=== PATIENT | male | born 1950 | race Caucasian/White ===

== ENCOUNTER → 2016-06-23 | Outpatient (CLI) | payer OTHER ==
[~2016-06-23] MED LIST: ALBU18002 INH; ATV/1 PO; ATV1 PO; DXY100 PO; FLV1 PO; FOLI1TAB7 PO; FRS/40 PO; IMD/2 PO; IMD2X PO; LEVO1TAB35 PO; MULT-411 PO; MULT-890 PO; NADO20TA PO; OXGN; PANT40TA PO; RIFA550T2 PO; SPR/100 PO
[2016-06-23 12:17] LABS: BASO % 0.4 %; BASO ABS # 0.03 K/uL (0-0.2); COMPLETE YES; HEMATOCRIT 37.4 % (42-52); IG% 0.6 %; LYMPH % 23.9 %; LYMPH ABS # 1.73 K/uL (1.2-3.4); MEAN CELL VOLUME 98.2 fL (80-100); MEAN CORPUSCULAR HEMOGLOBIN 34.4 pg (25-34); MEAN PLATELET VOLUME 9.2 fL (7.4-10.4); MONO % 9.7 %; NEUT % 62.4 %; PLATELET COUNT 264 K/uL (130-400); RED BLOOD COUNT 3.81 M/uL (4.7-6.1); WHITE BLOOD COUNT 7.24 K/uL (4.8-10.8)
[2016-06-23 12:33] LABS: CALCIUM 9.2 mg/dl (8.5-10.1)
[2016-06-23 12:34] LABS: ALT/SGPT 16 U/L (12-78); BLOOD UREA NITROGEN 10 mg/dl (7-18); BUN/CREATININE RATIO 8.7 (10-20); CARBON DIOXIDE 29 mmol/L (21-32); CHLORIDE 91 mmol/L (98-107); CHOLESTEROL 198 mg/dl (0-200); GLUCOSE 89 mg/dl (70-99); SODIUM 129 mmol/L (136-145); TRIGLYCERIDES 82 mg/dl (0-150); VERY LOW DENSITY LIPOPROT CALC 16 mg/dl
[2016-06-23 12:37] LABS: ALB/GLOB RATIO 0.8 (0.9-2); ALKALINE PHOSPHATASE 91 U/L (45-117); AST/SGOT 20 U/L (15-37); CHOLESTEROL/HDL RATIO 1.9; HDL CHOLESTEROL 104 mg/dl; LDL CHOLESTEROL CALCULATED 78 mg/dl
== END | disposition home or self-care (01) ==
LOC: C.LABBFT 10:38
PROVIDERS: ATTEND Physician Assistant Medical
DX: Z11.59 Encounter for screening for other viral diseases (principal); K70.30 Alcoholic cirrhosis of liver without ascites; I10 Essential (primary) hypertension

== ENCOUNTER → 2016-07-21 | Outpatient (CLI) | payer OTHER ==
--- NOTE | 2016-07-21 09:59 | DIAGNOSTIC IMAGING REPORT ---
ULTRASOUND RIGHT UPPER QUADRANT ABDOMEN CLINICAL HISTORY: Cirrhosis. COMPARISON STUDY: Abdominal ultrasound dated 01/18/2016. Abdominal CT dated 08/09/2010. TECHNIQUE: Real-time, grayscale, and color flow sonography of the right upper quadrant of the abdomen was performed. Images are reviewed in the transverse and longitudinal planes. FINDINGS: Liver: The liver is cirrhotic in morphology and heterogeneous in echotexture. There is nodularity of the hepatic surface contour. The liver measures 14.2 cm in length. There is no sonographic evidence of hepatic mass lesion. There is no intrahepatic biliary ductal dilatation. The main portal vein is patent. Gallbladder: Shadowing calcified gallstones are identified. There is no gallbladder wall thickening or pericholecystic fluid. A sonographic Collazo's sign is reportedly absent. The common bile duct measures up to 0.4 cm in diameter. Pancreas: Not well visualized due to overlying bowel gas. Right kidney: Survey images of the right kidney demonstrate cortical atrophy. Parenchymal scarring is suggested in the interpolar region. There is no hydronephrosis. Ascites: None. IMPRESSION: 1. The liver is cirrhotic in morphology and heterogeneous in echotexture. 2. Cholelithiasis without sonographic evidence of acute cholecystitis. 3. The pancreas was not well-visualized due to overlying bowel gas. Electronically signed by: Satish Muñiz M.D. 07/21/2016 9:58 AM Dictated Date/Time: 07/21/2016 9:56 AM
== END | disposition home or self-care (01) ==
LOC: C.ULTR 09:18
PROVIDERS: ATTEND Registered Nurse
DX: K70.30 Alcoholic cirrhosis of liver without ascites (principal); K72.90 Hepatic failure, unspecified without coma; K80.20 Calculus of gallbladder without cholecystitis without obstruction

== ENCOUNTER → 2016-12-28 | Outpatient (CLI) | payer OTHER ==
[~2016-12-28] MED LIST changes: -ALBU18002 INH; -ATV/1 PO; -DXY100 PO; -FOLI1TAB7 PO; -IMD/2 PO; -LEVO1TAB35 PO; -MULT-411 PO
[2016-12-28 17:35] LABS: BASO ABS # 0.09 K/uL (0-0.2); COMPLETE YES; EOS % 3.6 %; HEMATOCRIT 35.5 % (42-52); IG% 0.1 %; LYMPH % 17.1 %; LYMPH ABS # 1.54 K/uL (1.2-3.4); MEAN CELL VOLUME 99.2 fL (80-100); MEAN CORPUSCULAR HEMOGLOBIN 34.4 pg (25-34); MEAN CORPUSCULAR HGB CONC 34.6 g/dl (32-36); MEAN PLATELET VOLUME 9.5 fL (7.4-10.4); MONO % 15.3 %; NEUT % 62.9 %; PLATELET COUNT 306 K/uL (130-400); RED BLOOD COUNT 3.58 M/uL (4.7-6.1); WHITE BLOOD COUNT 8.98 K/uL (4.8-10.8)
[2016-12-28 17:43] LABS: INR 1.1 (0.9-1.1); PROTHROMBIN TIME (PATIENT) 11.3 SECONDS (9.0-12.0)
[2016-12-28 17:47] LABS: ALT/SGPT 17 U/L (12-78); AST/SGOT 21 U/L (15-37); BLOOD UREA NITROGEN 40 mg/dl (7-18); BUN/CREATININE RATIO 16.9 (10-20); CALCIUM 9.7 mg/dl (8.5-10.1); CARBON DIOXIDE 30 mmol/L (21-32); CHLORIDE 100 mmol/L (98-107); CREATININE 2.36 mg/dl (0.60-1.40); GLUCOSE 112 mg/dl (70-99); POTASSIUM 3.5 mmol/L (3.5-5.1); SODIUM 138 mmol/L (136-145)
[2016-12-28 17:50] LABS: ALB/GLOB RATIO 0.7 (0.9-2); ALKALINE PHOSPHATASE 63 U/L (45-117); FERRITIN 629.9 ng/ml (8.0-388.0); TOTAL IRON BINDING CAPACITY 262 mcg/dl (250-450)
[2016-12-30 11:27] LABS: AFP TUMOR MARKER SERUM 5.2 NG/ML (<6.1)
== END | disposition home or self-care (01) ==
LOC: C.LABBFT 15:33
PROVIDERS: ATTEND Internal Medicine
DX: K72.90 Hepatic failure, unspecified without coma (principal); D64.9 Anemia, unspecified; N28.9 Disorder of kidney and ureter, unspecified

== ENCOUNTER 2017-01-01 21:46 | Observation (INO) | payer OTHER ==
[~2017-01-01] VITALS: Ht 162.6 cm; Wt 81.4 kg
[2017-01-01] MEDS ORDERED: NITROGLYCERIN OINT 2% 1GM PACKET EXT STA (21:58)
--- NOTE | 2017-01-01 22:05 | EMERGENCY ROOM VISIT NOTE ---
History Report prepared by Yani: Lonny Vasquez Under the Supervision of: Dr. Satish Patel M.D. First contact with patient: 21:52 Stated Complaint: SOB, COUGH History of Present Illness The patient is a 66 year old male who presents to the Emergency Room with complaints of constant shortness of breath beginning a week ago. The patient states that he had a panic attack this morning, worsening his symptoms and prompting his visit to the emergency room today. He notes that he has had a productive cough for the past week which looks like he is "coughing up white stuff that looks like foam." He denies any vomiting, fever, leg swelling, and diarrhea. He reports that his symptoms improved with a breathing treatment while being transported to the emergency department via EMS. He notes that he wears 2.5L of oxygen at home. En route the patient received a duo neb, an albuterol neb, and 2 SL nitros. The patient was discharged on December 15 for fluid overload and cirrhosis. Source of History: patient Onset: a week ago Position: chest Quality: other (shortness of breath) Timing: constant Modifying Factors (Relieving): other (breathing treatment) Associated Symptoms: + cough (productive), No fevers, No vomiting, No diarrhea Note: The patient complains of a panic attack. He denies any leg swelling. Review of Systems See HPI for pertinent positives & negatives. A total of 10 systems reviewed and were otherwise negative. Past Medical & Surgical Medical Problems: (1) Acid reflux (2) Ascites (3) CHF (congestive heart failure) (4) COPD (chronic obstructive pulmonary disease) (5) Hypertension (6) Kidney disease (7) Liver disease Family History Cancer Diabetes mellitus Heart disease Hypertension Kidney disease Kidney stones Lung disease Social History Smoking Status: Former Smoker Alcohol Use: heavy Marital Status: single Housing Status: lives alone Current/Historical Medications Scheduled Folic Acid (Folvite), 1 MG PO QAM Furosemide (Lasix), 40 MG PO DAILY Multiple Vitamin (Daily Allyssa), 1 TAB PO DAILY Nadolol (Corgard), 20 MG PO QAM Pantoprazole (Protonix), 40 MG PO QAM Rifaximin (Xifaxan), 550 MG PO BID Spironolactone (Aldactone), 100 MG PO QAM Scheduled PRN Home O2 Therapy (Oxygen), 2 LITERS NA PRN PRN for Shortness of Breath Loperamide Hcl (Imodium), 2 MG PO Q6H PRN for Diarrhea Lorazepam (Ativan), 1 MG PO Q12 PRN for TREMORS Allergies Coded Allergies: No Known Allergies (Unverified , 01/01/17) Physical Exam Vital Signs Date Time Temp Pulse Resp B/P (MAP) Pulse Ox O2 Delivery O2 Flow Rate FiO2 01/01/17 22:42 69 142/89 96 Nasal Cannula 2.0 01/01/17 22:28 75 01/01/17 22:04 93 Nasal Cannula 4.0 01/01/17 22:04 93 4.0 01/01/17 21:58 96 Nasal Cannula 4.0 01/01/17 21:58 36.7 71 129/77 94 Nasal Cannula 4.0 Physical Exam GENERAL: Patient is in no acute distress. HEENT: No acute trauma, normocephalic atraumatic, mucous membranes moist, no nasal congestion, no scleral icterus. NECK: No stridor, no adenopathy, no meningismus, trachea is midline. LUNGS: Crackles bilaterally, no wheezing, diminished breath sounds bilaterally, breath sounds equal, persistent dry cough noted. HEART: Without murmurs gallops or rubs, regular rate and rhythm. ABDOMEN: Soft, nontender, bowel sounds positive, no hernias, no peritonitis. EXTREMITIES: No cyanosis or edema, full range of motion of all the joints without pain or difficulty, no signs for acute trauma. NEUROLOGIC: Oriented x 3, no acute motor or sensory deficits, no focal weakness. SKIN: No rash, no jaundice, no diaphoresis. Medical Decision & Procedures ER Provider Diagnostic Interpretation: Radiology results as stated below per my review and radiologist interpretation: CHEST ONE VIEW PORTABLE FINDINGS: The heart is normal in size. No pleural effusions. No pneumothorax. No focal lung consolidations to suggest pneumonia. No evidence for pulmonary edema. Similar appearing and is within the lung bases is likely due to the overlapping ribs. IMPRESSION: No acute process. Electronically signed by: Alex King M.D. 01/01/2017 10:51 PM Laboratory Results 01/01/17 22:16 Red Blood Count 3.70, Mean Corpuscular Volume 98.4, Mean Corpuscular Hemoglobin 33.5, Mean Corpuscular Hemoglobin Concent 34.1, Mean Platelet Volume 9.3, Neutrophils (%) (Auto) 69.1, Lymphocytes (%) (Auto) 15.5, Monocytes (%) (Auto) 11.0, Eosinophils (%) (Auto) 3.4, Basophils (%) (Auto) 0.8, Neutrophils # (Auto ) 6.40, Lymphocytes # (Auto) 1.43, Monocytes # (Auto) 1.02, Eosinophils # (Auto ) 0.31, Basophils # (Auto) 0.07 01/01/17 22:16 Test 01/01/17 22:16 01/01/17 23:15 White Blood Count 9.25 K/uL (4.8-10.8) Red Blood Count 3.70 M/uL (4.7-6.1) Hemoglobin 12.4 g/dL (14.0-18.0) Hematocrit 36.4 % (42-52) Mean Corpuscular Volume 98.4 fL (80-100) Mean Corpuscular Hemoglobin 33.5 pg (25-34) Mean Corpuscular Hemoglobin Concent 34.1 g/dl (32-36) Platelet Count 302 K/uL (130-400) Mean Platelet Volume 9.3 fL (7.4-10.4) Neutrophils (%) (Auto) 69.1 % Lymphocytes (%) (Auto) 15.5 % Monocytes (%) (Auto) 11.0 % Eosinophils (%) (Auto) 3.4 % Basophils (%) (Auto) 0.8 % Neutrophils # (Auto) 6.40 K/uL (1.4-6.5) Lymphocytes # (Auto) 1.43 K/uL (1.2-3.4) Monocytes # (Auto) 1.02 K/uL (0.11-0.59) Eosinophils # (Auto) 0.31 K/uL (0-0.5) Basophils # (Auto) 0.07 K/uL (0-0.2) RDW Standard Deviation 47.5 fL (36.4-46.3) RDW Coefficient of Variation 13.2 % (11.5-14.5) Immature Granulocyte % (Auto) 0.2 % Immature Granulocyte # (Auto) 0.02 K/uL (0.00-0.02) Prothrombin Time 11.3 SECONDS (9.0-12.0) Prothromb Time International Ratio 1.1 (0.9-1.1) Activated Partial Thromboplast Time 25.5 SECONDS (21.0-31.0) Partial Thromboplastin Ratio 1.0 Anion Gap 9.0 mmol/L (3-11) Est Creatinine Clear Calc Drug Dose 32.4 ml/min Estimated GFR () 36.2 Estimated GFR (Non- 31.2 BUN/Creatinine Ratio 14.3 (10-20) Calcium Level 8.9 mg/dl (8.5-10.1) Magnesium Level 1.6 mg/dl (1.8-2.4) Total Bilirubin 0.8 mg/dl (0.2-1) Aspartate Amino Transf (AST/SGOT) 25 U/L (15-37) Alanine Aminotransferase (ALT/SGPT) 18 U/L (12-78) Alkaline Phosphatase 64 U/L (45-117) Ammonia 53.0 umol/L (11-32) Troponin I < 0.015 ng/ml (0-0.045) Pro-B-Type Natriuretic Peptide 1382 pg/ml (0-900) Total Protein 7.7 gm/dl (6.4-8.2) Albumin 3.2 gm/dl (3.4-5.0) Globulin 4.5 gm/dl (2.5-4.0) Albumin/Globulin Ratio 0.7 (0.9-2) Ethyl Alcohol mg/dL < 3.0 mg/dl (0-3) Laboratory results reviewed by me. Medications Administered Medications (Trade) Dose Ordered Sig/Ivette Route Start Time Stop Time Status Last Admin Dose Admin Nitroglycerin (Nitroglycerin 2% Oint) 1 inch NOW STAT EXT 01/01/17 21:58 01/01/17 22:01 DC 01/01/17 22:20 1 INCH Cefepime HCl 2000 mg/Syringe 20 ml @ 5 mls/min NOW STAT IV 01/01/17 22:52 01/01/17 22:55 DC 01/01/17 23:01 5 MLS/MIN Methylprednisolone Sodium Succinate (Solu-Medrol IV) 80 mg NOW STAT IV 01/01/17 22:52 01/01/17 22:53 DC 01/01/17 23:16 80 MG Magnesium Sulfate (Magnesium Sulfate) 2 gm NOW STAT IV 01/01/17 23:20 11/19/17 23:21 DC 01/01/17 23:26 2 GM Albuterol/ Ipratropium (Duoneb) 3 ml NOW STAT INH 01/01/17 23:21 01/01/17 23:22 DC 01/01/17 23:26 3 ML ECG Indication: SOB/dyspnea Rate (beats per minute): 68 Rhythm: normal sinus Findings: no acute ischemic change, no ectopy, other (Diffuse nonspecific ST change) ED Course 2151: The patient was evaluated in room B4. A complete history and physical exam was performed. 2157: Nitroglycerin 1inch EXT 225: Solu-Medrol IV 80mg IV, Cefepime HCl 2000 mg/Syringe 20ml@5mls/min Protocol IV 2319: Magnesium Sulfate 2gm IV 2320: Duoneb 3ml INH 2321: I reevaluated and updated the patient. 2327: Upon reexamination the patient is stable. I discussed results and treatment plan with the patient. He verbalizes agreement and understanding. The patient will be evaluated for further management. Medical Decision Differential diagnoses include: pneumonia, bronchitis, exacerbation of COPD, heart failure, LA, anemia, electrolyte imbalance, and influenza. There is no leukocytosis, a mild anemia was noted. Renal panel testing show some possible acute on chronic renal failure. Magnesium level was low. No hepatitis. Ammonia level was elevated consistent with his liver disease. BNP was elevated consistent with fluid overload. Chest x-ray did not show pneumonia , pneumothorax or CHF. EKG showed a normal sinus rhythm, no acute ischemia. Cardiac enzyme testing times one is not consistent with acute cardiac injury. Blood cultures are pending. Alcohol level is undetectable. There is no coagulopathy. The patient had been in respiratory distress. He was still dyspneic when I did my evaluation but by his own report, was feeling better after the 2 nebulizers and nitroglycerin tablets. The patient was given IV Solu-Medrol, nitro paste, IV magnesium, IV cefepime and a DuoNeb. The patient is definitely breathing better, he feels improved. I think his primary issue is acute bronchitis with a flareup of his COPD. There does not seem to be significant fluid overload by chest x-ray. The patient is in no condition to be discharged. A hospital stay is required. I did speak to the patient and case management. The on-call hospitalist was consulted. Medication Reconcilliation Current Medication List: was personally reviewed by me Blood Pressure Screening Patient's blood pressure: Elevated blood pressure Blood pressure disposition: Elevated BP felt to be situational Consults Time Called: 2324 Consulting Physician: Dr. Duarte - Hospitalist, 3rd Year Resident with Dr. Augustine [facility] Returned Call: [phone] Discussed the patient's case. The patient will be evaluated for further management. Impression Primary Impression: Respiratory distress Additional Impressions: COPD exacerbation Acute bronchitis Hypomagnesemia Scribe Attestation The scribe's documentation has been prepared under my direction and personally reviewed by me in its entirety. I confirm that the note above accurately reflects all work, treatment, procedures, and medical decision making performed by me. Departure Information Dispostion Being Evaluated By Hospitalist Referrals Devon Silver M.D. (PCP) Forms HOME CARE DOCUMENTATION FORM, IMPORTANT VISIT INFORMATION Patient Instructions My [facility] Problem Qualifiers
[2017-01-01] MEDS ORDERED: MULT-411 PO (22:22)
[2017-01-01] MEDS ORDERED: IMD/2 PO (22:22)
[2017-01-01] MEDS ORDERED: CEFEPIME IV 2,000 MG in DEXTROSE 5% 100ML 100 ML IV STA (22:22)
[2017-01-01] MEDS ORDERED: FRS/40 PO (22:22)
[2017-01-01] MEDS ORDERED: FOLI1TAB7 PO (22:22)
[2017-01-01] MEDS ORDERED: ATV/1 PO (22:22)
[2017-01-01] MEDS ORDERED: METHYLPREDNISOLONE 125 MG VIAL IV STA (22:52)
[2017-01-01] MEDS ORDERED: CEFEPIME IV 2,000 MG in SYRINGE 7.5 ML IV STA (22:52)
--- NOTE | 2017-01-01 22:52 | DIAGNOSTIC IMAGING REPORT ---
CHEST ONE VIEW PORTABLE HISTORY: EVALUATE RESPIRATORY DISTRESS.DYSPNEA COMPARISON: Chest 12/15/2016. FINDINGS: The heart is normal in size. No pleural effusions. No pneumothorax. No focal lung consolidations to suggest pneumonia. No evidence for pulmonary edema. Similar appearing and is within the lung bases is likely due to the overlapping ribs. IMPRESSION: No acute process. Electronically signed by: Alex King M.D. 01/01/2017 10:51 PM Dictated Date/Time: 01/01/2017 10:50 PM
[2017-01-01 23:02] LABS: BASO % 0.8 %; BASO ABS # 0.07 K/uL (0-0.2); COMPLETE YES; EOS % 3.4 %; HEMATOCRIT 36.4 % (42-52); IG% 0.2 %; LYMPH % 15.5 %; LYMPH ABS # 1.43 K/uL (1.2-3.4); MEAN CELL VOLUME 98.4 fL (80-100); MEAN CORPUSCULAR HEMOGLOBIN 33.5 pg (25-34); MEAN CORPUSCULAR HGB CONC 34.1 g/dl (32-36); MEAN PLATELET VOLUME 9.3 fL (7.4-10.4); NEUT % 69.1 %; PLATELET COUNT 302 K/uL (130-400); WHITE BLOOD COUNT 9.25 K/uL (4.8-10.8)
[2017-01-01 23:15] LABS: INR 1.1 (0.9-1.1); PROTHROMBIN TIME (PATIENT) 11.3 SECONDS (9.0-12.0)
[2017-01-01 23:19] LABS: ALT/SGPT 18 U/L (12-78); AST/SGOT 25 U/L (15-37); BLOOD UREA NITROGEN 30 mg/dl (7-18); BUN/CREATININE RATIO 14.3 (10-20); CALCIUM 8.9 mg/dl (8.5-10.1); CARBON DIOXIDE 28 mmol/L (21-32); CHLORIDE 101 mmol/L (98-107); CREATININE 2.11 mg/dl (0.60-1.40); GLUCOSE 112 mg/dl (70-99); MAGNESIUM 1.6 mg/dl (1.8-2.4); POTASSIUM 3.8 mmol/L (3.5-5.1); SODIUM 138 mmol/L (136-145)
[2017-01-01] MEDS ORDERED: MAGNESIUM SULFATE 1GM / D5W 1 GM BAG IV STA (23:20)
[2017-01-01] MEDS ORDERED: ALBUT/IPRATROP 3MG/0.5MG NEB 3 ML VIAL INH STA (23:21)
[2017-01-01 23:24] LABS: ALB/GLOB RATIO 0.7 (0.9-2); ALKALINE PHOSPHATASE 64 U/L (45-117)
[2017-01-01 23:31] LABS: URINE APPEARANCE CLOUDY (CLEAR); URINE BILIRUBIN NEG (NEG); URINE COLOR DK YELLOW; URINE NITRITE NEG (NEG); URINE SPECIFIC GRAVITY 1.019 (1.000-1.030); UROBILINOGEN NEG (NEG); ZZUR CULT IF INDIC CLEAN CATCH YES
[2017-01-01] MEDS ORDERED: NITROGLYCERIN 0.4 MG SL PER TAB CHARGE SL PRN (23:45)
[2017-01-01] MEDS ORDERED: LOPERAMIDE HCL 2 MG CAP PO PRN (23:45)
[2017-01-01] MEDS ORDERED: ONDANSETRON INJ 2 MG/ML 2 ML VIAL IV PRN (23:45)
[2017-01-01] MEDS ORDERED: LORAZEPAM 1 MG TAB PO PRN (23:45)
[2017-01-01] MEDS ORDERED: ALUMINUM/MAGNESIUM/SIMETH (MAALOX MAX) 30 ML UDC PO PRN (23:45)
[2017-01-01] MEDS ORDERED: POLYETHYLENE (MIRALAX) 17 GM PACK PO PRN (23:45)
[2017-01-01] MEDS ORDERED: ACETAMINOPHEN 325 MG TAB PO PRN (23:45)
[2017-01-01] MEDS ORDERED: MAGNESIUM HYDROXIDE SUSP 30 ML UDC PO PRN (23:45)
[2017-01-01 23:46] LABS: MANUAL MICROSCOPIC REQUIRED? NO; REVIEW REQ? YES
[2017-01-01] MEDS ORDERED: DOXYCYCLINE HYCLATE 100 MG CAP PO STA (23:52)
[2017-01-01] MEDS ORDERED: POTASSIUM CHLORIDE 10 MEQ TABCR PO STA (23:56)
[2017-01-02] MEDS ORDERED: MAGNESIUM OXIDE 400 MG TAB PO STA (00:01)
[2017-01-02] MEDS ORDERED: IV FLUIDS COMPLETED PRN (00:15)
[2017-01-02 00:30] VITALS: BP 136/83; PULSE 82; TEMP 36.3; O2SAT 92; Ht 162.6 cm; Wt 81.4 kg
[2017-01-02] MEDS ORDERED: MAGNESIUM HYDROXIDE SUSP 30 ML UDC PO PRN (00:30)
[2017-01-02] MEDS ORDERED: ONDANSETRON INJ 2 MG/ML 2 ML VIAL IV PRN (00:30)
[2017-01-02] MEDS ORDERED: NITROGLYCERIN 0.4 MG SL PER TAB CHARGE SL PRN (00:30)
[2017-01-02] MEDS ORDERED: ACETAMINOPHEN 325 MG TAB PO PRN (00:30)
[2017-01-02] MEDS ORDERED: LOPERAMIDE HCL 2 MG CAP PO PRN (00:30)
[2017-01-02] MEDS ORDERED: ALUMINUM/MAGNESIUM/SIMETH (MAALOX MAX) 30 ML UDC PO PRN (00:30)
[2017-01-02] MEDS ORDERED: LORAZEPAM 1 MG TAB PO PRN (00:30)
[2017-01-02] MEDS ORDERED: POLYETHYLENE (MIRALAX) 17 GM PACK PO PRN (00:30)
--- NOTE | 2017-01-02 01:28 | History and Physical ---
History & Physical Date & Time of Service: Jan 01, 2017 at 2350 Chief Complaint: Shortness Of Breath Primary Care Physician: Devon Silver M.D. History of Present Illness Source: patient, hospital records Mr Martin Mark is a 66 year old male with COPD, chronic respiratory failure on 2L O2, cirrhosis, alcoholism who presents with shortness of breath for a week. He reports he has been feeling increasingly short of breath with basic activities. He has noticed more sputum when coughing. He had an episode this morning, which he thinks may have been a panic attack, when he was unable to breathe so came to the ED. He had not increased his home oxygen requirement. In the ambulance, he had an episode of chest pain which improved after receiving nitro. He also had a duoneb which somewhat helped his breathing. He currently feels his breathing is about the same as it was before. On review of records, he was recently admitted on 12/13 for 2 days. He had lower leg swelling due to cirrhosis. He had an echo and had a normal EF at that time. Past Medical/Surgical History Medical Problems: (1) Acid reflux Status: Chronic (2) Ascites Status: Chronic (3) COPD (chronic obstructive pulmonary disease) Status: Chronic (4) Hypertension Status: Chronic (5) Kidney disease Status: Chronic (6) Liver disease Status: Chronic Family History Cancer Diabetes mellitus Heart disease Hypertension Kidney disease Kidney stones Lung disease Social History Smoking Status: Former Smoker Smokeless Tobacco Use: No Alcohol Use: heavy Drug Use: none Marital Status: single Housing status: lives alone Occupational Status: retired Immunizations History of Influenza Vaccine: No History of Tetanus Vaccine?: No Tetanus Immunization Date: July 06, 2000 History of Pneumococcal: No Pneumococcal Date: July 07, 2007 History of Hepatitis B Vaccine: No Multi-Drug Resistant Organisms History of MDRO: No Allergies Coded Allergies: No Known Allergies (Unverified , 01/01/17) Home Medications Scheduled Folic Acid (Folvite), 1 MG PO QAM Furosemide (Lasix), 40 MG PO DAILY Multiple Vitamin (Daily Allyssa), 1 TAB PO DAILY Nadolol (Corgard), 20 MG PO QAM Pantoprazole (Protonix), 40 MG PO QAM Rifaximin (Xifaxan), 550 MG PO BID Spironolactone (Aldactone), 100 MG PO QAM Scheduled PRN Home O2 Therapy (Oxygen), 2 LITERS NA PRN PRN for Shortness of Breath Loperamide Hcl (Imodium), 2 MG PO Q6H PRN for Diarrhea Lorazepam (Ativan), 1 MG PO Q12 PRN for TREMORS Review of Systems See HPI for pertinent positives & negatives. A total of 10 systems reviewed and were otherwise negative. Physical Exam Vital Signs Date Time Temp Pulse Resp B/P (MAP) Pulse Ox O2 Delivery O2 Flow Rate FiO2 01/02/17 00:01 116/56 01/01/17 23:55 67 14 100 Nasal Cannula 2.5 01/01/17 23:31 128/67 01/01/17 23:25 68 15 97 Nasal Cannula 2.5 01/01/17 23:20 134/90 01/01/17 23:02 100/49 01/01/17 22:48 139/65 01/01/17 22:45 65 18 96 Nasal Cannula 2.5 01/01/17 22:42 69 142/89 96 Nasal Cannula 2.0 01/01/17 22:28 75 01/01/17 22:04 93 Nasal Cannula 4.0 01/01/17 22:04 93 4.0 01/01/17 21:58 96 Nasal Cannula 4.0 01/01/17 21:58 36.7 71 129/77 94 Nasal Cannula 4.0 General Appearance: WD/WN, + mild distress Head: normocephalic, atraumatic Eyes: normal inspection ENT: hearing grossly normal Neck: supple, no JVD Respiratory/Chest: + wheezing (diffuse expiratory wheeze) Cardiovascular: regular rate, rhythm, no edema, no murmur, normal peripheral pulses Abdomen/GI: normal bowel sounds, non tender, soft Back: no CVA tenderness, no muscle spasm Extremities/Musculoskelatal: no calf tenderness, no pedal edema Neurologic/Psych: alert, normal mood/affect, normal reflexes, oriented x 3 Skin: no rash Diagnostics Laboratory Results Results Past 24 Hours Test 01/01/17 22:16 01/01/17 23:15 Range/Units White Blood Count 9.25 4.8-10.8 K/uL Red Blood Count 3.70 4.7-6.1 M/uL Hemoglobin 12.4 14.0-18.0 g/dL Hematocrit 36.4 42-52 % Mean Corpuscular Volume 98.4 80-100 fL Mean Corpuscular Hemoglobin 33.5 25-34 pg Mean Corpuscular Hemoglobin Concent 34.1 32-36 g/dl Platelet Count 302 130-400 K/uL Mean Platelet Volume 9.3 7.4-10.4 fL Neutrophils (%) (Auto) 69.1 % Lymphocytes (%) (Auto) 15.5 % Monocytes (%) (Auto) 11.0 % Eosinophils (%) (Auto) 3.4 % Basophils (%) (Auto) 0.8 % Neutrophils # (Auto) 6.40 1.4-6.5 K/uL Lymphocytes # (Auto) 1.43 1.2-3.4 K/uL Monocytes # (Auto) 1.02 0.11-0.59 K/uL Eosinophils # (Auto) 0.31 0-0.5 K/uL Basophils # (Auto) 0.07 0-0.2 K/uL RDW Standard Deviation 47.5 36.4-46.3 fL RDW Coefficient of Variation 13.2 11.5-14.5 % Immature Granulocyte % (Auto) 0.2 % Immature Granulocyte # (Auto) 0.02 0.00-0.02 K/uL Prothrombin Time 11.3 9.0-12.0 SECONDS Prothromb Time International Ratio 1.1 0.9-1.1 Activated Partial Thromboplast Time 25.5 21.0-31.0 SECONDS Partial Thromboplastin Ratio 1.0 Sodium Level 138 136-145 mmol/L Potassium Level 3.8 3.5-5.1 mmol/L Chloride Level 101 98-107 mmol/L Carbon Dioxide Level 28 21-32 mmol/L Anion Gap 9.0 3-11 mmol/L Blood Urea Nitrogen 30 7-18 mg/dl Creatinine 2.11 0.60-1.40 mg/dl Est Creatinine Clear Calc Drug Dose 32.4 ml/min Estimated GFR () 36.2 Estimated GFR (Non- 31.2 BUN/Creatinine Ratio 14.3 10-20 Random Glucose 112 70-99 mg/dl Calcium Level 8.9 8.5-10.1 mg/dl Magnesium Level 1.6 1.8-2.4 mg/dl Total Bilirubin 0.8 0.2-1 mg/dl Aspartate Amino Transf (AST/SGOT) 25 15-37 U/L Alanine Aminotransferase (ALT/SGPT) 18 12-78 U/L Alkaline Phosphatase 64 45-117 U/L Ammonia 53.0 11-32 umol/L Troponin I < 0.015 0-0.045 ng/ml Pro-B-Type Natriuretic Peptide 1382 0-900 pg/ml Total Protein 7.7 6.4-8.2 gm/dl Albumin 3.2 3.4-5.0 gm/dl Globulin 4.5 2.5-4.0 gm/dl Albumin/Globulin Ratio 0.7 0.9-2 Ethyl Alcohol mg/dL < 3.0 0-3 mg/dl Urine Color DK YELLOW Urine Appearance CLOUDY CLEAR Urine pH 5.0 4.5-7.5 Urine Specific [place] 1.019 1.000-1.030 Urine Protein NEG NEG Urine Glucose (UA) NEG NEG Urine Ketones NEG NEG Urine Occult Blood 2+ NEG Urine Nitrite NEG NEG Urine Bilirubin NEG NEG Urine Urobilinogen NEG NEG Urine Leukocyte Esterase MODERATE NEG Urine WBC (Auto) 10-30 0-5 /hpf Urine RBC (Auto) 5-10 0-4 /hpf Urine Hyaline Casts (Auto) 10-30 0-5 /lpf Urine Epithelial Cells (Auto) 10-20 0-5 /lpf Urine Bacteria (Auto) 1+ NEG Urine Crystals CALCIUM OXALATE NONE PRSENT Urine Pathogenic Casts 0 /lpf Urine Yeast (Auto) NONE PRSENT Microbiology Results 01/01/17 Blood Culture, Received Pending 01/01/17 Blood Culture, Received Pending 01/01/17 Urine Culture, Received Pending Diagnostic Radiology CHEST ONE VIEW PORTABLE HISTORY: EVALUATE RESPIRATORY DISTRESS.DYSPNEA COMPARISON: Chest 12/15/2016. FINDINGS: The heart is normal in size. No pleural effusions. No pneumothorax. No focal lung consolidations to suggest pneumonia. No evidence for pulmonary edema. Similar appearing and is within the lung bases is likely due to the overlapping ribs. IMPRESSION: No acute process. EKG Normal sinus rhythm Low voltage QRS Nonspecific ST and T wave abnormality Abnormal ECG When compared with ECG of 21-OCT-2010 17:33, Nonspecific T wave abnormality now evident in Anterior leads Impression Assessment and Plan 66 yo M with acute on chronic respiratory failure - ddx infectious vs edema vs reactive airway disease Shortness of breath - Continue duonebs and home inhalers - Received a dose of Cefepime in ED, will continue with PO Doxycycline - Was on 4L o2 upon arrival. Wean to 2L when able. - Continue Lasix 40mg PO Chest pain, x 1 episode in ambulance - Will repeat troponin in 6 hrs Hypomagnesemia - Repeat to 2.0 Cirrhosis - Continue Spironolactone - Continue Nadolol GERD - Continue PPI Diarrhea - Continue Immodium Dispo: Obs on Tele Code status: Full VTE: Heparin Attending addendum: I have physically seen this patient, have supervised the medical residents activities, and agree with the H&P unless as otherwise noted. Assessment and Plan: Precordial chest pain/nonspecific ST-T changes on EKG-- The patient will be admitted to telemetry for serial cardiac enzymes, cardiac rhythm monitoring and a 2-D echocardiogram with Dopplers. Bronchitis/shortness of breath-- Duonebs every 4 hours while awake every 2 hours when necessary. Received cefepime IV in the ED Place on doxycycline by mouth. Alcoholic cirrhosis--continue spironolactone and nadolol GERD-- Continue PPI. Level of Care Telemetry Advanced Directives Existing Advance Directive: No Existing Living Will: No Existing Power of Drive Away Driver: No Resuscitation Status FULL RESUSCITATION VTE Prophylaxis VTE Risk Assessment Done? Y/N: Yes Risk Level: Moderate Given or contraindicated: SCD's Resident Tracking Resident Involvement: Resident Care Provided Care Provided: Adult Hospital Medicine
[2017-01-02] MEDS ORDERED: PNEUMOCOCCAL ADMINISTRATION CHARGE ONE (01:45)
[2017-01-02] MEDS ORDERED: PNEUMOCOCCAL POLYSACCHARIDES 25 MCG/0.5 ML VIAL/SYR IM. ONE (01:45)
[2017-01-02 05:13] VITALS: BP 139/86; PULSE 82; TEMP 36.9; O2SAT 92
[2017-01-02 07:41] VITALS: BP 129/83; PULSE 65; TEMP 36.5; O2SAT 99
[2017-01-02] MEDS: DOXYCYCLINE HYCLATE 100 MG CAP PO SCH ×2 (08:16→18:26)
[2017-01-02] MEDS ORDERED: FUROSEMIDE 40 MG TAB PO SCH ×2 (09:00)
[2017-01-02] MEDS ORDERED: HEPARIN SOD 5000 UNIT/0.5 ML CARP SQ SCH ×2 (09:00)
[2017-01-02] MEDS ORDERED: RIFAXIMIN TAB 550 MG TAB PO SCH ×2 (09:00)
[2017-01-02] MEDS ORDERED: MULTIVITAMIN TAB PO SCH ×2 (09:00)
[2017-01-02] MEDS ORDERED: PANTOprazole SOD 40 MG TAB PO SCH ×2 (09:00)
[2017-01-02] MEDS ORDERED: SPIRONOLACTONE 100 MG TAB PO SCH ×2 (09:00)
[2017-01-02] MEDS ORDERED: NADOLOL 40 MG TAB PO SCH ×2 (09:00)
[2017-01-02] MEDS ORDERED: MAGNESIUM OXIDE 400 MG TAB PO SCH (09:00)
[2017-01-02 11:52] VITALS: BP 119/72; PULSE 73; TEMP 36.5; O2SAT 97
--- NOTE | 2017-01-02 12:12 | Hospitalist Progress Note ---
Hospitalist Progress Note Date of Service Jan 02, 2017. Subjective Pt evaluation today including: conversation w/ patient, physical exam, chart review, lab review, review of studies Pain: none PO Intake: Good Voiding: no voiding problems The patient was seen and examined this morning. Pt reports doing well today, he feels his breathing is significantly improved at this point. He is still wearing supplemental O2 and reports only using 2L with exertion at home. His feet and legs are still quite swollen. He denies chest pain, palpitations, flutter or dyspnea at rest. He has been ambulating to the bathroom without much difficulty. Pt denies fever, chills, sweats. He has a dry cough, nonproductive. ROS: 6 point ROS reviewed and negative other than above. Objective Vital Signs Date Time Temp Pulse Resp B/P (MAP) Pulse Ox O2 Delivery O2 Flow Rate FiO2 01/02/17 07:45 Nasal Cannula 2.5 01/02/17 07:41 36.5 65 18 129/83 (98) 99 2.0 01/02/17 05:13 36.9 82 20 139/86 (103) 92 Nasal Cannula 2.0 01/02/17 04:00 Nasal Cannula 2.5 01/02/17 00:30 36.3 82 22 136/83 92 Nasal Cannula 2.0 01/02/17 00:01 116/56 01/01/17 23:55 67 14 100 Nasal Cannula 2.5 01/01/17 23:31 128/67 01/01/17 23:25 68 15 97 Nasal Cannula 2.5 01/01/17 23:20 134/90 01/01/17 23:02 100/49 01/01/17 22:48 139/65 01/01/17 22:45 65 18 96 Nasal Cannula 2.5 01/01/17 22:42 69 142/89 96 Nasal Cannula 2.0 01/01/17 22:28 75 01/01/17 22:04 93 Nasal Cannula 4.0 01/01/17 22:04 93 4.0 01/01/17 21:58 96 Nasal Cannula 4.0 01/01/17 21:58 36.7 71 129/77 94 Nasal Cannula 4.0 Physical Exam General Appearance: WD/WN, no apparent distress, + obese Eyes: PERRL, EOMI ENT: hearing grossly normal, pharynx normal Neck: supple, no JVD Respiratory/Chest: chest non-tender, no respiratory distress, no accessory muscle use, + pertinent finding (on 2 L via NC, no wheezing or rhonchi, slightly diminished breath sounds at bases) Cardiovascular: regular rate, rhythm Abdomen: normal bowel sounds, non tender, soft Extremities: non-tender, + pedal edema (2+ minimal pitting edema in BLE ) Neurologic/Psychiatric: alert, normal mood/affect, oriented x 3 Skin: normal color, warm/dry Laboratory Results Last 24 Hours Test 01/01/17 22:16 01/01/17 23:15 01/02/17 05:56 White Blood Count 9.25 K/uL Red Blood Count 3.70 M/uL Hemoglobin 12.4 g/dL Hematocrit 36.4 % Mean Corpuscular Volume 98.4 fL Mean Corpuscular Hemoglobin 33.5 pg Mean Corpuscular Hemoglobin Concent 34.1 g/dl Platelet Count 302 K/uL Mean Platelet Volume 9.3 fL Neutrophils (%) (Auto) 69.1 % Lymphocytes (%) (Auto) 15.5 % Monocytes (%) (Auto) 11.0 % Eosinophils (%) (Auto) 3.4 % Basophils (%) (Auto) 0.8 % Neutrophils # (Auto) 6.40 K/uL Lymphocytes # (Auto) 1.43 K/uL Monocytes # (Auto) 1.02 K/uL Eosinophils # (Auto) 0.31 K/uL Basophils # (Auto) 0.07 K/uL RDW Standard Deviation 47.5 fL RDW Coefficient of Variation 13.2 % Immature Granulocyte % (Auto) 0.2 % Immature Granulocyte # (Auto) 0.02 K/uL Prothrombin Time 11.3 SECONDS Prothromb Time International Ratio 1.1 Activated Partial Thromboplast Time 25.5 SECONDS Partial Thromboplastin Ratio 1.0 Sodium Level 138 mmol/L Potassium Level 3.8 mmol/L Chloride Level 101 mmol/L Carbon Dioxide Level 28 mmol/L Anion Gap 9.0 mmol/L Blood Urea Nitrogen 30 mg/dl Creatinine 2.11 mg/dl Est Creatinine Clear Calc Drug Dose 32.4 ml/min Estimated GFR () 36.2 Estimated GFR (Non- 31.2 BUN/Creatinine Ratio 14.3 Random Glucose 112 mg/dl Calcium Level 8.9 mg/dl Magnesium Level 1.6 mg/dl Total Bilirubin 0.8 mg/dl Aspartate Amino Transf (AST/SGOT) 25 U/L Alanine Aminotransferase (ALT/SGPT) 18 U/L Alkaline Phosphatase 64 U/L Ammonia 53.0 umol/L Troponin I < 0.015 ng/ml < 0.015 ng/ml Pro-B-Type Natriuretic Peptide 1382 pg/ml Total Protein 7.7 gm/dl Albumin 3.2 gm/dl Globulin 4.5 gm/dl Albumin/Globulin Ratio 0.7 Ethyl Alcohol mg/dL < 3.0 mg/dl Urine Color DK YELLOW Urine Appearance CLOUDY Urine pH 5.0 Urine Specific Julian 1.019 Urine Protein NEG Urine Glucose (UA) NEG Urine Ketones NEG Urine Occult Blood 2+ Urine Nitrite NEG Urine Bilirubin NEG Urine Urobilinogen NEG Urine Leukocyte Esterase MODERATE Urine WBC (Auto) 10-30 /hpf Urine RBC (Auto) 5-10 /hpf Urine Hyaline Casts (Auto) 10-30 /lpf Urine Epithelial Cells (Auto) 10-20 /lpf Urine Bacteria (Auto) 1+ Urine Crystals CALCIUM OXALATE Urine Pathogenic Casts /lpf Urine Yeast (Auto) Assessment and Plan 66 yo M with acute on chronic respiratory failure - ddx infectious vs edema vs reactive airway disease Shortness of breath - Continue duonebs and home inhalers - Received a dose of Cefepime in ED, will continue with PO Doxycycline - Was on 4L o2 upon arrival - pt now on 2L - asked nursing to walk and check saturations. - Continue Lasix 40mg PO - pt still with slight pitting and 2+ edema in BLE Chest pain, x 1 episode in ambulance Precordial chest pain/nonspecific ST-T changes on EKG-- - Cardiac enzymes negative x 3 - Echo obtained - awaiting final result Hypomagnesemia - resolved - Repleated to 2.0 STEVE on CKD - Cr. is elevated to 2.36 as an outpatient few days ago, and baseline seemed to be much better even only a few months ago. - Dr. Silver (PCP) called and is requesting several studies to evaluate CKD as pt is very noncompliant and has not gone to get bloodwork or studies completed as an outpatient Serum and urine Protein electrophoresis Renal U/S Ferritin Nephrology consult - will hold off on this pending other study results. Alcoholic Cirrhosis - Continue Spironolactone - Continue Nadolol GERD - Continue PPI Diarrhea - Continue Immodium DVT ppx: heparin subq Code status: Full Dispo: Admitted under observation, discharge possible tomorrow pending renal studies and improvement in Cr.
--- NOTE | 2017-01-02 15:40 | DIAGNOSTIC IMAGING REPORT ---
EXAMINATION: RENAL ULTRASOUND CLINICAL HISTORY: Chronic kidney disease. COMPARISON STUDY: Biliary ultrasound dated 07/21/2016 FINDINGS: The right kidney measures 9.2 cm. The left kidney measures 10.3 cm. There is no evidence of hydronephrosis. There is a 3.7 cm lower pole left renal cyst. There is mild bladder wall thickening. Bilateral ureteral jets were visualized. IMPRESSION : 1. No evidence of hydronephrosis 2. 3.7 cm left renal cyst 3. Mild bladder wall thickening Electronically signed by: Chencho Rey M.D. 01/02/2017 3:39 PM Dictated Date/Time: 01/02/2017 3:38 PM
[2017-01-02] MEDS ORDERED: DXY100 PO (18:02)
--- NOTE | 2017-01-02 18:04 | Discharge Instructions ---
Discharge Instructions Date of Service Jan 02, 2017. Admission Reason for Admission: Shortness Of Breath Discharge Discharge Diagnosis / Problem: Shortness of breath: multifactorial cause, cirrhosis, bronchitis Discharge Goals Goal(s): Improve function, Increase independence Activity Recommendations Activity Limitations: resume your previous activity . Instructions / Follow-Up Instructions / Follow-Up F/U with Dr. Silver within 1 week Paient needs to repeat creatinine ad partial renal test at next visit with Dr. Silver Current Hospital Diet Patient's current hospital diet: AHA Diet (Heart Healthy) Discharge Diet Recommended Diet: AHA Diet (Heart Healthy) Fluid Restriction: 1800 ml (7 cups) Pending Studies Studies pending at discharge: no Medical Emergencies . Who to Call and When: Medical Emergencies: If at any time you feel your situation is an emergency, please call 911 immediately. . Non-Emergent Contact Non-Emergency issues call your: Primary Care Provider Call Non-Emergent contact if: you have any medication questions . . "Provider Documentation" section prepared by Medardo Bangura. . VTE Core Measure Inpt VTE Proph given/why not?: SCD's
--- NOTE | 2017-01-02 18:05 | Discharge Summary ---
Discharge Summary Date of Service Jan 02, 2017. Discharge Summary Admission Date: Jan 01, 2017 at 23:50 Immunizations: Have You Had Influenza Vaccine: No History of Tetanus Vaccine?: No Tetanus Immunization Date: July 06, 2000 History of Pneumococcal: No Pneumococcal Date: July 07, 2007 History of Hepatitis B Vaccine: No Hospital Course Patient did not want to stay another night. I recommended patien to stay the night but patient refused. will discharge patient after informing him that I recommended against this. Patient is aware This includes examination of the patient, discharge planning, medication reconciliation, and communication with other providers. Discharge Instructions Please refer to the electronic Patient Visit Report (Discharge Instructions) for additional information.
[2017-01-02 18:15] VITALS: BP 119/72; PULSE 73; TEMP 36.5; O2SAT 97
[2017-01-03 17:30] LABS: ALBUMIN 3.7 G/DL (3.8-4.8); GAMMA GLOBULIN 1.2 G/DL (0.8-1.7)
[2017-01-04 09:25] LABS: CREATININE UR 137 MG/DL (20-370)
== END 2017-01-02 18:37 | disposition home or self-care (01) ==
LOC: EDBD 21:46 → C.EDB 21:47 → C.MED 23:50 → ENRESERV 01-02
PROVIDERS: ADMIT Hospitalist; ATTEND Internal Medicine Sports Medicine
DX: J44.9 Chronic obstructive pulmonary disease, unspecified (principal); I10 Essential (primary) hypertension; Z87.891 Personal history of nicotine dependence; K74.60 Unspecified cirrhosis of liver; E83.42 Hypomagnesemia; R19.7 Diarrhea, unspecified; F10.20 Alcohol dependence, uncomplicated

== ENCOUNTER → 2017-01-10 | Outpatient (CLI) | payer OTHER ==
[~2017-01-10] MED LIST changes: +ATV/1 PO; -ATV1 PO; +DXY100 PO; -FLV1 PO; +FOLI1TAB7 PO; +IMD/2 PO; -IMD2X PO; +MULT-411 PO; -MULT-890 PO
[2017-01-10 17:53] LABS: URINE APPEARANCE CLEAR (CLEAR); URINE BILIRUBIN NEG (NEG); URINE COLOR YELLOW; URINE NITRITE NEG (NEG); URINE SPECIFIC GRAVITY 1.019 (1.000-1.030); UROBILINOGEN NEG (NEG)
[2017-01-10 17:56] LABS: MANUAL MICROSCOPIC REQUIRED? NO; REVIEW REQ? NO
[2017-01-10 17:58] LABS: BLOOD UREA NITROGEN 34 mg/dl (7-18); BUN/CREATININE RATIO 16.1 (10-20); CALCIUM 9.6 mg/dl (8.5-10.1); CARBON DIOXIDE 32 mmol/L (21-32); CHLORIDE 100 mmol/L (98-107); CREATININE 2.13 mg/dl (0.60-1.40); GLUCOSE 101 mg/dl (70-99); POTASSIUM 4.1 mmol/L (3.5-5.1); SODIUM 137 mmol/L (136-145)
[2017-01-10 18:04] LABS: FERRITIN 563.2 ng/ml (8.0-388.0)
[2017-01-10 18:28] LABS: URINE PROTIEN/CREAT RATIO 0.1 (0-0.2)
[2017-01-12 17:53] LABS: ALBUMIN 3.8 G/DL (3.8-4.8); GAMMA GLOBULIN 1.2 G/DL (0.8-1.7); TOTAL PROTEIN 7.2 G/DL (6.2-8.3)
[2017-01-13 10:21] LABS: CREATININE UR 182 MG/DL (20-370)
== END | disposition home or self-care (01) ==
LOC: C.LABBFT 14:01
PROVIDERS: ATTEND Physician Assistant Medical
DX: N28.9 Disorder of kidney and ureter, unspecified (principal); D64.9 Anemia, unspecified; R39.9 Unspecified symptoms and signs involving the genitourinary system

== ENCOUNTER → 2017-01-13 | Outpatient (CLI) | payer OTHER ==
--- NOTE | 2017-01-13 09:36 | DIAGNOSTIC IMAGING REPORT ---
(RENAL)RETROPERITON COMP CLINICAL HISTORY: 66 years-old Male presenting with RENAL INSUFFICIENCY. TECHNIQUE: Real-time grayscale and limited color Doppler ultrasound imaging of the kidneys and bladder was performed. COMPARISON: 01/02/2017. FINDINGS: Right kidney: Normal echogenicity. Right kidney measures 11.3 cm. No hydronephrosis. No convincing evidence of calculus or mass. Normal perfusion. Left kidney: Normal echogenicity. Left kidney measures 10.9 cm. No hydronephrosis. 4.1 x 4.0 x 3.2 cm lower pole simple cyst. Normal perfusion. Bladder: Interval increase in irregular circumferential bladder wall thickening measuring up to 6 mm. Bilateral ureteral jets present. Other: None. IMPRESSION: 1. No hydronephrosis. 2. Interval increase in bladder wall thickening. This could suggest chronic bladder outlet obstruction or cystitis. Correlate with urinalysis. Electronically signed by: Lopez Brower M.D. 01/13/2017 9:35 AM Dictated Date/Time: 01/13/2017 9:33 AM
== END | disposition home or self-care (01) ==
LOC: C.ULTR 08:43
PROVIDERS: ATTEND Internal Medicine
DX: N28.9 Disorder of kidney and ureter, unspecified (principal)

== ENCOUNTER → 2017-01-25 | Outpatient (CLI) | payer OTHER ==
[~2017-01-25] MED LIST changes: -FOLI1TAB7 PO; +FOLI1TAB8 PO
--- NOTE | 2017-01-25 09:19 | DIAGNOSTIC IMAGING REPORT ---
ABDOMINAL ULTRASOUND, RIGHT UPPER QUADRANT HISTORY: LAENNEC'S CIROSIS. COMPARISON: Abdominal ultrasound 07/21/2016. FINDINGS: Pancreas: Obscured by overlying bowel gas. Liver: 13 cm in length. Nodular contour consistent with cirrhosis. No hepatic masses identified. Gallbladder: Multiple small gallstones. No gallbladder wall thickening. CBD: 3 mm. Right kidney: No hydronephrosis. IMPRESSION: 1. No change from the prior study. 2. Cholelithiasis. 3. Cirrhotic and atrophic liver. Electronically signed by: Alex King M.D. 01/25/2017 9:17 AM Dictated Date/Time: 01/25/2017 9:16 AM
== END | disposition home or self-care (01) ==
LOC: C.ULTR 08:25
PROVIDERS: ATTEND Registered Nurse
DX: K70.30 Alcoholic cirrhosis of liver without ascites (principal); K72.90 Hepatic failure, unspecified without coma; K80.20 Calculus of gallbladder without cholecystitis without obstruction

== ENCOUNTER → 2017-03-03 | Outpatient (CLI) | payer OTHER ==
[2017-03-03 16:55] LABS: ALBUMIN 3.5 gm/dl (3.4-5.0); BLOOD UREA NITROGEN 29 mg/dl (7-18); CALCIUM 9.4 mg/dl (8.5-10.1); CARBON DIOXIDE 30 mmol/L (21-32); CREATININE 2.41 mg/dl (0.60-1.40); GLUCOSE 105 mg/dl (70-99); SODIUM 135 mmol/L (136-145)
[2017-03-03 16:56] LABS: PHOSPHORUS 2.8 mg/dl (2.5-4.9)
== END | disposition home or self-care (01) ==
LOC: C.LABBFT 11:54
PROVIDERS: ATTEND Internal Medicine Nephrology
DX: N28.9 Disorder of kidney and ureter, unspecified (principal); K70.30 Alcoholic cirrhosis of liver without ascites

== ENCOUNTER → 2017-05-03 | Outpatient (CLI) | payer OTHER ==
[2017-05-03 12:48] LABS: ALBUMIN 3.5 gm/dl (3.4-5.0); BLOOD UREA NITROGEN 18 mg/dl (7-18); CALCIUM 9.5 mg/dl (8.5-10.1); CARBON DIOXIDE 26 mmol/L (21-32); CREATININE 1.77 mg/dl (0.60-1.40); GLUCOSE 98 mg/dl (70-99); PHOSPHORUS 2.9 mg/dl (2.5-4.9); POTASSIUM 3.9 mmol/L (3.5-5.1); SODIUM 139 mmol/L (136-145)
== END | disposition home or self-care (01) ==
LOC: C.LABBFT 09:04
PROVIDERS: ATTEND Internal Medicine Nephrology
DX: N28.9 Disorder of kidney and ureter, unspecified (principal)

== ENCOUNTER → 2017-09-05 | Outpatient (CLI) | payer OTHER ==
[~2017-09-05] MED LIST changes: -ATV/1 PO; -DXY100 PO; -IMD/2 PO; +SPIR100T3 PO; -SPR/100 PO
[2017-09-05 10:40] LABS: ALBUMIN 3.9 gm/dl (3.4-5.0); BLOOD UREA NITROGEN 27 mg/dl (7-18); CALCIUM 9.5 mg/dl (8.5-10.1); CARBON DIOXIDE 26 mmol/L (21-32); CREATININE 1.78 mg/dl (0.60-1.40); GLUCOSE 94 mg/dl (70-99); PHOSPHORUS 3.8 mg/dl (2.5-4.9); POTASSIUM 4.7 mmol/L (3.5-5.1); SODIUM 139 mmol/L (136-145)
== END | disposition home or self-care (01) ==
LOC: C.LAB1850 09:21
PROVIDERS: ATTEND Internal Medicine Nephrology
DX: K70.30 Alcoholic cirrhosis of liver without ascites (principal); N28.9 Disorder of kidney and ureter, unspecified

== ENCOUNTER 2018-11-15 16:26 | Inpatient (IN) ==
[2018-11-15 17:08] LABS: Basophils # (auto) 0.03 K/uL (0-0.2); Basophils % (auto) 0.3 %; Hematocrit (blood only) 38.5 % (42-52); Hemoglobin 13.2 g/dL (14.0-18.0); Immature Granulocytes # (auto) 0.02 K/uL (0.00-0.02); Immature Granulocytes % (auto) 0.2 %; Lymphocytes # (auto) 0.85 K/uL (1.2-3.4); Lymphocytes % (auto) 8.6 %; Mean Corpuscular Hemoglobin 33.9 pg (25-34); Mean Corpuscular Hgb Conc 34.3 g/dL (32-36); Mean Platelet Volume 9.7 fL (7.4-10.4); Monocytes # (auto) 0.75 K/uL (0.11-0.59); Monocytes % (auto) 7.6 %; Neutrophils % (auto) 81.3 %; Platelet Count 197 K/uL (130-400); RDW Coefficient of Variation 13.4 % (11.5-14.5); RDW Standard Deviation 48.3 fL (36.4-46.3); Red Blood Count 3.89 M/uL (4.7-6.1); White Blood Count 9.85 K/uL (4.8-10.8)
[2018-11-15 17:16] LABS: Alanine Aminotransferase 19 U/L (12-78); Albumin Level 3.3 gm/dl (3.4-5.0); Aspartate Aminotransferase 19 U/L (15-37); BUN Creatinine Ratio 12.1 (10-20); Blood Urea Nitrogen 21 mg/dl (7-18); Calcium 8.9 mg/dl (8.5-10.1); Carbon Dioxide 29 mmol/L (21-32); Chloride 100 mmol/L (98-107); Est GFR (Non-African American) 39.7; Glucose 116 mg/dl (70-99); Potassium 4.4 mmol/L (3.5-5.1); Sodium 137 mmol/L (136-145)
[2018-11-15 17:19] LABS: Albumin Globulin Ratio 0.7 (0.9-2); Alkaline Phosphatase 89 U/L (45-117); Bilirubin,Total 0.5 mg/dl (0.2-1); Globulin 4.4 gm/dl (2.5-4.0); Total Protein 7.7 gm/dl (6.4-8.2)
--- NOTE | 2018-11-15 17:19 | XRay Report ---
SINGLE VIEW CHEST CLINICAL HISTORY: Dyspnea. FINDINGS: An AP, portable, upright chest radiograph is compared to study dated 10/26/2018 and correlat ed with chest CT dated 02/14/2013. The examination is degraded by portable technique and apical lordoti c positioning. The cardiomediastinal silhouette is unremarkable. Lingular density likely represents scar/atelectasis. The lungs and pleural spaces are otherwise clear. No pneumothorax is seen. The skel etal structures are osteopenic. The bony thorax is grossly intact. IMPRESSION: 1. No acute cardiopulmonary abnormality is identified. 2. Density in the lingula likely represent scarring/atelectasis. Clinical correlation will be require d. A precautionary follow-up PA and lateral examination is recommended in one month for reassessment. Electronically signed by: Satish Muñiz M.D. 11/15/2018 5:18 PM
[2018-11-15 17:30] LABS: NT Pro B Type Natriuretic Pept 433 pg/ml (0-900); Troponin I < 0.015 ng/ml (0-0.045)
[2018-11-15 17:38] LABS: Partial Thromboplastin Time 27.6 Seconds (21.0-31.0); Prothrombin Time 10.7 Seconds (9.0-12.0)
[2018-11-15] MEDS ORDERED: FUROSEMIDE 20 MG in SYRINGE 0 ML IV ONE (17:39)
[2018-11-15] MEDS ORDERED: FUROSEMIDE 40 MG/4 ML VIAL IV ONE (18:04)
--- NOTE | 2018-11-15 19:42 | History & Physical Report ---
Date of Service November 15, 2018 Assessment & Plan (1) CHF (congestive heart failure): Patient is in acute congestive heart failure with volume overload Admit to PCU on telemetry Vital signs every 4 hours Follow-up electrolytes closely and replenish as needed potassium to be above 4 and magnesium above 2 Started Lasix drip at 2 mg/h. Titrate based on the patient urinary output not to be more than 2 L/day Monitor strict in and out Daily weight Low-sodium diet with free water restriction of 12 mL/day Hold home dose of furosemide p.o. every morning since patient is on Lasix, continue propranolol 20 mg p.o. twice daily, continue Spironolactone 100 mg p.o. every morning DVT prophylaxis with heparin 5000 units every 12 hours Full code Present on Admission?: Yes (2) Shortness of breath: As above Present on Admission?: Yes (3) Bilateral lower extremity edema: Keep lower extremities elevated at least 2 to 3 hours/day Present on Admission?: Yes (4) Weight gain: Follow-up closely weight again since it is going connected to patient congestive heart failure Present on Admission?: Yes (5) COPD (chronic obstructive pulmonary disease): Continue home medicine Combivent Respimat 1 puff 4 times daily Present on Admission?: Yes (6) Kidney disease: Avoid nephrotoxic agents. Patient is at his baseline hold pantoprazole 40 mg p.o. daily since it can worsen renal failure started famotidine 20 mg IV daily. Present on Admission?: Yes History of Present Illness Chief Complaint: Shortness of breath and swelling of the lower extremities Primary Care Provider: Devon Silver MD Patient is a 68 years old male with past medical history ofCongestive heart failure, portal hypertension, COPD, hypertension, paroxysmal atrial fibrillation, benign prostatic hypertrophy, anemia, CKD stage III who presents to the emergency room shortness of breath and swelling of the lower extremities for couple of days. Patient reports that he gradually gain 20 pounds for several weeks. Patient denies fever chills chest pain abdominal pain frequency urgency hemoptysis melena melena hematuria or dysuria. Labs are reviewed which shows CBC of 9.85, hemoglobin 13.2, hematocrit 38.5, platelets 197, PT 10.7, INR 1, APTT 27.6 sodium 137, potassium 4.4, BUN 21, creatinine 1.71, GFR 39.7, troponin 0 0.015, BNP 433. Urine is all negative. Patient was made to admit patient to PCU on telemetry for CHF acute CHF exacerbation and diuresis. Allergies Allergy/AdvReac Type Severity Reaction Status Date / Time No Known Allergies Allergy Verified 11/15/18 16:57 Home Medications Home Medications Medication Instructions Recorded Confirmed Type Combivent Respimat 1 puff INHALATION QID PRN 07/25/18 11/15/18 History Xifaxan 550 mg PO BID 07/25/18 11/15/18 History cholecalciferol (vitamin D3) 1,000 unit PO QAM 07/25/18 11/15/18 History [Vitamin D3] furosemide 20 mg PO QAM 07/25/18 11/15/18 History spironolactone 100 mg PO QAM 07/25/18 11/15/18 History tamsulosin 0.4 mg PO QAM 07/25/18 11/15/18 History pantoprazole 40 mg tablet,delayed 40 mg PO .COMPLEX #30 tab 09/19/18 11/15/18 Rx release propranolol 20 mg tablet 20 mg PO BID #0 tab 09/28/18 11/15/18 Rx Past Med/Surg History Medical History Vitamin D deficiency (Acute) Seborrheic dermatitis (Acute) Portal hypertension (Acute) Microscopic hematuria (Acute) Laennec's cirrhosis (alcoholic) (Acute) Hepatic encephalopathy (Acute) Hearing loss (Acute) Gout, joint (Acute) Esophageal varices (Acute) Elevated AFP (Acute) Edema (Acute) Duodenal ulcer (Acute) Chronic kidney disease, stage 3 (Acute) BPH with obstruction/lower urinary tract symptoms (Acute) BMI 31.0-31.9,adult (Acute) Anemia (Acute) Irregular heart beat On home oxygen therapy 1L oxygen Short of breath on exertion Sleep apnea cpap with oxygen 1L Surgical History History of appendectomy History of esophagogastroduodenoscopy (EGD) History of tooth extraction Family History Father Myocardial infarction Unknown Diabetes Coronary heart disease Other No family history of adverse response to anesthesia Social History Preferred Language: Wallisian Communication Ability: Effective 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 Installer Required: No Beliefs That Will Affect Care: None Current Living Situation: Alone Feels Safe at Home: Yes Smoking Status: Former smoker Tobacco Type: smokeless tobacco ; Second Hand Exposure: Yes (bar environment) ; Hx Alcohol Use: Yes Alcohol type: beer Hx Substance Use: No Review of Systems Review of Systems: All systems reviewed & are unremarkable except as noted in HPI & below Physical Exam Constitutional: WD/WN, vitals as above well developed and + obese Eyes: PERRL, conjunctivae normal, anicteric sclerae ENMT: external ear and nose normal, oropharynx normal Neck: trachea midline, no thyromegaly Cardiovascular: RRR, no murmur, no edema Heart Sounds: normal S1 and normal S2 Palpation: + palpable S3 Vessels: + JVD and dorsalis pedis pulses present Extremities: + pedal edema (3+ pitting edema bilaterally) Gastrointestinal (Abdomen): normal bowel sounds, soft, nontender, no hepa tosplenomegaly Skin: Bilateral erythema over lower extremities around ankles due to chronic venostasis. Does not appears to be inflamed such as cellulitis. Neurologic: patellar DTR's 2+ bilat, sensation intact Psychiatric: A+Ox3, euthymic affect Lymphatic: no cervical or axillary lymphadenopathy Results & Data Vital Signs (Past 12 Hours) Vital Signs Temp Pulse Resp BP Pulse Ox 11/15/18 17:50 80 20 100 11/15/18 17:40 80 14 98 11/15/18 17:31 82 24 137/82 99 11/15/18 17:30 82 21 100 11/15/18 17:20 97 11/15/18 17:10 83 18 97 11/15/18 17:01 80 24 140/69 99 11/15/18 17:00 80 17 98 11/15/18 16:56 37 C 77 20 146/65 H 99 11/15/18 16:50 83 28 H 98 11/15/18 16:48 81 21 146/65 H 97 11/15/18 16:45 83 23 97 11/15/18 16:31 81 24 145/68 H 97 Code Status & VTE Plan Code Status Full code VTE Prophylaxis Plan VTE Prophylaxis will be ordered: Yes PG Care Time/CCT Total # of Minutes Spent Total Time Spent with Patient: Total time spent is greater than 50% in coordination of care (as documented) at patient's floor/unit and/or counseling patient: (1) COPD (chronic obstructive pulmonary disease) COPD type: COPD with acute exacerbation Qualified Code(s): J44.1 - Chronic obstructive pulmonary disease with (acute) exacerbation
[2018-11-15] MEDS ORDERED: OXYCODONE/ACETAMINOPHEN 5mg/325mg TAB PO PRN (19:51)
[2018-11-15] MEDS ORDERED: POLYETHYLENE (MIRALAX) 17 GM PACK PO PRN (19:53)
[2018-11-15] MEDS ORDERED: FUROSEMIDE 100 MG in DEXTROSE 5% 90 ML IV SCH (19:53)
[2018-11-15] MEDS ORDERED: MAGNESIUM HYDROXIDE SUSP 30 ML UDC PO PRN (19:53)
[2018-11-15] MEDS ORDERED: ALUMINUM/MAGNESIUM SUSP 30 ML UDC PO PRN (19:53)
[2018-11-15] MEDS ORDERED: ACETAMINOPHEN 325 MG TAB PO PRN (19:53)
[2018-11-15] MEDS ORDERED: IPRATROPIUM BROMIDE/ALBUTEROL respimat INH INH PRN (19:53)
[2018-11-15] MEDS ORDERED: ONDANSETRON INJ 2 MG/ML 2 ML VIAL IV PRN (19:53)
[2018-11-15] MEDS ORDERED: ZOLPIDEM TARTRATE 5 MG TAB PO PRN (19:53)
[2018-11-15 20:37] LABS: Basophils # (auto) 0.02 K/uL (0-0.2); Basophils % (auto) 0.2 %; Eosinophils # (auto) 0.23 K/uL (0-0.5); Hematocrit (blood only) 39.5 % (42-52); Hemoglobin 13.4 g/dL (14.0-18.0); Immature Granulocytes # (auto) 0.03 K/uL (0.00-0.02); Immature Granulocytes % (auto) 0.3 %; Lymphocytes # (auto) 0.97 K/uL (1.2-3.4); Lymphocytes % (auto) 8.6 %; Mean Corpuscular Hemoglobin 33.5 pg (25-34); Mean Corpuscular Hgb Conc 33.9 g/dL (32-36); Mean Corpuscular Volume 98.8 fL (80-100); Mean Platelet Volume 9.6 fL (7.4-10.4); Monocytes # (auto) 0.92 K/uL (0.11-0.59); Monocytes % (auto) 8.1 %; Neutrophils # (auto) 9.15 K/uL (1.4-6.5); Neutrophils % (auto) 80.8 %; Platelet Count 196 K/uL (130-400); RDW Coefficient of Variation 13.5 % (11.5-14.5); RDW Standard Deviation 48.4 fL (36.4-46.3); White Blood Count 11.32 K/uL (4.8-10.8)
[2018-11-15 20:55] LABS: Potassium 4.6 mmol/L (3.5-5.1)
[2018-11-15 21:10] LABS: Thyroid Stimulating Hormone 0.741 uIu/ml (0.300-4.500)
[2018-11-15] MEDS: FUROSEMIDE 20 MG in SYRINGE 0 ML IV SCH (21:14)
[2018-11-15] MEDS: FAMOTIDINE 20 MG in SYRINGE 3 ML IV SCH (21:14)
[2018-11-15] MEDS: RIFAXIMIN 550 MG TABLET PO SCH (21:14)
[2018-11-15] MEDS: PROPRANOLOL HCL 20 MG TAB PO SCH (21:14)
--- NOTE | 2018-11-15 22:12 | Emergency Department Note ---
Entered by Yvette Meyer acting as a scribe for Adrian Singh MD History of Present Illness General Chief complaint: Shortness of Breath/Dyspnea Time Seen by Provider: 11/15/18 17:06 Source: patient Mode of arrival: EMS Limitations: no limitations History of Present Illness Onset (ago): day(s) 3 Location: chest Radiation: non-radiation Pain Consistency: + constant Relieved By: + other (Oxygen) Exacerbated By: + movement (Exertion) Associated symptoms: + other (-diarrhea, -hematochezia); no chest pain and no nausea/vomiting Treatments prior to arrival: none The patient is a 68 year old male who presents to the ED with complaints of shortness of breath. He states he has a history of CHF and thinks he has gained 20 pounds in the past few weeks. He does wear O2 at home. Exertion worsens his breathing. He denies any recent fevers. He has been taking his medications as prescribed and thinks his hypertension medication may have been increased recently. He does 20 mg of Lasix daily. He denies any chest pain, nausea, vomiting, diarrhea or hematochezia. He does not take daily blood thinners. His last known well is 1130 this morning. Home Medications Home Medications Medication Instructions Recorded Confirmed Type Combivent Respimat 1 puff INHALATION QID PRN 07/25/18 11/15/18 History Xifaxan 550 mg PO BID 07/25/18 11/15/18 History cholecalciferol (vitamin D3) 1,000 unit PO QAM 07/25/18 11/15/18 History [Vitamin D3] furosemide 20 mg PO QAM 07/25/18 11/15/18 History spironolactone 100 mg PO QAM 07/25/18 11/15/18 History tamsulosin 0.4 mg PO QAM 07/25/18 11/15/18 History pantoprazole 40 mg tablet,delayed 40 mg PO .COMPLEX #30 tab 09/19/18 11/15/18 Rx release propranolol 20 mg tablet 20 mg PO BID #0 tab 09/28/18 11/15/18 Rx Allergies Allergy/AdvReac Type Severity Reaction Status Date / Time No Known Allergies Allergy Verified 11/15/18 16:57 Past Med/Surg History Medical History Vitamin D deficiency (Acute) Seborrheic dermatitis (Acute) Portal hypertension (Acute) Microscopic hematuria (Acute) Laennec's cirrhosis (alcoholic) (Acute) Hepatic encephalopathy (Acute) Hearing loss (Acute) Gout, joint (Acute) Esophageal varices (Acute) Elevated AFP (Acute) Edema (Acute) Duodenal ulcer (Acute) Chronic kidney disease, stage 3 (Acute) BPH with obstruction/lower urinary tract symptoms (Acute) BMI 31.0-31.9,adult (Acute) Anemia (Acute) Irregular heart beat On home oxygen therapy 1L oxygen Short of breath on exertion Sleep apnea cpap with oxygen 1L Surgical History History of appendectomy History of esophagogastroduodenoscopy (EGD) History of tooth extraction Family History Father Myocardial infarction Unknown Diabetes Coronary heart disease Other No family history of adverse response to anesthesia Social History Preferred Language: Kosovan Communication Ability: Effective Water [employer] Required: No Beliefs That Will Affect Care: None Current Living Situation: Alone Other Information That Helps Us Care for You: No Feels Safe at Home: Yes Safety Concerns: Feels Safe At This Time Smoking Status: Never smoker Tobacco Type: smokeless tobacco ; Second Hand Exposure: Yes (bar environment) ; Hx Alcohol Use: Yes Alcohol type: beer Hx Substance Use: No Review of Systems See HPI for pertinent positives & negatives. and A total of 10 systems reviewed and were otherwise negative Physical Exam Vital Signs Vital Signs - 24 hr 11/15/18 16:31 11/15/18 16:45 11/15/18 16:48 Temperature Temperature Source Sepsis Recent Fever Within 48 Hours Sepsis Action Taken by Nursing Pulse Rate 81 83 81 Pulse Rate from SpO2 Sensor 81 82 82 Pulse Rhythm Pulse Strength Respiratory Rate 24 23 21 Respiratory Effort / Characteristics Respiratory Depth Respiratory Pattern Blood Pressure 145/68 H 146/65 H Blood Pressure Mean 93 92 Blood Pressure Position Pulse Oximetry 97 97 97 Oxygen Delivery Method Oxygen Flow Rate 11/15/18 16:50 11/15/18 16:56 11/15/18 17:00 Temperature 37 C Temperature Source Oral Sepsis Recent Fever Within 48 Hours No Sepsis Action Taken by Nursing No Action Required Pulse Rate 83 77 80 Pulse Rate from SpO2 Sensor 84 79 Pulse Rhythm Regular Pulse Strength Normal Respiratory Rate 28 H 20 17 Respiratory Effort / Characteristics Non-Labored Spontaneous Respiratory Depth Normal Respiratory Pattern Regular Blood Pressure 146/65 H Blood Pressure Mean 92 Blood Pressure Position Lying Pulse Oximetry 98 99 98 Oxygen Delivery Method Nasal Cannula Oxygen Flow Rate 3 11/15/18 17:01 11/15/18 17:10 11/15/18 17:16 Temperature Temperature Source Sepsis Recent Fever Within 48 Hours Sepsis Action Taken by Nursing Pulse Rate 80 83 Pulse Rate from SpO2 Sensor 80 86 Pulse Rhythm Pulse Strength Respiratory Rate 24 18 Respiratory Effort / Characteristics Respiratory Depth Respiratory Pattern Blood Pressure 140/69 Blood Pressure Mean 92 Blood Pressure Position Pulse Oximetry 99 97 Oxygen Delivery Method Nasal Cannula Oxygen Flow Rate 11/15/18 17:20 11/15/18 17:30 11/15/18 17:31 Temperature Temperature Source Sepsis Recent Fever Within 48 Hours Sepsis Action Taken by Nursing Pulse Rate 82 82 Pulse Rate from SpO2 Sensor 84 82 83 Pulse Rhythm Pulse Strength Respiratory Rate 21 24 Respiratory Effort / Characteristics Respiratory Depth Respiratory Pattern Blood Pressure 137/82 Blood Pressure Mean 100 Blood Pressure Position Pulse Oximetry 97 100 99 Oxygen Delivery Method Oxygen Flow Rate 11/15/18 17:40 11/15/18 17:50 Temperature Temperature Source Sepsis Recent Fever Within 48 Hours Sepsis Action Taken by Nursing Pulse Rate 80 80 Pulse Rate from SpO2 Sensor 82 80 Pulse Rhythm Pulse Strength Respiratory Rate 14 20 Respiratory Effort / Characteristics Respiratory Depth Respiratory Pattern Blood Pressure Blood Pressure Mean Blood Pressure Position Pulse Oximetry 98 100 Oxygen Delivery Method Oxygen Flow Rate General: Chronically ill-appearing older male, wearing Oxygen, in no acute distress. HEENT: Normal cephalic atraumatic. Pupils are equal round and reactive to light. Extraocular movements are intact. Oropharynx is pink with moist mucous membrane s. No swelling of the mouth lips or tongue. Neck: Supple with a midline trachea. No meningeal signs or stiffness, no JVD or bruits. No Stridor. Chest: Clear to auscultation bilaterally. No wheezes or rhonchi. No increased work of breathing. Heart: regular rate and rhythm. Abdomen: Soft nontender, nondistended without rebound guarding or rigidity. Extremities: No cyanosis or clubbing. No calf tenderness or asymmetry. Bilateral pitting edema. Spine/Back. Non tender to palpation. No CVA tenderness Skin: Good turgor without rashes. Neurologic exam: Cranial nerves two through 12 are intact. Motor and sensation are intact and symmetrical throughout. Course 1713: The patient was evaluated in room A12A and a complete history and physical were performed. 1735: The patient saw his PCP today for acute CHF and increased shortness of breath. 1755: I discussed the patients case with Dr. Kaba, [facility]. The patient will be further evaluated. Consultations Consultation #1: I discussed the patients case with Dr. Kaba, [facility]. The patient will be further evaluated. Time: 17:55 Administered Medications Famotidine 20 mg/ Syringe 5 mls @ 2.5 mls/min IV Q24H CRISTAL Stop: 12/15/18 20:59 Last Admin: 11/15/18 21:14 Dose: 2.5 mls/min Documented by: [id number] Furosemide 20 mg/ Syringe 2 mls @ 4 mls/min IV [id number] CRISTAL Stop: 12/15/18 20:59 Last Admin: 11/15/18 21:14 Dose: 4 mls/min Documented by: [id number] Propranolol HCl (Inderal) 20 mg PO BID CRISTAL Stop: 12/15/18 20:59 Last Admin: 11/15/18 21:14 Dose: 20 mg Documented by: [id number] Rifaximin (Xifaxan) 550 mg PO BID CRISTAL Stop: 12/15/18 20:59 Last Admin: 11/15/18 21:14 Dose: 550 mg Documented by: [id number] Discontinued Medications Furosemide (Lasix) Confirm Administered Dose 40 mg IV .STK-MED ONE Stop: 11/15/18 18:05 Last Admin: 11/15/18 18:07 Dose: 20 mg Documented by: [id number] Furosemide 20 mg/ Syringe 2 mls @ 4 mls/min IV ONE ONE Stop: 11/15/18 17:40 Last Admin: 11/15/18 18:07 Dose: Not Given Documented by: [id number] Medical Decision Making Differential Diagnosis The differential diagnoses considered include CHF, lower extremity edema, cardiac disease, infection, electrolyte or metabolic abnormality. Medical Records Attestation: I reviewed the patient's medical records. Home Medications Current Medication List: was personally reviewed by pa Laboratory Data Attestation: I reviewed the patient's lab results. Result diagrams: 11/15/18 20:16 11/15/18 20:16 Lab Results 11/15/18 11/15/18 11/15/18 Range/Units 16:48 16:48 16:48 WBC 9.85 (4.8-10.8) K/uL RBC 3.89 L (4.7-6.1) M/uL Hgb 13.2 L (14.0-18.0) g/dL Hct 38.5 L (42-52) % MCV 99.0 (80-100) fL MCH 33.9 (25-34) pg MCHC 34.3 (32-36) g/dL RDW Std Deviation 48.3 H (36.4-46.3) fL RDW Coeff of Walter 13.4 (11.5-14.5) % Plt Count 197 (130-400) K/uL MPV 9.7 (7.4-10.4) fL Immature Gran % (Auto) 0.2 % Neut % (Auto) 81.3 % Lymph % (Auto) 8.6 % [place] % (Auto) 7.6 % Eos % (Auto) 2.0 % Baso % (Auto) 0.3 % Immature Gran # (Auto) 0.02 (0.00-0.02) K/uL Neut # (Auto) 8.00 H (1.4-6.5) K/uL Lymph # (Auto) 0.85 L (1.2-3.4) K/uL [place] # (Auto) 0.75 H (0.11-0.59) K/uL Eos # (Auto) 0.20 (0-0.5) K/uL Baso # (Auto) 0.03 (0-0.2) K/uL PT 10.7 (9.0-12.0) Seconds INR 1.0 (0.9-1.1) APTT 27.6 (21.0-31.0) Seconds PTT Ratio 1.0 Sodium 137 (136-145) mmol/L Potassium 4.4 (3.5-5.1) mmol/L Chloride 100 (98-107) mmol/L Carbon Dioxide 29 (21-32) mmol/L Anion Gap 8.0 (3-11) BUN 21 H (7-18) mg/dl Creatinine 1.71 H (0.6-1.4) mg/dl Est Cr Clr Drug Dosing Not Reportable Est GFR ( Amer) 46.0 Est GFR (Non-Af Amer) 39.7 BUN/Creatinine Ratio 12.1 (10-20) Glucose 116 H (70-99) mg/dl Calcium 8.9 (8.5-10.1) mg/dl Total Bilirubin 0.5 (0.2-1) mg/dl AST 19 (15-37) U/L ALT 19 (12-78) U/L Alkaline Phosphatase 89 (45-117) U/L Troponin I < 0.015 (0-0.045) ng/ml NT-Pro-B Natriuret Pep 433 (0-900) pg/ml Total Protein 7.7 (6.4-8.2) gm/dl Albumin 3.3 L (3.4-5.0) gm/dl Globulin 4.4 H (2.5-4.0) gm/dl Albumin/Globulin Ratio 0.7 L (0.9-2) Imaging Data Radiologist's Impression: Radiology results as stated below per my review and the radiologist's interpretation: SINGLE VIEW CHEST CLINICAL HISTORY: Dyspnea. FINDINGS: An AP, portable, upright chest radiograph is compared to study dated 10/26/2018 and correlated with chest CT dated 02/14/2013. The examination is degraded by portable technique and apical lordotic positioning. The cardiomediastinal silhouette is unremarkable. Lingular density likely represents scar/atelectasis. The lungs and pleural spaces are otherwise clear. No pneumothorax is seen. The skeletal structures are osteopenic. The bony thorax is grossly intact. IMPRESSION: 1. No acute cardiopulmonary abnormality is identified. 2. Density in the lingula likely represent scarring/atelectasis. Clinical correlation will be required. A precautionary follow-up PA and lateral examination is recommended in one month for reassessment. Electronically signed by: Satish Muñiz M.D. 11/15/2018 5:18 PM ECG Data Attestation: I personally reviewed and interpreted this ECG as follows: Indication: SOB/dyspnea Rate (beats per minute): 81 Rhythm: normal sinus Findings: no acute ischemic change Comparison ECG Date: from (10/26/2018) Change: no significant change Blood Pressure Blood Pressure Findings: Elevated blood pressure Blood Pressure Disposition: further management by hospitalist MDM Narrative This patient comes in as described above. He is having shortness of breath and lower extremity edema. He has gained around 20 pounds over the last month. He saw his primary care physician who sent him up here by ambulance today as they were concerned. He is on supplemental oxygen which she does not wear at all times but wears intermittently. His EKG does not suggest acute coronary syn drome or arrhythmia. His chest x-ray does not show any pulmonary edema. His legs have significant peripheral edema. He has no electrolyte or metabolic abnormality. He was given IV Lasix. I do think he needs to be admitted/observe for further diuresis and evaluation. He does have history of COPD is not wheezing at this point. I did consult the [facility] hospitalist to see in the ER for these measures. Impression & Plan CHF (congestive heart failure), Shortness of breath, Bilateral lower extremity edema, Weight gain Discharge Plan Visit Data *Final* Discharge Date/Time: 11/15/18 19:12 Chief Complaint: Shortness of Breath/Dyspnea ED Provider: Adrian Singh Discharge Problem: CHF (congestive heart failure), Shortness of breath, Bilateral lower extremity edema, Weight gain Patient Disposition: Admitted As Inpatient Discharge Instructions Interventions: ED Discharge Assessment Last Done: 11/15/18 19:12 The scribe's documentation has been prepared under my direction and personally reviewed by me in its entirety. I confirm that the note above accurately reflects all work, treatment, procedures, and medical decision making performed by me.
[2018-11-15] MEDS: HEPARIN SOD 5,000 UNIT/0.5 ML VIAL SQ SCH (22:32)
[2018-11-16] MEDS: HEPARIN SOD 5,000 UNIT/0.5 ML VIAL SQ SCH ×4 (06:00→21:36)
[2018-11-16 07:18] LABS: Basophils # (auto) 0.04 K/uL (0-0.2); Basophils % (auto) 0.4 %; Eosinophils # (auto) 0.21 K/uL (0-0.5); Eosinophils % (auto) 2.3 %; Hematocrit (blood only) 40.3 % (42-52); Hemoglobin 13.4 g/dL (14.0-18.0); Immature Granulocytes # (auto) 0.01 K/uL (0.00-0.02); Immature Granulocytes % (auto) 0.1 %; Lymphocytes # (auto) 0.94 K/uL (1.2-3.4); Lymphocytes % (auto) 10.3 %; Mean Corpuscular Hemoglobin 33.2 pg (25-34); Mean Corpuscular Hgb Conc 33.3 g/dL (32-36); Mean Corpuscular Volume 99.8 fL (80-100); Mean Platelet Volume 9.7 fL (7.4-10.4); Monocytes # (auto) 1.03 K/uL (0.11-0.59); Monocytes % (auto) 11.3 %; Neutrophils # (auto) 6.89 K/uL (1.4-6.5); Neutrophils % (auto) 75.6 %; Platelet Count 178 K/uL (130-400); RDW Coefficient of Variation 13.6 % (11.5-14.5); RDW Standard Deviation 49.7 fL (36.4-46.3); Red Blood Count 4.04 M/uL (4.7-6.1); White Blood Count 9.12 K/uL (4.8-10.8)
[2018-11-16 07:46] LABS: Alanine Aminotransferase 14 U/L (12-78); Albumin Level 3.4 gm/dl (3.4-5.0); Aspartate Aminotransferase 18 U/L (15-37); BUN Creatinine Ratio 12.5 (10-20); Blood Urea Nitrogen 24 mg/dl (7-18); Calcium 9.3 mg/dl (8.5-10.1); Carbon Dioxide 30 mmol/L (21-32); Chloride 101 mmol/L (98-107); Est GFR (African American) 39.5; Est GFR (Non-African American) 34.1; Glucose 98 mg/dl (70-99); Potassium 4.3 mmol/L (3.5-5.1); Sodium 137 mmol/L (136-145)
[2018-11-16] MEDS: CHOLECALCIFEROL 1,000 UNITS TAB PO SCH (07:46)
[2018-11-16] MEDS: RIFAXIMIN 550 MG TABLET PO SCH ×2 (07:47→20:15)
[2018-11-16] MEDS: TAMSULOSIN HCL 0.4 MG CAP PO SCH (07:47)
[2018-11-16] MEDS: POTASSIUM CHLORIDE 20 MEQ TABCR PO SCH (07:47)
[2018-11-16] MEDS: SPIRONOLACTONE 100 MG TAB PO SCH (07:47)
[2018-11-16] MEDS: FUROSEMIDE 20 MG in SYRINGE 0 ML IV SCH ×2 (07:48→17:06)
[2018-11-16 07:49] LABS: Albumin Globulin Ratio 0.8 (0.9-2); Alkaline Phosphatase 90 U/L (45-117); Bilirubin,Total 0.8 mg/dl (0.2-1); Globulin 4.1 gm/dl (2.5-4.0); Total Protein 7.5 gm/dl (6.4-8.2)
[2018-11-16] MEDS: PROPRANOLOL HCL 20 MG TAB PO SCH ×2 (07:49→20:14)
[2018-11-16] MEDS ORDERED: INFLUENZA ADMINISTRATION CHARGE ONE (09:00)
[2018-11-16] MEDS ORDERED: INFLUENZA VIRUS QUAD VACCINE 0.5 ML SYR IM ONE (09:00)
[2018-11-16] MEDS ORDERED: FUROSEMIDE 20 MG TAB PO SCH (09:00)
--- NOTE | 2018-11-16 14:04 | Ultrasound Report ---
US venous doppler LE LT CLINICAL HISTORY: 68 years-old Male presenting with edema. TECHNIQUE: Real-time grayscale and color and spectral Doppler ultrasound imaging of the veins of the left lower extremity was performed. Compression and augmentation were also utilized. COMPARISON: 12/12/2016. FINDINGS: LEFT: Common femoral vein: Patent. Greater saphenous vein (superficial): Patent. Deep femoral vein: Patent. Femoral vein: Patent. Popliteal vein: Patent. Calf veins: Patent. Other: Subcutaneous edema in the lower leg. IMPRESSION: 1. No evidence of deep venous thrombosis. 2. Subcutaneous edema in the lower leg. Electronically signed by: Lopez Brower M.D. 11/16/2018 2:03 PM
[2018-11-16] MEDS: cefTRIAXone SODIUM 2,000 MG in DEXTROSE 5% 50 ML IV SCH (14:07)
[2018-11-16] MEDS ORDERED: ALBUT/IPRATROP 3MG/0.5MG NEB 3 ML VIAL NEB PRN (15:16)
--- NOTE | 2018-11-16 15:39 | Hospitalist Progress Note ---
Date of Service November 16, 2018 Assessment & Plan (1) Acute on chronic systolic CHF (congestive heart failure): Continue Lasix drip at 2 mg/h. Titrate based on the patient urinary output not to be more than 2 L/day Monitor strict in and out Daily weight Low-sodium diet Hold home dose of furosemide p.o. every morning since patient is on Lasix, continue propranolol 20 mg p.o. twice daily, continue Spironolactone 100 mg p.o. every morning Patient refusing elevation of lower extremities to relieve edema (2) Cellulitis: Left lower leg cellulitis IV ceftriaxone BC pending Venous doppler without DVT, does show subcutaneous edema (3) COPD (chronic obstructive pulmonary disease): Continue home medicine Combivent Respimat 1 puff 4 times daily Duoneb prn (4) Chronic kidney disease, stage 3: Baseline creat 1.7-2 - at baseline Monitor kidney function Avoid nephrotoxins where possible (5) Cirrhosis: Continue rifaximin, propranolol Per outpatient notes, patient has recently been drinking again. Will need to monitor for detox. AWSS, prn ativan (6) DVT prophylaxis: SCDs, heparin subq Subjective Mr. Mark feels he is breathing better. His lower extremities are swollen bilaterally. No events on the monitor Review of Systems Review of Systems: All systems reviewed & are unremarkable except as noted in HPI & below Physical Exam Physical Exam: General: no distress Eyes: normal inspection, PERLL Respiratory: chest non tender, clear to auscultation, normal breath sounds, no respiratory distress, no accessory muscle use Cardiac: regular rate and rhythm, no rub or gallop, no murmur, bilateral lower extremity edema L >R GI/: active bowel sounds, no abd pain or tenderness, soft, non distended Extremities: normal range of motion, normal strength, non tender Neuro/Psych: alert and oriented x 3, normal mood and affect Skin: normal color, dry, left lower leg erythema without crepitus tender but not painful to palpation Results & Data Vital Signs (Past 12 Hours) Vital Signs Temp Pulse Pulse Resp BP Pulse Ox 11/16/18 11:28 36.5 C 76 18 135/77 96 11/16/18 09:11 72 11/16/18 07:18 36.5 C 71 18 136/72 98 11/16/18 04:21 36.6 C 78 19 145/71 H 95 PG Care Time/CCT Total # of Minutes Spent Total Time Spent with Patient: Total time spent is greater than 50% in coordination of care (as documented) at patient's floor/unit and/or counseling patient: (1) COPD (chronic obstructive pulmonary disease) COPD type: COPD with acute exacerbation Qualified Code(s): J44.1 - Chronic obstructive pulmonary disease with (acute) exacerbation
[2018-11-16] MEDS ORDERED: LORazepam 1 MG/2 ML VIAL IV PRN (15:59)
[2018-11-16] MEDS: FAMOTIDINE 20 MG in SYRINGE 3 ML IV SCH (20:14)
[2018-11-17 05:56] LABS: Basophils # (auto) 0.02 K/uL (0-0.2); Basophils % (auto) 0.3 %; Eosinophils % (auto) 2.9 %; Hematocrit (blood only) 39.1 % (42-52); Hemoglobin 12.7 g/dL (14.0-18.0); Immature Granulocytes # (auto) 0.02 K/uL (0.00-0.02); Immature Granulocytes % (auto) 0.3 %; Lymphocytes # (auto) 0.86 K/uL (1.2-3.4); Lymphocytes % (auto) 12.3 %; Mean Corpuscular Hemoglobin 32.6 pg (25-34); Mean Corpuscular Hgb Conc 32.5 g/dL (32-36); Mean Corpuscular Volume 100.3 fL (80-100); Mean Platelet Volume 9.7 fL (7.4-10.4); Monocytes # (auto) 0.85 K/uL (0.11-0.59); Monocytes % (auto) 12.2 %; Neutrophils # (auto) 5.04 K/uL (1.4-6.5); Platelet Count 151 K/uL (130-400); RDW Coefficient of Variation 13.7 % (11.5-14.5); RDW Standard Deviation 49.5 fL (36.4-46.3); White Blood Count 6.99 K/uL (4.8-10.8)
[2018-11-17] MEDS: HEPARIN SOD 5,000 UNIT/0.5 ML VIAL SQ SCH ×3 (06:07→20:45)
[2018-11-17 06:30] LABS: Alanine Aminotransferase 14 U/L (12-78); Aspartate Aminotransferase 17 U/L (15-37); BUN Creatinine Ratio 14.8 (10-20); Blood Urea Nitrogen 32 mg/dl (7-18); Calcium 9.1 mg/dl (8.5-10.1); Carbon Dioxide 30 mmol/L (21-32); Chloride 103 mmol/L (98-107); Est GFR (African American) 34.7; Est GFR (Non-African American) 29.9; Glucose 93 mg/dl (70-99); Potassium 4.1 mmol/L (3.5-5.1); Sodium 141 mmol/L (136-145)
[2018-11-17 06:33] LABS: Albumin Globulin Ratio 0.7 (0.9-2); Alkaline Phosphatase 78 U/L (45-117); Bilirubin,Total 0.6 mg/dl (0.2-1); Globulin 4.2 gm/dl (2.5-4.0); Total Protein 7.2 gm/dl (6.4-8.2)
[2018-11-17] MEDS: PROPRANOLOL HCL 20 MG TAB PO SCH ×2 (08:40→20:47)
[2018-11-17] MEDS: POTASSIUM CHLORIDE 20 MEQ TABCR PO SCH (08:40)
[2018-11-17] MEDS: RIFAXIMIN 550 MG TABLET PO SCH ×2 (08:40→20:47)
[2018-11-17] MEDS: TAMSULOSIN HCL 0.4 MG CAP PO SCH (08:40)
[2018-11-17] MEDS: CHOLECALCIFEROL 1,000 UNITS TAB PO SCH (08:40)
[2018-11-17] MEDS: SPIRONOLACTONE 100 MG TAB PO SCH (08:41)
[2018-11-17] MEDS: cefTRIAXone SODIUM 2,000 MG in DEXTROSE 5% 50 ML IV SCH (13:52)
--- NOTE | 2018-11-17 16:09 | Hospitalist Progress Note ---
Date of Service November 17, 2018 Assessment & Plan (1) Hypoxia: On admission, CXR with no acute cardiopulmonary abnormality. XR did show density in the lingula likely represent scarring/atelectasis. Recommend follow- up PA and lateral examination is recommended in one month for reassessment. BNP was 484 on admission. Patient was mildly hypoxic requiring 3L NC, sats were 89% on RA. He did report weight gain with lower extremity edema. Last echo was 2016 showing EF 70% and no WMA - Discontinue Lasix for increasing creatinine - Monitor strict in and out - Daily weight - Low-sodium diet - Continue propranolol 20 mg p.o. twice daily, hold Spironolactone 100 mg p.o. and furosemide for morning labs - Repeat echo - will assess for ascites as source of sob, weight gain, edema (2) Cellulitis: Improving Left lower leg cellulitis Continue IV ceftriaxone Venous doppler without DVT, does show subcutaneous edema in left leg (3) COPD (chronic obstructive pulmonary disease): Continue home medicine Combivent Respimat 1 puff 4 times daily Duoneb prn Does not appear to be in exacerbation (4) Chronic kidney disease, stage 3: Baseline creat 1.7-2 - creatinine 2.16 today Monitor kidney function Avoid nephrotoxins where possible Hold lasix for now, prp am (5) Cirrhosis: Continue rifaximin, propranolol Per outpatient notes, patient has recently been drinking again. Will need to monitor for detox. [facility] (6) DVT prophylaxis: SCDs, heparin subq Subjective Mr. Mark reports feeling better. He denies any chest pain. He is on room air, breathing has improved. He has no pain in his leg at site of cellulitis Review of Systems Review of Systems: All systems reviewed & are unremarkable except as noted in HPI & below Physical Exam Physical Exam: General: no distress Eyes: normal inspection, PERLL Respiratory: chest non tender, clear to auscultation, normal breath sounds, no respiratory distress, no accessory muscle use Cardiac: regular rate and rhythm, no rub or gallop, no murmur, +1 pitting edema lower extremities GI/: active bowel sounds, no abd pain or tenderness, soft, non distended Extremities: normal range of motion, normal strength, non tender Neuro/Psych: alert and oriented x 3, normal mood and affect Skin: normal color, dry, improving erythema left lower extremity Results & Data Vital Signs (Past 12 Hours) Vital Signs Temp Pulse Resp BP Pulse Ox 11/17/18 14:56 36.6 C 68 20 121/67 93 11/17/18 10:44 36.9 C 86 21 136/75 94 11/17/18 07:45 36.8 C 84 19 141/75 H 90 11/17/18 04:40 36.6 C 88 18 153/78 H 90 PG Care Time/CCT Total # of Minutes Spent Total Time Spent with Patient: Total time spent is greater than 50% in coordination of care (as documented) at patient's floor/unit and/or counseling patient: (1) COPD (chronic obstructive pulmonary disease) COPD type: COPD with acute exacerbation Qualified Code(s): J44.1 - Chronic obstructive pulmonary disease with (acute) exacerbation
--- NOTE | 2018-11-17 18:58 | Ultrasound Report ---
LIMITED ABDOMINAL ULTRASOUND FOR ASCITES EVALUATION CLINICAL HISTORY: Abdominal distention COMPARISON STUDY: 01/16/2018 FINDINGS: A four-quadrant survey was performed. No ascites is visualized. The liver has a cirrhotic a ppearance.. IMPRESSION: No ascites identified Electronically signed by: Chencho Rey M.D. 11/17/2018 6:57 PM
[2018-11-17] MEDS: FAMOTIDINE 20 MG in SYRINGE 3 ML IV SCH (20:49)
[2018-11-18 06:04] LABS: Basophils # (auto) 0.04 K/uL (0-0.2); Basophils % (auto) 0.5 %; Eosinophils # (auto) 0.25 K/uL (0-0.5); Hematocrit (blood only) 37.9 % (42-52); Hemoglobin 12.7 g/dL (14.0-18.0); Immature Granulocytes # (auto) 0.02 K/uL (0.00-0.02); Immature Granulocytes % (auto) 0.2 %; Lymphocytes % (auto) 12.1 %; Mean Corpuscular Hemoglobin 33.2 pg (25-34); Mean Corpuscular Hgb Conc 33.5 g/dL (32-36); Mean Corpuscular Volume 99.2 fL (80-100); Mean Platelet Volume 9.5 fL (7.4-10.4); Monocytes # (auto) 0.89 K/uL (0.11-0.59); Monocytes % (auto) 10.8 %; Neutrophils # (auto) 6.07 K/uL (1.4-6.5); Neutrophils % (auto) 73.4 %; Platelet Count 178 K/uL (130-400); RDW Coefficient of Variation 13.7 % (11.5-14.5); RDW Standard Deviation 49.1 fL (36.4-46.3); Red Blood Count 3.82 M/uL (4.7-6.1); White Blood Count 8.27 K/uL (4.8-10.8)
[2018-11-18] MEDS: HEPARIN SOD 5,000 UNIT/0.5 ML VIAL SQ SCH ×3 (06:13→19:57)
[2018-11-18 06:46] LABS: Alanine Aminotransferase 14 U/L (12-78); Albumin Globulin Ratio 0.8 (0.9-2); Albumin Level 3.1 gm/dl (3.4-5.0); Aspartate Aminotransferase 17 U/L (15-37); BUN Creatinine Ratio 16.6 (10-20); Bilirubin,Total 0.4 mg/dl (0.2-1); Blood Urea Nitrogen 34 mg/dl (7-18); Carbon Dioxide 29 mmol/L (21-32); Chloride 106 mmol/L (98-107); Est GFR (African American) 36.3; Est GFR (Non-African American) 31.3; Globulin 3.9 gm/dl (2.5-4.0); Glucose 101 mg/dl (70-99); Potassium 4.1 mmol/L (3.5-5.1); Sodium 142 mmol/L (136-145)
[2018-11-18 06:47] LABS: Alkaline Phosphatase 77 U/L (45-117)
[2018-11-18] MEDS: TAMSULOSIN HCL 0.4 MG CAP PO SCH (08:16)
[2018-11-18] MEDS: PROPRANOLOL HCL 20 MG TAB PO SCH ×2 (08:16→20:02)
[2018-11-18] MEDS: CHOLECALCIFEROL 1,000 UNITS TAB PO SCH (08:16)
[2018-11-18] MEDS: POTASSIUM CHLORIDE 20 MEQ TABCR PO SCH (08:16)
[2018-11-18] MEDS: RIFAXIMIN 550 MG TABLET PO SCH ×2 (08:16→20:02)
[2018-11-18] MEDS: cefTRIAXone SODIUM 2,000 MG in DEXTROSE 5% 50 ML IV SCH (13:18)
[2018-11-18] MEDS ORDERED: PERFLUTREN LIPID MICROSPHERE (DEFINITY) IV ONE (14:13)
[2018-11-18] MEDS ORDERED: FUROSEMIDE 20 MG TAB PO STA (15:22)
[2018-11-18] MEDS ORDERED: SPIRONOLACTONE 100 MG TAB PO STA (15:22)
--- NOTE | 2018-11-18 15:29 | Discharge Summary ---
Date of Service November 18, 2018 Admission HPI Per Admitting Provider Patient is a 68 years old male with past medical history ofCongestive heart failure, portal hypertension, COPD, hypertension, paroxysmal atrial fibrillation, benign prostatic hypertrophy, anemia, CKD stage III who presents to the emergency room shortness of breath and swelling of the lower extremities for couple of days. Patient reports that he gradually gain 20 pounds for several weeks. Patient denies fever chills chest pain abdominal pain frequency urgency hemoptysis melena melena hematuria or dysuria. Labs are reviewed which shows CBC of 9.85, hemoglobin 13.2, hematocrit 38.5, platelets 197, PT 10.7, INR 1, APTT 27.6 sodium 137, potassium 4.4, BUN 21, creatinine 1.71, GFR 39.7, troponin 0 0.015, BNP 433. Urine is all negative. Patient was made to admit patient to PCU on telemetry for CHF acute CHF exacerbation and diuresis. Discharge Data Allergies Allergy/AdvReac Type Severity Reaction Status Date / Time No Known Allergies Allergy Verified 11/15/18 16:57 Consultations 11/15/18 17:41 ED Decision to Admit Stat 11/18/18 15:24 Consult [facility] aging room hand Routine Ordered Studies 11/16/18 11:48 US venous doppler LE LT Routine 11/17/18 15:07 US abdomen limited Routine 11/18/18 12:40 US venous reflux LE BI Routine Hospital Course (1) Hypoxia: On admission, CXR with no acute cardiopulmonary abnormality. XR did show density in the lingula likely represent scarring/atelectasis. Recommend follow- up PA and lateral examination is recommended in one month for reassessment. BNP was 484 on admission. Patient was mildly hypoxic requiring 3L NC, sats were 89% on RA. He did report weight gain with lower extremity edema. Last echo was 2016 showing EF 70% and no WMA - Discontinue Lasix for increasing creatinine - Monitor strict in and out - Daily weight - Low-sodium diet - Continue propranolol 20 mg p.o. twice daily, resume Spironolactone 100 mg p.o. and furosemide - Repeat echo pending - patient initially refused echo this morning for dyspnea upon laying flat - No ascites on US - venous reflux study pending (2) Cellulitis: Improving Left lower leg cellulitis Provided IV ceftriaxone - will give 7 more days of cephalexin for a 10 day regimen Venous doppler without DVT, does show subcutaneous edema in left leg (3) COPD (chronic obstructive pulmonary disease): Continue home medicine Combivent Respimat 1 puff 4 times daily Duoneb prn Does not appear to be in exacerbation (4) Chronic kidney disease, stage 3: Baseline creat 1.7-2 - creatinine 2.16 today Monitor kidney function Avoid nephrotoxins where possible Hold lasix for now, prp am (5) Cirrhosis: Continue rifaximin, propranolol Per outpatient notes, patient has recently been drinking again. Will need to monitor for detox. AWSS, prn ativan [facility] to assess for ascites. (6) DVT prophylaxis: SCDs, heparin subq Discharge Plan Discharge Items Patient Disposition: Home - Self-Care Reason For Visit: ACUTE CHF EXACERBATION Discharge Diagnosis: Fluid overload, hypoxia Activity: Resume your previous activity Activity Comment: gradually as tolerated Non-emergency contact: Primary Care Provider Call non-emergency contact if: you have any medication questions Follow-up/Referrals: Juan Antonio Silver MD [Primary Care Provider] - Diet: Heart Healthy and Low Sodium (2gm) Addtl Attending Provider Instructions: Please see your primary care provider next week. You will need to follow up concerning your results of your echocardiogram and venous study. Call 911 and go to the Emergency Room if: * You have tightness or pain in your chest that does not go away with rest or Nitroglycerin * You are very short of breath even with rest Call your doctor if any of the following symptoms or problems start or get worse: * Shortness of breath or difficulty breathing * Wake up at night short of breath * Chest pain * Cough * Swelling of your hands, fee, or legs * More fatigued or tired with your normal activity * Palpitations - sudden fast heart beats WEIGHT * Weigh yourself every morning after using the bathroom. * Use the same scale. * Wear the same amount of clothing. * Write your weight down on your chart. * Call your doctor if you gain more than 2-3 pounds in 1-2 days. MEDICATIONS * Use this discharge instruction sheet for instructions. * Take your medications at the time your doctor ordered. * Do not skip a dose of your medicines. * If you miss a dose of medicine, take as soon as possible, but DO NOT DOUBLE A DOSE. * Read your medicine information when you get home. * Know all of the side effects of your medicine. * Call your doctor's office if you have any side effects. * Be sure all of your doctors know what medicine and herbs you take (including cold, flu, and herbal medicine). * Pain Medicine: If you do not get relief from your pain, please call your doctor for help. Take the following with you to your follow-up doctor appointments: * Weight Chart * Medication List * List of questions Do not drink excessive alcohol, beer or wine. Pending Studies at Discharge: No Stand-Alone Forms: My [facility] Medications and DC Order Prescriptions: New cephalexin 500 mg tablet 500 mg PO BID 7 Days Qty: 14 RF: 0 Continued pantoprazole 40 mg tablet,delayed release (DR/EC) 40 mg PO .COMPLEX Qty: 30 RF: 11 propranolol 20 mg tablet 20 mg PO BID Qty: 0 RF: 5 spironolactone 100 mg Tablet 100 mg PO QAM RF: 0 tamsulosin 0.4 mg Capsule 0.4 mg PO QAM RF: 0 furosemide 20 mg Tablet 20 mg PO QAM RF: 0 cholecalciferol (vitamin D3) [Vitamin D3] 1,000 unit Capsule 1,000 unit PO QAM RF: 0 Xifaxan 550 mg Tablet 550 mg PO BID RF: 0 Combivent Respimat 20-100 mcg/actuation Mist 1 puff INHALATION QID PRN (Reason: Shortness Of Breath) RF: 0 Admission Data Admit Date/Time: 11/15/18 18:42 Attending Provider: Refugio Malagon Admit Provider: Jonas Kaba Primary Care Provider: Juan Antonio Silver Other Providers: Refugio Malagon
--- NOTE | 2018-11-18 16:28 | Hospitalist Progress Note ---
Date of Service November 18, 2018 Assessment & Plan (1) Hypoxia: With lower extremity edema On admission, CXR with no acute cardiopulmonary abnormality. XR did show density in the lingula likely represent scarring/atelectasis. Recommend follow-up PA and lateral examination is recommended in one month for reassessment. BNP was 484 on admission, which appears to be baseline. Patient was mildly hypoxic requiring 3L NC, sats were 89% on RA. He did report weight gain with lower extremity edema. Last echo was 2016 showing EF 70% and no WMA - Discontinue Lasix for increasing creatinine - Monitor strict in and out - Daily weight - Low-sodium diet - Continue propranolol 20 mg p.o. twice daily, resume Spironolactone 100 mg p.o. and furosemide - Repeat echo pending with normal EF, WMA that do not appear markedly different from previous - No ascites on US - venous reflux study pending - 2 step am - wears 1L intermittently at home - may need to have oxygen for home increased - Will give another dose of IV lasix this evening to help with LE edema. Initially when he was admitted with concern was for CHF due to weight gain but given his BNP, echo, and clear cxr on admission, I do not think his edema/sob is cardiac. He may have some fluid retention due to other factors such as venous dysfunction vs lymphedema with worsening due to cellulitis. It does not appear that his liver function is playing a role ie with ascites. His sob may be a combination of obesity, deconditioning and COPD. - Will need pulmonology follow up (2) Edema: As above (3) Cellulitis: Improving Left lower leg cellulitis Continue IV ceftriaxone Venous doppler without DVT, does show subcutaneous edema in left leg (4) COPD (chronic obstructive pulmonary disease): Continue home medicine Combivent Respimat 1 puff 4 times daily Duoneb prn Recommend pulm follow up as above (5) Chronic kidney disease, stage 3: Baseline creat 1.7-2 - creatinine 2.08 today Monitor kidney function Avoid nephrotoxins where possible Resume furosemide, spironolactone held yesterday for kidney function (6) Cirrhosis: Continue rifaximin, propranolol Per outpatient notes, patient has recently been drinking again. Will need to monitor for detox. AWSS, prn ativan - no signs of detox US abd ltd did not find any ascites (7) DVT prophylaxis: SCDs, heparin subq Dispo: PT eval ok with discharge home. May want to discuss home health with CM tomorrow. Subjective Mr. Mark is somewhat unhappy about staying another day in the hospital. He did have some trouble with ambulating today, desaturating to 85% and having to stop for a time. His neighbor who is his frequent director of purchasing is very concerned about him coming home as he lives alone and relies on her for much of his care as far as leaving the house goes. He had difficulty getting through his echo as lying flat makes him short of breath because he says his belly pushes on his chest. He has not had any chest pain, no cough. No events on monitor Review of Systems Review of Systems: All systems reviewed & are unremarkable except as noted in HPI & below Physical Exam Physical Exam: General: no distress Eyes: normal inspection, PERLL Respiratory: chest non tender, clear to auscultation, normal breath sounds, no respiratory distress, no accessory muscle use Cardiac: regular rate and rhythm, no rub or gallop, no murmur, +2 pitting edema lower extremities GI/: active bowel sounds, no abd pain or tenderness, soft, non distended Extremities: normal range of motion, normal strength, non tender Neuro/Psych: alert and oriented x 3, normal mood and affect Skin: normal color, dry, small area of erythema right lower leg, larger area on left lower leg Results & Data Vital Signs (Past 12 Hours) Vital Signs Temp Pulse Resp BP Pulse Ox 11/18/18 15:28 36.6 C 91 H 19 148/81 H 90 11/18/18 11:40 36.5 C 78 16 150/75 H 90 11/18/18 08:14 36.7 C 82 18 130/67 94 PG Care Time/CCT Total # of Minutes Spent Total Time Spent with Patient: Total time spent is greater than 50% in coordinat ion of care (as documented) at patient's floor/unit and/or counseling patient: (1) COPD (chronic obstructive pulmonary disease) COPD type: COPD with acute exacerbation Qualified Code(s): J44.1 - Chronic obstructive pulmonary disease with (acute) exacerbation
[2018-11-18] MEDS: NICOTINE 21 MG/24 HR TDSY TD SCH (17:18)
[2018-11-18] MEDS: FAMOTIDINE 20 MG in SYRINGE 3 ML IV SCH ×2 (20:02→20:05)
[2018-11-18] MEDS ORDERED: FUROSEMIDE 20 MG in SYRINGE 0 ML IV ONE (21:00)
--- NOTE | 2018-11-18 21:54 | Ultrasound Report ---
BILATERAL LOWER EXTREMITY VENOUS DOPPLER HISTORY: Bilateral lower extremity edema COMPARISON STUDY: None. FINDINGS: There is normal compressibility, flow, and augmentation within the bilateral lower extremit y deep venous systems. No venous reflux/insufficiency identified. IMPRESSION: No DVT within the right or left lower extremity. No venous reflux/insufficiency identified. Electronically signed by: Alex King M.D. 11/18/2018 9:52 PM
[2018-11-19] MEDS: HEPARIN SOD 5,000 UNIT/0.5 ML VIAL SQ SCH ×2 (06:13→13:39)
[2018-11-19 06:30] LABS: BUN Creatinine Ratio 17.2 (10-20); Blood Urea Nitrogen 33 mg/dl (7-18); Calcium 9.3 mg/dl (8.5-10.1); Carbon Dioxide 28 mmol/L (21-32); Chloride 106 mmol/L (98-107); Est GFR (African American) 39.7; Est GFR (Non-African American) 34.3; Glucose 80 mg/dl (70-99); Potassium 4.6 mmol/L (3.5-5.1); Sodium 142 mmol/L (136-145)
[2018-11-19] MEDS: TAMSULOSIN HCL 0.4 MG CAP PO SCH (07:38)
[2018-11-19] MEDS: POTASSIUM CHLORIDE 20 MEQ TABCR PO SCH (07:38)
[2018-11-19] MEDS: NICOTINE 21 MG/24 HR TDSY TD SCH (07:38)
[2018-11-19] MEDS: PROPRANOLOL HCL 20 MG TAB PO SCH (07:38)
[2018-11-19] MEDS: CHOLECALCIFEROL 1,000 UNITS TAB PO SCH (07:38)
[2018-11-19] MEDS: SPIRONOLACTONE 100 MG TAB PO SCH (07:39)
[2018-11-19] MEDS: RIFAXIMIN 550 MG TABLET PO SCH (07:39)
--- NOTE | 2018-11-19 10:27 | Discharge Summary ---
Date of Service November 19, 2018 Admission HPI Per Admitting Provider History of Present Illness Chief Complaint: Shortness of breath and swelling of the lower extremities Primary Care Provider: Devon Silver MD Patient is a 68 years old male with past medical history ofCongestive heart failure, portal hypertension, COPD, hypertension, paroxysmal atrial fibrillation, benign prostatic hypertrophy, anemia, CKD stage III who presents to the emergency room shortness of breath and swelling of the lower extremities for couple of days. Patient reports that he gradually gain 20 pounds for several weeks. Patient denies fever chills chest pain abdominal pain frequency urgency hemoptysis melena melena hematuria or dysuria. Labs are reviewed which shows CBC of 9.85, hemoglobin 13.2, hematocrit 38.5, platelets 197, PT 10.7, INR 1, APTT 27.6 sodium 137, potassium 4.4, BUN 21, creatinine 1.71, GFR 39.7, troponin 0 0.015, BNP 433. Urine is all negative. Patient was made to admit patient to PCU on telemetry for CHF acute CHF exacerbation and diuresis Admission Exam Per Admitting Provider Constitutional: WD/WN, vitals as above well developed and + obese Eyes: PERRL, conjunctivae normal, anicteric sclerae ENMT: external ear and nose normal, oropharynx normal Neck: trachea midline, no thyromegaly Cardiovascular: RRR, no murmur, no edema Heart Sounds: normal S1 and normal S2 Palpation: + palpable S3 Vessels: + JVD and dorsalis pedis pulses present Extremities: + pedal edema (3+ pitting edema bilaterally) Gastrointestinal (Abdomen): normal bowel sounds, soft, nontender, no hepatosplenomegaly Skin: Bilateral erythema over lower extremities around ankles due to chronic venostasis. Does not appears to be inflamed such as cellulitis. Neurologic: patellar DTR's 2+ bilat, sensation intact Psychiatric: A+Ox3, euthymic affect Lymphatic: no cervical or axillary lymphadenopathy Principal Diagnosis Left leg cellulitis Discharge Exam General-alert and oriented x3, no fevers, no chills HEENT-head atraumatic and normocephalic, TMs intact bilaterally, pupils equal and reactive to light, extraocular muscles intact Neck-no lymphadenopathy or thyromegaly, trachea midline Chest-clear to auscultation percussion. No rales wheezing or rhonchi Cardiac-regular rate and rhythm, normal S1 and S2, no murmurs Abdomen-normal bowel sounds, nontender, no hepatosplenomegaly Extremities-no cyanosis, clubbing, or edema. Much improved left lower extremity erythema. Underlying chronic venous insufficiency and stasis dermatitis. 1+ pitting edema bilateral lower extremities below the knees which is chronic. Neuro-cranial nerves II through XII intact, motor and sensory function within normal limits, strength symmetrical 5/5, no focal deficits Psych-normal affect, normal mood Discharge Data Allergies Allergy/AdvReac Type Severity Reaction Status Date / Time No Known Allergies Allergy Verified 11/15/18 16:57 Consultations 11/15/18 17:41 ED Decision to Admit Stat 11/18/18 15:24 Consult [facility] coordinating producer Routine Procedures Performed IV infusion of antibiotics Ordered Studies 11/16/18 11:48 US venous doppler LE LT Routine 11/17/18 15:07 US abdomen limited Routine 11/18/18 12:40 US venous reflux LE BI Routine Hospital Course (1) Cellulitis: Treated with intravenous Rocephin. No pathogen isolated. Discharged on oral Keflex (2) COPD (chronic obstructive pulmonary disease): Stable while hospitalized. Treated with usual inhalers. (3) Hypoxia: Chronic hypoxic respiratory failure. He is hypoxic on room air and uses home oxygen. Back to baseline at discharge. (4) Edema: Chronic lower extremity edema due to chronic venous insufficiency. Stable Total Time Total Time Spent Total Time Spent (In Minutes): 35 minutes Total Time Includes: Examination of the Patient, Discharge Planning and Medication Reconciliation Discharge Plan Discharge Items Patient Disposition: Home - Self-Care Reason For Visit: ACUTE CHF EXACERBATION Discharge Diagnosis: Left leg cellulitis Activity: Resume your previous activity Activity Comment: gradually as tolerated Lifting: Gradually increase as tolerated Bathing: No limitations Weightbearing: Full weightbearing Non-emergency contact: Primary Care Provider Call non-emergency contact if: you have any medication questions Follow-up/Referrals: Juan Antonio Silver MD [Primary Care Provider] - Diet: Heart Healthy and Low Sodium (2gm) Addtl Attending Provider Instructions: Please see your primary care provider next week. You will need to follow up concerning your results of your echocardiogram and venous study. Please finish your entire antibiotic regimen. You should call your doctor if the redness in your legs is worsening or if you are running a fever. Call 911 and go to the Emergency Room if: * You have tightness or pain in your chest that does not go away with rest or Nitroglycerin * You are very short of breath even with rest Call your doctor if any of the following symptoms or problems start or get worse: * Shortness of breath or difficulty breathing * Wake up at night short of breath * Chest pain * Cough * Swelling of your hands, fee, or legs * More fatigued or tired with your normal activity * Palpitations - sudden fast heart beats WEIGHT * Weigh yourself every morning after using the bathroom. * Use the same scale. * Wear the same amount of clothing. * Write your weight down on your chart. * Call your doctor if you gain more than 2-3 pounds in 1-2 days. MEDICATIONS * Use this discharge instruction sheet for instructions. * Take your medications at the time your doctor ordered. * Do not skip a dose of your medicines. * If you miss a dose of medicine, take as soon as possible, but DO NOT DOUBLE A DOSE. * Read your medicine information when you get home. * Know all of the side effects of your medicine. * Call your doctor's office if you have any side effects. * Be sure all of your doctors know what medicine and herbs you take (including cold, flu, and herbal medicine). * Pain Medicine: If you do not get relief from your pain, please call your doctor for help. Take the following with you to your follow-up doctor appointments: * Weight Chart * Medication List * List of questions Do not drink excessive alcohol, beer or wine. Pending Studies at Discharge: No Stand-Alone Forms: My [facility] Medications and DC Order Prescriptions: New cephalexin 500 mg tablet 500 mg PO BID 7 Days Qty: 14 RF: 0 Continued pantoprazole 40 mg tablet,delayed release (DR/EC) 40 mg PO .COMPLEX Qty: 30 RF: 11 propranolol 20 mg tablet 20 mg PO BID Qty: 0 RF: 5 spironolactone 100 mg Tablet 100 mg PO QAM RF: 0 tamsulosin 0.4 mg Capsule 0.4 mg PO QAM RF: 0 furosemide 20 mg Tablet 20 mg PO QAM RF: 0 cholecalciferol (vitamin D3) [Vitamin D3] 1,000 unit Capsule 1,000 unit PO QAM RF: 0 Xifaxan 550 mg Tablet 550 mg PO BID RF: 0 Combivent Respimat 20-100 mcg/actuation Mist 1 puff INHALATION QID PRN (Reason: Shortness Of Breath) RF: 0 Discharge Orders: Discharge Order (Routine); Ordered 11/19/18 Ordered By: Ben Whyte Admission Data Admit Date/Time: 11/15/18 18:42 Attending Provider: Refugio Malagon Admit Provider: Jonas Kaba Primary Care Provider: Juan Antonio Silver Other Providers: Refugio Malagon
[2018-11-19] MEDS: cefTRIAXone SODIUM 2,000 MG in DEXTROSE 5% 50 ML IV SCH (13:39)
== END 2018-11-19 16:20 | disposition home or self-care (01) | DRG 291 ==
LOC: ED 16:26 → SUATTDRO 18:42 → 2S 18:42

== ENCOUNTER 2020-06-15 09:56 | Inpatient (IN) ==
[2020-06-15 11:20] LABS: Appearance Urine Clear (Clear); Bilirubin Urine Negative (Negative); Blood Urine Negative (Negative); Color Urine Yellow; Glucose Urine UA Negative (Negative); Ketones Urine Negative (Negative); Leukocyte Esterase Urine Negative (Negative); Nitrite Urine Negative (Negative); Protein Urine Negative (Negative); Specific Gravity Urine 1.007 (1.000-1.030); Urobilinogen Urine Negative (Negative); pH Urine 5.5 (4.5-7.5)
[2020-06-15 11:22] LABS: Prothrombin Time 10.5 Seconds (9.0-12.0)
[2020-06-15 11:31] LABS: Albumin Globulin Ratio 0.7 (0.9-2); Albumin Level 2.8 gm/dl (3.4-5.0); BUN Creatinine Ratio 8.7 (10-20); Bilirubin,Total 0.6 mg/dl (0.2-1); C Reactive Protein 1.63 mg/dl (0-0.29); Calcium 8.7 mg/dl (8.5-10.1); Creatinine Clr Calc Pharmacy 49.2 ml/min; Est GFR (Non-African American) 46.6; Globulin 3.9 gm/dl (2.5-4.0); Magnesium 1.6 mg/dl (1.8-2.4); Potassium 4.2 mmol/L (3.5-5.1); Total Protein 6.7 gm/dl (6.4-8.2); Troponin I 0.04 ng/ml (0-0.045)
[2020-06-15 11:53] LABS: Basophils # (auto) 0.02 K/uL (0-0.2); Basophils % (auto) 0.3 %; Eosinophils # (auto) 0.09 K/uL (0-0.5); Eosinophils % (auto) 1.2 %; Hematocrit (blood only) 32.5 % (42-52); Hemoglobin 11.6 g/dL (14.0-18.0); Immature Granulocytes # (auto) 0.04 K/uL (0.00-0.02); Immature Granulocytes % (auto) 0.5 %; Lymphocytes # (auto) 0.76 K/uL (1.2-3.4); Lymphocytes % (auto) 10.3 %; Mean Corpuscular Hemoglobin 33.3 pg (25-34); Mean Corpuscular Hgb Conc 35.7 g/dL (32-36); Mean Corpuscular Volume 93.4 fL (80-100); Monocytes # (auto) 0.82 K/uL (0.11-0.59); Monocytes % (auto) 11.1 %; Neutrophils # (auto) 5.66 K/uL (1.4-6.5); Neutrophils % (auto) 76.6 %; Platelet Count 173 K/uL (130-400); RDW Coefficient of Variation 13.3 % (11.5-14.5); RDW Standard Deviation 45.1 fL (36.4-46.3); Red Blood Count 3.48 M/uL (4.7-6.1); White Blood Count 7.39 K/uL (4.8-10.8)
[2020-06-15 11:56] LABS: Base Excess VBG -0.7 mEq/L; Oxygen Saturation VBG 68.1 %; pH VBG 7.3 (7.36-7.41)
--- NOTE | 2020-06-15 12:05 | XRay Report ---
XR chest 1V portable CLINICAL HISTORY: Dyspnea COMPARISON STUDY: 08/08/2019 FINDINGS: The cardiac and mediastinal contours are normal. There is no evidence of focal pulmonary co nsolidation. There is no evidence of failure. No pleural effusions are visualized.[There is minor lef t basilar atelectasis/scarring similar to the prior study. IMPRESSION: No active disease in the chest. ACT 112: Negative or not required by law. Electronically signed by: Chencho Rey M.D. 06/15/2020 12:03 PM
--- NOTE | 2020-06-15 12:06 | XRay Report ---
XR pelvis 1-2V routine HISTORY: 69 years-old Male fall acute chest trauma status post fall COMPARISON: Pelvis radiograph 08/08/2019 TECHNIQUE: AP view of the pelvis FINDINGS: Mild osteoarthritis of the hips. No acute fracture, dislocation or avascular necrosis. Unremarkable s oft tissues. IMPRESSION: No acute fracture. ACT 112: Negative or not required by law. The above report was generated using voice recognition software. It may contain grammatical, syntax o r spelling errors. Electronically signed by: Bj Saxena M.D. 06/15/2020 12:04 PM
[2020-06-15 12:14] LABS: Creatine Kinase MB 3.6 ng/ml (0.5-3.6)
--- NOTE | 2020-06-15 12:20 | Emergency Department Note ---
Impression & Plan Acute hyponatremia, Hypomagnesemia, Weakness, Bilateral edema of lower extremity, Acute respiratory acidosis ED Provider Note NAME: JOI CANO AGE: 69 SEX: M : 1950 ARRIVES VIA: Ambulance INFORMANT: Patient, EMS ED PROVIDER(S): Kiran Frank DO CHIEF COMPLAINT: Weakness HPI: The patient is a 69-year-old male who presented to the emergency department for generalized weakness. The patient had a fall at his home and called 911 because he was unable to stand. The patient has a history of lower extremity swelling which is chronic. The patient called 911 because he has very severe pain in both legs. He denies having any head injury. He denies having any nausea or vomiting. He does complain of significant shortness of breath but no chest pain. ROS: See above HPI for pertinent positives & negatives. A total of 10 systems reviewed and were otherwise negative. PAST MEDICAL HISTORY: See Below PAST SURGICAL HISTORY: See Below FAMILY HISTORY: See Below SOCIAL HISTORY: See Below HOME MEDICATIONS: See Below ALLERGIES: See Below VITALS: See Below PHYSICAL EXAMINATION: GENERAL: The patient is awake and alert. The patient is unkempt. EYES: The conjunctivae are clear. The pupils are round and reactive. EARS, NOSE, MOUTH AND THROAT: The nose is without any evidence of any deformity. NECK: The neck is nontender and supple. RESPIRATORY: Shallow respirations were noted. Rales were noted throughout. CARDIOVASCULAR: Regular rate and rhythm noted there no murmurs rubs or gallops normal S1 normal S2. GASTROINTESTINAL: The abdomen is soft. Abdomen is nontender. MUSCULOSKELETAL/EXTREMITIES: There is no evidence of gross deformity full range of motion is noted in the hips and shoulders. SKIN: Chronic venous stasis changes were noted in both lower extremities. Skin was warm. NEUROLOGIC: Patient is awake alert and oriented x3. MEDICAL DECISION MAKING: The patient is a 69-year-old male who presented to the emergency department for an evaluation. The patient fell and called 911. He had difficulty ambulating and getting back up. The patient was found to be listless and slow to respond to questioning but appeared appropriate. His work-up revealed hyponatremia hypomagnesemia and was suggestive of volume overload. The patient has very severe skin changes in his lower extremities. This is bilateral and most likely represents venous stasis changes or stasis dermatitis but he was placed on IV antibiotics in the emergency department. I discussed the patient's condition with the on-call [facility] hospitalist. They have agreed to evaluate the patient in the emergency department for further management and disposition. Triage Nursing notes reviewed. Prior medical records reviewed Vital Signs: reviewed and remarkable for elevated blood pressure. Differential diagnosis: Infection, dehydration, metabolic abnormality, hypo/hyperglycemia, electrolyte disturbance, anemia, hypoxia, cardiac sources, intracerebral event, toxicologic, neurologic, as well as other pathologies. ER treatment provided: See below Diagnostics interpreted by me: ECG: EKG was obtained in the emergency department. My interpretation is normal sinus rhythm at 68 bpm. There was no ectopy. There was no acute ST segment ab normalities noted. This was compared to a tracing from August 072019. No significant changes were noted. Cardiac Monitoring: An order was placed for continuous cardiac monitoring. The monitor shows a rate of 75 bpm with sinus rhythm. Laboratory studies: As stated above and show below. Imaging studies: See below Consultation(s): I discussed this case with Dr. Reese who is on-call for the [facility] hospitalist group. She will evaluate the patient in the emergency department. Past Med/Surg History Medical History (Updated 06/15/20 @ 15:12 by Kiran Frank DO) Anemia Ascites (10/23/10) Duodenal ulcer History of abdominal paracentesis History of recent hospitalization 11/2018 [facility] - FLUID OVERLOAD Irregular heart beat On home oxygen therapy 1L oxygen Poor historian Slipped cervical disc Surgical History History of appendectomy History of esophagogastroduodenoscopy (EGD) 08/06/18 [facility] History of tooth extraction Family History Father Myocardial infarction Unknown Diabetes Coronary heart disease Other No family history of adverse response to anesthesia Denies family history of Crohn's disease Colorectal cancer Ulcerative colitis Social History Smoking Status: Former smoker Second Hand Exposure: Yes (bar environment); Hx Alcohol Use: Yes Alcohol type: beer Hx Substance Use: No Preferred Language: Slovak Communication Ability: Effective Development Educator Required: No Beliefs That Will Affect Care: None Current Living Situation: Alone Feels Safe at Home: Yes Assistive Devices: Contacts Allergies Allergies Allergy/AdvReac Type Severity Reaction Status Date / Time No Known Allergies Allergy Verified 08/08/19 15:14 Home Meds Home Medications Medication Instructions Recorded Confirmed cholecalciferol (vitamin D3) 1,000 unit PO QAM 07/25/18 08/08/19 [Vitamin D3] tamsulosin 0.4 mg capsule 0.4 mg PO DAILY 07/30/19 08/08/19 Xifaxan 550 mg PO BID 08/08/19 08/08/19 Previous Rx's Medication Instructions Recorded ipratropium 20 mcg-albuterol 100 1 puff INHALATION .COMPLEX PRN #4 02/20/19 mcg/actuation mist for inhalation gm pantoprazole 40 mg tablet,delayed 40 mg PO QAM #90 tab 09/18/19 release propranolol 20 mg tablet 20 mg PO BID #180 tab 02/19/20 spironolactone 100 mg tablet See Rx Instructions .ROUTE 04/27/20 .COMPLEX #90 tab furosemide 20 mg tablet 20 mg PO QAM #90 tab 05/28/20 Results & Data (ED) Vital Signs Vital Signs - 24 hr 06/15/20 09:47 06/15/20 10:19 06/15/20 10:30 Temperature 36.6 C Temperature Source Oral Pulse Rate 54 L 68 65 Pulse Rate [Right Finger] Pulse Rhythm Regular Regular Pulse Rhythm [Right Finger] Pulse Strength Normal Pulse Strength [Right Finger] Respiratory Rate 20 24 22 Respiratory Effort / Characteristics Respiratory Depth Normal Respiratory Pattern Regular Blood Pressure 166/78 H 142/87 H Blood Pressure [Right Arm] Blood Pressure Mean 107 105 Blood Pressure Mean [Right Arm] Blood Pressure Position Sitting Blood Pressure Position [Right Arm] Pulse Oximetry 100 100 Oxygen Delivery Method Nasal Cannula Nasal Cannula Oxygen Flow Rate 2 2 Sepsis Recent Fever Within 48 Hours No Sepsis New/Unexplained Change in Mental Status N/A Sepsis Action Taken by Nursing No Action Required 06/15/20 10:33 06/15/20 10:34 Temperature Temperature Source Pulse Rate 64 Pulse Rate [Right Finger] 69 Pulse Rhythm Pulse Rhythm [Right Finger] Regular Pulse Strength Pulse Strength [Right Finger] Normal Respiratory Rate 21 22 Respiratory Effort / Characteristics Non-Labored Respiratory Depth Normal Respiratory Pattern Regular Blood Pressure Blood Pressure [Right Arm] 142/87 H Blood Pressure Mean Blood Pressure Mean [Right Arm] 105 Blood Pressure Position Blood Pressure Position [Right Arm] Sitting Pulse Oximetry 100 Oxygen Delivery Method Nasal Cannula Oxygen Flow Rate 2 Sepsis Recent Fever Within 48 Hours Sepsis New/Unexplained Change in Mental Status Sepsis Action Taken by Correction Medications Current Medication List: was personally reviewed by me Laboratory Data Attestation: I reviewed the patient's lab results. Result diagrams: 06/15/20 11:35 06/15/20 10:42 Lab Results 06/15/20 06/15/20 06/15/20 Range/Units 10:42 10:42 11:35 WBC 7.39 (4.8-10.8) K/uL RBC 3.48 L (4.7-6.1) M/uL Hgb 11.6 L (14.0-18.0) g/dL Hct 32.5 L (42-52) % MCV 93.4 (80-100) fL MCH 33.3 (25-34) pg MCHC 35.7 (32-36) g/dL RDW Std Deviation 45.1 (36.4-46.3) fL RDW Coeff of Walter 13.3 (11.5-14.5) % Plt Count 173 (130-400) K/uL MPV 9.0 (7.4-10.4) fL Immature Gran % (Auto) 0.5 % Neut % (Auto) 76.6 % Lymph % (Auto) 10.3 % Rabun % (Auto) 11.1 % Eos % (Auto) 1.2 % Baso % (Auto) 0.3 % Neut # (Auto) 5.66 (1.4-6.5) K/uL Lymph # (Auto) 0.76 L (1.2-3.4) K/uL Rabun # (Auto) 0.82 H (0.11-0.59) K/uL Eos # (Auto) 0.09 (0-0.5) K/uL Baso # (Auto) 0.02 (0-0.2) K/uL Immature Gran # (Auto) 0.04 H (0.00-0.02) K/uL ESR (0-20) mm/hr PT 10.5 (9.0-12.0) Seconds INR 1.0 (0.9-1.1) APTT 27.0 (21.0-31.0) Seconds PTT Ratio 1.0 VBG pH (7.36-7.41) VBG pCO2 (38-50) mmHg VBG pO2 mmHg VBG HCO3 mmol/L VBG O2 Saturation % VBG Base Excess mEq/L Barometric Pressure mm/Hg Sodium 120 L (136-145) mmol/L Potassium 4.2 (3.5-5.1) mmol/L Chloride 87 L (98-107) mmol/L Carbon Dioxide 25 (21-32) mmol/L Anion Gap 8.0 (3-11) BUN 13 (7-18) mg/dl Creatinine 1.49 H (0.6-1.4) mg/dl Est Cr Clr Drug Dosing 49.2 ml/min Est GFR ( Amer) 54.0 Est GFR (Non-Af Amer) 46.6 BUN/Creatinine Ratio 8.7 L (10-20) Glucose 88 (70-99) mg/dl Osmolality (280-300) mOsm/kg Calcium 8.7 (8.5-10.1) mg/dl Magnesium 1.6 L (1.8-2.4) mg/dl Total Bilirubin 0.6 (0.2-1) mg/dl AST 21 (15-37) U/L ALT 14 (12-78) U/L Alkaline Phosphatase 91 (45-117) U/L Total Creatine Kinase (39-308) U/L CK-MB (CK-2) (0.5-3.6) ng/ml CK/CKMB % Calc (0-3.0) Troponin I 0.040 (0-0.045) ng/ml C-Reactive Protein 1.63 H (0-0.29) mg/dl NT-Pro-B Natriuret Pep 1086 H (0-900) pg/ml Total Protein 6.7 (6.4-8.2) gm/dl Albumin 2.8 L (3.4-5.0) gm/dl Globulin 3.9 (2.5-4.0) gm/dl Albumin/Globulin Ratio 0.7 L (0.9-2) Urine Color Urine Appearance (Clear) Urine pH (4.5-7.5) Ur Specific [place] (1.000-1.030) Urine Protein (Negative) Urine Glucose (UA) (Negative) Urine Ketones (Negative) Urine Blood (Negative) Urine Nitrite (Negative) Urine Bilirubin (Negative) Urine Urobilinogen (Negative) Ur Leukocyte Esterase (Negative) Urine Osmolality (500-800) mOsm/kg Ur Random Sodium mmol/L COVID-19 Eval Order SARS-CoV-2 (PCR) (Negative) Influenza Type A (PCR) (Neg) Influenza Type B (PCR) (Neg) RSV (RT-PCR) (Neg) 06/15/20 06/15/20 06/15/20 Range/Units 11:35 11:43 11:44 WBC (4.8-10.8) K/uL RBC (4.7-6.1) M/uL Hgb (14.0-18.0) g/dL Hct (42-52) % MCV (80-100) fL MCH (25-34) pg MCHC (32-36) g/dL RDW Std Deviation (36.4-46.3) fL RDW Coeff of Walter (11.5-14.5) % Plt Count (130-400) K/uL MPV (7.4-10.4) fL Immature Gran % (Auto) % Neut % (Auto) % Lymph % (Auto) % Rabun % (Auto) % Eos % (Auto) % Baso % (Auto) % Neut # (Auto) (1.4-6.5) K/uL Lymph # (Auto) (1.2-3.4) K/uL Rabun # (Auto) (0.11-0.59) K/uL Eos # (Auto) (0-0.5) K/uL Baso # (Auto) (0-0.2) K/uL Immature Gran # (Auto) (0.00-0.02) K/uL ESR 69 H (0-20) mm/hr PT (9.0-12.0) Seconds INR (0.9-1.1) APTT (21.0-31.0) Seconds PTT Ratio VBG pH 7.30 L (7.36-7.41) VBG pCO2 55 H (38-50) mmHg VBG pO2 38 mmHg VBG HCO3 27 mmol/L VBG O2 Saturation 68.1 % VBG Base Excess -0.7 mEq/L Barometric Pressure 727.8 mm/Hg Sodium (136-145) mmol/L Potassium (3.5-5.1) mmol/L Chloride (98-107) mmol/L Carbon Dioxide (21-32) mmol/L Anion Gap (3-11) BUN (7-18) mg/dl Creatinine (0.6-1.4) mg/dl Est Cr Clr Drug Dosing ml/min Est GFR ( Amer) Est GFR (Non-Af Amer) BUN/Creatinine Ratio (10-20) Glucose (70-99) mg/dl Osmolality 266 L (280-300) mOsm/kg Calcium (8.5-10.1) mg/dl Magnesium (1.8-2.4) mg/dl Total Bilirubin (0.2-1) mg/dl AST (15-37) U/L ALT (12-78) U/L Alkaline Phosphatase (45-117) U/L Total Creatine Kinase (39-308) U/L CK-MB (CK-2) (0.5-3.6) ng/ml CK/CKMB % Calc (0-3.0) Troponin I (0-0.045) ng/ml C-Reactive Protein (0-0.29) mg/dl NT-Pro-B Natriuret Pep (0-900) pg/ml Total Protein (6.4-8.2) gm/dl Albumin (3.4-5.0) gm/dl Globulin (2.5-4.0) gm/dl Albumin/Globulin Ratio (0.9-2) Urine Color Urine Appearance (Clear) Urine pH (4.5-7.5) Ur Specific [place] (1.000-1.030) Urine Protein (Negative) Urine Glucose (UA) (Negative) Urine Ketones (Negative) Urine Blood (Negative) Urine Nitrite (Negative) Urine Bilirubin (Negative) Urine Urobilinogen (Negative) Ur Leukocyte Esterase (Negative) Urine Osmolality (500-800) mOsm/kg Ur Random Sodium mmol/L COVID-19 Eval Order SARS-CoV-2 (PCR) (Negative) Influenza Type A (PCR) (Neg) Influenza Type B (PCR) (Neg) RSV (RT-PCR) (Neg) 06/15/20 06/15/20 06/15/20 Range/Units 11:44 12:50 12:50 WBC (4.8-10.8) K/uL RBC (4.7-6.1) M/uL Hgb (14.0-18.0) g/dL Hct (42-52) % MCV (80-100) fL MCH (25-34) pg MCHC (32-36) g/dL RDW Std Deviation (36.4-46.3) fL RDW Coeff of Walter (11.5-14.5) % Plt Count (130-400) K/uL MPV (7.4-10.4) fL Immature Gran % (Auto) % Neut % (Auto) % Lymph % (Auto) % Rabun % (Auto) % Eos % (Auto) % Baso % (Auto) % Neut # (Auto) (1.4-6.5) K/uL Lymph # (Auto) (1.2-3.4) K/uL Rabun # (Auto) (0.11-0.59) K/uL Eos # (Auto) (0-0.5) K/uL Baso # (Auto) (0-0.2) K/uL Immature Gran # (Auto) (0.00-0.02) K/uL ESR (0-20) mm/hr PT (9.0-12.0) Seconds INR (0.9-1.1) APTT (21.0-31.0) Seconds PTT Ratio VBG pH (7.36-7.41) VBG pCO2 (38-50) mmHg VBG pO2 mmHg VBG HCO3 mmol/L VBG O2 Saturation % VBG Base Excess mEq/L Barometric Pressure mm/Hg Sodium (136-145) mmol/L Potassium (3.5-5.1) mmol/L Chloride (98-107) mmol/L Carbon Dioxide (21-32) mmol/L Anion Gap (3-11) BUN (7-18) mg/dl Creatinine (0.6-1.4) mg/dl Est Cr Clr Drug Dosing ml/min Est GFR ( Amer) Est GFR (Non-Af Amer) BUN/Creatinine Ratio (10-20) Glucose (70-99) mg/dl Osmolality (280-300) mOsm/kg Calcium (8.5-10.1) mg/dl Magnesium (1.8-2.4) mg/dl Total Bilirubin (0.2-1) mg/dl AST (15-37) U/L ALT (12-78) U/L Alkaline Phosphatase (45-117) U/L Total Creatine Kinase 86 (39-308) U/L CK-MB (CK-2) 3.6 (0.5-3.6) ng/ml CK/CKMB % Calc 4.2 H (0-3.0) Troponin I (0-0.045) ng/ml C-Reactive Protein (0-0.29) mg/dl NT-Pro-B Natriuret Pep (0-900) pg/ml Total Protein (6.4-8.2) gm/dl Albumin (3.4-5.0) gm/dl Globulin (2.5-4.0) gm/dl Albumin/Globulin Ratio (0.9-2) Urine Color Urine Appearance (Clear) Urine pH (4.5-7.5) Ur Specific [place] (1.000-1.030) Urine Protein (Negative) Urine Glucose (UA) (Negative) Urine Ketones (Negative) Urine Blood (Negative) Urine Nitrite (Negative) Urine Bilirubin (Negative) Urine Urobilinogen (Negative) Ur Leukocyte Esterase (Negative) Urine Osmolality (500-800) mOsm/kg Ur Random Sodium mmol/L COVID-19 Eval Order CovFluRsv at [facility] SARS-CoV-2 (PCR) NEGATIVE (Negative) Influenza Type A (PCR) Negative (Neg) Influenza Type B (PCR) Negative (Neg) RSV (RT-PCR) Negative (Neg) 06/15/20 06/15/20 06/15/20 Range/Units Unknown Unknown Unknown WBC (4.8-10.8) K/uL RBC (4.7-6.1) M/uL Hgb (14.0-18.0) g/dL Hct (42-52) % MCV (80-100) fL MCH (25-34) pg MCHC (32-36) g/dL RDW Std Deviation (36.4-46.3) fL RDW Coeff of Walter (11.5-14.5) % Plt Count (130-400) K/uL MPV (7.4-10.4) fL Immature Gran % (Auto) % Neut % (Auto) % Lymph % (Auto) % Rabun % (Auto) % Eos % (Auto) % Baso % (Auto) % Neut # (Auto) (1.4-6.5) K/uL Lymph # (Auto) (1.2-3.4) K/uL Rabun # (Auto) (0.11-0.59) K/uL Eos # (Auto) (0-0.5) K/uL Baso # (Auto) (0-0.2) K/uL Immature Gran # (Auto) (0.00-0.02) K/uL ESR (0-20) mm/hr PT (9.0-12.0) Seconds INR (0.9-1.1) APTT (21.0-31.0) Seconds PTT Ratio VBG pH (7.36-7.41) VBG pCO2 (38-50) mmHg VBG pO2 mmHg VBG HCO3 mmol/L VBG O2 Saturation % VBG Base Excess mEq/L Barometric Pressure mm/Hg Sodium (136-145) mmol/L Potassium (3.5-5.1) mmol/L Chloride (98-107) mmol/L Carbon Dioxide (21-32) mmol/L Anion Gap (3-11) BUN (7-18) mg/dl Creatinine (0.6-1.4) mg/dl Est Cr Clr Drug Dosing ml/min Est GFR ( Amer) Est GFR (Non-Af Amer) BUN/Creatinine Ratio (10-20) Glucose (70-99) mg/dl Osmolality (280-300) mOsm/kg Calcium (8.5-10.1) mg/dl Magnesium (1.8-2.4) mg/dl Total Bilirubin (0.2-1) mg/dl AST (15-37) U/L ALT (12-78) U/L Alkaline Phosphatase (45-117) U/L Total Creatine Kinase (39-308) U/L CK-MB (CK-2) (0.5-3.6) ng/ml CK/CKMB % Calc (0-3.0) Troponin I (0-0.045) ng/ml C-Reactive Protein (0-0.29) mg/dl NT-Pro-B Natriuret Pep (0-900) pg/ml Total Protein (6.4-8.2) gm/dl Albumin (3.4-5.0) gm/dl Globulin (2.5-4.0) gm/dl Albumin/Globulin Ratio (0.9-2) Urine Color Yellow Urine Appearance Clear (Clear) Urine pH 5.5 (4.5-7.5) Ur Specific [place] 1.007 (1.000-1.030) Urine Protein Negative (Negative) Urine Glucose (UA) Negative (Negative) Urine Ketones Negative (Negative) Urine Blood Negative (Negative) Urine Nitrite Negative (Negative) Urine Bilirubin Negative (Negative) Urine Urobilinogen Negative (Negative) Ur Leukocyte Esterase Negative (Negative) Urine Osmolality 135 L (500-800) mOsm/kg Ur Random Sodium 16 mmol/L COVID-19 Eval Order SARS-CoV-2 (PCR) (Negative) Influenza Type A (PCR) (Neg) Influenza Type B (PCR) (Neg) RSV (RT-PCR) (Neg) Administered Medications Discontinued Medications Magnesium Sulfate/Dextrose (Magnesium Sulfate / D5w) 1 gm in 100 mls @ 100 mls/hr IV Q1H CRISTAL Stop: 06/15/20 15:00 Last Admin: 06/15/20 14:09 Dose: 100 mls/hr Documented by: [id number] Infusion: 06/15/20 14:09 Dose: 100 mls/hr Documented by: [id number] Admin: 06/15/20 13:09 Dose: 100 mls/hr Documented by: [id number] Imaging Data Radiologist's Impression: Chest X-Ray 06/15/20 10:19 XR chest 1V portable CLINICAL HISTORY: Dyspnea COMPARISON STUDY: 08/08/2019 FINDINGS: The cardiac and mediastinal contours are normal. There is no evidence of focal pulmonary consolidation. There is no evidence of failure. No pleural effusions are visualized.[There is minor left basilar atelectasis/scarring similar to the prior study. IMPRESSION: No active disease in the chest. ACT 112: Negative or not required by law. Electronically signed by: Chencho Rey M.D. 06/15/2020 12:03 PM Pelvis X-Ray 06/15/20 10:19 XR pelvis 1-2V routine HISTORY: 69 years-old Male fall acute chest trauma status post fall COMPARISON: Pelvis radiograph 08/08/2019 TECHNIQUE: AP view of the pelvis FINDINGS: Mild osteoarthritis of the hips. No acute fracture, dislocation or avascular necrosis. Unremarkable soft tissues. IMPRESSION: No acute fracture. ACT 112: Negative or not required by law. The above report was generated using voice recognition software. It may contain grammatical, syntax or spelling errors. Electronically signed by: Bj Saxena M.D. 06/15/2020 12:04 PM Discharge Plan Visit Data Chief Complaint: Fall Stated Complaint: FALL/ON KNEES FOR LONG TIME ED Provider: Kiran Frank Discharge Problem: Acute hyponatremia, Hypomagnesemia, Weakness, Bilateral edema of lower extremity, Acute respiratory acidosis Patient Disposition: Being Evaluated by Hospitalist Condition: Good Forms Stand Alone Forms: Likeability Prescriptions Prescriptions: No Action Combivent Respimat 20-100 mcg/actuation mist 1 puff INHALATION .COMPLEX PRN (Reason: Shortness Of Breath) Qty: 4 RF: 5 pantoprazole 40 mg tablet,delayed release (DR/EC) 40 mg PO QAM Qty: 90 RF: 3 propranolol 20 mg tablet 20 mg PO BID Qty: 180 RF: 3 spironolactone 100 mg tablet See Rx Instructions .ROUTE .COMPLEX Qty: 90 RF: 1 furosemide 20 mg tablet 20 mg PO QAM Qty: 90 RF: 3 tamsulosin 0.4 mg capsule 0.4 mg PO DAILY RF: 0 cholecalciferol (vitamin D3) [Vitamin D3] 1,000 unit Capsule 1,000 unit PO QAM RF: 0 Xifaxan 550 mg tablet 550 mg PO BID RF: 0 Referrals Referrals: Juan Antonio Silver MD [Primary Care Provider] -
--- NOTE | 2020-06-15 12:36 | Electrocardiogram Report ---
Test Reason : Blood Pressure : / mmHG Vent. Rate : 068 BPM Atrial Rate : 068 BPM P-R Int : 218 ms QRS Dur : 082 ms QT Int : 388 ms P-R-T Axes : 090 061 061 degrees QTc Int : 412 ms Sinus rhythm with 1st degree A-V block Abnormal ECG When compared with ECG of 08-AUG-2019 17:44, [place] interval has increased Confirmed by Abhijit Peña ([id number]) on 06/15/2020 12:36:15 PM Referred By: REFERRED SELF Confirmed By:Abhijit Peña
[2020-06-15] MEDS: MAGNESIUM SULFATE / D5W 1 GM/100 ML BAG IV SCH ×2 (13:09→14:09)
[2020-06-15 14:16] LABS: Influenza A virus by PCR Negative (Neg); Influenza B virus by PCR Negative (Neg); RSV by PCR Negative (Neg); SARS CoV2 RNA(COVID-19) InHosp NEGATIVE (Negative)
[2020-06-15] MEDS ORDERED: FUROSEMIDE 40 MG/4 ML VIAL IV ONE (15:27)
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
[2020-06-15] MEDS ORDERED: POLYETHYLENE (MIRALAX) 17 GM PACK PO PRN (18:17)
[2020-06-15] MEDS ORDERED: ACETAMINOPHEN 325 MG TAB PO PRN (18:17)
[2020-06-15] MEDS ORDERED: IPRATROPIUM BROMIDE/ALBUTEROL respimat INH INH PRN ×2 (18:17→21:59)
[2020-06-15] MEDS ORDERED: LORazepam 1 MG TAB PO PRN (18:17)
[2020-06-15] MEDS: rifAXIMin 550 MG TABLET PO SCH (20:18)
[2020-06-15] MEDS: EUCERIN CR 120 GM JAR EXT SCH (20:18)
[2020-06-15] MEDS: FOLIC ACID 1 MG TAB PO SCH (20:18)
[2020-06-15] MEDS: PROPRANOLOL HCL 20 MG TAB PO SCH (20:18)
[2020-06-15] MEDS: SPIRONOLACTONE 100 MG TAB PO SCH (20:18)
[2020-06-15] MEDS: THIAMINE HCL 500 MG in SODIUM CHLORIDE 0.9% 50 ML IV SCH (20:18)
[2020-06-15] MEDS: HEPARIN SOD 5,000 UNIT/0.5 ML VIAL SQ SCH ×2 (20:18→20:28)
[2020-06-15 21:31] LABS: BUN Creatinine Ratio 8.8 (10-20); Calcium 9.6 mg/dl (8.5-10.1); Creatinine Clr Calc Pharmacy 49.6 ml/min; Est GFR (African American) 54.4; Est GFR (Non-African American) 46.9; Potassium 4.2 mmol/L (3.5-5.1)
[2020-06-15] MEDS ORDERED: FUROSEMIDE 20 MG in SYRINGE 0 ML IV ONE (22:00)
[2020-06-15] MEDS ORDERED: Albuterol HFA 8 GM Inhaler (Combivent Respimat P&T Subs) INH PRN (22:18)
[2020-06-15] MEDS ORDERED: Ipratropium HFA Inhaler (Combivent Respimat P&T Subs) INH PRN (22:19)
[2020-06-16] MEDS: HEPARIN SOD 5,000 UNIT/0.5 ML VIAL SQ SCH ×3 (05:49→20:57)
[2020-06-16 06:26] LABS: Basophils # (auto) 0.02 K/uL (0-0.2); Basophils % (auto) 0.2 %; Eosinophils # (auto) 0.08 K/uL (0-0.5); Eosinophils % (auto) 0.8 %; Hematocrit (blood only) 34.1 % (42-52); Hemoglobin 11.9 g/dL (14.0-18.0); Immature Granulocytes # (auto) 0.03 K/uL (0.00-0.02); Immature Granulocytes % (auto) 0.3 %; Lymphocytes # (auto) 0.87 K/uL (1.2-3.4); Lymphocytes % (auto) 8.7 %; Mean Corpuscular Hgb Conc 34.9 g/dL (32-36); Mean Corpuscular Volume 94.5 fL (80-100); Mean Platelet Volume 9.1 fL (7.4-10.4); Monocytes # (auto) 0.81 K/uL (0.11-0.59); Monocytes % (auto) 8.1 %; Neutrophils # (auto) 8.15 K/uL (1.4-6.5); Neutrophils % (auto) 81.9 %; Platelet Count 208 K/uL (130-400); RDW Coefficient of Variation 13.5 % (11.5-14.5); RDW Standard Deviation 46.7 fL (36.4-46.3); Red Blood Count 3.61 M/uL (4.7-6.1); White Blood Count 9.96 K/uL (4.8-10.8)
[2020-06-16 07:07] LABS: BUN Creatinine Ratio 10.1 (10-20); Bilirubin Direct 0.3 mg/dl (0-0.2); Creatinine Clr Calc Pharmacy 48.3 ml/min; Est GFR (African American) 56.7; Est GFR (Non-African American) 48.9; Potassium 4.1 mmol/L (3.5-5.1)
[2020-06-16 07:19] LABS: Thyroid Stimulating Hormone 1.48 uIu/ml (0.300-4.500); Total Protein 7.1 gm/dl (6.4-8.2)
[2020-06-16] MEDS: THIAMINE HCL 500 MG in SODIUM CHLORIDE 0.9% 50 ML IV SCH ×3 (08:37→21:19)
[2020-06-16] MEDS: SPIRONOLACTONE 100 MG TAB PO SCH (08:38)
[2020-06-16] MEDS: TAMSULOSIN HCL 0.4 MG CAP PO SCH (08:38)
[2020-06-16] MEDS: PANTOprazole 40 MG TAB PO SCH (08:38)
[2020-06-16] MEDS: CHOLECALCIFEROL 1,000 UNITS 25 MCG TAB PO SCH (08:38)
[2020-06-16] MEDS: PROPRANOLOL HCL 20 MG TAB PO SCH ×2 (08:38→21:27)
[2020-06-16] MEDS: rifAXIMin 550 MG TABLET PO SCH ×2 (08:38→21:30)
[2020-06-16] MEDS: EUCERIN CR 120 GM JAR EXT SCH ×2 (08:39→20:56)
[2020-06-16] MEDS: FOLIC ACID 1 MG TAB PO SCH (08:39)
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
[2020-06-17 07:17] LABS: Basophils # (auto) 0.03 K/uL (0-0.2); Basophils % (auto) 0.5 %; Eosinophils # (auto) 0.11 K/uL (0-0.5); Eosinophils % (auto) 1.9 %; Hematocrit (blood only) 31.1 % (42-52); Hemoglobin 10.8 g/dL (14.0-18.0); Immature Granulocytes # (auto) 0.01 K/uL (0.00-0.02); Immature Granulocytes % (auto) 0.2 %; Lymphocytes # (auto) 0.91 K/uL (1.2-3.4); Lymphocytes % (auto) 15.5 %; Mean Corpuscular Hgb Conc 34.7 g/dL (32-36); Mean Corpuscular Volume 95.1 fL (80-100); Mean Platelet Volume 9.1 fL (7.4-10.4); Monocytes # (auto) 0.56 K/uL (0.11-0.59); Monocytes % (auto) 9.5 %; Neutrophils # (auto) 4.25 K/uL (1.4-6.5); Neutrophils % (auto) 72.4 %; Platelet Count 191 K/uL (130-400); RDW Coefficient of Variation 13.7 % (11.5-14.5); RDW Standard Deviation 47.7 fL (36.4-46.3); Red Blood Count 3.27 M/uL (4.7-6.1); White Blood Count 5.87 K/uL (4.8-10.8)
[2020-06-17 07:56] LABS: BUN Creatinine Ratio 13.8 (10-20); Calcium 9.4 mg/dl (8.5-10.1); Creatinine Clr Calc Pharmacy 38.8 ml/min; Est GFR (African American) 43.5; Est GFR (Non-African American) 37.5; Potassium 4.1 mmol/L (3.5-5.1)
[2020-06-17] MEDS: rifAXIMin 550 MG TABLET PO SCH ×2 (08:34→20:14)
[2020-06-17] MEDS: PROPRANOLOL HCL 20 MG TAB PO SCH ×2 (08:34→20:12)
[2020-06-17] MEDS: FOLIC ACID 1 MG TAB PO SCH (08:34)
[2020-06-17] MEDS: CHOLECALCIFEROL 1,000 UNITS 25 MCG TAB PO SCH (08:34)
[2020-06-17] MEDS: PANTOprazole 40 MG TAB PO SCH (08:34)
[2020-06-17] MEDS: TAMSULOSIN HCL 0.4 MG CAP PO SCH (08:35)
[2020-06-17] MEDS: SPIRONOLACTONE 100 MG TAB PO SCH (08:35)
[2020-06-17] MEDS: EUCERIN CR 120 GM JAR EXT SCH ×2 (08:37→20:12)
[2020-06-17] MEDS: THIAMINE HCL 500 MG in SODIUM CHLORIDE 0.9% 50 ML IV SCH ×3 (08:37→20:16)
[2020-06-17] MEDS: HEPARIN SOD 5,000 UNIT/0.5 ML VIAL SQ SCH ×2 (08:37→20:13)
[2020-06-17] MEDS ORDERED: SODIUM CHLORIDE 0.9% 1000ML 500 ML IV ONE (12:11)
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
[2020-06-18 06:36] LABS: Basophils # (auto) 0.02 K/uL (0-0.2); Basophils % (auto) 0.3 %; Eosinophils # (auto) 0.14 K/uL (0-0.5); Eosinophils % (auto) 2.4 %; Hematocrit (blood only) 30.1 % (42-52); Hemoglobin 10.4 g/dL (14.0-18.0); Immature Granulocytes # (auto) 0.02 K/uL (0.00-0.02); Immature Granulocytes % (auto) 0.3 %; Lymphocytes # (auto) 0.87 K/uL (1.2-3.4); Mean Corpuscular Hemoglobin 33.2 pg (25-34); Mean Corpuscular Hgb Conc 34.6 g/dL (32-36); Mean Corpuscular Volume 96.2 fL (80-100); Mean Platelet Volume 8.7 fL (7.4-10.4); Monocytes # (auto) 0.57 K/uL (0.11-0.59); Monocytes % (auto) 9.8 %; Neutrophils # (auto) 4.17 K/uL (1.4-6.5); Neutrophils % (auto) 72.2 %; Platelet Count 190 K/uL (130-400); RDW Coefficient of Variation 13.8 % (11.5-14.5); RDW Standard Deviation 48.3 fL (36.4-46.3); Red Blood Count 3.13 M/uL (4.7-6.1); White Blood Count 5.79 K/uL (4.8-10.8)
[2020-06-18 07:19] LABS: BUN Creatinine Ratio 13.9 (10-20); Calcium 8.9 mg/dl (8.5-10.1); Creatinine Clr Calc Pharmacy 37.9 ml/min; Est GFR (African American) 42.4; Est GFR (Non-African American) 36.5; Magnesium 1.9 mg/dl (1.8-2.4); Potassium 4.5 mmol/L (3.5-5.1)
[2020-06-18] MEDS: THIAMINE HCL 500 MG in SODIUM CHLORIDE 0.9% 50 ML IV SCH (07:49)
[2020-06-18] MEDS: CHOLECALCIFEROL 1,000 UNITS 25 MCG TAB PO SCH (08:01)
[2020-06-18] MEDS: HEPARIN SOD 5,000 UNIT/0.5 ML VIAL SQ SCH (08:01)
[2020-06-18] MEDS: TAMSULOSIN HCL 0.4 MG CAP PO SCH (08:01)
[2020-06-18] MEDS: PROPRANOLOL HCL 20 MG TAB PO SCH (08:01)
[2020-06-18] MEDS: PANTOprazole 40 MG TAB PO SCH (08:01)
[2020-06-18] MEDS: rifAXIMin 550 MG TABLET PO SCH (08:01)
[2020-06-18] MEDS: EUCERIN CR 120 GM JAR EXT SCH (08:01)
[2020-06-18] MEDS: FOLIC ACID 1 MG TAB PO SCH (08:01)
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
[2020-06-19] MEDS ORDERED: THIAMINE HCL 100 MG TAB PO SCH (09:00)
== END 2020-06-18 17:37 | disposition home or self-care (01) | DRG 641 ==
LOC: ED 09:56 → 2W 16:14 → SUATTDRO 16:14 → 2W 17:53 → 2N 06-16 00:19
DX: K76.6 Portal hypertension; E87.2 Acidosis; I50.32 Chronic diastolic (congestive) heart failure; N18.30 Chronic kidney disease, stage 3 unspecified; E83.42 Hypomagnesemia; N17.9 Acute kidney failure, unspecified; I13.0 Hypertensive heart and chronic kidney disease with heart failure and stage 1 through stage 4 chronic kidney disease, or unspecified chronic kidney disease; K74.60 Unspecified cirrhosis of liver; J44.9 Chronic obstructive pulmonary disease, unspecified; Z99.81 Dependence on supplemental oxygen; D63.1 Anemia in chronic kidney disease; Z87.891 Personal history of nicotine dependence; E87.1 Hypo-osmolality and hyponatremia; F10.10 Alcohol abuse, uncomplicated

== ENCOUNTER 2020-07-21 13:01 | Inpatient (IN) ==
--- NOTE | 2020-07-21 13:50 | Emergency Department Note ---
History of Present Illness General Chief complaint: Shortness of Breath/Dyspnea Stated complaint: SOB, EDEMA, DIZZINESS Time Seen by Provider: 07/21/20 13:34 History of Present Illness This is a 69-year-old male who presents to the emergency department via ambulance with complaints of "shortness of breath". Patient notes that over the past several weeks he has been experiencing increasing dyspnea as well as lower extremity edema. He also notes that he has been experiencing lightheadedness. He feels as though he has to hold onto objects as he ambulates to keep his balance. He denies any trauma or injury. No fevers or chills. No chest pain. He notes that he attempted to secure a PCP follow-up today but was referred here to the emergency department for further evaluation and management. Patient no namita that he is vaccinated against Covid. He states that he had blood work performed just over 1 week ago and believes that his electrolytes were abnormal and he was dehydrated. He then proceeded to drink more water since that time to stay better hydrated. He denies any pain at this time. Home Medications Medication Instructions Recorded Confirmed Type cholecalciferol (vitamin D3) 1,000 unit PO QAM 07/25/18 07/21/20 History [Vitamin D3] tamsulosin 0.4 mg capsule 0.4 mg PO DAILY 07/30/19 07/21/20 History pantoprazole 40 mg tablet,delayed 40 mg PO QAM #90 tab 09/18/19 07/21/20 Rx release propranolol 20 mg tablet 20 mg PO BID #180 tab 02/19/20 07/21/20 Rx furosemide 20 mg tablet 20 mg PO QAM #90 tab 05/28/20 07/21/20 Rx Combivent Respimat 1 puff INHALATION QID PRN MDD 6 06/15/20 07/21/20 History PUFFS spironolactone 100 mg PO QAM 06/15/20 07/21/20 History Xifaxan 550 mg PO BID 07/21/20 07/21/20 History Allergies Allergy/AdvReac Type Severity Reaction Status Date / Time No Known Allergies Allergy Verified 07/21/20 16:01 Past Med/Surg History Medical History (Updated 07/22/20 @ 09:43 by Raphael Johnson M.D.) Anemia Ascites (10/23/10) Cirrhosis Duodenal ulcer History of abdominal paracentesis History of recent hospitalization 11/2018 [facility] - FLUID OVERLOAD Irregular heart beat On home oxygen therapy 1L oxygen Poor historian Slipped cervical disc Surgical History History of appendectomy History of esophagogastroduodenoscopy (EGD) 08/06/18 [facility] History of tooth extraction Family History (Updated 07/21/20 @ 17:48 by Sherman Peterson MD) Father Myocardial infarction Unknown Diabetes Coronary heart disease Mother Chronic kidney disease Other No family history of adverse response to anesthesia Denies family history of Crohn's disease Colorectal cancer Ulcerative colitis Social History Smoking Status: Former smoker Second Hand Exposure: No; Do You Dip or Chew Tobacco: Yes; Hx Alcohol Use: Yes Alcohol type: beer Hx Substance Use: No Preferred Language: Kosovan Communication Ability: Effective 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 Beliefs That Will Affect Care: None Current Living Situation: Alone Other Information That Helps Us Care for You: No Feels Safe at Home: Yes Safety Concerns: Feels Safe At This Time Assistive Devices: Oxygen - Continuous and Walker Review of Systems A total of 10 systems reviewed and were otherwise negative Physical Exam Vital Signs Vital Signs - 24 hr 07/21/20 13:07 07/21/20 13:08 07/21/20 13:34 Temperature 36.6 C Temperature Source Oral Pulse Rate 105 H 110 H 98 H Pulse Rate from SpO2 Sensor 81 Pulse Rhythm Irregular Pulse Strength Normal Respiratory Rate 22 28 H 26 H Respiratory Effort / Characteristics Spontaneous Accessory Muscle Use Labored Short of Breath SOB on Exertion Respiratory Depth Normal Respiratory Pattern Tachypnea Blood Pressure 143/66 H 143/66 H 114/70 Blood Pressure Mean 91 91 84 Blood Pressure Position Sitting Pulse Oximetry 95 100 100 Oxygen Delivery Method Nasal Cannula Nasal Cannula Oxygen Flow Rate 2 2 Sepsis Recent Fever Within 48 Hours No Sepsis New/Unexplained Change in Mental Status No Sepsis Action Taken by Nursing No Action Required 07/21/20 14:58 07/21/20 15:31 07/21/20 17:08 Temperature Temperature Source Pulse Rate 108 H 118 H Pulse Rate from SpO2 Sensor 101 H 87 Pulse Rhythm Pulse Strength Respiratory Rate 28 H 22 Respiratory Effort / Characteristics Respiratory Depth Respiratory Pattern Blood Pressure 147/98 H 148/79 H Blood Pressure Mean 114 102 Blood Pressure Position Pulse Oximetry 100 100 92 Oxygen Delivery Method Nasal Cannula Oxygen Flow Rate 2 Sepsis Recent Fever Within 48 Hours Sepsis New/Unexplained Change in Mental Status Sepsis Action Taken by Nursing 07/21/20 17:31 Temperature Temperature Source Pulse Rate 123 H Pulse Rate from SpO2 Sensor 89 Pulse Rhythm Pulse Strength Respiratory Rate 15 Respiratory Effort / Characteristics Respiratory Depth Respiratory Pattern Blood Pressure 120/84 Blood Pressure Mean 96 Blood Pressure Position Pulse Oximetry 98 Oxygen Delivery Method Oxygen Flow Rate Sepsis Recent Fever Within 48 Hours Sepsis New/Unexplained Change in Mental Status Sepsis Action Taken by Nursing VITAL SIGNS - Vital signs and nursing notes were reviewed. Stable and afebrile. GENERAL -69-year-old male appearing his stated age who is in no acute distress. Communicates well with provider and answers questions appropriately. SKIN -bilateral lower extremities, distal to the knees reveal circumferential edema with chronic skin change with orange peel appearance. Mild erythema noted bilaterally consistent with stasis dermatitis. HEAD - NC/AT. EYES - PERRL with EOMI bilaterally. Sclera anicteric. EARS - No deformities of external structures noted on gross examination bilaterally. NOSE - Midline and without cyanosis. No epistaxis or purulent drainage noted. MOUTH/OROPHARYNX - Without perioral cyanosis. NECK - Neck with FROM. No nuchal rigidity. LUNGS - Chest wall symmetric without accessory muscle use, intercostals retractions, or central cyanosis. Normal vesicular breath sounds CTA B/L. No wheezes, rales, or rhonchi appreciated. CARDIAC - RRR, No murmur, rubs, or gallops appreciated. ABDOMEN - Abdominal contour normal without pulsations or visible masses. No ttp. EXTREMITIES - No clubbing or peripheral cyanosis. +5/5 strength noted in UE/LE bilaterally. NEUROLOGIC - Cranial nerves II through XII grossly intact. PSYCH - A&Ox3 and cooperates fully with examiner. Pt is very pleasant and inter acts well with examiner. Course Administered Medications Folic Acid (Folic Acid 400 Mcg Tab) 400 mcg PO QPM [facility] Stop: 08/20/20 20:59 Last Admin: 07/21/20 21:35 Dose: 400 mcg Documented by: [id number] Heparin Sodium (Porcine) (Heparin Sod 5,000 Unit/0.5 Ml Vial) 5,000 units SQ Q12 [facility] Stop: 08/20/20 20:59 Last Admin: 07/22/20 08:07 Dose: Not Given Documented by: [id number] Admin: 07/21/20 21:37 Dose: Not Given Documented by: [id number] Pantoprazole Sodium (Pantoprazole 40 Mg Tab) 40 mg PO QAM [facility] Stop: 08/21/20 08:59 Last Admin: 07/22/20 08:07 Dose: 40 mg Documented by: [id number] Potassium Chloride (Potassium Chloride Crtab 20 Meq Tabcr) 20 meq PO TID [facility] Stop: 08/20/20 20:59 Last Admin: 07/22/20 08:06 Dose: 20 meq Documented by: [id number] Admin: 07/21/20 21:36 Dose: 20 meq Documented by: [id number] Propranolol HCl (Propranolol Hcl 20 Mg Tab) 20 mg PO BID [facility] Stop: 08/20/20 20:59 Last Admin: 07/22/20 08:06 Dose: 20 mg Documented by: [id number] Admin: 07/21/20 21:35 Dose: 20 mg Documented by: [id number] Rifaximin (Rifaximin 550 Mg Tablet) 550 mg PO BID [facility] Stop: 08/20/20 20:59 Last Admin: 07/22/20 08:06 Dose: 550 mg Documented by: [id number] Admin: 07/21/20 21:34 Dose: 550 mg Documented by: [id number] Tamsulosin HCl (Tamsulosin Hcl 0.4 Mg Cap) 0.4 mg PO DAILY [facility] Stop: 08/21/20 08:59 Last Admin: 07/22/20 08:07 Dose: 0.4 mg Documented by: [id number] Thiamine HCl (Thiamine Hcl 100 Mg Tab) 100 mg PO QPM [facility] Stop: 08/20/20 20:59 Last Admin: 07/21/20 21:34 Dose: 100 mg Documented by: [id number] Discontinued Medications Furosemide (Furosemide 40 Mg/4 Ml Vial) 40 mg IV NOW STA Stop: 07/21/20 20:33 Last Admin: 07/21/20 21:29 Dose: 40 mg Documented by: [id number] Metoprolol Tartrate (Metoprolol Tartrate 1 Mg/Ml Vial) 5 mg IV NOW STA Stop: 07/21/20 20:33 Last Admin: 07/21/20 21:25 Dose: 5 mg Documented by: [id number] Potassium Chloride (Potassium Chloride Crtab 20 Meq Tabcr) 20 meq PO NOW STA Stop: 07/21/20 20:58 Last Admin: 07/21/20 21:36 Dose: 20 meq Documented by: [id number] Medical Decision Making Laboratory Data Result diagrams: 07/22/20 06:07 07/22/20 06:07 Lab Results 07/21/20 07/21/20 07/21/20 Range/Units 13:53 13:53 13:53 WBC 7.45 (4.8-10.8) K/uL RBC 3.60 L (4.7-6.1) M/uL Hgb 12.2 L (14.0-18.0) g/dL Hct 35.1 L (42-52) % MCV 97.5 (80-100) fL MCH 33.9 (25-34) pg MCHC 34.8 (32-36) g/dL RDW Std Deviation 48.5 H (36.4-46.3) fL RDW Coeff of Walter 13.6 (11.5-14.5) % Plt Count 213 (130-400) K/uL MPV 9.4 (7.4-10.4) fL Immature Gran % (Auto) 0.1 % Neut % (Auto) 79.6 % Lymph % (Auto) 7.8 % [place] % (Auto) 10.3 % Eos % (Auto) 2.1 % Baso % (Auto) 0.1 % Neut # (Auto) 5.92 (1.4-6.5) K/uL Lymph # (Auto) 0.58 L (1.2-3.4) K/uL [place] # (Auto) 0.77 H (0.11-0.59) K/uL Eos # (Auto) 0.16 (0-0.5) K/uL Baso # (Auto) 0.01 (0-0.2) K/uL Immature Gran # (Auto) 0.01 (0.00-0.02) K/uL PT 10.8 (9.0-12.0) Seconds INR 1.1 (0.9-1.1) APTT 26.8 (21.0-31.0) Seconds PTT Ratio 1.0 Sodium 127 L (136-145) mmol/L Potassium 3.9 (3.5-5.1) mmol/L Chloride 93 L (98-107) mmol/L Carbon Dioxide 22 (21-32) mmol/L Anion Gap 12.0 H (3-11) BUN 21 H (7-18) mg/dl Creatinine 1.73 H (0.6-1.4) mg/dl Est Cr Clr Drug Dosing 38.5 ml/min Est GFR ( Amer) 45.0 ml/min Est GFR (Non-Af Amer) 38.9 ml/min BUN/Creatinine Ratio 12.1 (10-20) Glucose 100 H (70-99) mg/dl Calcium 9.7 (8.5-10.1) mg/dl Magnesium 1.8 (1.8-2.4) mg/dl Total Bilirubin 0.8 (0.2-1) mg/dl AST 19 (15-37) U/L ALT 15 (12-78) U/L Alkaline Phosphatase 83 (45-117) U/L Ammonia (11-32) umol/L Troponin I < 0.015 (0-0.045) ng/ml NT-Pro-B Natriuret Pep 4565 H (0-900) pg/ml Total Protein 8.3 H (6.4-8.2) gm/dl Albumin 3.5 (3.4-5.0) gm/dl Globulin 4.8 H (2.5-4.0) gm/dl Albumin/Globulin Ratio 0.7 L (0.9-2) Procalcitonin (0-0.5) ng/ml TSH 1.370 (0.300-4.500) uIu/ml Urine Color Urine Appearance (Clear) Urine pH (4.5-7.5) Ur Specific [place] (1.000-1.030) Urine Protein (Negative) Urine Glucose (UA) (Negative) Urine Ketones (Negative) Urine Blood (Negative) Urine Nitrite (Negative) Urine Bilirubin (Negative) Urine Urobilinogen (Negative) Ur Leukocyte Esterase (Negative) Urine Osmolality (500-800) mOsm/kg Ethyl Alcohol mg/dL (0-3) mg/dl COVID-19 Eval Order SARS-CoV-2 (PCR) (Negative) 07/21/20 07/21/20 07/21/20 Range/Units 13:53 13:53 13:53 WBC (4.8-10.8) K/uL RBC (4.7-6.1) M/uL Hgb (14.0-18.0) g/dL Hct (42-52) % MCV (80-100) fL MCH (25-34) pg MCHC (32-36) g/dL RDW Std Deviation (36.4-46.3) fL RDW Coeff of Walter (11.5-14.5) % Plt Count (130-400) K/uL MPV (7.4-10.4) fL Immature Gran % (Auto) % Neut % (Auto) % Lymph % (Auto) % [place] % (Auto) % Eos % (Auto) % Baso % (Auto) % Neut # (Auto) (1.4-6.5) K/uL Lymph # (Auto) (1.2-3.4) K/uL [place] # (Auto) (0.11-0.59) K/uL Eos # (Auto) (0-0.5) K/uL Baso # (Auto) (0-0.2) K/uL Immature Gran # (Auto) (0.00-0.02) K/uL PT (9.0-12.0) Seconds INR (0.9-1.1) APTT (21.0-31.0) Seconds PTT Ratio Sodium (136-145) mmol/L Potassium (3.5-5.1) mmol/L Chloride (98-107) mmol/L Carbon Dioxide (21-32) mmol/L Anion Gap (3-11) BUN (7-18) mg/dl Creatinine (0.6-1.4) mg/dl Est Cr Clr Drug Dosing ml/min Est GFR ( Amer) ml/min Est GFR (Non-Af Amer) ml/min BUN/Creatinine Ratio (10-20) Glucose (70-99) mg/dl Calcium (8.5-10.1) mg/dl Magnesium (1.8-2.4) mg/dl Total Bilirubin (0.2-1) mg/dl AST (15-37) U/L ALT (12-78) U/L Alkaline Phosphatase (45-117) U/L Ammonia (11-32) umol/L Troponin I (0-0.045) ng/ml NT-Pro-B Natriuret Pep (0-900) pg/ml Total Protein (6.4-8.2) gm/dl Albumin (3.4-5.0) gm/dl Globulin (2.5-4.0) gm/dl Albumin/Globulin Ratio (0.9-2) Procalcitonin < 0.05 (0-0.5) ng/ml TSH (0.300-4.500) uIu/ml Urine Color Yellow Urine Appearance Clear (Clear) Urine pH 5.5 (4.5-7.5) Ur Specific [place] 1.007 (1.000-1.030) Urine Protein Negative (Negative) Urine Glucose (UA) Negative (Negative) Urine Ketones Negative (Negative) Urine Blood Negative (Negative) Urine Nitrite Negative (Negative) Urine Bilirubin Negative (Negative) Urine Urobilinogen Negative (Negative) Ur Leukocyte Esterase Negative (Negative) Urine Osmolality 184 L (500-800) mOsm/kg Ethyl Alcohol mg/dL (0-3) mg/dl COVID-19 Eval Order SARS-CoV-2 (PCR) (Negative) 07/21/20 07/21/20 07/21/20 Range/Units 14:48 14:48 15:41 WBC (4.8-10.8) K/uL RBC (4.7-6.1) M/uL Hgb (14.0-18.0) g/dL Hct (42-52) % MCV (80-100) fL MCH (25-34) pg MCHC (32-36) g/dL RDW Std Deviation (36.4-46.3) fL RDW Coeff of Walter (11.5-14.5) % Plt Count (130-400) K/uL MPV (7.4-10.4) fL Immature Gran % (Auto) % Neut % (Auto) % Lymph % (Auto) % [place] % (Auto) % Eos % (Auto) % Baso % (Auto) % Neut # (Auto) (1.4-6.5) K/uL Lymph # (Auto) (1.2-3.4) K/uL [place] # (Auto) (0.11-0.59) K/uL Eos # (Auto) (0-0.5) K/uL Baso # (Auto) (0-0.2) K/uL Immature Gran # (Auto) (0.00-0.02) K/uL PT (9.0-12.0) Seconds INR (0.9-1.1) APTT (21.0-31.0) Seconds PTT Ratio Sodium (136-145) mmol/L Potassium (3.5-5.1) mmol/L Chloride (98-107) mmol/L Carbon Dioxide (21-32) mmol/L Anion Gap (3-11) BUN (7-18) mg/dl Creatinine (0.6-1.4) mg/dl Est Cr Clr Drug Dosing ml/min Est GFR ( Amer) ml/min Est GFR (Non-Af Amer) ml/min BUN/Creatinine Ratio (10-20) Glucose (70-99) mg/dl Calcium (8.5-10.1) mg/dl Magnesium (1.8-2.4) mg/dl Total Bilirubin (0.2-1) mg/dl AST (15-37) U/L ALT (12-78) U/L Alkaline Phosphatase (45-117) U/L Ammonia 16.0 (11-32) umol/L Troponin I (0-0.045) ng/ml NT-Pro-B Natriuret Pep (0-900) pg/ml Total Protein (6.4-8.2) gm/dl Albumin (3.4-5.0) gm/dl Globulin (2.5-4.0) gm/dl Albumin/Globulin Ratio (0.9-2) Procalcitonin (0-0.5) ng/ml TSH (0.300-4.500) uIu/ml Urine Color Urine Appearance (Clear) Urine pH (4.5-7.5) Ur Specific [place] (1.000-1.030) Urine Protein (Negative) Urine Glucose (UA) (Negative) Urine Ketones (Negative) Urine Blood (Negative) Urine Nitrite (Negative) Urine Bilirubin (Negative) Urine Urobilinogen (Negative) Ur Leukocyte Esterase (Negative) Urine Osmolality (500-800) mOsm/kg Ethyl Alcohol mg/dL < 3.0 (0-3) mg/dl COVID-19 Eval Order Covid19 at [facility] SARS-CoV-2 (PCR) (Negative) 07/21/20 Range/Units 15:41 WBC (4.8-10.8) K/uL RBC (4.7-6.1) M/uL Hgb (14.0-18.0) g/dL Hct (42-52) % MCV (80-100) fL MCH (25-34) pg MCHC (32-36) g/dL RDW Std Deviation (36.4-46.3) fL RDW Coeff of [place] (11.5-14.5) % Plt Count (130-400) K/uL MPV (7.4-10.4) fL Immature Gran % (Auto) % Neut % (Auto) % Lymph % (Auto) % [place] % (Auto) % Eos % (Auto) % Baso % (Auto) % Neut # (Auto) (1.4-6.5) K/uL Lymph # (Auto) (1.2-3.4) K/uL [place] # (Auto) (0.11-0.59) K/uL Eos # (Auto) (0-0.5) K/uL Baso # (Auto) (0-0.2) K/uL Immature Gran # (Auto) (0.00-0.02) K/uL PT (9.0-12.0) Seconds INR (0.9-1.1) APTT (21.0-31.0) Seconds PTT Ratio Sodium (136-145) mmol/L Potassium (3.5-5.1) mmol/L Chloride (98-107) mmol/L Carbon Dioxide (21-32) mmol/L Anion Gap (3-11) BUN (7-18) mg/dl Creatinine (0.6-1.4) mg/dl Est Cr Clr Drug Dosing ml/min Est GFR ( Amer) ml/min Est GFR (Non-Af Amer) ml/min BUN/Creatinine Ratio (10-20) Glucose (70-99) mg/dl Calcium (8.5-10.1) mg/dl Magnesium (1.8-2.4) mg/dl Total Bilirubin (0.2-1) mg/dl AST (15-37) U/L ALT (12-78) U/L Alkaline Phosphatase (45-117) U/L Ammonia (11-32) umol/L Troponin I (0-0.045) ng/ml NT-Pro-B Natriuret Pep (0-900) pg/ml Total Protein (6.4-8.2) gm/dl Albumin (3.4-5.0) gm/dl Globulin (2.5-4.0) gm/dl Albumin/Globulin Ratio (0.9-2) Procalcitonin (0-0.5) ng/ml TSH (0.300-4.500) uIu/ml Urine Color Urine Appearance (Clear) Urine pH (4.5-7.5) Ur Specific [place] (1.000-1.030) Urine Protein (Negative) Urine Glucose (UA) (Negative) Urine Ketones (Negative) Urine Blood (Negative) Urine Nitrite (Negative) Urine Bilirubin (Negative) Urine Urobilinogen (Negative) Ur Leukocyte Esterase (Negative) Urine Osmolality (500-800) mOsm/kg Ethyl Alcohol mg/dL (0-3) mg/dl COVID-19 Eval Order SARS-CoV-2 (PCR) NEGATIVE (Negative) Imaging Data Radiologist's Impression: Head CT 07/21/20 13:45 CT head/brain wo con CLINICAL HISTORY: 69 years-old Male with lightheaded. Acute dizziness with lightheadedness TECHNIQUE: Multiple axial CT images of the head were obtained without contrast. A dose lowering technique was utilized adhering to the principles of ALARA. CT DOSE: 614.27 mGy.cm COMPARISON: Head CT 08/08/2019 FINDINGS: Mildly motion degraded exam. No acute intracranial hemorrhage, midline shift, intracranial mass, hydrocephalus, territorial ischemia or abnormal extra-axial collection. The calvarium is intact. The paranasal sinuses, mastoid air cells, and middle ear cavities are clear. IMPRESSION: No acute intracranial abnormality. ACT 112: Negative or not required by law. The above report was generated using voice recognition software. It may contain grammatical, syntax or spelling errors. Electronically signed by: Glenn Saxena M.D. 07/21/2020 3:22 PM Chest X-Ray 07/21/20 13:46 XR chest 1V portable CLINICAL HISTORY: dyspnea COMPARISON STUDY: 06/15/2020 FINDINGS: The heart is borderline enlarged. There is no failure. There is no lobar consolidation. There are subtle bilateral opacities, likely related to costochondral junctions. If symptoms persist, a PA and lateral study could be obtained in follow-up. There are no significant pleural effusions.[There is minor left basilar atelectasis/scarring IMPRESSION: 1. Subtle bilateral opacities, statistically related to costochondral junctions. If symptoms persist, a PA and lateral study would be recommended in follow-up 2. No evidence of failure. No evidence of lobar consolidation ACT 112: Negative or not required by law. Electronically signed by: Chencho Rey M.D. 07/21/2020 2:33 PM MDM Narrative Patient was seen and evaluated as above in room C05. Review was performed of nursing notes and vital signs. I did review pertinent previous visits and patient history. After obtaining a thorough history and physical examination the above work up was performed. Patient presents to us today via ambulance for evaluation of dyspnea, lower extremity edema as well as lightheadedness. Examination reveals bilateral lower extremity edema with chronic skin change. EKG was performed on arrival and reveals A. fib versus a flutter at a rate of 95 bpm. Does not appear to be sinus rhythm. No ST elevation. QTc 444. QRS 80. Options of care were discussed with the patient. IV access established. Labs were drawn. Chest x-ray was obtained. This reveals subtle bilateral opacities statistically related to costochondral junctions. No evidence of failure. CT scan of the head does not reveal any emergent process. Laboratory studies ago no leukocytosis. There is anemia noted with hemoglobin of 12.2. Hyponatremia at 127. Creatinine 1.73 with a BUN of 21. BNP 4565. Troponin normal. Urinalysis does not suggest infection. Urine awesome 184. Alcohol level undetectable. Covid testing negative. Given the patient's worsening symptoms in the outpatient setting with associated hyponatremia as well as increasing dyspnea, increasing lower extremity edema, and in the setting of lightheadedness I do believe that further evaluation and management inpatient setting is warranted. Case discussed with the hospitalist as well as the attending physician. Please refer to further documentation regarding his stay. An order was placed for continuous cardiac monitoring. The monitor shows a rate of 105 with irregular rhythm. GCS: 15 In the evaluation and treatment of this patient the following differential diagnoses were entertained: TIA, CVA, intracranial hemorrhage, OK, PE, COVID-19, CHF, electrolyte disturbance, among others. Attending Attestation: I Raphael Johnson MD independently saw and evaluated this patient and agree with history and physical is otherwise documented by the physician printer's assistant. See their note for full details. Patient resting in bed without abdominal tenderness reporting 3 beers nightly to help with sleep. Reports some GOMEZ. Recent hospitalization last month here in hospital. Hyponatremia seems more chronic at this point but with his GOMEZ (fluid overload) and lightheadedness and comorbidities feel further care a hospital indicated. Impression & Plan Acute dyspnea, Bilateral edema of lower extremity, Lightheadedness, Chronic hyponatremia Discharge Plan Visit Data Chief Complaint: Shortness of Breath/Dyspnea Stated Complaint: SOB, EDEMA, DIZZINESS ED Provider: Raphael Johnson ED Midlevel Provider: Giovanni Vasquez Discharge Problem: Acute dyspnea, Bilateral edema of lower extremity, Lightheadedness, Chronic h yponatremia Patient Disposition: Admitted As Inpatient Condition: Good Discharge Instructions Interventions: ED Discharge Assessment Last Done: 07/21/20 19:43
[2020-07-21 14:17] LABS: Appearance Urine Clear (Clear); Bilirubin Urine Negative (Negative); Blood Urine Negative (Negative); Color Urine Yellow; Glucose Urine UA Negative (Negative); Ketones Urine Negative (Negative); Leukocyte Esterase Urine Negative (Negative); Nitrite Urine Negative (Negative); Protein Urine Negative (Negative); Specific Gravity Urine 1.007 (1.000-1.030); Urobilinogen Urine Negative (Negative); pH Urine 5.5 (4.5-7.5)
--- NOTE | 2020-07-21 14:34 | XRay Report ---
XR chest 1V portable CLINICAL HISTORY: dyspnea COMPARISON STUDY: 06/15/2020 FINDINGS: The heart is borderline enlarged. There is no failure. There is no lobar consolidation. The re are subtle bilateral opacities, likely related to costochondral junctions. If symptoms persist, a PA and lateral study could be obtained in follow-up. There are no significant pleural effusions.[Ther e is minor left basilar atelectasis/scarring IMPRESSION: 1. Subtle bilateral opacities, statistically related to costochondral junctions. If symptoms persist, a PA and lateral study would be recommended in follow-up 2. No evidence of failure. No evidence of lobar consolidation ACT 112: Negative or not required by law. Electronically signed by: Chencho Rey M.D. 07/21/2020 2:33 PM
[2020-07-21 15:09] LABS: Basophils # (auto) 0.01 K/uL (0-0.2); Basophils % (auto) 0.1 %; Eosinophils # (auto) 0.16 K/uL (0-0.5); Eosinophils % (auto) 2.1 %; Hematocrit (blood only) 35.1 % (42-52); Hemoglobin 12.2 g/dL (14.0-18.0); Immature Granulocytes # (auto) 0.01 K/uL (0.00-0.02); Immature Granulocytes % (auto) 0.1 %; Lymphocytes # (auto) 0.58 K/uL (1.2-3.4); Lymphocytes % (auto) 7.8 %; Mean Corpuscular Hemoglobin 33.9 pg (25-34); Mean Corpuscular Hgb Conc 34.8 g/dL (32-36); Mean Corpuscular Volume 97.5 fL (80-100); Mean Platelet Volume 9.4 fL (7.4-10.4); Monocytes # (auto) 0.77 K/uL (0.11-0.59); Monocytes % (auto) 10.3 %; Neutrophils # (auto) 5.92 K/uL (1.4-6.5); Neutrophils % (auto) 79.6 %; Platelet Count 213 K/uL (130-400); RDW Coefficient of Variation 13.6 % (11.5-14.5); RDW Standard Deviation 48.5 fL (36.4-46.3); White Blood Count 7.45 K/uL (4.8-10.8)
--- NOTE | 2020-07-21 15:24 | CT Scan Report ---
CT head/brain wo con CLINICAL HISTORY: 69 years-old Male with lightheaded. Acute dizziness with lightheadedness TECHNIQUE: Multiple axial CT images of the head were obtained without contrast. A dose lowering tech nique was utilized adhering to the principles of ALARA. CT DOSE: 614.27 mGy.cm COMPARISON: Head CT 08/08/2019 FINDINGS: Mildly motion degraded exam. No acute intracranial hemorrhage, midline shift, intracranial mass, hydr ocephalus, territorial ischemia or abnormal extra-axial collection. The calvarium is intact. The paranasal sinuses, mastoid air cells, and middle ear cavities are clear . IMPRESSION: No acute intracranial abnormality. ACT 112: Negative or not required by law. The above report was generated using voice recognition software. It may contain grammatical, syntax o r spelling errors. Electronically signed by: Glenn Saxena M.D. 07/21/2020 3:22 PM
[2020-07-21 15:31] LABS: Chloride 93 mmol/L (98-107); INR 1.1 (0.9-1.1); Partial Thromboplastin Time 26.8 Seconds (21.0-31.0); Potassium 3.9 mmol/L (3.5-5.1); Prothrombin Time 10.8 Seconds (9.0-12.0); Sodium 127 mmol/L (136-145)
[2020-07-21 16:21] LABS: Alanine Aminotransferase 15 U/L (12-78); Albumin Level 3.5 gm/dl (3.4-5.0); Aspartate Aminotransferase 19 U/L (15-37); BUN Creatinine Ratio 12.1 (10-20); Blood Urea Nitrogen 21 mg/dl (7-18); Calcium 9.7 mg/dl (8.5-10.1); Carbon Dioxide 22 mmol/L (21-32); Creatinine Clr Calc Pharmacy 38.5 ml/min; Est GFR (Non-African American) 38.9 ml/min; Glucose 100 mg/dl (70-99); Magnesium 1.8 mg/dl (1.8-2.4)
[2020-07-21 16:29] LABS: Albumin Globulin Ratio 0.7 (0.9-2); Alkaline Phosphatase 83 U/L (45-117); Bilirubin,Total 0.8 mg/dl (0.2-1); Globulin 4.8 gm/dl (2.5-4.0); NT Pro B Type Natriuretic Pept 4565 pg/ml (0-900); Total Protein 8.3 gm/dl (6.4-8.2); Troponin I < 0.015 ng/ml (0-0.045)
--- NOTE | 2020-07-21 17:23 | History & Physical Report ---
Date of Service July 21, 2020 Assessment & Plan (1) Dyspnea on exertion: 69 y/o M w/ hx of HTN, pAF, cirrhosis, COPD, diastolic CHF and hosp last month for beer potomania hyponatremia who presents w/ progressively worsening GOMEZ and hyponatremia. - considered CHF exacerbation, symptomatic hypoNa, symptomatic afib and COPD exacerbation - lower suspicion for infectious etiology at this time given lack of fever, leukocytosis, procalc elevation - patient tachypneic and tachycardic at admission, may be from fluid overload and/or afib - BUN/Cr ratio, does not suggest dehydration - check TTE - now dose IV metoprolol 5 for rate control - diuresing w/ IV lasix 40 now will continue w/ daily IV lasix 40. FEN/GI:regular diet. fluid restrict 1L/day. no IV fluids. ppx: prophylatic heparin SQ 5000u q12 code: DNI, but wants CPR. dispo: med/surg tele (2) Acute hyponatremia: - 127. level ~stable in past month. patient not having obvious symptoms - euvolemic vs hypervolemic hyponatremia. diet hx and prior admission hx suggets euvolemic, but clinically may be hypervolemic (worsened edema, cxr w/ slight opacities, BNP elevated to 4.5k) - fluid restrict 1L/day - avoid IV fluids - regular diet ordered - held home spironolactone (3) Paroxysmal atrial fibrillation: - ecg today showing afib. previous ecg in 06/2020 was normal sinus - per chart review, hasn't been tachycardic in previous visits. 110s-120s today. - continue home propranol 20 BID - ordered IV metoprolol 5 for rate control. additional doses as needed. goal rate <100 - consulted cardiology for new-onset afib. 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 CHADSvasc 3. continue discussion as outpatient (4) CHF (congestive heart failure): - last TTE in 2019 showing EF 60-65 w/ grade 1 diastolic dysfunction - BNP elevated at 4.5k - cxr slightly suggestive of fluid overload - TTE ordered (5) Alcohol abuse: - etoh <3 at admission - ordered AWSS - ordered repletion of thiamine and folate - no confusion, but will check ammonia because of hx of hepatic encephalopathy (6) Chronic kidney disease, stage 3: - current function ~baseline. Cr 1.73 - daily bmp (7) Cirrhosis: - continue home rifaximin (8) Sleep apnea: - supp O2 as needed - no cpap (9) COPD (chronic obstructive pulmonary disease): - continue home inhaler (10) Venous stasis: - chronic History of Present Illness Chief Complaint: dyspnea on exertion Primary Care Provider: Devon Silver MD Martin Mark is a 69 y/o M w/ hx of pAF, cirrhosis, COPD, CKD3, diastolic CHF grade 1, and hospitalization last month for beer potomania and etoh intoxication who presents w/ worsened GOMEZ and hyponatremia. He has had worsening GOMEZ and LE edema x several wks. Patient states that his breathing is ~baseline at rest. He felt like he was getting around ok, but his neighbor had noted that he appeared slightly unstable when walking. Patient has had occasional lightheaded dizziness, not room spinning. He sleeps in elevated recliner at night, ~45 degrees, no recent changes/worsening. Home O2 PRN, but unsure if 1 vs 2L. Dietary: States that he has not been eating much, only 1 meal of prepackaged food a day. Attributes to lack of appetite. Cut down from 6 to 3 cans of beer per night. Has been drinking more water. At least 4 of 16oz bottles. He denies missing any doses of his medication regimen. Quit smoking 20+ years ago, 25 pack year hx. No illicit substances. Notable ED workup: Na 127 today, similar to last admission. no leukocytosis. Procalc neg. etoh <3. covid neg. Head ct wnl. cxr subtle bilat opacities w/o evidence of failure or lobar consolidation. ecg shows afib. Allergies Allergy/AdvReac Type Severity Reaction Status Date / Time No Known Allergies Allergy Verified 07/21/20 16:01 Home Medications Medication Instructions Recorded Confirmed Type cholecalciferol (vitamin D3) 1,000 unit PO QAM 07/25/18 07/21/20 History [Vitamin D3] tamsulosin 0.4 mg capsule 0.4 mg PO DAILY 07/30/19 07/21/20 History pantoprazole 40 mg tablet,delayed 40 mg PO QAM #90 tab 09/18/19 07/21/20 Rx release propranolol 20 mg tablet 20 mg PO BID #180 tab 02/19/20 07/21/20 Rx furosemide 20 mg tablet 20 mg PO QAM #90 tab 05/28/20 07/21/20 Rx Combivent Respimat 1 puff INHALATION QID PRN MDD 6 06/15/20 07/21/20 History PUFFS spironolactone 100 mg PO QAM 06/15/20 07/21/20 History Xifaxan 550 mg PO BID 07/21/20 07/21/20 History Past Med/Surg History Medical History (Updated 07/21/20 @ 18:06 by Sherman Peterson MD) Anemia Ascites (10/23/10) Cirrhosis Duodenal ulcer History of abdominal paracentesis History of recent hospitalization 11/2018 [facility] - FLUID OVERLOAD Irregular heart beat On home oxygen therapy 1L oxygen Poor historian Slipped cervical disc Surgical History History of appendectomy History of esophagogastroduodenoscopy (EGD) 08/06/18 [facility] History of tooth extraction Family History (Updated 07/21/20 @ 17:48 by Sherman Peterson MD) Father Myocardial infarction Unknown Diabetes Coronary heart disease Mother Chronic kidney disease Other No family history of adverse response to anesthesia Denies family history of Crohn's disease Colorectal cancer Ulcerative colitis Social History Smoking Status: Former smoker Second Hand Exposure: No; Hx Alcohol Use: Yes Alcohol type: beer Hx Substance Use: No Preferred Language: Luxembourgish Communication Ability: Effective Manager Of Case Management Required: No Beliefs That Will Affect Care: None Current Living Situation: Alone Feels Safe at Home: Yes Assistive Devices: None Review of Systems Review of Systems: Constitutional: Denies fever, weight change. + mild chronic chills. Eyes: Denies blurry vision, vision changes ENT: Denies sore throat, sinus pain. Denies hemoptysis or epistaxis. Cardiovascular: Denies Chest pain, chest pressure. + rare palpitations (2x in past month, fast and hard, but not irregular) + leg swelling. Respiratory: Denies cough, sputum production. +SOB. Gastrointestinal: Denies abdominal pain, nausea, vomiting, constipation, diarrhea. Denies bloody stools or melena. Genitourinary: Denies urinary symptoms including dysuria. Denies hematuria. Musculoskeletal: Denies weakness, muscle aches/pain, joint aches/pain Neurological: Mild dizziness/unsteadiness, not room spinning. No headache. Integumentary: Denies rash or bruise. Physical Exam Physical Exam: General: A&Ox4. NAD. Cooperative. HEENT: Atraumatic, normocephalic. EOMI. No scleral icterus. ? JVD. Could not fully appreciate. Pulm: CTAB. -wheezes, -rales, -rhonchi. Symmetrical chest rise. No respiratory distress. Shallow breath sounds posteriorly. Cardiac: RRR, -mrg. Radial pulses intact and symmetrical. Bilat 3+ LE edema, weeping, w/ chronic venous stasis changes. Edema goes up to just above knee. Abdominal: Nontender, nondistended, soft. +BS. Integumentary: No rash. No jaundice. Neuro: No tremor/asterixis. Results & Data Results & Data ([facility]) Vital Signs (Past 12 Hours) Vital Signs Temp Pulse Resp BP Pulse Ox 07/21/20 15:31 108 H 28 H 147/98 H 100 07/21/20 14:58 100 07/21/20 13:34 98 H 26 H 114/70 100 07/21/20 13:08 36.6 C 110 H 28 H 143/66 H 100 07/21/20 13:07 105 H 22 143/66 H 95 Code Status & VTE Plan Code Status Conditional. Yes to chest compressions. Do not intubate. VTE Prophylaxis Plan VTE Prophylaxis will be ordered: Yes Supervising Physician Co-Signing Physician Notes d/w resident. seen and examined after his arrival to the floor. patient comfortable on O2. agree with hx and physical as noted above. patient with diminished BS and fine crackles at bases. 3+ edema, minimal erythema of LE plan to fluid restrict for hypervolemic hypoNa. monitor for etoh withdrawal. Af with RVR, unclear if this is new diagnosis. check echo. give single dose metoprolol 5mg IV. check echo, ask cards to eval. [id number] score at least 3, likely should be fully anticoagulated prior to discharge Resident Activity Tracking Resident Involvement: Resident Care Provided Care Provided: Adult Hospital Medicine (1) Chronic kidney disease, stage 3 Chronic kidney disease stage 3 subtype: stage 3b (GFR 30-44) Qualified Code(s): N18.32 - Chronic kidney disease, stage 3b (2) Cirrhosis Ascites presence: without ascites Hepatic cirrhosis type: alcoholic cirrhosis Qualified Code(s): K70.30 - Alcoholic cirrhosis of liver without ascites (3) COPD (chronic obstructive pulmonary disease) COPD type: unspecified COPD Qualified Code(s): J44.9 - Chronic obstructive pulmonary disease, unspecified
[2020-07-21] MEDS ORDERED: METOPROLOL TARTRATE 1 MG/ML VIAL IV STA (20:32)
[2020-07-21] MEDS ORDERED: IPRATROPIUM BROMIDE/ALBUTEROL respimat INH INH PRN (20:32)
[2020-07-21] MEDS ORDERED: FUROSEMIDE 40 MG/4 ML VIAL IV STA (20:32)
[2020-07-21] MEDS ORDERED: Albuterol HFA 8 GM Inhaler (Combivent Respimat P&T Subs) INH PRN (20:45)
[2020-07-21] MEDS ORDERED: Ipratropium HFA Inhaler (Combivent Respimat P&T Subs) INH PRN (20:45)
[2020-07-21] MEDS ORDERED: POTASSIUM CHLORIDE CRTAB 20 MEQ TABCR PO STA (20:57)
[2020-07-21] MEDS: THIAMINE HCL 100 MG TAB PO SCH (21:34)
[2020-07-21] MEDS: rifAXIMin 550 MG TABLET PO SCH (21:34)
[2020-07-21] MEDS: PROPRANOLOL HCL 20 MG TAB PO SCH (21:35)
[2020-07-21] MEDS: FOLIC ACID 400 MCG TAB PO SCH (21:35)
[2020-07-21] MEDS: POTASSIUM CHLORIDE CRTAB 20 MEQ TABCR PO SCH (21:36)
[2020-07-21] MEDS: HEPARIN SOD 5,000 UNIT/0.5 ML VIAL SQ SCH (21:37)
[2020-07-22 06:25] LABS: Basophils # (auto) 0.03 K/uL (0-0.2); Basophils % (auto) 0.3 %; Eosinophils # (auto) 0.17 K/uL (0-0.5); Eosinophils % (auto) 1.8 %; Hematocrit (blood only) 37.1 % (42-52); Hemoglobin 12.5 g/dL (14.0-18.0); Immature Granulocytes # (auto) 0.02 K/uL (0.00-0.02); Immature Granulocytes % (auto) 0.2 %; Lymphocytes # (auto) 0.77 K/uL (1.2-3.4); Lymphocytes % (auto) 8.3 %; Mean Corpuscular Hemoglobin 33.2 pg (25-34); Mean Corpuscular Hgb Conc 33.7 g/dL (32-36); Mean Corpuscular Volume 98.4 fL (80-100); Mean Platelet Volume 9.2 fL (7.4-10.4); Monocytes # (auto) 1.07 K/uL (0.11-0.59); Monocytes % (auto) 11.5 %; Neutrophils # (auto) 7.26 K/uL (1.4-6.5); Neutrophils % (auto) 77.9 %; Platelet Count 213 K/uL (130-400); RDW Coefficient of Variation 13.9 % (11.5-14.5); RDW Standard Deviation 49.6 fL (36.4-46.3); Red Blood Count 3.77 M/uL (4.7-6.1); White Blood Count 9.32 K/uL (4.8-10.8)
--- NOTE | 2020-07-22 06:27 | Electrocardiogram Report ---
Test Reason : Blood Pressure : / mmHG Vent. Rate : 095 BPM Atrial Rate : 359 BPM P-R Int : 000 ms QRS Dur : 080 ms QT Int : 354 ms P-R-T Axes : 000 068 087 degrees QTc Int : 444 ms Poor data quality, interpretation may be adversely affected Atrial fibrillation Low voltage QRS Septal infarct (cited on or before 21-JUL-2020) Abnormal ECG When compared with ECG of 15-JUN-2020 10:10, Atrial fibrillation has replaced Sinus rhythm Confirmed by Minh Padgett [id number]) on 07/22/2020 6:27:11 AM Referred By: REFERRED SELF Confirmed By:Minh Padgett
[2020-07-22 06:54] LABS: Albumin Level 3.4 gm/dl (3.4-5.0); BUN Creatinine Ratio 12.8 (10-20); Calcium 9.5 mg/dl (8.5-10.1); Creatinine Clr Calc Pharmacy 41.3 ml/min; Est GFR (African American) 50.3 ml/min; Est GFR (Non-African American) 43.4 ml/min; Potassium 4.3 mmol/L (3.5-5.1)
[2020-07-22 06:56] LABS: Albumin Globulin Ratio 0.8 (0.9-2); Bilirubin,Total 0.8 mg/dl (0.2-1); Globulin 4.3 gm/dl (2.5-4.0); Total Protein 7.7 gm/dl (6.4-8.2)
[2020-07-22] MEDS: rifAXIMin 550 MG TABLET PO SCH ×2 (08:06→21:58)
[2020-07-22] MEDS: PROPRANOLOL HCL 20 MG TAB PO SCH (08:06)
[2020-07-22] MEDS: POTASSIUM CHLORIDE CRTAB 20 MEQ TABCR PO SCH ×3 (08:06→21:58)
[2020-07-22] MEDS: TAMSULOSIN HCL 0.4 MG CAP PO SCH (08:07)
[2020-07-22] MEDS: PANTOprazole 40 MG TAB PO SCH (08:07)
[2020-07-22] MEDS: HEPARIN SOD 5,000 UNIT/0.5 ML VIAL SQ SCH ×3 (08:07→21:57)
[2020-07-22] MEDS ORDERED: FUROSEMIDE 40 MG in SYRINGE 0 ML IV SCH (09:00)
--- NOTE | 2020-07-22 13:35 | Hospitalist Progress Note ---
Date of Service July 22, 2020 Assessment & Plan (1) Cirrhosis: Patient has long standing history of cirrhosis. Patient does not do surveillance followup with Dr. Gilbert as he refuses repeat EGD to assess his esophageal varices. His MELD score on On admission: was: 23 points Estimated 3-Month Mortality: 19.6% This improved to 6% mortality today. Maddrey score is good: close to 6 points. - continue home rifaximin (2) Dyspnea on exertion: 69 y/o M w/ hx of HTN, pAF, cirrhosis, COPD, diastolic CHF and hosp last month for beer potomania hyponatremia who presents w/ progressively worsening GOMEZ and hyponatremia. -Appears likely secondary to uncrontrolled Atrial fibrillation -will increase beta saad. -will consult cardio for input on if patient can be on anticoagulation. - considered CHF exacerbation, symptomatic hypoNa, symptomatic afib and COPD exacerbation - lower suspicion for infectious etiology at this time given lack of fever, leukocytosis, procalc elevation - patient tachypneic and tachycardic at admission, may be from fluid overload and/or afib - BUN/Cr ratio, does not suggest dehydration -Awaiting TTE - diuresing w/ IV lasix 40 now will continue w/ daily IV lasix 40. FEN/GI:regular diet. fluid restrict 1L/day. no IV fluids. ppx: prophylatic heparin SQ 5000u q12 code: DNI, but wants CPR. dispo: med/surg tele (2) Acute hyponatremia: (3) Paroxysmal atrial fibrillation: (4) CHF (congestive heart failure): (5) Alcohol abuse: (6) Chronic kidney disease, stage 3: (7) Cirrhosis: (3) Acute hyponatremia: - 127. level ~stable in past month. patient not having obvious symptoms - euvolemic vs hypervolemic hyponatremia. diet hx and prior admission hx suggets euvolemic, but clinically may be hypervolemic (worsened edema, cxr w/ slight opacities, BNP elevated to 4.5k) - fluid restrict 1L/day - avoid IV fluids - regular diet ordered - held home spironolactone (4) Paroxysmal atrial fibrillation: - ecg today showing afib. previous ecg in 06/2020 was normal sinus - per chart review, hasn't been tachycardic in previous visits. 110s-120s today. - continue home propranol 20 BID - ordered IV metoprolol 5 for rate control. additional doses as needed. goal rate <100 - consulted cardiology for new-onset afib. 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 CHADSvasc 3. continue discussion as outpatient (5) CHF (congestive heart failure): - last TTE in 2018 showing EF 60-65 w/ grade 1 diastolic dysfunction - BNP elevated at 4.5k - cxr slightly suggestive of fluid overload - TTE ordered (6) Alcohol abuse: - etoh <3 at admission - ordered AWSS - ordered repletion of thiamine and folate - no confusion, but will check ammonia because of hx of hepatic encephalopathy (7) Chronic kidney disease, stage 3: - current function ~baseline. Cr 1.73 - daily bmp (8) Sleep apnea: - supp O2 as needed - no cpap (9) COPD (chronic obstructive pulmonary disease): - continue home inhaler (10) Venous stasis: chronic [employer] FRIEND Admission and Anticipated Discharge Date Admission Date: July 21, 2020 Subjective 70 YO male reports feeling better. He states he is less short of breath. He reports having more strength in his lower extremities. Review of Systems Review of Systems: All systems reviewed & are unremarkable except as noted in HPI & below Physical Exam Physical Exam: General: A&Ox4. NAD. Cooperative. HEENT: Atraumatic, normocephalic. EOMI. No scleral icterus. Pulm: CTAB. -wheezes, -rales, -rhonchi. Symmetrical chest rise. No respiratory distress. Shallow breath sounds posteriorly. Cardiac: RRR, -mrg. Radial pulses intact and symmetrical. Bilat 3+ LE edema, weeping, w/ chronic venous stasis changes. Edema goes up to just above knee. Abdominal: Nontender, nondistended, soft. +BS. Integumentary: No rash. No jaundice. Neuro: No tremor/asterixis. Results & Data Results & Data ([facility]) Vital Signs (Past 12 Hours) Vital Signs Temp Pulse Pulse Pulse Pulse Resp BP 07/22/20 10:06 116 H 24 07/22/20 08:00 80 20 110/64 07/22/20 07:39 88 07/22/20 04:00 36.7 C 98 H 18 121/77 Pulse Ox 07/22/20 10:06 07/22/20 08:00 100 07/22/20 07:39 07/22/20 04:00 96 PG Care Time/CCT Total # of Minutes Spent Total Time Spent with Patient: Total time spent is greater than 50% in disability coordinator rdination of care (as documented) at patient's floor/unit and/or counseling patient: Coding Level of Care Code 57340 Subseq Hosp Care Lvl 3 Diagnoses Cirrhosis K70.30 Ascites presence: without ascites Hepatic cirrhosis type: alcoholic cirrhosis Dyspnea on exertion R06.00 Acute hyponatremia E87.1 Paroxysmal atrial fibrillation I48.0 CHF (congestive heart failure) I50.9 Alcohol abuse F10.10 Chronic kidney disease, stage 3 N18.32 Chronic kidney disease stage 3 subtype: stage 3b (GFR 30-44) Sleep apnea G47.30 COPD (chronic obstructive pulmonary disease) J44.9 COPD type: unspecified COPD Venous stasis I87.8 Time Spent (min) 35 (1) Chronic kidney disease, stage 3 Chronic kidney disease stage 3 subtype: stage 3b (GFR 30-44) Qualified Code(s): N18.32 - Chronic kidney disease, stage 3b (2) Cirrhosis Ascites presence: without ascites Hepatic cirrhosis type: alcoholic cirrhosis Qualified Code(s): K70.30 - Alcoholic cirrhosis of liver without ascites (3) COPD (chronic obstructive pulmonary disease) COPD type: unspecified COPD Qualified Code(s): J44.9 - Chronic obstructive pulmonary disease, unspecified
[2020-07-22] MEDS: FUROSEMIDE 40 MG in SYRINGE 0 ML IV SCH (14:51)
--- NOTE | 2020-07-22 14:53 | XCELERA ---
[id number]
--- NOTE | 2020-07-22 17:37 | Cardiology Consultation ---
Date of Consultation July 22, 2020 Assessment & Plan (1) Atrial fibrillation with rapid ventricular response: (2) Acute diastolic CHF (congestive heart failure): (3) Cirrhosis: (4) Alcohol abuse: (5) Chronic hyponatremia: (6) Hypertension: ASSESSMENT/PLAN: 1. AFib with RVR: He does not recall having this diagnosis in the past, and therefore presumably a new diagnosis. We discussed the diagnosis. Recommend rate control strategy. Increased propanolol of 30 mg twice daily. We discussed anticoagulation for stroke risk reduction. As per communication with primary hospitalist service, Dr. Bangura, he would be increased risk for bleeding given his cirrhosis, a history of ulcer, esophageal varices. Dr. Bangura has communicated with GI in this regard. For this reason, anticoagulation therapy will not be initiated at this time. He apparently also has not followed up for repeat imaging in regards to his varices. 2. Acute diastolic CHF/hypervolemia: He appears hypervolemic. This could be related to his CKD, cirrhosis, and also heart failure given AFib with RVR. We discussed the importance of a low-sodium diet. Continue to diurese with a goal of 1-2 L negative daily. Resume spironolactone, which may also offer some benefit with his cirrhosis. Strict I&Os. Daily weights. Agree with fluid restriction given hyponatremia. Recommend evaluation by Heart failure program. 3. Alcohol abuse: Recommended that he stop consuming alcohol altogether. Alcohol could also be playing a role in his atrial fibrillation. 4. Dyspnea: Likely multifactorial with hypervolemia as above and also reportedly advanced COPD requiring supplemental oxygen at home. He feels improv ed since admission. 5. Hypertension: Blood pressure adequately controlled. Adjusting rate- controlling medications and diuretics as above. 6. Cirrhosis: As per primary hospitalist service and GI as an outpatient. 7. Disposition: Cardiology will continue to follow. Patient care has been communicated with primary hospitalist, Dr. Bangura. Thank you for allowing me to participate in the care of your patient. Please call for any other questions or concerns. Sincerely, Brian Padgett M.D. History of Present Illness Reason for Consultation: atrial fibrillation Requesting Physician: Dr. Peterson Attending Physician: Medardo Bangura History of Present Illness Mr. Mark is a 70-year-old gentleman with history significant for cirrhosis (alcoholic per patient), esophageal varices, hepatic encephalopathy, portal hypertension, CKD, and COPD. He was admitted on 07/21/2020 after presenting with shortness of breath/dyspnea, edema, and dizziness. He was found to be in atrial fibrillation with rapid ventricular response and was felt to be hypervolemic. He states that he has been having progressively worsening symptoms for the past few months. It got to the point where he could barely walk due to significant leg edema. Dyspnea with exertion has progressively been worsening as well. He has orthopnea and chronically sleeps in a chair. He denies chest pain, syncope, near-syncope, palpitations, melena, hematochezia, hematuria, hematemesis, or other bleeding. He does have occasional lightheadedness or dizziness and reports an episode where he was standing up from the commode but denies near- syncope or syncope. He has intermittent diarrhea, with most recent episode being earlier today. He continues to consume alcohol approximately 3 beers per day but had been consuming a 6 pack per day prior to that. He does not believe that he consumes significant amounts of sodium. He denies fevers or chills. He states that he is compliant with his medications and takes Lasix 20 mg daily at home in addition to spironolactone 100 mg daily. While here, he has received Lasix 40 mg IV in the emergency department and another dose this afternoon. Spironolactone has not been continued by primary hospitalist service. His renal functionual. He has not been collecting all of his urine but was reminded to do so during our visit. Review of systems: As above. Review of systems otherwise negative/unremarkable. Family history: Father with [place]. Social history: Quit smoking greater than 20 years ago. Has consumed significant amounts of alcohol chronically, currently 3 beers per day after recently cutting back from a 6 pack per day. No drugs. Lives alone. He has not been . No children. He has a brother who lives in [place] who helps him from a financial standpoint from time to time. He was unaccompanied in his hospital room. Allergies Allergy/AdvReac Type Severity Reaction Status Date / Time No Known Allergies Allergy Verified 07/21/20 16:01 Home Medications Medication Instructions Recorded Confirmed Type cholecalciferol (vitamin D3) 1,000 unit PO QAM 07/25/18 07/21/20 History [Vitamin D3] tamsulosin 0.4 mg capsule 0.4 mg PO DAILY 07/30/19 07/21/20 History pantoprazole 40 mg tablet,delayed 40 mg PO QAM #90 tab 09/18/19 07/21/20 Rx release propranolol 20 mg tablet 20 mg PO BID #180 tab 02/19/20 07/21/20 Rx furosemide 20 mg tablet 20 mg PO QAM #90 tab 05/28/20 07/21/20 Rx Combivent Respimat 1 puff INHALATION QID PRN MDD 6 06/15/20 07/21/20 History PUFFS spironolactone 100 mg PO QAM 06/15/20 07/21/20 History Xifaxan 550 mg PO BID 07/21/20 07/21/20 History Patient History Medical History (Updated 07/22/20 @ 17:34 by Minh Padgett MD) Alcohol abuse Anemia Ascites (10/23/10) Chronic hyponatremia Chronic kidney disease, stage 3 Cirrhosis COPD (chronic obstructive pulmonary disease) Duodenal ulcer Esophageal varices History of abdominal paracentesis Hypertension On home oxygen therapy 1L oxygen Poor historian Portal hypertension Sleep apnea cpap with oxygen 1L - noncompliant w/ cpap Slipped cervical disc Surgical History History of appendectomy History of esophagogastroduodenoscopy (EGD) 08/06/18 [facility] History of tooth extraction Family History (Updated 07/21/20 @ 17:48 by Sherman Peterson MD) Father Myocardial infarction Unknown Diabetes Coronary heart disease Mother Chronic kidney disease Other No family history of adverse response to anesthesia Denies family history of Crohn's disease Colorectal cancer Ulcerative colitis Social History Smoking Status: Former smoker Second Hand Exposure: No; Do You Dip or Chew Tobacco: Yes; Hx Alcohol Use: Yes Alcohol type: beer Hx Substance Use: No Preferred Language: Persian Communication Ability: Effective Pattern Scratcher Required: No Beliefs That Will Affect Care: None marital status: Single Current Living Situation: Alone Other Information That Helps Us Care for You: No Feels Safe at Home: Yes Safety Concerns: Feels Safe At This Time Assistive Devices: Glasses and Walker Physical Exam Physical Exam: Gen.: No acute distress. Alert. HEENT: Anicteric sclera. Neck: Thick neck but probable mild JVD. No bruits. Normal carotid upstrokes bilaterally. Cardiac: PMI was nonpalpable. No ventricular heave. Irregularly irregular and tachycardic. Normal S1-S2. No murmurs, rubs, or gallops. Pulmonary: Decreased breath sounds bilaterally, but otherwise clear to auscultation without wheezes, rales, or rhonchi. Abdomen: Soft, nontender, nondistended, with normoactive bowel sounds. No bruits noted. Extremities: 2+ radial pulses bilaterally. 2+ posterior tibialis pulses bilaterally. Two to 3+ bilateral lower extremity edema to the knees. No cyanosis. Psychiatric: Affect appears appropriate. Results & Data ([facility]) Vital Signs (Past 12 Hours) Vital Signs Temp Pulse Pulse Pulse Resp BP Pulse Ox 07/22/20 15:21 36.7 C 74 24 117/74 100 07/22/20 15:01 121 H 07/22/20 10:06 116 H 24 07/22/20 08:00 80 20 110/64 100 07/22/20 07:39 88 Intake & Output 07/20/20 07/21/20 07/22/20 07/23/20 06:59 06:59 06:59 06:59 Intake Total 450 / 450 515 / 515 Output Total 601 / 601 Balance -151 / -151 514 / 514 Weight 190 lb 7.67 oz Laboratory Results Laboratory Results - last 24 hr 07/22/20 07/22/20 07/22/20 06:07 06:07 06:17 WBC 9.32 RBC 3.77 L Hgb 12.5 L Hct 37.1 L MCV 98.4 MCH 33.2 MCHC 33.7 RDW Std Deviation 49.6 H RDW Coeff of Walter 13.9 Plt Count 213 MPV 9.2 Immature Gran % (Auto) 0.2 Neut % (Auto) 77.9 Lymph % (Auto) 8.3 [place] % (Auto) 11.5 Eos % (Auto) 1.8 Baso % (Auto) 0.3 Neut # (Auto) 7.26 H Lymph # (Auto) 0.77 L [place] # (Auto) 1.07 H Eos # (Auto) 0.17 Baso # (Auto) 0.03 Immature Gran # (Auto) 0.02 Sodium 133 L Potassium 4.3 Chloride 99 Carbon Dioxide 26 Anion Gap 8.0 BUN 20 H Creatinine 1.57 H Est Cr Clr Drug Dosing 41.3 Est GFR ( Amer) 50.3 Est GFR (Non-Af Amer) 43.4 BUN/Creatinine Ratio 12.8 Glucose 90 Calcium 9.5 Total Bilirubin 0.8 AST 16 ALT 13 Alkaline Phosphatase 78 Ammonia Cancelled Total Protein 7.7 Albumin 3.4 Globulin 4.3 H Albumin/Globulin Ratio 0.8 L 07/22/20 07:20 WBC RBC Hgb Hct MCV MCH MCHC RDW Std Deviation RDW Coeff of Walter Plt Count MPV Immature Gran % (Auto) Neut % (Auto) Lymph % (Auto) [place] % (Auto) Eos % (Auto) Baso % (Auto) Neut # (Auto) Lymph # (Auto) [place] # (Auto) Eos # (Auto) Baso # (Auto) Immature Gran # (Auto) Sodium Potassium Chloride Carbon Dioxide Anion Gap BUN Creatinine Est Cr Clr Drug Dosing Est GFR ( Amer) Est GFR (Non-Af Amer) BUN/Creatinine Ratio Glucose Calcium Total Bilirubin AST ALT Alkaline Phosphatase Ammonia 20.8 Total Protein Albumin Globulin Albumin/Globulin Ratio Diagnostic Findings Echo 07/22/2020: Normal LV size, wall motion, systolic function. EF 55-60%. Mild LVH. Moderate biatrial dilation. Mild to moderate MR. RVSP 37. AFib with RVR. Telemetry personally reviewed: Atrial fibrillation with rapid ventricular response. No significant pauses. ECG personally reviewed: ECG 07/21/2020: AFib 95 beats per minute. Possible septal infarct. Compared to ECG on 06/15/2020 at 10:10 a.m., AFib has replaced sinus rhythm. Chest x-ray 07/21/2020: Subtle bilateral opacities per Radiology. No evidence of heart failure per Radiology. No consolidation. Chest x-ray imaging personally reviewed. In no obvious effusion or infiltrate. Medications Administered Current Inpatient Medications Albuterol (Albuterol Hfa 8 Gm Inhaler (Combivent Respimat P&T Subs)) 1 puffs INH QID PRN PRN Reason: Shortness Of Breath Stop: 08/20/20 20:44 Folic Acid (Folic Acid 400 Mcg Tab) 400 mcg PO QPM [facility] Stop: 08/20/20 20:59 Last Admin: 07/21/20 21:35 Dose: 400 mcg Documented by: Heparin Sodium (Porcine) (Heparin Sod 5,000 Unit/0.5 Ml Vial) 5,000 units SQ Q12 [facility] Stop: 08/20/20 20:59 Last Admin: 07/22/20 08:07 Dose: Not Given Documented by: Furosemide 40 mg/ Syringe 4 mls @ 4 mls/min IV Q24H [facility] Stop: 08/21/20 13:59 Last Admin: 07/22/20 14:51 Dose: 4 mls/min Documented by: Ipratropium [place] (Ipratropium Hfa Inhaler (Combivent Respimat P&T Subs)) 1 puffs INH QID PRN PRN Reason: Shortness Of Breath Stop: 08/20/20 20:44 Pantoprazole Sodium (Pantoprazole 40 Mg Tab) 40 mg PO QAM [facility] Stop: 08/21/20 08:59 Last Admin: 07/22/20 08:07 Dose: 40 mg Documented by: Potassium Chloride (Potassium Chloride Crtab 20 Meq Tabcr) 20 meq PO TID [facility] Stop: 08/20/20 20:59 Last Admin: 07/22/20 14:51 Dose: 20 meq Documented by: Propranolol HCl (Propranolol Hcl 10 Mg Tab) 30 mg PO BID [facility] Stop: 08/21/20 20:59 Rifaximin (Rifaximin 550 Mg Tablet) 550 mg PO BID [facility] Stop: 08/20/20 20:59 Last Admin: 07/22/20 08:06 Dose: 550 mg Documented by: Spironolactone (Spironolactone 100 Mg Tab) 100 mg PO QAM [facility] Stop: 08/22/20 08:59 Tamsulosin HCl (Tamsulosin Hcl 0.4 Mg Cap) 0.4 mg PO DAILY [facility] Stop: 08/21/20 08:59 Last Admin: 07/22/20 08:07 Dose: 0.4 mg Documented by: Thiamine HCl (Thiamine Hcl 100 Mg Tab) 100 mg PO QPM [facility] Stop: 08/20/20 20:59 Last Admin: 07/21/20 21:34 Dose: 100 mg Documented by: PG Care Time/CCT Total # of Minutes Spent Total Time Spent with Patient: Total time spent is greater than 50% in coordination of care (as documented) at patient's floor/unit and/or counseling patient: Coding Level of Care Code 72580 Initial Inpt Care Lvl 3 Diagnoses Atrial fibrillation with rapid ventricular response I48.91 Acute diastolic CHF (congestive heart failure) I50.31 Cirrhosis K70.30 Hepatic cirrhosis type: alcoholic cirrhosis Ascites presence: without ascites Alcohol abuse F10.10 Chronic hyponatremia E87.1 Hypertension I10 (1) Cirrhosis Hepatic cirrhosis type: alcoholic cirrhosis Ascites presence: without ascites Qualified Code(s): K70.30 - Alcoholic cirrhosis of liver without ascites
[2020-07-22] MEDS ORDERED: PROPRANOLOL HCL 10 MG TAB PO SCH (21:00)
[2020-07-22] MEDS: FOLIC ACID 400 MCG TAB PO SCH (21:58)
[2020-07-22] MEDS: THIAMINE HCL 100 MG TAB PO SCH (21:58)
[2020-07-23] MEDS: POTASSIUM CHLORIDE CRTAB 20 MEQ TABCR PO SCH ×3 (08:06→20:09)
[2020-07-23] MEDS: rifAXIMin 550 MG TABLET PO SCH ×2 (08:08→20:08)
[2020-07-23] MEDS: PANTOprazole 40 MG TAB PO SCH (08:09)
[2020-07-23] MEDS: SPIRONOLACTONE 100 MG TAB PO SCH (08:09)
[2020-07-23] MEDS: TAMSULOSIN HCL 0.4 MG CAP PO SCH (08:09)
[2020-07-23] MEDS: HEPARIN SOD 5,000 UNIT/0.5 ML VIAL SQ SCH ×2 (08:10→20:08)
[2020-07-23] MEDS: PROPRANOLOL HCL 10 MG TAB PO SCH ×3 (09:22→20:08)
[2020-07-23 11:07] LABS: BUN Creatinine Ratio 13.7 (10-20); Calcium 9.2 mg/dl (8.5-10.1); Creatinine Clr Calc Pharmacy 33.3 ml/min; Est GFR (African American) 38.7 ml/min; Est GFR (Non-African American) 33.4 ml/min; Potassium 4.4 mmol/L (3.5-5.1)
[2020-07-23] MEDS: FUROSEMIDE 40 MG in SYRINGE 0 ML IV SCH ×2 (14:27→17:31)
[2020-07-23] MEDS: FOLIC ACID 400 MCG TAB PO SCH (20:08)
[2020-07-23] MEDS: THIAMINE HCL 100 MG TAB PO SCH (20:09)
--- NOTE | 2020-07-23 20:51 | Cardiology Progress Note ---
Date of Service July 23, 2020 Assessment & Plan (1) Atrial fibrillation with rapid ventricular response: (2) Acute diastolic CHF (congestive heart failure): (3) Cirrhosis: (4) Alcohol abuse: (5) Chronic hyponatremia: (6) Hypertension: ASSESSMENT/PLAN: 1. AFib with RVR: Presumably new diagnosis for him. Heart rate has improved with titration of propanolol yesterday. Per panel wall was then later titrated today by hospitalist, Dr. Bangura. Continue with rate control strategy. Stroke risk reduction with anticoagulation therapy has been discussed.. As per communication with primary hospitalist service, Dr. Bangura, he would be increased risk for bleeding given his cirrhosis, a history of ulcer, esophageal varices. Dr. Bangura has communicated with GI in this regard. For this reason, anticoagulation therapy will not be initiated at this time. He apparently also has not followed up for repeat imaging in regards to his varices. Could consider Watchman device as an outpatient with brief anticoagulation therapy. Watchman device can be placed at another facility if he is agreeable. 2. Acute diastolic CHF/hypervolemia: He appears hypervolemic. This could be related to his CKD, cirrhosis, and also heart failure given AFib with RVR. Low- sodium diet. Unfortunately, net fluid balance is not able to be calculated. He was reminded during this hospital stay to try to collect his urine output. Continue IV diuretic. Will increase Lasix to 40 mg twice daily, from once daily. Continue home dose of spironolactone, which may also offer some benefit with his cirrhosis. Agree with fluid restriction given hyponatremia. Recommend evaluation by Heart failure program. Will discontinue potassium supplementation given his CKD, normal potassium level, and resumption of spironolactone. 3. Alcohol abuse: Recommended that he stop consuming alcohol altogether. [place] hol could also be playing a role in his atrial fibrillation. 4. Dyspnea: Likely multifactorial with hypervolemia as above and also reportedly advanced COPD requiring supplemental oxygen at home. He feels improved since admission. 5. Hypertension: Blood pressure adequately controlled. Beta-saad and diuretic therapy has been adjusted for other purposes. 6. Cirrhosis: As per primary hospitalist service and GI as an outpatient. 7. Disposition: Cardiology will continue to follow. Admission and Anticipated Discharge Date Admission Date: July 21, 2020 Subjective Patient was seen earlier today. He uses 2 L of supplemental oxygen at home. Overall, shortness of breath remains stable. He has significant COPD at baseline. He is not certain if his edema has improved. He remains out of bed in a chair without much exertion. He denies chest pain, palpitations, syncope, near-syncope, or bleeding. Review of systems: As above. Physical Exam Physical Exam: Gen.: No acute distress. Alert. HEENT: Anicteric sclera. Neck: Thick neck. Cardiac: Irregularly irregular with heart rate 90s to 100s. Normal S1-S2. No murmurs, rubs, or gallops. Pulmonary: Decreased breath sounds bilaterally, but otherwise clear to auscultation without wheezes, rales, or rhonchi. Abdomen: Soft, nontender, nondistended, with normoactive bowel sounds. No bruits noted. Extremities: 2+ radial pulses bilaterally. 2+ bilateral lower extremity edema to the knees. No cyanosis. Psychiatric: Affect appears appropriate. Results & Data ([facility]) Vital Signs (Past 12 Hours) Vital Signs Temp Pulse Pulse Pulse Resp BP Pulse Ox 07/23/20 19:00 36.4 C L 94 H 20 101/57 L 100 07/23/20 15:56 36.5 C 96 H 18 114/75 98 07/23/20 14:46 80 108/68 07/23/20 14:30 107 H 07/23/20 11:35 36.4 C L 95 H 18 112/71 96 Intake & Output 07/21/20 07/22/20 07/23/20 07/24/20 06:59 06:59 06:59 06:59 Intake Total 450 / 450 915 / 915 440 / 440 Output Total 601 / 601 601 / 601 200 / 200 Balance -151 / -151 314 / 314 240 / 240 Weight 190 lb 7.67 oz Laboratory Results Laboratory Results - last 24 hr 07/23/20 10:02 Sodium 136 Potassium 4.4 Chloride 101 Carbon Dioxide 30 Anion Gap 5.0 BUN 27 H Creatinine 1.95 H D Est Cr Clr Drug Dosing 33.3 Est GFR ( Amer) 38.7 Est GFR (Non-Af Amer) 33.4 BUN/Creatinine Ratio 13.7 Glucose 127 H Calcium 9.2 Diagnostic Findings Telemetry personally reviewed: Atrial fibrillation with rapid ventricular respo nse noted in the morning in the past 24 hours however heart rate has improved with titration of propanolol yesterday. Medications Administered Current Inpatient Medications Albuterol (Albuterol Hfa 8 Gm Inhaler (Combivent Respimat P&T Subs)) 1 puffs INH QID PRN PRN Reason: Shortness Of Breath Stop: 08/20/20 20:44 Folic Acid (Folic Acid 400 Mcg Tab) 400 mcg PO QPM [facility] Stop: 08/20/20 20:59 Last Admin: 07/23/20 20:08 Dose: 400 mcg Documented by: Heparin Sodium (Porcine) (Heparin Sod 5,000 Unit/0.5 Ml Vial) 5,000 units SQ Q12 [facility] Stop: 08/20/20 20:59 Last Admin: 07/23/20 20:08 Dose: 5,000 units Documented by: Furosemide 40 mg/ Syringe 4 mls @ 4 mls/min IV [id number] [facility] Stop: 08/22/20 16:59 Last Admin: 07/23/20 17:31 Dose: 4 mls/min Documented by: Ipratropium [place] (Ipratropium Hfa Inhaler (Combivent Respimat P&T Subs)) 1 puffs INH QID PRN PRN Reason: Shortness Of Breath Stop: 08/20/20 20:44 Pantoprazole Sodium (Pantoprazole 40 Mg Tab) 40 mg PO QAM [facility] Stop: 08/21/20 08:59 Last Admin: 07/23/20 08:09 Dose: 40 mg Documented by: Potassium Chloride (Potassium Chloride Crtab 20 Meq Tabcr) 20 meq PO TID [facility] Stop: 08/20/20 20:59 Last Admin: 07/23/20 20:09 Dose: 20 meq Documented by: Propranolol HCl (Propranolol Hcl 10 Mg Tab) 30 mg PO TID [facility] Stop: 08/22/20 08:59 Last Admin: 07/23/20 20:08 Dose: 30 mg Documented by: Rifaximin (Rifaximin 550 Mg Tablet) 550 mg PO BID [facility] Stop: 08/20/20 20:59 Last Admin: 07/23/20 20:08 Dose: 550 mg Documented by: Spironolactone (Spironolactone 100 Mg Tab) 100 mg PO QAM [facility] Stop: 08/22/20 08:59 Last Admin: 07/23/20 08:09 Dose: 100 mg Documented by: Tamsulosin HCl (Tamsulosin Hcl 0.4 Mg Cap) 0.4 mg PO DAILY [facility] Stop: 08/21/20 08:59 Last Admin: 07/23/20 08:09 Dose: 0.4 mg Documented by: Thiamine HCl (Thiamine Hcl 100 Mg Tab) 100 mg PO QPM [facility] Stop: 08/20/20 20:59 Last Admin: 07/23/20 20:09 Dose: 100 mg Documented by: PG Care Time/CCT Total # of Minutes Spent Total Time Spent with Patient: Total time spent is greater than 50% in coordination of care (as documented) at patient's floor/unit and/or counseling patient: Coding Level of Care Code 77768 Subseq Hosp Care Lvl 3 Diagnoses Atrial fibrillation with rapid ventricular response I48.91 Acute diastolic CHF (congestive heart failure) I50.31 Cirrhosis K70.30 Hepatic cirrhosis type: alcoholic cirrhosis Ascites presence: without ascites Alcohol abuse F10.10 Chronic hyponatremia E87.1 Hypertension I10 (1) Cirrhosis Hepatic cirrhosis type: alcoholic cirrhosis Ascites presence: without ascites Qualified Code(s): K70.30 - Alcoholic cirrhosis of liver without ascites
--- NOTE | 2020-07-23 22:56 | Hospitalist Progress Note ---
Date of Service July 23, 2020 Assessment & Plan (1) Cirrhosis: Patient has long standing history of cirrhosis. Patient does not do surveillance followup with Dr. Gilbert as he refuses repeat EGD to assess his esophageal varices. His MELD score on On admission: was: 23 points Estimated 3-Month Mortality: 19.6% This improved to 6% mortality 3month mortality on 07/22 Maddrey score is good: close to 6 points. - continue home rifaximin -Patient will continueto carry a poor halfway prognosis, if he continues to drink. (2) Dyspnea on exertion: 69 y/o M w/ hx of HTN, pAF, cirrhosis, COPD, diastolic CHF and hosp last month for beer potomania hyponatremia who presents w/ progressively worsening GOMEZ and hyponatremia. -Appears likely secondary to uncrontrolled Atrial fibrillation -will increase beta saad: to propranolol 30mg PO TID and monitor. -holding anticoagulation given how patient does not do EGD surveillance for varicose viens. and continues to drink and fall. - considered CHF exacerbation, symptomatic hypoNa, symptomatic afib and COPD exacerbation - lower suspicion for infectious etiology at this time given lack of fever, leukocytosis, procalc elevation - patient tachypneic and tachycardic at admission, may be from fluid overload and/or afib - BUN/Cr ratio, does not suggest dehydration - diuresing w/ IV lasix 40 now will continue w/ daily IV lasix 40 and spironolactone FEN/GI:regular diet. fluid restrict 1L/day. no IV fluids. ppx: prophylatic heparin SQ 5000u q12 code: DNI, but wants CPR. dispo: med/surg tele (3) Acute hyponatremia: - 127. level ~stable in past month. patient not having obvious symptoms - euvolemic vs hypervolemic hyponatremia. diet hx and prior admission hx suggets euvolemic, but clinically may be hypervolemic (worsened edema, cxr w/ slight opacities, BNP elevated to 4.5k) - fluid restrict 1L/day - avoid IV fluids - regular diet ordered - resume spironolactone now that sodium has improved. (4) Paroxysmal atrial fibrillation: - ecg today showing afib. previous ecg in 06/2020 was normal sinus - per chart review, hasn't been tachycardic in previous visits. 110s-120s today. - continue home propranol 20 BID - ordered IV metoprolol 5 for rate control. additional doses as needed. goal rate <100 - consulted cardiology for new-onset afib. 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 CHADSvasc 3. continue discussion as outpatient (5) CHF (congestive heart failure): - last TTE in 2019 showing EF 60-65 w/ grade 1 diastolic dysfunction - BNP elevated at 4.5k - cxr slightly suggestive of fluid overload - TTE ordered (6) Alcohol abuse: - etoh <3 at admission - ordered AWSS - ordered repletion of thiamine and folate - no confusion, but will check ammonia because of hx of hepatic encephalopathy (7) Chronic kidney disease, stage 3: - current function ~baseline. 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 Especially given how he has refused recommend surveillance testing. will try to work wih patient to see if he is willing to quit alcohol. Perhaps helping with his insomnia, may help limit his alcohol intake. Admission and Anticipated Discharge Date Admission Date: July 21, 2020 Subjective Patient feels less weak in his lower extremities today, He rpeorts decreased swelling. He states that the main reason he drinks is because he requires hhelp with sleeping and that he mainly drinks in the evening. Review of Systems Review of Systems: All systems reviewed & are unremarkable except as noted in HPI & below Physical Exam Physical Exam: General: A&Ox4. NAD. Cooperative. HEENT: Atraumatic, normocephalic. EOMI. No scleral icterus. Pulm: CTAB. -wheezes, -rales, -rhonchi. Symmetrical chest rise. No respiratory distress. Shallow breath sounds posteriorly. Cardiac: RRR, -mrg. Radial pulses intact and symmetrical. Bilat 3+ LE edema, weeping, w/ chronic venous stasis changes. Edema goes up to just above knee. Abdominal: Nontender, nondistended, soft. +BS. Integumentary: No rash. No jaundice. Neuro: No tremor/asterixis. Musculo: Lower extremity pitting edema +2 with chronic venous changes Results & Data Results & Data ([facility]) Vital Signs (Past 12 Hours) Vital Signs Temp Pulse Pulse Pulse Resp BP Pulse Ox 07/23/20 19:00 36.4 C L 94 H 20 101/57 L 100 07/23/20 15:56 36.5 C 96 H 18 114/75 98 07/23/20 14:46 80 108/68 07/23/20 14:30 107 H 07/23/20 11:35 36.4 C L 95 H 18 112/71 96 PG Care Time/CCT Total # of Minutes Spent Total Time Spent with Patient: Total time spent is greater than 50% in coordination of care (as documented) at patient's floor/unit and/or counseling patient: Coding Level of Care Code 35873 Subseq Hosp Care Lvl 2 Diagnoses Cirrhosis K70.30 Ascites presence: without ascites Hepatic cirrhosis type: alcoholic cirrhosis Dyspnea on exertion R06.00 Acute hyponatremia E87.1 Paroxysmal atrial fibrillation I48.0 CHF (congestive heart failure) I50.9 Alcohol abuse F10.10 Chronic kidney disease, stage 3 N18.32 Chronic kidney disease stage 3 subtype: stage 3b (GFR 30-44) Sleep apnea G47.30 COPD (chronic obstructive pulmonary disease) J44.9 COPD type: unspecified COPD Venous stasis I87.8 (1) Chronic kidney disease, stage 3 Chronic kidney disease stage 3 subtype: stage 3b (GFR 30-44) Qualified Code(s): N18.32 - Chronic kidney disease, stage 3b (2) Cirrhosis Ascites presence: without ascites Hepatic cirrhosis type: alcoholic cirrhosis Qualified Code(s): K70.30 - Alcoholic cirrhosis of liver without ascites (3) COPD (chronic obstructive pulmonary disease) COPD type: unspecified COPD Qualified Code(s): J44.9 - Chronic obstructive pulmonary disease, unspecified
[2020-07-24 07:46] LABS: BUN Creatinine Ratio 14.5 (10-20); Calcium 9.1 mg/dl (8.5-10.1); Est GFR (African American) 34.2 ml/min; Est GFR (Non-African American) 29.5 ml/min; Potassium 4.8 mmol/L (3.5-5.1)
[2020-07-24] MEDS: HEPARIN SOD 5,000 UNIT/0.5 ML VIAL SQ SCH ×2 (09:20→20:39)
[2020-07-24] MEDS: FUROSEMIDE 40 MG in SYRINGE 0 ML IV SCH (09:20)
[2020-07-24] MEDS: PANTOprazole 40 MG TAB PO SCH (09:20)
[2020-07-24] MEDS: PROPRANOLOL HCL 10 MG TAB PO SCH ×3 (09:20→20:39)
[2020-07-24] MEDS: SPIRONOLACTONE 100 MG TAB PO SCH (09:21)
[2020-07-24] MEDS: rifAXIMin 550 MG TABLET PO SCH ×2 (09:21→20:38)
[2020-07-24] MEDS: TAMSULOSIN HCL 0.4 MG CAP PO SCH (09:21)
--- NOTE | 2020-07-24 12:44 | Cardiology Progress Note ---
Date of Service July 24, 2020 Assessment & Plan (1) Atrial fibrillation with rapid ventricular response: (2) Acute diastolic CHF (congestive heart failure): (3) Cirrhosis: (4) Alcohol abuse: (5) Chronic hyponatremia: (6) Hypertension: ASSESSMENT/PLAN: 1. AFib with RVR: Presumably new diagnosis for him during this hospital stay. Heart rate has improved with titration of propanolol. Considered further titrating propanolol today however heart rate this afternoon even a bit more i mproved. If heart rate becomes more tachycardic, would consider further titrating propanolol to 30 mg q.i.d.. On discharge however, recommend extended release propanolol equivalent to effective dose. Continue with rate control strategy. Stroke risk reduction with anticoagulation therapy has been discussed. GI has communicated with primary hospitalist service, Dr. Bangura, in regards to increased bleeding risk given his cirrhosis, a history of ulcer, esophageal varices. For this reason, anticoagulation therapy will not be initiated at this time. He apparently also has not followed up for repeat imaging in regards to his varices. Could consider Watchman device as an outpatient with brief anticoagulation therapy. Watchman device can be placed at another facility if he is agreeable. 2. Acute diastolic CHF/hypervolemia: He has chronic edema and continues to have significant lower extremity edema, however labs appear azotemic today. Overall, breathing has improved. He has not always collected his urine output to have reliable net fluid balance. Change Lasix to 40 mg p.o. once daily starting tomorrow. Low-sodium diet. Unfortunately, net fluid balance is not able to be calculated. He was reminded during this hospital stay to try to collect his urine output. Continue home dose of spironolactone, which may also offer some benefit with his cirrhosis. Agree with fluid restriction given hyponatremia. Heart failure program follow-up. 3. Alcohol abuse: Recommended that he stop consuming alcohol altogether. Alcohol could also be playing a role in his atrial fibrillation. 4. Dyspnea: Advanced COPD per records and uses supplemental oxygen at home. Shortness of breath is back to baseline. 5. Hypertension: Blood pressure adequately controlled. Continue current regimen with diuretic change as above. 6. Cirrhosis: As per primary hospitalist service and GI as an outpatient. 7. Disposition: I will be away from the hospital for the next several days. Please call the on-call aircraft rigging and controls mechanic for questions or concerns. Follow-up with Yamileth Ayers in the Heart failure program on discharge. Patient care discussed with Dr. Malagon of the primary hospitalist service. Admission and Anticipated Discharge Date Admission Date: July 21, 2020 Subjective Overall, he feels better. He believes that his breathing is back to baseline. He denies chest pain, palpitations, syncope, near-syncope or bleeding. Review of systems: As above. Physical Exam Physical Exam: Gen.: No acute distress. Alert. HEENT: Anicteric sclera. Neck: Thick neck. Cardiac: Irregularly irregular with heart rate 90s. Normal S1-S2. No murmurs, rubs, or gallops. Pulmonary: Decreased breath sounds bilaterally, but otherwise clear to auscultation without wheezes, rales, or rhonchi. Abdomen: Soft, nontender, nondistended, with normoactive bowel sounds. No bruits noted. Extremities: 2+ radial pulses bilaterally. 2+ bilateral lower extremity edema to the knees. No cyanosis. Psychiatric: Affect appears appropriate. Results & Data ([facility]) Vital Signs (Past 12 Hours) Vital Signs Temp Pulse Pulse Resp BP Pulse Ox 07/24/20 12:00 36.7 C 96 H 18 108/75 98 07/24/20 07:37 99 H 07/24/20 07:29 36.6 C 71 18 103/68 99 07/24/20 03:00 36.6 C 98 H 20 120/70 100 Intake & Output 07/22/20 07/23/20 07/24/20 07/25/20 06:59 06:59 06:59 06:59 Intake Total 450 / 450 915 / 915 690 / 690 480 / 480 Output Total 601 / 601 601 / 601 650 / 650 Balance -151 / -151 314 / 314 40 / 40 480 / 480 Weight 190 lb 7.67 oz 190 lb 0.615 oz Laboratory Results Laboratory Results - last 24 hr 07/24/20 07/24/20 06:44 06:44 Sodium 135 L Potassium 4.8 Chloride 102 Carbon Dioxide 28 Anion Gap 5.0 BUN 31 H Creatinine 2.16 H Est Cr Clr Drug Dosing 30.0 Est GFR ( Amer) 34.2 Est GFR (Non-Af Amer) 29.5 BUN/Creatinine Ratio 14.5 Glucose 87 Calcium 9.1 NT-Pro-B Natriuret Pep 6174 H Diagnostic Findings Telemetry personally reviewed: Heart rate mostly in the 90s to 100s when earlier evaluated. Conversed with telemetry and heart rate more recently has been 70s to 100s. No significant pause. Medications Administered Current Inpatient Medications Albuterol (Albuterol Hfa 8 Gm Inhaler (Combivent Respimat P&T Subs)) 1 puffs INH QID PRN PRN Reason: Shortness Of Breath Stop: 08/20/20 20:44 Folic Acid (Folic Acid 400 Mcg Tab) 400 mcg PO QPM CRISTAL Stop: 08/20/20 20:59 Last Admin: 07/23/20 20:08 Dose: 400 mcg Documented by: Heparin Sodium (Porcine) (Heparin Sod 5,000 Unit/0.5 Ml Vial) 5,000 units SQ Q12 CRISTAL Stop: 08/20/20 20:59 Last Admin: 07/24/20 09:20 Dose: 5,000 units Documented by: Furosemide 40 mg/ Syringe 4 mls @ 4 mls/min IV [id number] CRISTAL Stop: 08/22/20 16:59 Last Admin: 07/24/20 09:20 Dose: 4 mls/min Documented by: Ipratropium [place] (Ipratropium Hfa Inhaler (Combivent Respimat P&T Subs)) 1 puffs INH QID PRN PRN Reason: Shortness Of Breath Stop: 08/20/20 20:44 Pantoprazole Sodium (Pantoprazole 40 Mg Tab) 40 mg PO QAM [facility] Stop: 08/21/20 08:59 Last Admin: 07/24/20 09:20 Dose: 40 mg Documented by: Propranolol HCl (Propranolol Hcl 10 Mg Tab) 30 mg PO TID CRISTAL Stop: 08/22/20 08:59 Last Admin: 07/24/20 09:20 Dose: 30 mg Documented by: Rifaximin (Rifaximin 550 Mg Tablet) 550 mg PO BID CRISTAL Stop: 08/20/20 20:59 Last Admin: 07/24/20 09:21 Dose: 550 mg Documented by: Spironolactone (Spironolactone 100 Mg Tab) 100 mg PO QAM [facility] Stop: 08/22/20 08:59 Last Admin: 07/24/20 09:21 Dose: 100 mg Documented by: Tamsulosin HCl (Tamsulosin Hcl 0.4 Mg Cap) 0.4 mg PO DAILY CRISTAL Stop: 08/21/20 08:59 Last Admin: 07/24/20 09:21 Dose: 0.4 mg Documented by: Thiamine HCl (Thiamine Hcl 100 Mg Tab) 100 mg PO QPM CRISTAL Stop: 08/20/20 20:59 Last Admin: 07/23/20 20:09 Dose: 100 mg Documented by: PG Care Time/CCT Total # of Minutes Spent Total Time Spent with Patient: Total time spent is greater than 50% in coordination of care (as documented) at patient's floor/unit and/or counseling patient: Coding Level of Care Code 16762 Subseq Hosp Care Lvl 3 Diagnoses Atrial fibrillation with rapid ventricular response I48.91 Acute diastolic CHF (congestive heart failure) I50.31 Cirrhosis K70.30 Ascites presence: without ascites Hepatic cirrhosis type: alcoholic cirrhosis Alcohol abuse F10.10 Chronic hyponatremia E87.1 Hypertension I10 (1) Cirrhosis Ascites presence: without ascites Hepatic cirrhosis type: alcoholic cirrhosis Qualified Code(s): K70.30 - Alcoholic cirrhosis of liver without ascites
--- NOTE | 2020-07-24 17:35 | Hospitalist Progress Note ---
Date of Service July 24, 2020 Assessment & Plan (1) Acute diastolic CHF (congestive heart failure): EF was 55 - 60% with mild LVH. Possibly due to afib with RVR. - Weight down to 86.2 kg on 07/24. - Symptoms improving. Lasix switched to 40 mg PO daily for tomorrow (07/25). (2) Cirrhosis: Patient has long standing history of cirrhosis. Patient does not do surveillance follow-up with Dr. Gilbert as he refuses repeat EGD to assess his esophageal varices. - His MELD score on On admission: was: 23 points; estimated 3-Month Mortality: 19.6%. - Continue home rifaximin - Continue furosemide/spironolactone - Patient reports he would like to quit. Will offer resources. (3) Acute hyponatremia: - 127. level ~stable in past month. patient not having obvious symptoms - euvolemic vs hypervolemic hyponatremia. diet hx and prior admission hx suggets euvolemic, but clinically may be hypervolemic (worsened edema, cxr w/ slight opacities, BNP elevated to 4.5k) - fluid restrict 1L/day - avoid IV fluids - regular diet ordered - resume spironolactone now that sodium has improved. (4) Paroxysmal atrial fibrillation: EKG on admission showed new-onset afib. Patient does not think he has a history of afib. Presently deferring therapeutic anticoagulation due to bleeding risk. CHADS-VASC of 2 (age, CHF). - Increased home propanol to 30 mg TID. - Consulted cardiology for new-onset afib. (5) Alcohol abuse: EToH <3 at admission. Previously had been pre-contemplative. Now reports he will quit. - Continue folate/thiamine - Will offer resources if desired. (6) Chronic kidney disease, stage 3: Baseline Cr is ~ 1.6 - 2.0. - Current Cr is now 2.15 after diuresis. - Continue to monitor as we reduce diuresis (7) Sleep apnea: Limited home use. Not on CPAP at home. - Continue supplemental O2 as needed (8) COPD (chronic obstructive pulmonary disease): No indication of exacerbation at this time. - Continue home inhaler PRN (9) Venous stasis: Chronic. - No needs (10) DVT prophylaxis: Heparin 5,000 units SQ Q12h Admission and Anticipated Discharge Date Admission Date: July 21, 2020 Subjective Doing well today. Feels his breathing is better. Reports no fevers/chills, chest pain, shortness of breath, abdominal pain, nausea, or vomiting. Physical Exam Constitutional: WD/WN, vitals as above Eyes: EOM intact bilaterally; no conjunctival abnormality ENMT: external ear and nose normal, oropharynx normal Neck: trachea midline, no thyromegaly normal visual inspection Respiratory: normal respiratory effort, lungs clear to auscultation no respiratory distress Cardiovascular: Rate/Rhythm: + tachycardic and + irregularly irregular Heart Sounds: normal S1 and normal S2 Extremities: + edema Gastrointestinal (Abdomen): Inspection/Auscultation: abdomen normal to inspection; abdomen not distended Musculoskeletal: no cyanosis or clubbing, extremities motor strength 5/5 Skin: no rashes, warm and dry Neurologic: moves all extremities and awake Psychiatric: Orientation: alert, oriented to person and cooperative Results & Data Results & Data ([facility]) Vital Signs (Past 12 Hours) Vital Signs Temp Pulse Pulse Resp BP Pulse Ox 07/24/20 15:46 36.6 C 69 16 105/72 91 07/24/20 15:15 110 H 07/24/20 12:00 36.7 C 96 H 18 108/75 98 07/24/20 07:37 99 H 07/24/20 07:29 36.6 C 71 18 103/68 99 PG Care Time/CCT Total # of Minutes Spent Total Time Spent with Patient: Total time spent is greater than 50% in coordination of care (as documented) at patient's floor/unit and/or counseling patient: Coding Level of Care Code 30614 Subseq Hosp Care Lvl 3 Diagnoses Acute diastolic CHF (congestive heart failure) I50.31 Cirrhosis K70.30 Hepatic cirrhosis type: alcoholic cirrhosis Ascites presence: without ascites Acute hyponatremia E87.1 Paroxysmal atrial fibrillation I48.0 Alcohol abuse F10.10 Chronic kidney disease, stage 3 N18.32 Chronic kidney disease stage 3 subtype: stage 3b (GFR 30-44) Sleep apnea G47.30 COPD (chronic obstructive pulmonary disease) J44.9 COPD type: unspecified COPD Venous stasis I87.8 DVT prophylaxis Z29.9 (1) Cirrhosis Hepatic cirrhosis type: alcoholic cirrhosis Ascites presence: without ascites Qualified Code(s): K70.30 - Alcoholic cirrhosis of liver without ascites (2) Chronic kidney disease, stage 3 Chronic kidney disease stage 3 subtype: stage 3b (GFR 30-44) Qualified Code(s): N18.32 - Chronic kidney disease, stage 3b (3) COPD (chronic obstructive pulmonary disease) COPD type: unspecified COPD Qualified Code(s): J44.9 - Chronic obstructive pulmonary disease, unspecified
[2020-07-24] MEDS: FOLIC ACID 400 MCG TAB PO SCH (20:39)
[2020-07-24] MEDS: THIAMINE HCL 100 MG TAB PO SCH (20:40)
[2020-07-25 07:19] LABS: Hematocrit (blood only) 32.4 % (42-52); Hemoglobin 10.9 g/dL (14.0-18.0); Mean Corpuscular Hgb Conc 33.6 g/dL (32-36); Mean Corpuscular Volume 98.2 fL (80-100); Mean Platelet Volume 9.2 fL (7.4-10.4); Platelet Count 195 K/uL (130-400); RDW Standard Deviation 49.9 fL (36.4-46.3); White Blood Count 4.97 K/uL (4.8-10.8)
[2020-07-25 07:37] LABS: BUN Creatinine Ratio 17.5 (10-20); Calcium 9.6 mg/dl (8.5-10.1); Est GFR (African American) 32.9 ml/min; Est GFR (Non-African American) 28.4 ml/min; Magnesium 1.8 mg/dl (1.8-2.4); Potassium 4.2 mmol/L (3.5-5.1)
[2020-07-25] MEDS: PROPRANOLOL HCL 10 MG TAB PO SCH ×4 (08:04→20:32)
[2020-07-25] MEDS: TAMSULOSIN HCL 0.4 MG CAP PO SCH (08:04)
[2020-07-25] MEDS: FUROSEMIDE 40 MG TAB PO SCH (08:05)
[2020-07-25] MEDS: rifAXIMin 550 MG TABLET PO SCH ×2 (08:05→20:32)
[2020-07-25] MEDS: PANTOprazole 40 MG TAB PO SCH (08:05)
[2020-07-25] MEDS: SPIRONOLACTONE 100 MG TAB PO SCH (08:05)
[2020-07-25] MEDS: HEPARIN SOD 5,000 UNIT/0.5 ML VIAL SQ SCH ×3 (08:06→20:35)
[2020-07-25] MEDS ORDERED: FUROSEMIDE 40 MG in SYRINGE 0 ML IV SCH (09:00)
--- NOTE | 2020-07-25 16:11 | Hospitalist Progress Note ---
Date of Service July 25, 2020 Assessment & Plan (1) Paroxysmal atrial fibrillation: EKG on admission showed new-onset afib. Patient does not think he has a history of afib. Presently deferring therapeutic anticoagulation due to bleeding risk. CHADS-VASC of 2 (age, CHF). - Increased home propanol to 30 mg QID. - Plan to switch to long-acting on discharge. - Consulted cardiology for new-onset afib. (2) Acute diastolic CHF (congestive heart failure): EF was 55 - 60% with mild LVH. Possibly due to afib with RVR. - Weight down to 86.2 kg on 07/24. - Symptoms improving. Lasix switched to 40 mg PO daily for today (07/25). Overall, appears euvolemic. (3) Chronic kidney disease, stage 3: Baseline Cr is ~ 1.6 - 2.0. - Current Cr is now 2.25 after diuresis. - Continue to monitor as we reduce diuresis. (4) Cirrhosis: Patient has long standing history of cirrhosis. Patient does not do surveillance follow-up with Dr. Gilbert as he refuses repeat EGD to assess his esophageal varices. - His MELD score on On admission: was: 23 points; estimated 3-Month Mortality: 19.6%. - Continue home rifaximin - Continue furosemide/spironolactone - Patient reports he would like to quit. Will offer resources. (5) Acute hyponatremia: Na was 127 on admission. Level ~stable in past month. Patient not having obvious symptoms. - Likely low solute or beer potomania. - He returns to normal during admission when he has better PO intake. (6) Alcohol abuse: EToH <3 at admission. Previously had been pre-contemplative. Now reports he will quit. - Continue folate/thiamine - Will offer resources if desired. (7) Sleep apnea: Limited home use. Not on CPAP at home. - Continue supplemental O2 as needed (8) COPD (chronic obstructive pulmonary disease): No indication of exacerbation at this time. - Continue home inhaler PRN (9) Venous stasis: Chronic. - No needs (10) DVT prophylaxis: Heparin 5,000 units SQ Q12h Admission and Anticipated Discharge Date Admission Date: July 21, 2020 Subjective Doing well today. Reports feeling "bored." Reports no fevers/chills, chest pain, shortness of breath, abdominal pain, nausea, or vomiting. Physical Exam Constitutional: WD/WN, vitals as above Eyes: EOM intact bilaterally; no conjunctival abnormality ENMT: external ear and nose normal, oropharynx normal Neck: trachea midline, no thyromegaly normal visual inspection Respiratory: normal respiratory effort, lungs clear to auscultation no respiratory distress Cardiovascular: Rate/Rhythm: + tachycardic and + irregularly irregular Heart Sounds: normal S1 and normal S2 Extremities: + edema Gastrointestinal (Abdomen): Inspection/Auscultation: abdomen normal to inspection; abdomen not distended Musculoskeletal: no cyanosis or clubbing, extremities motor strength 5/5 Skin: no rashes, warm and dry Neurologic: moves all extremities and awake Psychiatric: Orientation: alert, oriented to person and cooperative Results & Data Results & Data ([facility]) Vital Signs (Past 12 Hours) Vital Signs Temp Pulse Pulse Resp BP Pulse Ox 07/25/20 15:30 36.5 C 93 H 18 134/84 100 07/25/20 15:00 90 07/25/20 13:56 115 H 122/83 07/25/20 11:49 36.5 C 88 18 112/58 L 99 07/25/20 09:00 115 H 07/25/20 07:30 36.5 C 96 H 18 110/67 92 PG Care Time/CCT Total # of Minutes Spent Total Time Spent with Patient: Total time spent is greater than 50% in coordination of care (as documented) at patient's floor/unit and/or counseling patient: Coding Level of Care Code 73635 Subseq Hosp Care Lvl 2 Diagnoses Paroxysmal atrial fibrillation I48.0 Acute diastolic CHF (congestive heart failure) I50.31 Chronic kidney disease, stage 3 N18.32 Chronic kidney disease stage 3 subtype: stage 3b (GFR 30-44) Cirrhosis K70.30 Ascites presence: without ascites Hepatic cirrhosis type: alcoholic cirrhosis Acute hyponatremia E87.1 Alcohol abuse F10.10 Sleep apnea G47.30 COPD (chronic obstructive pulmonary disease) J44.9 COPD type: unspecified COPD Venous stasis I87.8 DVT prophylaxis Z29.9 (1) Chronic kidney disease, stage 3 Chronic kidney disease stage 3 subtype: stage 3b (GFR 30-44) Qualified Code(s): N18.32 - Chronic kidney disease, stage 3b (2) Cirrhosis Ascites presence: without ascites Hepatic cirrhosis type: alcoholic cirrhosis Qualified Code(s): K70.30 - Alcoholic cirrhosis of liver without ascites (3) COPD (chronic obstructive pulmonary disease) COPD type: unspecified COPD Qualified Code(s): J44.9 - Chronic obstructive pulmonary disease, unspecified
[2020-07-25] MEDS: FOLIC ACID 400 MCG TAB PO SCH (20:31)
[2020-07-25] MEDS: THIAMINE HCL 100 MG TAB PO SCH (20:33)
[2020-07-26 06:31] LABS: Hematocrit (blood only) 32.2 % (42-52); Hemoglobin 10.6 g/dL (14.0-18.0); Mean Corpuscular Hemoglobin 32.9 pg (25-34); Mean Corpuscular Hgb Conc 32.9 g/dL (32-36); Mean Platelet Volume 9.7 fL (7.4-10.4); Platelet Count 212 K/uL (130-400); RDW Standard Deviation 51.2 fL (36.4-46.3); Red Blood Count 3.22 M/uL (4.7-6.1); White Blood Count 5.14 K/uL (4.8-10.8)
[2020-07-26 06:45] LABS: INR 1.1 (0.9-1.1); Prothrombin Time 10.9 Seconds (9.0-12.0)
[2020-07-26 06:50] LABS: Albumin Level 3.2 gm/dl (3.4-5.0); BUN Creatinine Ratio 18.4 (10-20); Calcium 9.6 mg/dl (8.5-10.1); Creatinine Clr Calc Pharmacy 28.1 ml/min; Est GFR (African American) 31.9 ml/min; Est GFR (Non-African American) 27.5 ml/min; Magnesium 1.8 mg/dl (1.8-2.4); Potassium 3.9 mmol/L (3.5-5.1)
[2020-07-26 06:53] LABS: Albumin Globulin Ratio 0.8 (0.9-2); Bilirubin,Total 0.5 mg/dl (0.2-1); Phosphorus 3.4 mg/dl (2.5-4.9); Total Protein 7.2 gm/dl (6.4-8.2)
[2020-07-26] MEDS: FUROSEMIDE 40 MG TAB PO SCH (07:50)
[2020-07-26] MEDS: PROPRANOLOL HCL 10 MG TAB PO SCH ×4 (07:52→20:36)
[2020-07-26] MEDS: SPIRONOLACTONE 100 MG TAB PO SCH (07:53)
[2020-07-26] MEDS: rifAXIMin 550 MG TABLET PO SCH ×2 (07:54→20:35)
[2020-07-26] MEDS: TAMSULOSIN HCL 0.4 MG CAP PO SCH (07:54)
[2020-07-26] MEDS: PANTOprazole 40 MG TAB PO SCH (07:54)
[2020-07-26] MEDS: HEPARIN SOD 5,000 UNIT/0.5 ML VIAL SQ SCH ×2 (08:01→20:34)
--- NOTE | 2020-07-26 20:32 | Hospitalist Progress Note ---
Date of Service July 26, 2020 Assessment & Plan (1) Paroxysmal atrial fibrillation: EKG on admission showed new-onset afib. Patient does not think he has a history of afib. Presently deferring therapeutic anticoagulation due to bleeding risk. CHADS-VASC of 2 (age, CHF). - Increased home propanol to 30 mg QID. - Plan to switch to long-acting on discharge. - Consulted cardiology for new-onset afib. Appreciate recs. Still with some faster rates. Will consider adding calcium channel saad if needed. (2) Acute diastolic CHF (congestive heart failure): EF was 55 - 60% with mild LVH. Possibly due to afib with RVR. - Weight down to 86.2 kg on 07/24. - Symptoms improving. Lasix switched to 40 mg PO daily for 07/25. Overall, appears euvolemic. (3) Chronic kidney disease, stage 3: Baseline Cr is ~ 1.6 - 2.0. - Current Cr is now 2.3 after diuresis. - Continue to monitor as we reduce diuresis. (4) Cirrhosis: Patient has long standing history of cirrhosis. Patient does not do surveillance follow-up with Dr. Gilbert as he refuses repeat EGD to assess his esophageal varices. - His MELD score on On admission: was: 23 points; estimated 3-Month Mortality: 19.6%. - Continue home rifaximin - Continue furosemide/spironolactone - Patient reports he would like to quit. Will offer resources. (5) Acute hyponatremia: Na was 127 on admission. Level ~stable in past month. Patient not having obvious symptoms. - Likely low solute or beer potomania. - He returns to normal during admission when he has better PO intake. (6) Alcohol abuse: EToH <3 at admission. Previously had been pre-contemplative. Now reports he will quit. - Continue folate/thiamine - Will offer resources if desired. (7) Sleep apnea: Limited home use. Not on CPAP at home. - Continue supplemental O2 as needed (8) COPD (chronic obstructive pulmonary disease): No indication of exacerbation at this time. - Continue home inhaler PRN (9) Venous stasis: Chronic. - No needs (10) DVT prophylaxis: Heparin 5,000 units SQ Q12h Admission and Anticipated Discharge Date Admission Date: July 21, 2020 Subjective Doing well today. Reports feeling "bored." Reports no fevers/chills, chest pain, shortness of breath, abdominal pain, nausea, or vomiting. Physical Exam Constitutional: WD/WN, vitals as above Eyes: EOM intact bilaterally; no conjunctival abnormality ENMT: external ear and nose normal, oropharynx normal Neck: trachea midline, no thyromegaly normal visual inspection Respiratory: normal respiratory effort, lungs clear to auscultation no respiratory distress Cardiovascular: Rate/Rhythm: + tachycardic and + irregularly irregular Heart Sounds: normal S1 and normal S2 Extremities: + edema Gastrointestinal (Abdomen): Inspection/Auscultation: abdomen normal to inspection; abdomen not distended Musculoskeletal: no cyanosis or clubbing, extremities motor strength 5/5 Skin: no rashes, warm and dry Neurologic: moves all extremities and awake Psychiatric: Orientation: alert, oriented to person and cooperative Results & Data Results & Data ([facility]) Vital Signs (Past 12 Hours) Vital Signs Temp Pulse Pulse Resp BP Pulse Ox 07/26/20 19:04 36.4 C L 75 18 110/69 99 07/26/20 14:43 36.6 C 98 H 16 115/67 100 07/26/20 12:18 36.3 C L 90 18 115/64 98 PG Care Time/CCT Total # of Minutes Spent Total Time Spent with Patient: Total time spent is greater than 50% in coordination of care (as documented) at patient's floor/unit and/or counseling patient: Coding Level of Care Code 13296 Subseq Hosp Care Lvl 2 Diagnoses Paroxysmal atrial fibrillation I48.0 Acute diastolic CHF (congestive heart failure) I50.31 Chronic kidney disease, stage 3 N18.32 Chronic kidney disease stage 3 subtype: stage 3b (GFR 30-44) Cirrhosis K70.30 Hepatic cirrhosis type: alcoholic cirrhosis Ascites presence: without ascites Acute hyponatremia E87.1 Alcohol abuse F10.10 Sleep apnea G47.30 COPD (chronic obstructive pulmonary disease) J44.9 COPD type: unspecified COPD Venous stasis I87.8 DVT prophylaxis Z29.9 (1) Chronic kidney disease, stage 3 Chronic kidney disease stage 3 subtype: stage 3b (GFR 30-44) Qualified Code(s): N18.32 - Chronic kidney disease, stage 3b (2) Cirrhosis Hepatic cirrhosis type: alcoholic cirrhosis Ascites presence: without ascites Qualified Code(s): K70.30 - Alcoholic cirrhosis of liver without ascites (3) COPD (chronic obstructive pulmonary disease) COPD type: unspecified COPD Qualified Code(s): J44.9 - Chronic obstructive pulmonary disease, unspecified
[2020-07-26] MEDS: THIAMINE HCL 100 MG TAB PO SCH (20:35)
[2020-07-26] MEDS: FOLIC ACID 400 MCG TAB PO SCH (20:35)
[2020-07-26] MEDS: dilTIAZem HCL 30 MG TAB PO SCH (21:05)
[2020-07-27] MEDS: HEPARIN SOD 5,000 UNIT/0.5 ML VIAL SQ SCH (08:28)
[2020-07-27] MEDS: TAMSULOSIN HCL 0.4 MG CAP PO SCH (08:28)
[2020-07-27] MEDS: PROPRANOLOL HCL 10 MG TAB PO SCH ×2 (08:28→12:42)
[2020-07-27] MEDS: rifAXIMin 550 MG TABLET PO SCH (08:28)
[2020-07-27] MEDS: SPIRONOLACTONE 100 MG TAB PO SCH (08:29)
[2020-07-27] MEDS: PANTOprazole 40 MG TAB PO SCH (08:29)
[2020-07-27] MEDS: FUROSEMIDE 40 MG TAB PO SCH (08:29)
[2020-07-27] MEDS: dilTIAZem HCL 30 MG TAB PO SCH ×2 (08:30→12:43)
[2020-07-27 08:35] LABS: Hematocrit (blood only) 33.6 % (42-52); Hemoglobin 11.2 g/dL (14.0-18.0); Mean Corpuscular Hemoglobin 33.2 pg (25-34); Mean Corpuscular Hgb Conc 33.3 g/dL (32-36); Mean Corpuscular Volume 99.7 fL (80-100); Platelet Count 205 K/uL (130-400); RDW Coefficient of Variation 14.3 % (11.5-14.5); RDW Standard Deviation 51.2 fL (36.4-46.3); Red Blood Count 3.37 M/uL (4.7-6.1)
[2020-07-27 09:11] LABS: BUN Creatinine Ratio 21.8 (10-20); Calcium 9.7 mg/dl (8.5-10.1); Creatinine Clr Calc Pharmacy 28.4 ml/min; Est GFR (African American) 32.4 ml/min; Est GFR (Non-African American) 27.9 ml/min; Magnesium 1.9 mg/dl (1.8-2.4); Potassium 3.8 mmol/L (3.5-5.1)
--- NOTE | 2020-07-27 10:46 | Cardiology Progress Note ---
Date of Service July 27, 2020 Assessment & Plan (1) Atrial fibrillation with rapid ventricular response: (2) Acute diastolic CHF (congestive heart failure): (3) Cirrhosis: (4) Alcohol abuse: (5) Chronic hyponatremia: (6) Hypertension: ASSESSMENT/PLAN: 1. AFib with RVR: Presumably new diagnosis for him during this hospital stay. Heart rate has improved with titration of propanolol and addition of Diltiazem. On discharge however, recommend extended release propanolol equivalent to effective dose. Continue with rate control strategy. Stroke risk reduction with anticoagulation therapy has been discussed. GI has communicated with primary hospitalist service, Dr. Bangura, in regards to increased bleeding risk given his cirrhosis, a history of ulcer, esophageal varices. For this reason, anticoagulation therapy will not be initiated at this time. He apparently also has not followed up for repeat imaging in regards to his varices. Could consider Watchman device as an outpatient with brief anticoagulation therapy. Watchman device can be placed at another facility if he is agreeable. 2. Acute diastolic CHF/hypervolemia: He has chronic edema and continues to have significant lower extremity edema, however labs appear azotemic today. Overall, breathing has improved. He has not always collected his urine output to have reliable net fluid balance. Continue Lasix to 40 mg p.o. once daily with Spironolactone 100 mg daily. Low-sodium diet. He was reminded during this hospital stay to try to collect his urine output. Continue home dose of spironolactone, which may also offer some benefit with his cirrhosis. Agree with fluid restriction given hyponatremia. Heart failure program follow-up. Suspect once he resumes his normal lifestyle at home may need to escalate diuretics. Patient agreeable to documenting daily standing weights at home once discharged. He should notify the HF program of 2+ lb weight gain overnight of 5+ lb weight gain in 1 week. Contact info provided. 3. Alcohol abuse: Recommended that he stop consuming alcohol altogether. Alcohol could also be playing a role in his atrial fibrillation. 4. Dyspnea: Advanced COPD per records and uses supplemental oxygen at home. Shortness of breath is back to baseline. 5. Hypertension: Blood pressure adequately controlled. Continue current regimen with diuretic change as above. 6. Cirrhosis: As per primary hospitalist service and GI as an outpatient. 7. Disposition: Anticipate discharge to home later today. Follow up with the heart failure program as scheduled 07/31 at 11:00am. Patient care discussed with Dr. Malagon of the primary hospitalist service. Admission and Anticipated Discharge Date Admission Date: July 21, 2020 Subjective Patient is feeling well today without complaints. He is sitting at the bedside. He feels his breathing has improved. He remains on supplemental O2. He continues to have lower extremity edema. He's + 2L for the admission. Weight is 186 lb. Telemetry reviewed- rate in the 70s-90s this am. He denies chest pain, palpitations, lightheadedness. Physical Exam Physical Exam: Gen.: No acute distress. Alert. HEENT: Anicteric sclera. Neck: Thick neck. Cardiac: Irregularly irregular, slightly tachycardic. Normal S1-S2. No murmurs, rubs, or gallops. Pulmonary: Decreased breath sounds bilaterally, but otherwise clear to auscultation without wheezes, rales, or rhonchi. Abdomen: Soft, nontender, nondistended, with normoactive bowel sounds. No bruits noted. Extremities: 2+ radial pulses bilaterally. 2+ bilateral lower extremity edema to the knees. Venous stasis changes. No cyanosis. Psychiatric: Affect appears appropriate. Results & Data ([facility]) Vital Signs (Past 12 Hours) Vital Signs Temp Pulse Resp BP Pulse Ox 07/27/20 07:44 98.1 F 95 H 18 101/58 L 98 07/27/20 03:39 97.3 F L 108 H 18 121/87 99 PG Care Time/CCT Total # of Minutes Spent Total Time Spent with Patient: Total time spent is greater than 50% in coordination of care (as documented) at patient's floor/unit and/or counseling patient: Coding Level of Care Code 64214 Subseq Hosp Care Lvl 3 Diagnoses Atrial fibrillation with rapid ventricular response I48.91 Acute diastolic CHF (congestive heart failure) I50.31 Cirrhosis K70.30 Hepatic cirrhosis type: alcoholic cirrhosis Ascites presence: without ascites Alcohol abuse F10.10 Chronic hyponatremia E87.1 Hypertension I10 (1) Cirrhosis Hepatic cirrhosis type: alcoholic cirrhosis Ascites presence: without ascites Qualified Code(s): K70.30 - Alcoholic cirrhosis of liver without ascites
[2020-07-27 11:57] VITALS: BP 116/65; PULSE 100; TEMP 98.6; O2SAT 94
[2020-07-27] MEDS ORDERED: dilTIAZem HCL 120 MG CAPCR PO SCH (12:45)
--- NOTE | 2020-07-27 18:28 | Discharge Summary ---
Date of Service July 27, 2020 Admission HPI Per Admitting Provider Martin Mark is a 69 y/o M w/ hx of pAF, cirrhosis, COPD, CKD3, diastolic CHF grade 1, and hospitalization last month for beer potomania and etoh intoxication who presents w/ worsened GOMEZ and hyponatremia. He has had worsening GOMEZ and LE edema x several wks. Patient states that his breathing is ~baseline at rest. He felt like he was getting around ok, but his neighbor had noted that he appeared slightly unstable when walking. Patient has had occasional lightheaded dizziness, not room spinning. He sleeps in elevated recliner at night, ~45 degrees, no recent changes/worsening. Home O2 PRN, but unsure if 1 vs 2L. Dietary: States that he has not been eating much, only 1 meal of prepackaged food a day. Attributes to lack of appetite. Cut down from 6 to 3 cans of beer per night. Has been drinking more water. At least 4 of 16oz bottles. He denies missing any doses of his medication regimen. Quit smoking 20+ years ago, 25 pack year hx. No illicit substances. Notable ED workup: Na 127 today, similar to last admission. no leukocytosis. Procalc neg. etoh <3. covid neg. Head ct wnl. cxr subtle bilat opacities w/o evidence of failure or lobar consolidation. ecg shows afib. Principal Diagnosis Diastolic heart failure exacerbation Discharge Exam Constitutional WD/WN, vitals as above Eyes EOM intact bilaterally; no conjunctival abnormality ENMT external ear and nose normal, oropharynx normal Neck trachea midline, no thyromegaly normal visual inspection Respiratory normal respiratory effort, lungs clear to auscultation no respiratory distress Cardiovascular Rate/Rhythm: + tachycardic and + irregularly irregular Heart Sounds: normal S1 and normal S2 Extremities: + edema Gastrointestinal (Abdomen) Inspection/Auscultation: abdomen normal to inspection; abdomen not distended Musculoskeletal no cyanosis or clubbing, extremities motor strength 5/5 Skin no rashes, warm and dry Neurologic moves all extremities and awake Psychiatric Orientation: alert, oriented to person and cooperative Discharge Data Allergies Allergy/AdvReac Type Severity Reaction Status Date / Time No Known Allergies Allergy Verified 07/21/20 16:01 Consultations 07/21/20 15:57 ED Decision to Admit Stat 07/21/20 20:32 Consult Cardiology Routine Ordered Studies 07/21/20 13:45 CT head/brain wo con Stat Hospital Course (1) Paroxysmal atrial fibrillation: EKG on admission showed new-onset afib. Patient does not think he has a history of afib. Presently deferring therapeutic anticoagulation due to bleeding risk. CHADS-VASC of 2 (age, CHF). - Increased home propanol to 30 mg QID. - Plan to switch to long-acting on discharge. - Consulted cardiology for new-onset afib. Appreciate recs. Still with some faster rates. - Rate improved significantly with addition of diltiazem. Discharged on propranolol 40 mg PO BID and diltiazem CD 120 mg PO daily. Deferring anticoagulation at this time. - Weight on discharge was 84.4 kg, but likely has some gentle fluid left to give as he still had leg swelling. However, Cr was slightly higher, so do not want to be aggressive. (2) Acute diastolic CHF (congestive heart failure): EF was 55 - 60% with mild LVH. Possibly due to afib with RVR. - Weight down to 84.4 kg on 07/27. - Symptoms improving. Lasix switched to 40 mg PO daily for 07/25. Overall, appears euvolemic to mildly hypervolemic. (3) Chronic kidney disease, stage 3: Baseline Cr is ~ 1.6 - 2.0. - Current Cr is now 2.25 after diuresis. - Continue to monitor as outpatient. (4) Cirrhosis: Patient has long standing history of cirrhosis. Patient does not do surveillance follow-up with Dr. Gilbert as he refuses repeat EGD to assess his esophageal varices. - His MELD score on On admission: was: 23 points; estimated 3-Month Mortality: 19.6%. - Continue home rifaximin - Continue furosemide/spironolactone - Patient reports he would like to quit. Will offer resources. (5) Acute hyponatremia: Na was 127 on admission. Level ~stable in past month. Patient not having obvious symptoms. - Likely low solute or beer potomania. - He returns to normal during admission when he has better PO intake. (6) Alcohol abuse: EToH <3 at admission. Previously had been pre-contemplative. Now reports he will quit. - Continue folate/thiamine - Will offer resources if desired. (7) Sleep apnea: Limited home use. Not on CPAP at home. - Continue supplemental O2 as needed (8) COPD (chronic obstructive pulmonary disease): No indication of exacerbation at this time. - Continue home inhaler PRN (9) Venous stasis: Chronic. - No needs (10) DVT prophylaxis: Heparin 5,000 units SQ Q12h Total Time Total Time Spent Total Time Spent (In Minutes): 35 Discharge Plan Discharge Items Patient Disposition: Home - Self-Care Reason For Visit: DYSPNEA ON EXERTION, HYPONATREMIA Discharge Diagnosis: CHF exacerbation (fluid on the legs and lungs) Condition on Discharge: Good Activity: Resume your previous activity Non-emergency contact: Primary Care Provider and Hvac Design Mechanical Engineer Call non-emergency contact if: your symptoms worsen Follow-up/Referrals: Juan Antonio Silver MD [Primary Care Provider] - 08/05/20 3:00 pm Yamileth Ayers PA-C [Physician Master Barber] - 07/31/20 11:00 am (Congestive Heart Failure Program Appointment Information Early follow up is essential to managing your heart failure. An appointment has been scheduled for you with the [facility] Heart Failure Program within 7 days of discharge. Anticipate this visit to be 30-60 minutes long. Please expect a outsole compressor phone call from one of our nurses approximately 48 hours from discharge. They will also be placing an order for lab work to be completed 1-2 days prior to your heart failure follow up appointment. Please be sure to have this done so we can go over the results when you come in. Office Location The cardiology office building is located in front of the hospital at [address] Bring the following with you to your follow-up doctor appointments: Please bring your daily weight log any discharge paperwork all of your medication bottles with you to this visit. ) Diet: Heart Healthy and Low Sodium (2gm) Addtl Attending Provider Instructions: You were admitted to the hospital with shortness of breath that was from fluid build-up. This was probably caused by a fast heart rate called atrial fibrillation. We got the fluid off with medication, and we are sending you out on something called Furosemide to help keep the fluid off. For your fast heart rate, we are sending you an extra pill to help slow your heart rate slowly. Please weigh yourself every day. Notify the Yamileth Ayers at the Heart Failure program of 2+ lb weight gain overnight of 5+ lb weight gain in 1 week. Contact info provided above. Addtl Enamel Dipper Provider Instructions: Call your Primary Care doctor if any of the following symptoms or problems start or get worse: * Shortness of breath or difficulty breathing * Wake up at night short of breath * Chest pain * Cough * Swelling of your hands, feet, or legs * More fatigued or tired with your normal activity * Palpitations - sudden fast heart beats WEIGHT * Weigh yourself every morning after using the bathroom. * Use the same scale. * Wear the same amount of clothing. * Write your weight down on a chart. * Call your Primary Care doctor if you gain more than 2-3 pounds in 1-2 days. MEDICATIONS * Use this discharge instruction sheet for medication instructions. * Take your medications at the time your doctor ordered. * Do not skip a dose of your medicines. * If you miss a dose of medicine, take it as soon as possible, but DO NOT DOUBLE A DOSE. * Read your medicine information when you get home. * Know all of the side effects of your medicine. If in doubt, ask your pharmacist * Call your Primary Care doctor's office if you have any side effects. * Be sure all of your doctors know what medicine and herbs you take (including cold, flu, and herbal medicine). Take the following with you to your follow-up doctor appointments: * Weight Chart * Medication List * List of questions Do not drink excessive alcohol, beer or wine. Pending Studies at Discharge: No Stand-Alone Forms: My [facility] [employer], Smoking Cessation Medications and DC Order Prescriptions: New diltiazem HCl 120 mg capsule,extended release 24hr 120 mg PO DAILY Qty: 30 RF: 0 furosemide 40 mg tablet 40 mg PO DAILY Qty: 30 RF: 0 propranolol 40 mg tablet 40 mg PO BID Qty: 60 RF: 0 Continued pantoprazole 40 mg tablet,delayed release (DR/EC) 40 mg PO QAM Qty: 90 RF: 3 tamsulosin 0.4 mg capsule 0.4 mg PO DAILY RF: 0 cholecalciferol (vitamin D3) [Vitamin D3] 1,000 unit Capsule 1,000 unit PO QAM RF: 0 Combivent Respimat 20-100 mcg/actuation mist 1 puff inhalation QID MDD 6 PUFFS PRN (Reason: Shortness Of Breath) RF: 0 spironolactone 100 mg tablet 100 mg PO QAM RF: 0 Xifaxan 550 mg tablet 550 mg PO BID RF: 0 Discontinued propranolol 20 mg tablet 20 mg PO BID Qty: 180 RF: 3 Discharge Orders: Discharge Order (Routine); Ordered 07/27/20 Ordered By: Refugio Malagon Admission Data Admit Date/Time: 07/21/20 19:02 Attending Provider: Refugio Malagon Admit Provider: Sherman Peterson Primary Care Provider: Juan Antonio Silver Other Providers: Minh Padgett ; Refugio Malagon Other Interventions: Discharge Summary Assessment (RN) Last Done: 07/27/20 13:54 Coding Level of Care Code D/C Day Management >30 mins Diagnoses Paroxysmal atrial fibrillation I48.0 Acute diastolic CHF (congestive heart failure) I50.31 Chronic kidney disease, stage 3 N18.32 Chronic kidney disease stage 3 subtype: stage 3b (GFR 30-44) Cirrhosis K70.30 Hepatic cirrhosis type: alcoholic cirrhosis Ascites presence: without ascites Acute hyponatremia E87.1 Alcohol abuse F10.10 Sleep apnea G47.30 COPD (chronic obstructive pulmonary disease) J44.9 COPD type: unspecified COPD Venous stasis I87.8 DVT prophylaxis Z29.9
== END 2020-07-27 14:15 | disposition home or self-care (01) | DRG 291 ==
LOC: ED 13:01 → 2W 19:02 → SUATTDRO 19:02 → 2W 19:43

== ENCOUNTER 2022-02-23 11:13 | Inpatient (IN) ==
--- NOTE | 2022-02-23 11:23 | Emergency Department Note ---
Impression & Plan Chest pain, Hypomagnesemia, Acute hyponatremia, STEVE (acute kidney injury), Elevated troponin I level, COVID-19 ED Provider Note NAME: JOI CANO AGE: 71 SEX: M : 1950 ARRIVES VIA: Ambulance INFORMANT: Patient, EMS ED PROVIDER(S): Kiran Frank DO CHIEF COMPLAINT: Chest pain HPI: The patient is a 71-year-old male who presented to the emergency department for an evaluation of chest pain. I did receive a prehospital notification about the patient. The patient states that he fell out of bed overnight. He states he more slid out of bed he does not relate any trauma. He denies having any head injury or headache. He denies having any neck pain. He thinks when he tried to get up he pulled a muscle in the left side of his chest because now he is having left-sided chest pain. The patient states he does have some difficult y breathing. Over the course the last 4 to 5 days he has been noticing upper respiratory symptoms which include cough. He has had a brown sputum that he has been coughing up. Denies having any hemoptysis. He denies having any black or bloody bowels. The patient states that he has been compliant with his outpatient medications. ROS: See above HPI for pertinent positives & negatives. A total of 10 systems reviewed and were otherwise negative. PAST MEDICAL HISTORY: See Below PAST SURGICAL HISTORY: See Below FAMILY HISTORY: See Below SOCIAL HISTORY: See Below HOME MEDICATIONS: See Below ALLERGIES: See Below VITALS: See Below PHYSICAL EXAMINATION: GENERAL: Patient is awake alert in no acute distress patient is resting comfortably and showing no signs of anxiety EYES: The conjunctivae are clear. The pupils are round and reactive. EARS, NOSE, MOUTH AND THROAT: The nose is without any evidence of any deformity. NECK: The neck is nontender and supple. RESPIRATORY: Diminished breath sounds were noted. There was splinting on the left side of the chest. There was mild tachypnea and conversational dyspnea. CARDIOVASCULAR: Tachycardic and irregular heart sounds were noted auscultation. There is no definite murmur. GASTROINTESTINAL: The abdomen is soft. Abdomen is nontender. MUSCULOSKELETAL/EXTREMITIES: There is no evidence of gross deformity full range of motion is noted in the hips and shoulders. SKIN: Pedal edema was noted bilaterally. Skin was warm and dry. NEUROLOGIC: Patient is awake alert and oriented x3 MEDICAL DECISION MAKING: The patient is a 71-year-old male who presented to the emergency department for an evaluation of difficulty breathing. Patient had a fall last evening. It was more of a sliding out of bed and he does not remember injuring his chest but he did have some reproducible left-sided chest pain. Abdominal exam was not consistent with a surgical abdomen. I discussed the patient's laboratory and radiographic studies with him. He was found to have multiple abnormalities including hyponatremia as well as hypomagnesemia. He was treated with empiric antibiotics and IV fluids. He was reevaluated multiple times. Given his findings I did discuss his case with the on-call [facility] hospitalist. They have agreed to evaluate the patient in the emergency department for further management and disposition. Triage Nursing notes reviewed. Prior medical records reviewed Vital Signs: reviewed and remarkable for tachycardia. Differential diagnosis: Cardiac ischemia, aortic dissection, pulmonary embolism, pneumothorax, pneumonia, pericarditis, myocarditis, esophageal rupture, GERD, cholecystitis, pancreatitis, musculoskeletal, as well as other pathologies. ER treatment provided: See below Diagnostics interpreted by me: ECG: EKG was obtained in the emergency department. My interpretation is atrial fibrillation at 118 bpm. PVCs were noted. Nonspecific ST segment abnormalities were also appreciated. This was carried to a tracing from July 21, 2020. No changes were noted. Cardiac Monitoring: An order was placed for continuous cardiac monitoring. The monitor shows a rate of 115 bpm with atrial fibrillation. Laboratory studies: As stated above and show below. Imaging studies: See below. Radiographic imaging was reviewed by myself Consultation(s): I discussed this case with Dr. Lam who is on-call for the [facility] group. Past Med/Surg History Medical History Alcohol abuse Anemia Ascites (10/23/10) Chronic hyponatremia Chronic kidney disease, stage 3 Cirrhosis Duodenal ulcer Esophageal varices History of abdominal paracentesis Hypertension On home oxygen therapy 1L oxygen Pelvic fracture Poor historian Portal hypertension Sleep apnea cpap with oxygen 1L - noncompliant w/ cpap Slipped cervical disc Surgical History History of appendectomy History of esophagogastroduodenoscopy (EGD) 08/06/18 [facility] History of tooth extraction Family History Father Myocardial infarction Unknown Diabetes Coronary heart disease Mother Chronic kidney disease Other No family history of adverse response to anesthesia Denies family history of Ovarian cancer Prostate cancer Crohn's disease Breast cancer Colorectal cancer Ulcerative colitis Social History Smoking Status: Unknown if ever smoked Tobacco Type: Smokeless Tobacco (Dip or Chew) Second Hand Exposure: No; Hx Alcohol Use: Yes Alcohol type: beer Alcohol Intake Frequency Comment: 3 beers per night. In past heavy use. Hx Substance Use: No Preferred Language: [place]ian Communication Ability: Effective Hearing Ability: Hard of Hearing [place] Measurer Required: No Beliefs That Will Affect Care: None marital status: Single Current Living Situation: Alone current occupational status: retired and disabled Feels Safe at Home: Yes Childhood Exposure to Second-Hand Smoke: Yes Diet Comment: low calorie 2,000 per day Dental Care, Regularly: No Physical Activity Frequency: Does not Exercise Seatbelt Use: always Sunscreen Use: No Assistive Devices: Glasses and Oxygen - Continuous Allergies Allergies Allergy/AdvReac Type Severity Reaction Status Date / Time No Known Allergies Allergy Verified 01/20/22 09:40 Home Meds Previous Rx's Medication Instructions Recorded rifaximin 550 mg tablet (Xifaxan) See Rx Instructions .Route 08/09/21 .COMPLEX #60 tabs diltiazem HCl 120 mg 120 mg PO DAILY #90 caps 08/19/21 capsule,extended release 24 hr pantoprazole 40 mg tablet,delayed 40 mg PO QAM #90 tabs 08/19/21 release spironolactone 100 mg tablet 100 mg PO QAM #90 tabs 10/08/21 fluticasone fur. 100 mcg-umeclid 1 inh inhalation DAILY #60 ea 11/08/21 62.5 mcg-vilant 25 mcg inhalat.powder (Trelegy Ellipta) empagliflozin 10 mg tablet 10 mg PO DAILY #30 tabs 12/20/21 (Jardiance) furosemide 20 mg tablet (Lasix) 40 mg PO DAILY #180 tabs 12/21/21 Results & Data (ED) Vital Signs Vital Signs - 24 hr 02/23/22 11:09 02/23/22 11:19 02/23/22 14:37 Temperature 36.8 C Temperature Source Oral Pulse Rate 113 H 125 H Pulse Rate [Apical] 115 H Pulse Rhythm Irregular Irregular Pulse Strength Normal Respiratory Rate 19 22 Respiratory Effort / Characteristics Non-Labored Respiratory Depth Normal Respiratory Pattern Regular Blood Pressure 116/72 Blood Pressure [Right Arm] 147/61 H Blood Pressure Mean 86 Blood Pressure Mean [Right Arm] 89 Blood Pressure Position Sitting Pulse Oximetry 95 94 97 Oxygen Delivery Method Room Air Room Air Room Air Sepsis Recent Fever Within 48 Hours No Sepsis New/Unexplained Change in Mental Status No Sepsis Action Taken by Nursing No Action Required Home Medications Current Medication List: was personally reviewed by me Laboratory Data Attestation: I reviewed the patient's lab results. 02/23/22 11:30 02/23/22 11:30 Lab Results 02/23/22 02/23/22 02/23/22 Range/Units 11:30 11:30 11:30 WBC 17.20 H (4.8-10.8) K/ul RBC 4.07 L (4.63-6.08) M/uL Hgb 14.0 (14.0-18.0) g/dl Hct 38.9 L (40.1-51.0) % MCV 95.6 (80.0-100.0) fL MCH 34.4 H (25.0-34.0) pg MCHC 36.0 (32.0-36.0) g/dL RDW Std Deviation 45.7 (36.4-46.3) fL RDW Coeff of Walter 13.0 (11.5-14.5) % Plt Count 194 (130-400) K/uL MPV 8.8 L (9.4-12.4) fL Immature Gran % (Auto) 0.7 % Neut % (Auto) 88.5 % Lymph % (Auto) 1.0 % [place] % (Auto) 9.5 % Eos % (Auto) 0.1 % Baso % (Auto) 0.2 % Neut # (Auto) 15.21 H (1.4-6.5) K/uL Lymph # (Auto) 0.18 L (1.2-3.4) K/uL [place] # (Auto) 1.63 H (0.24-0.82) K/uL Eos # (Auto) 0.02 (0-0.50) K/uL Baso # (Auto) 0.04 (0-0.2) K/uL Immature Gran # (Auto) 0.12 H (0.00-0.02) K/uL PT 11.4 (9.0-12.0) Seconds INR 1.1 (0.9-1.1) APTT 30.6 (21.0-31.0) Seconds PTT Ratio 1.1 VBG pH (7.36-7.41) VBG pCO2 (38-50) mmHg VBG pO2 mmHg VBG HCO3 mmol/L VBG O2 Saturation % VBG Base Excess mEq/L Sodium 118 L* (136-145) mmol/L Potassium 4.4 (3.5-5.1) mmol/L Chloride 86 L (98-107) mmol/L Carbon Dioxide 19 L (21-32) mmol/L Anion Gap 13 H (3-11) BUN 26 H (6-23) mg/dl Creatinine 2.50 H (0.6-1.4) mg/dl Est Cr Clr Drug Dosing 25.4 ml/min Est GFR ( Amer) 28.5 ml/min Est GFR (Non-Af Amer) 24.6 ml/min BUN/Creatinine Ratio 10.4 (10-20) Glucose 107 H (70-99(Fasting)) mg/dl Osmolality (280-300) mOsm/kg Lactate (0.4-2.0) mmol/L Calcium 9.5 (8.5-10.1) mg/dl Magnesium 1.5 L (1.7-2.4) mg/dl Total Bilirubin 0.7 (0.2-1.0) mg/dl Direct Bilirubin 0.2 (0-0.2) mg/dl AST 65 H (13-39) U/L ALT 27 (7-52) U/L Alkaline Phosphatase 74 (34-104) U/L Total Creatine Kinase 532 H (30-223) U/L Troponin I High Sens 308.2 H* (0-20) pg/ml Total Protein 7.8 (6.0-8.3) gm/dl Albumin 4.0 (3.4-5.0) gm/dl Procalcitonin (0-0.5) ng/ml Urine Color Urine Appearance (Clear) Urine pH (4.5-7.5) Ur Specific [place] (1.000-1.030) Urine Protein (Negative) Urine Glucose (UA) (Negative) Urine Ketones (Negative) Urine Blood (Negative) Urine Nitrite (Negative) Urine Bilirubin (Negative) Urine Urobilinogen (Negative) Ur Leukocyte Esterase (Negative) Urine WBC (Auto) (0-5) /hpf Urine RBC (Auto) (0-4) /hpf U Hyaline Cast (Auto) (0-5) /lpf U Epithel Cells (Auto) (0-5) /lpf Urine Bacteria (Auto) (Negative) Urine Osmolality (500-800) mOsm/kg Ur Random Sodium mmol/L SARS-CoV-2 (PCR) (Negative) Influenza Type A (PCR) (Neg) Influenza Type B (PCR) (Neg) RSV (RT-PCR) (Neg) 02/23/22 02/23/22 02/23/22 Range/Units 11:30 11:30 11:30 WBC (4.8-10.8) K/ul RBC (4.63-6.08) M/uL Hgb (14.0-18.0) g/dl Hct (40.1-51.0) % MCV (80.0-100.0) fL MCH (25.0-34.0) pg MCHC (32.0-36.0) g/dL RDW Std Deviation (36.4-46.3) fL RDW Coeff of Walter (11.5-14.5) % Plt Count (130-400) K/uL MPV (9.4-12.4) fL Immature Gran % (Auto) % Neut % (Auto) % Lymph % (Auto) % [place] % (Auto) % Eos % (Auto) % Baso % (Auto) % Neut # (Auto) (1.4-6.5) K/uL Lymph # (Auto) (1.2-3.4) K/uL [place] # (Auto) (0.24-0.82) K/uL Eos # (Auto) (0-0.50) K/uL Baso # (Auto) (0-0.2) K/uL Immature Gran # (Auto) (0.00-0.02) K/uL PT (9.0-12.0) Seconds INR (0.9-1.1) APTT (21.0-31.0) Seconds PTT Ratio VBG pH (7.36-7.41) VBG pCO2 (38-50) mmHg VBG pO2 mmHg VBG HCO3 mmol/L VBG O2 Saturation % VBG Base Excess mEq/L Sodium (136-145) mmol/L Potassium (3.5-5.1) mmol/L Chloride (98-107) mmol/L Carbon Dioxide (21-32) mmol/L Anion Gap (3-11) BUN (6-23) mg/dl Creatinine (0.6-1.4) mg/dl Est Cr Clr Drug Dosing ml/min Est GFR ( Amer) ml/min Est GFR (Non-Af Amer) ml/min BUN/Creatinine Ratio (10-20) Glucose (70-99(Fasting)) mg/dl Osmolality 254 L (280-300) mOsm/kg Lactate 2.3 H* (0.4-2.0) mmol/L Calcium (8.5-10.1) mg/dl Magnesium (1.7-2.4) mg/dl Total Bilirubin (0.2-1.0) mg/dl Direct Bilirubin (0-0.2) mg/dl AST (13-39) U/L ALT (7-52) U/L Alkaline Phosphatase (34-104) U/L Total Creatine Kinase (30-223) U/L Troponin I High Sens (0-20) pg/ml Total Protein (6.0-8.3) gm/dl Albumin (3.4-5.0) gm/dl Procalcitonin 4.02 H (0-0.5) ng/ml Urine Color Urine Appearance (Clear) Urine pH (4.5-7.5) Ur Specific [place] (1.000-1.030) Urine Protein (Negative) Urine Glucose (UA) (Negative) Urine Ketones (Negative) Urine Blood (Negative) Urine Nitrite (Negative) Urine Bilirubin (Negative) Urine Urobilinogen (Negative) Ur Leukocyte Esterase (Negative) Urine WBC (Auto) (0-5) /hpf Urine RBC (Auto) (0-4) /hpf U Hyaline Cast (Auto) (0-5) /lpf U Epithel Cells (Auto) (0-5) /lpf Urine Bacteria (Auto) (Negative) Urine Osmolality (500-800) mOsm/kg Ur Random Sodium mmol/L SARS-CoV-2 (PCR) (Negative) Influenza Type A (PCR) (Neg) Influenza Type B (PCR) (Neg) RSV (RT-PCR) (Neg) 02/23/22 02/23/22 02/23/22 Range/Units 11:35 12:10 13:22 WBC (4.8-10.8) K/ul RBC (4.63-6.08) M/uL Hgb (14.0-18.0) g/dl Hct (40.1-51.0) % MCV (80.0-100.0) fL MCH (25.0-34.0) pg MCHC (32.0-36.0) g/dL RDW Std Deviation (36.4-46.3) fL RDW Coeff of Walter (11.5-14.5) % Plt Count (130-400) K/uL MPV (9.4-12.4) fL Immature Gran % (Auto) % Neut % (Auto) % Lymph % (Auto) % [place] % (Auto) % Eos % (Auto) % Baso % (Auto) % Neut # (Auto) (1.4-6.5) K/uL Lymph # (Auto) (1.2-3.4) K/uL [place] # (Auto) (0.24-0.82) K/uL Eos # (Auto) (0-0.50) K/uL Baso # (Auto) (0-0.2) K/uL Immature Gran # (Auto) (0.00-0.02) K/uL PT (9.0-12.0) Seconds INR (0.9-1.1) APTT (21.0-31.0) Seconds PTT Ratio VBG pH 7.38 (7.36-7.41) VBG pCO2 29 L (38-50) mmHg VBG pO2 74 mmHg VBG HCO3 17 mmol/L VBG O2 Saturation 96.9 % VBG Base Excess -6.6 mEq/L Sodium (136-145) mmol/L Potassium (3.5-5.1) mmol/L Chloride (98-107) mmol/L Carbon Dioxide (21-32) mmol/L Anion Gap (3-11) BUN (6-23) mg/dl Creatinine (0.6-1.4) mg/dl Est Cr Clr Drug Dosing ml/min Est GFR ( Amer) ml/min Est GFR (Non-Af Amer) ml/min BUN/Creatinine Ratio (10-20) Glucose (70-99(Fasting)) mg/dl Osmolality (280-300) mOsm/kg Lactate 1.8 (0.4-2.0) mmol/L Calcium (8.5-10.1) mg/dl Magnesium (1.7-2.4) mg/dl Total Bilirubin (0.2-1.0) mg/dl Direct Bilirubin (0-0.2) mg/dl AST (13-39) U/L ALT (7-52) U/L Alkaline Phosphatase (34-104) U/L Total Creatine Kinase (30-223) U/L Troponin I High Sens (0-20) pg/ml Total Protein (6.0-8.3) gm/dl Albumin (3.4-5.0) gm/dl Procalcitonin (0-0.5) ng/ml Urine Color Urine Appearance (Clear) Urine pH (4.5-7.5) Ur Specific [place] (1.000-1.030) Urine Protein (Negative) Urine Glucose (UA) (Negative) Urine Ketones (Negative) Urine Blood (Negative) Urine Nitrite (Negative) Urine Bilirubin (Negative) Urine Urobilinogen (Negative) Ur Leukocyte Esterase (Negative) Urine WBC (Auto) (0-5) /hpf Urine RBC (Auto) (0-4) /hpf U Hyaline Cast (Auto) (0-5) /lpf U Epithel Cells (Auto) (0-5) /lpf Urine Bacteria (Auto) (Negative) Urine Osmolality (500-800) mOsm/kg Ur Random Sodium mmol/L SARS-CoV-2 (PCR) POSITIVE A* (Negative) Influenza Type A (PCR) Negative (Neg) Influenza Type B (PCR) Negative (Neg) RSV (RT-PCR) Negative (Neg) 02/23/22 02/23/22 02/23/22 Range/Units 14:33 14:33 14:33 WBC (4.8-10.8) K/ul RBC (4.63-6.08) M/uL Hgb (14.0-18.0) g/dl Hct (40.1-51.0) % MCV (80.0-100.0) fL MCH (25.0-34.0) pg MCHC (32.0-36.0) g/dL RDW Std Deviation (36.4-46.3) fL RDW Coeff of Walter (11.5-14.5) % Plt Count (130-400) K/uL MPV (9.4-12.4) fL Immature Gran % (Auto) % Neut % (Auto) % Lymph % (Auto) % [place] % (Auto) % Eos % (Auto) % Baso % (Auto) % Neut # (Auto) (1.4-6.5) K/uL Lymph # (Auto) (1.2-3.4) K/uL [place] # (Auto) (0.24-0.82) K/uL Eos # (Auto) (0-0.50) K/uL Baso # (Auto) (0-0.2) K/uL Immature Gran # (Auto) (0.00-0.02) K/uL PT (9.0-12.0) Seconds INR (0.9-1.1) APTT (21.0-31.0) Seconds PTT Ratio VBG pH (7.36-7.41) VBG pCO2 (38-50) mmHg VBG pO2 mmHg VBG HCO3 mmol/L VBG O2 Saturation % VBG Base Excess mEq/L Sodium (136-145) mmol/L Potassium (3.5-5.1) mmol/L Chloride (98-107) mmol/L Carbon Dioxide (21-32) mmol/L Anion Gap (3-11) BUN (6-23) mg/dl Creatinine (0.6-1.4) mg/dl Est Cr Clr Drug Dosing ml/min Est GFR ( Amer) ml/min Est GFR (Non-Af Amer) ml/min BUN/Creatinine Ratio (10-20) Glucose (70-99(Fasting)) mg/dl Osmolality (280-300) mOsm/kg Lactate (0.4-2.0) mmol/L Calcium (8.5-10.1) mg/dl Magnesium (1.7-2.4) mg/dl Total Bilirubin (0.2-1.0) mg/dl Direct Bilirubin (0-0.2) mg/dl AST (13-39) U/L ALT (7-52) U/L Alkaline Phosphatase (34-104) U/L Total Creatine Kinase (30-223) U/L Troponin I High Sens (0-20) pg/ml Total Protein (6.0-8.3) gm/dl Albumin (3.4-5.0) gm/dl Procalcitonin (0-0.5) ng/ml Urine Color Yellow Urine Appearance Clear (Clear) Urine pH 5.0 (4.5-7.5) Ur Specific [place] 1.007 (1.000-1.030) Urine Protein 1+ H (Negative) Urine Glucose (UA) Trace H (Negative) Urine Ketones Negative (Negative) Urine Blood Trace H (Negative) Urine Nitrite Negative (Negative) Urine Bilirubin Negative (Negative) Urine Urobilinogen Negative (Negative) Ur Leukocyte Esterase Negative (Negative) Urine WBC (Auto) 0 (0-5) /hpf Urine RBC (Auto) 0-4 (0-4) /hpf U Hyaline Cast (Auto) 1-5 (0-5) /lpf U Epithel Cells (Auto) 0-5 (0-5) /lpf Urine Bacteria (Auto) Negative (Negative) Urine Osmolality 246 L (500-800) mOsm/kg Ur Random Sodium 66 mmol/L SARS-CoV-2 (PCR) (Negative) Influenza Type A (PCR) (Neg) Influenza Type B (PCR) (Neg) RSV (RT-PCR) (Neg) Administered Medications Discontinued Medications Guaifenesin (Guaifenesin Sugar Free 200 Mg/10 Ml Udc) 200 mg PO ONCE ONE Stop: 02/23/22 14:05 Last Admin: 02/23/22 14:33 Dose: 200 mg Documented By: KIT Sodium Chloride (Nss 1000ml) 1,000 mls @ 999 mls/hr IV .Q1H1M ONE Stop: 02/23/22 13:16 Last Admin: 02/23/22 14:57 Dose: Not Given Documented By: KIT Magnesium Sulfate/Dextrose (Magnesium Sulfate / D5w) 1 gm in 100 mls @ 100 mls/hr IV NOW STA Stop: 02/23/22 13:16 Last Infusion: 02/23/22 14:02 Dose: 0 mls/hr Documented By: Admin: 02/23/22 13:02 Dose: 100 mls/hr Documented By: KIT Ceftriaxone Sodium (Rocephin) 2,000 mg in 70 mls @ 140 mls/hr IV NOW STA Stop: 02/23/22 12:47 Last Infusion: 02/23/22 13:32 Dose: 0 mls/hr Documented By: Admin: 02/23/22 13:02 Dose: 140 mls/hr Documented By: KIT Lidocaine HCl (Lidocaine 2% Jelly 5 Ml Tube) Confirm Administered Dose 5 ml EXT .STK-MED ONE Stop: 02/23/22 14:12 Last Admin: 02/23/22 14:34 Dose: Not Given Documented By: KIT Lidocaine HCl (Lidocaine 2% Jelly 5 Ml Tube) 5 ml EXT NOW ONE Stop: 02/23/22 14:16 Last Admin: 02/23/22 14:34 Dose: 5 ml Documented By: KIT Imaging Data Radiologist's Impression: Chest X-Ray 02/23/22 11:19 XR chest 1V portable CLINICAL HISTORY: Sepsis TECHNIQUE: Single frontal radiograph of the chest was obtained. Comparison: Comparison is made to chest radiograph 07/21/2020 FINDINGS: No lines and tubes are seen. The cardiomediastinal silhouette is normal. The lungs are clear. No evidence of pleural effusion or pneumothorax. IMPRESSION: No acute abnormalities and in particular no evidence of pneumonia. ACT 112: Negative or not required by law. Electronically signed by: De Alvarez M.D. 02/23/2022 12:01 PM Discharge Plan Visit Data Chief Complaint: Fall Stated Complaint: FALL, RIB PAIN ED Provider: Kiran Frank Discharge Problem: Chest pain, Hypomagnesemia, Acute hyponatremia, STEVE (acute kidney injury), Elevated troponin I level, COVID-19 Patient Disposition: Admitted As Inpatient Discharge Instructions Interventions: ED Discharge Assessment Last Done: 02/23/22 15:08 Forms Stand Alone Forms: My [facility] [employer] Prescriptions Prescriptions: No Action Xifaxan 550 mg tablet See Rx Instructions .ROUTE .COMPLEX Qty: 60 11RF Dose Instruction: TAKE 1 TABLET BY MOUTH TWICE A DAY Rx Instructions: TAKE 1 TABLET BY MOUTH TWICE A DAY diltiazem HCl 120 mg capsule,extended release 24hr 120 mg PO DAILY Qty: 90 3RF pantoprazole 40 mg tablet,delayed release (DR/EC) 40 mg PO QAM Qty: 90 3RF spironolactone 100 mg tablet 100 mg PO QAM Qty: 90 3RF Trelegy Ellipta 100-62.5-25 mcg blister with device 1 inh inhalation DAILY Qty: 60 5RF Jardiance 10 mg tablet 10 mg PO DAILY Qty: 30 11RF furosemide [Lasix] 20 mg tablet 40 mg PO DAILY Qty: 180 3RF Referrals Referrals: Devon Silver MD [Primary Care Provider] - : Chest pain Qualifiers: Chest pain type: unspecified Qualified Code(s): R07.9 - Chest pain, unspecified
[2022-02-23 11:48] LABS: Basophils # (auto) 0.04 K/uL (0-0.2); Basophils % (auto) 0.2 %; Eosinophils # (auto) 0.02 K/uL (0-0.50); Eosinophils % (auto) 0.1 %; Hematocrit (blood only) 38.9 % (40.1-51.0); Immature Granulocytes # (auto) 0.12 K/uL (0.00-0.02); Immature Granulocytes % (auto) 0.7 %; Lymphocytes # (auto) 0.18 K/uL (1.2-3.4); Mean Corpuscular Hemoglobin 34.4 pg (25.0-34.0); Mean Corpuscular Volume 95.6 fL (80.0-100.0); Mean Platelet Volume 8.8 fL (9.4-12.4); Monocytes # (auto) 1.63 K/uL (0.24-0.82); Monocytes % (auto) 9.5 %; Neutrophils # (auto) 15.21 K/uL (1.4-6.5); Neutrophils % (auto) 88.5 %; Platelet Count 194 K/uL (130-400); RDW Standard Deviation 45.7 fL (36.4-46.3); Red Blood Count 4.07 M/uL (4.63-6.08)
[2022-02-23 12:01] LABS: INR 1.1 (0.9-1.1); Partial Thromboplastin Ratio 1.1; Partial Thromboplastin Time 30.6 Seconds (21.0-31.0); Prothrombin Time 11.4 Seconds (9.0-12.0)
--- NOTE | 2022-02-23 12:02 | XRay Report ---
XR chest 1V portable CLINICAL HISTORY: Sepsis TECHNIQUE: Single frontal radiograph of the chest was obtained. Comparison: Comparison is made to chest radiograph 07/21/2020 FINDINGS: No lines and tubes are seen. The cardiomediastinal silhouette is normal. The lungs are clear. No evid ence of pleural effusion or pneumothorax. IMPRESSION: No acute abnormalities and in particular no evidence of pneumonia. ACT 112: Negative or not required by law. Electronically signed by: De Alvarez M.D. 02/23/2022 12:01 PM
[2022-02-23 12:13] LABS: BUN Creatinine Ratio 10.4 (10-20); Bilirubin Direct 0.2 mg/dl (0-0.2); Bilirubin,Total 0.7 mg/dl (0.2-1.0); Calcium 9.5 mg/dl (8.5-10.1); Creatinine Clr Calc Pharmacy 25.4 ml/min; Est GFR (African American) 28.5 ml/min; Est GFR (Non-African American) 24.6 ml/min; Magnesium 1.5 mg/dl (1.7-2.4); Potassium 4.4 mmol/L (3.5-5.1); Total Protein 7.8 gm/dl (6.0-8.3); Troponin I High Sensitivity 308.2 pg/ml (0-20)
[2022-02-23] MEDS ORDERED: SODIUM CHLORIDE 0.9% 1000ML 1,000 ML IV ONE (12:16)
[2022-02-23] MEDS ORDERED: MAGNESIUM SULFATE / D5W 1 GM/100 ML BAG IV STA (12:17)
[2022-02-23] MEDS ORDERED: cefTRIAXone SODIUM 2,000 MG/70 ML BAG IV STA (12:18)
[2022-02-23 12:36] LABS: Base Excess VBG -6.6 mEq/L; HCO3 VBG 17 mmol/L; Oxygen Saturation VBG 96.9 %; PCO2 VBG 29 mmHg (38-50); PO2 VBG 74 mmHg; pH VBG 7.38 (7.36-7.41)
[2022-02-23 12:37] LABS: Influenza A virus by PCR Negative (Neg); Influenza B virus by PCR Negative (Neg); RSV by PCR Negative (Neg)
[2022-02-23 12:47] LABS: SARS CoV2 RNA(COVID-19) Ceph POSITIVE (Negative)
--- NOTE | 2022-02-23 13:07 | History & Physical Report ---
Date of Service February 23, 2022 Assessment & Plan (1) Hyponatremia: Plan: -Admit to the PCU -Patient is currently afebrile, hemodynamically stable, and stable on RA -Patient noted to have a sodium of 118 on arrival to the ED -Has a history of beer potomania with chronic hyponatremia but this is lower than his baseline -Serum osmolality is low, waiting on urine studies -Will give a 500 mL NSS bolus now and then monitor repeat BMP at 4 pm -Will follow up with urine studies, hold diuretics for now -Monitor on tele and pulse oximetry -Will start him on a heart healthy diet with 2L fluid restriction and free water restriction for now -If he is not correcting at a safe rate will speak with nephrology (2) Rhabdomyolysis: Plan: -Initial CK level at 532, patient noted to be in acute renal failure with a Cr of 2.5 (baseline appears to be around 2.0) -Will give him the 500 mL NSS bolus now and see how he responds with his sodium level -Will monitor renal function and electrolytes on repeat BMP/Mag at 4pm -Will continue to trend CK q6h until it reaches a peak (3) Elevated troponin: Plan: -Initial trop noted to be 308, patient is currently asymptomatic and without acute ST segment or T-wave changes -Likely due to demand from dehydration, being on the ground overnight, and recent episode of afib RVR -Two hour repeat trop ordered on admission, will follow up and then trend trop q6h until peak -Continue to monitor on tele and pulse oximetry (4) Leukocytosis: Plan: -WBC elevated at 17 with left shift of 15 -Procal elevated at 4 -At this time he has no obvious source of infection, chest xray was clear, has a small sacral ulcer but does not appear acutely infected, no other ulcers seen on exam -Spoke with nursing staff who was able to obtain a urine sample, will monitor for resulted UA -Was given 1 dose of ceftriaxone in the ED, blood cultures obtained and urine culture will be obtained if needed -Patient is not septic, and stable -Will continue to monitor for signs of infection, for now will hold additional abx -Will obtain am procal tomorrow for reassessment -Continue to monitor on tele and pulse oximetry (5) COVID-19: Plan: -Found to be positive in the ED -Currently stable on RA -Will start supportive measures including scheduled pulm hygiene, scheduled DuoNebs, prn robitussin -Chest xray was clear but patient does have a productive cough, procal is positive at 4 -Will order sputum culture and gram stain -Will order repeat procal in the AM -Continue to monitor on tele and pulse oximetry -PRN O2 ordered as he is on nightly O2 (6) Fall: Plan: -Patient slid off his recliner yesterday evening while trying to stand -Denies hitting head or losing consciousness, no acute trauma besides the sacral ulcer -Fall precautions ordered, PT/OT consults ordered (7) Hypomagnesemia: Plan: -Noted to be 1.5 today -Is a chronic issue -Given 1g IV mag in the ED -Will order 3 additional bags of mag sulfate to continue repletion (8) Hypertension: Plan: -Hemodynamically stable -Continue diltiazem (9) COPD (chronic obstructive pulmonary disease): Plan: -Continue pulm hygiene as described in Covid section -Continue home breathing treatments -Monitor on pulse oximetry (10) Tobacco abuse: Plan: -Uses smokeless tobacco -Will order nictoine patches (11) Sacral ulcer: Plan: -Noted on exam today -Does not appear as though it is driving his elevated white count and procal -Wound nurse consulted -Dixie to monitor (12) Cirrhosis: Plan: -ASt elevated at 65 today but LFT's are otherwise WNL, no signs of hepatic encephalopathy -Continue rifaximin -Continue to monitor LFTs Plan The patient was discussed with Dr. Lam at the time of the admission History of Present Illness Chief Complaint: Chest pain Primary Care Provider: Devon Silver MD Martin Mark is a 69 y/o M w/ hx of pAF not on anticoagulation, cirrhosis, COPD, CKD3, diastolic CHF grade 1, and previous hospitalizations for beer potomania who presented to the [facility] ED on 02/23/22 with a chief complaint of chest pain and falling out of bed. In the ED the patient was found to be afebrile, hemodynamically stable, stable on RA, but tachycardic in the 110's-120's. Labs were remarkable for a leukocytosis of 17 with left shift of 15, stable hgb and platelets, INR of 1.1, VBG showing a pH of 7.38, pCO2 of 29, pO2 of 74, cr of 2.50 (baseline appears to be around 2.0), sodium of 118 with glucose of 107, potassium of 4.4, chloride of 86, AG of 13 with bicarb of 19, lactate of 2.3, mag of 1.5, AST of 65 otherwise stable liver function, total CK of 532, initial high sensitivity trop of 308, procal of 4.0, and covid positive but influenza and rsv negative. Chest xray was read as "No acute abnormalities and in particular no evidence of pneumonia.". Prior to admission the patient was given one dose of ceftriaxone, 1gm IV magnesium, and was ordered 1L NSS. At the time of the exam the patient was resting comfortably in bed in no acute distress. He states that he slipped off of his recliner yesterday around 6:30 PM due to generalized BL lower extremity weakness while attempting to stand from his recliner. He slowly slid and landed on his buttocks, he denies hitting his head or losing consciousness. He states that he started to developed a productive cough approximately 4 days ago, when asked, he states that he does not have a productive cough a baseline. When asked about his drinking he states that he drank 4 beers last night prior to sliding off his recliner. He states that he attempted to get up off the ground multiple times but was unable to due to his generalized weakness. He states that he initially developed so low, left- sided chest/rib pain while trying to lift himself off the ground, he is without chest pain at the time of my exam. He denies recent fevers, chills, changes in vision, hearing, taste, and smell, chest pain, SOB, abdominal pain, nausea, vomiting, diarrhea, dysuria, hematuria, melena, and bloody bowel movements. When asked, he states that his lower extremity swelling seems to be at it's baseline but he is experiencing BL lower extremity pain at this time. When asked about other pain he states that his butt has been sore since he was sitting so long on the ground. I spoke to him regarding code status, he wishes to be a full code. I f he could not make decisions for himself he would want his friend/neighbor, Kitty ([phone]), to make decisions for him. Please refer to Dr. Lam's attestation for any changes to the treatment plan Allergies Allergy/AdvReac Type Severity Reaction Status Date / Time No Known Allergies Allergy Verified 02/23/22 16:03 Home Medications Medication Instructions Recorded Confirmed Type diltiazem HCl 120 mg 120 mg PO DAILY #90 caps 08/19/21 02/23/22 Rx capsule,extended release 24 hr pantoprazole 40 mg tablet,delayed 40 mg PO QAM #90 tabs 08/19/21 02/23/22 Rx release spironolactone 100 mg tablet 100 mg PO QAM #90 tabs 10/08/21 02/23/22 Rx fluticasone fur. 100 mcg-umeclid 1 inh inhalation DAILY #60 ea 11/08/21 02/23/22 Rx 62.5 mcg-vilant 25 mcg inhalat.powder (Trelegy Ellipta) empagliflozin 10 mg tablet 10 mg PO DAILY #30 tabs 12/20/21 02/23/22 Rx (Jardiance) furosemide 20 mg tablet (Lasix) 40 mg PO QAM 02/23/22 02/23/22 History rifaximin 550 mg tablet (Xifaxan) 550 mg PO BID 02/23/22 02/23/22 History Past Med/Surg History Medical History Alcohol abuse Anemia Ascites (10/23/10) Chronic hyponatremia Chronic kidney disease, stage 3 Cirrhosis Duodenal ulcer Esophageal varices History of abdominal paracentesis Hypertension On home oxygen therapy 1L oxygen Pelvic fracture Poor historian Portal hypertension Sleep apnea cpap with oxygen 1L - noncompliant w/ cpap Slipped cervical disc Surgical History History of appendectomy History of esophagogastroduodenoscopy (EGD) 08/06/18 [facility] History of tooth extraction Family History Father Myocardial infarction Unknown Diabetes Coronary heart disease Mother Chronic kidney disease Other No family history of adverse response to anesthesia Denies family history of Ovarian cancer Prostate cancer Crohn's disease Breast cancer Colorectal cancer Ulcerative colitis Social History Smoking Status: Unknown if ever smoked Tobacco Type: Smokeless Tobacco (Dip or Chew) Second Hand Exposure: No; Do You Dip or Chew Tobacco: Yes; Tobacco Cessation Education Requested by Patient: No Hx Alcohol Use: Yes Alcohol type: beer Alcohol Intake Frequency Comment: 3 beers per night. In past heavy use. Hx Substance Use: No Preferred Language: Thai Communication Ability: Effective Hearing Ability: Hard of Hearing [place] Required: No Beliefs That Will Affect Care: None marital status: Single Current Living Situation: Alone current occupational status: retired and disabled Other Information That Helps Us Care for You: No Feels Safe at Home: Yes Safety Concerns: Feels Safe At This Time Childhood Exposure to Second-Hand Smoke: Yes Diet Comment: low calorie 2,000 per day Dental Care, Regularly: No Physical Activity Frequency: Does not Exercise Seatbelt Use: always Sunscreen Use: No Assistive Devices: Contacts and Glasses Review of Systems Review of Systems: Denies current fever, chills, headache, changes in vision, hearing, taste, and smell, chest pain, SOB, abdominal pain, nausea, vomiting, diarrhea, hematemesis, melena, dysuria, hematuria All systems have been reviewed and are otherwise negative. Physical Exam Physical Exam: Physical Exam: General: In no acute distress, older than stated age, chronically ill- appearing, very poor hygiene HEENT: Normocephalic, atraumatic, no scleral icterus, pupils around round, symmetrical, and reactive to light, poor oral hygiene with dry mucus membranes, trachea midline, no thyromegaly Chest/Pulm: No respiratory distress, symmetrical chest expansion, patient with productive cough and yellow/brown sputum, scatter rhonchi and expiatory wheezing noted throughout Cardiac: Irregular rate and rhythm, no murmurs noted Abdomen: Negative for ascites and bruising, normoactive bowel sounds, soft, non-tender to palpation throughout Musculoskeletal: Symmetrical and without signs of acute trauma, upper and lower extremities with full ROM, no atrophy, spasticity, or flaccidity Extremities: Radial, dorsalis pedis, and posterior tibial pulses are intact and symmetrical, patient with signs of BL chronic venous insufficiency with swelling and erythema around the proximal ankles Skin: patient without skin tears or wounds on the BL lower extremities, examination of his buttocks reveals the start of a sacral pressure ulcer without active draining or bleeding Neuro: Alert and oriented to person, place, month, year, and president, no focal defects, CN II-XII tested and intact, finger to nose test negative, no tremors noted Psych: No acute distress, calm and cooperative during the exam Results & Data Results & Data ([facility]) Vital Signs (Past 12 Hours) Vital Signs Temp Pulse Resp BP Pulse Ox O2 Del Method 02/23/22 11:19 125 H 94 Room Air 02/23/22 11:09 36.8 C 113 H 19 116/72 95 Room Air Laboratory Results Abnormal lab results 02/23/22 02/23/22 02/23/22 Range/Units 11:30 11:30 11:30 WBC 17.20 H (4.8-10.8) K/ul RBC 4.07 L (4.63-6.08) M/uL Hct 38.9 L (40.1-51.0) % MCH 34.4 H (25.0-34.0) pg MPV 8.8 L (9.4-12.4) fL Neut # (Auto) 15.21 H (1.4-6.5) K/uL Lymph # (Auto) 0.18 L (1.2-3.4) K/uL Brewster # (Auto) 1.63 H (0.24-0.82) K/uL Immature Gran # (Auto) 0.12 H (0.00-0.02) K/uL VBG pCO2 (38-50) mmHg Sodium 118 L* (136-145) mmol/L Chloride 86 L (98-107) mmol/L Carbon Dioxide 19 L (21-32) mmol/L Anion Gap 13 H (3-11) BUN 26 H (6-23) mg/dl Creatinine 2.50 H (0.6-1.4) mg/dl Glucose 107 H (70-99(Fasting)) mg/dl Osmolality (280-300) mOsm/kg Lactate 2.3 H* (0.4-2.0) mmol/L Magnesium 1.5 L (1.7-2.4) mg/dl AST 65 H (13-39) U/L Total Creatine Kinase 532 H (30-223) U/L Troponin I High Sens 308.2 H* (0-20) pg/ml Procalcitonin (0-0.5) ng/ml SARS-CoV-2 (PCR) (Negative) 02/23/22 02/23/22 02/23/22 Range/Units 11:30 11:30 11:35 WBC (4.8-10.8) K/ul RBC (4.63-6.08) M/uL Hct (40.1-51.0) % MCH (25.0-34.0) pg MPV (9.4-12.4) fL Neut # (Auto) (1.4-6.5) K/uL Lymph # (Auto) (1.2-3.4) K/uL Brewster # (Auto) (0.24-0.82) K/uL Immature Gran # (Auto) (0.00-0.02) K/uL VBG pCO2 (38-50) mmHg Sodium (136-145) mmol/L Chloride (98-107) mmol/L Carbon Dioxide (21-32) mmol/L Anion Gap (3-11) BUN (6-23) mg/dl Creatinine (0.6-1.4) mg/dl Glucose (70-99(Fasting)) mg/dl Osmolality 254 L (280-300) mOsm/kg Lactate (0.4-2.0) mmol/L Magnesium (1.7-2.4) mg/dl AST (13-39) U/L Total Creatine Kinase (30-223) U/L Troponin I High Sens (0-20) pg/ml Procalcitonin 4.02 H (0-0.5) ng/ml SARS-CoV-2 (PCR) POSITIVE A* (Negative) 02/23/22 Range/Units 12:10 WBC (4.8-10.8) K/ul RBC (4.63-6.08) M/uL Hct (40.1-51.0) % MCH (25.0-34.0) pg MPV (9.4-12.4) fL Neut # (Auto) (1.4-6.5) K/uL Lymph # (Auto) (1.2-3.4) K/uL Brewster # (Auto) (0.24-0.82) K/uL Immature Gran # (Auto) (0.00-0.02) K/uL VBG pCO2 29 L (38-50) mmHg Sodium (136-145) mmol/L Chloride (98-107) mmol/L Carbon Dioxide (21-32) mmol/L Anion Gap (3-11) BUN (6-23) mg/dl Creatinine (0.6-1.4) mg/dl Glucose (70-99(Fasting)) mg/dl Osmolality (280-300) mOsm/kg Lactate (0.4-2.0) mmol/L Magnesium (1.7-2.4) mg/dl AST (13-39) U/L Total Creatine Kinase (30-223) U/L Troponin I High Sens (0-20) pg/ml Procalcitonin (0-0.5) ng/ml SARS-CoV-2 (PCR) (Negative) Diagnostic Findings Chest X-Ray 02/23/22 11:19 XR chest 1V portable CLINICAL HISTORY: Sepsis TECHNIQUE: Single frontal radiograph of the chest was obtained. Comparison: Comparison is made to chest radiograph 07/21/2020 FINDINGS: No lines and tubes are seen. The cardiomediastinal silhouette is normal. The lungs are clear. No evidence of pleural effusion or pneumothorax. IMPRESSION: No acute abnormalities and in particular no evidence of pneumonia. ACT 112: Negative or not required by law. Electronically signed by: De Alvarez M.D. 02/23/2022 12:01 PM ECG Additional Comments: Atrial fibrillation with rapid ventricular response with premature ventricular or aberrantly conducted complexes Low voltage QRS Septal infarct (cited on or before 21-JUL-2020) Abnormal ECG When compared with ECG of 21-JUL-2020 13:08, Nonspecific T wave abnormality no longer evident in Inferior leads Code Status & VTE Plan Code Status Full code VTE Prophylaxis Plan VTE Prophylaxis will be ordered: Yes Supervising Physician Co-Signing Physician Notes I personally saw and examined the patient. I verified all coker points and agree with Jr Garcia PA-C with the following exceptions and/or additions: 71 year old male admission after being brought in by ambulance as he fell out of bed yesterday. In the ER, main abnormal lab is his hyponatremia with sodium 118 although he chronically appears to be in mid 120s. Patient feels at his baseline. O/E A&Ox3, HS, tachycardic, irregularly irregular, Chest CTAB, Abdo distended, no pain, rebound tenderness or guarding. No cellulitis noted, flaking of skin on lower extremities with venous stasis changes only A/P Acute on chronic hyponatremia - appears to be dry on exam. Suspect diagnosis is mild dehydration from diuretic use (causing his high urine Na) with beer potomania / "tea and toast diet". Mild improvement after NSS 500ml bolus. Will give additional NSS @ 80ml/hr overnight. SIADH not suspected given low urine osm. SARS-COV-2 positive - suspect cause of his worsening cough. Currently on room air. No paxlovid due to STEVE - Cr increase from 1.6 to 2.5. Appears dry on exam as above - Continue to monitor with slow IV fluids Elevated procalcitonin and leucocytosis - unclear source of infection at this time. No definitive cellulitis although his skin breakdown certainly makes him high risk. Coughing up green sputum and will take culture but no definitive consolidation on CXR. Blood cultures taken. UA non-infective Rhabdomyolysis - suspect from fall, continue slow IV fluids as above pAF - diltiazem for rate control, anticogulation previously not recommended due to increased bleeding risk Elevated troponin - no chest pain or shortness of breath to suggest ACS, suspected demand ischemic Alcohol abuse disorder - monitor for withdrawal, no symptoms signs currently PG Care Time/CCT Total # of Minutes Spent Total Time Spent with Patient: Total time spent is greater than 50% in coordination of care (as documented) at patient's floor/unit and/or counseling patient: C[place] [address] INT INP/OBS CARE 3/75MIN Patient Type Established Medical Decision Making High Complexity Diagnoses Hyponatremia E87.1 Rhabdomyolysis M62.82 Elevated troponin R77.8 Leukocytosis D72.829 COVID-19 U07.1 Fall W19.XXXA Hypomagnesemia E83.42 Hypertension I10 COPD (chronic obstructive pulmonary disease) J44.1 COPD type: COPD with acute exacerbation Tobacco abuse Z72.0 Sacral ulcer L98.429 Cirrhosis K70.30 Ascites presence: without ascites Hepatic cirrhosis type: alcoholic cirrhosis (1) Cirrhosis Ascites presence: without ascites Hepatic cirrhosis type: alcoholic cirrhosis Qualified Code(s): K70.30 - Alcoholic cirrhosis of liver without ascites (2) COPD (chronic obstructive pulmonary disease) COPD type: COPD with acute exacerbation Qualified Code(s): J44.1 - Chronic obstructive pulmonary disease with (acute) exacerbation
[2022-02-23] MEDS ORDERED: guaiFENesin SUGAR FREE 200 MG/10 ML UDC PO ONE (14:04)
[2022-02-23] MEDS ORDERED: LIDOCAINE 4% TOP 50 ML VIAL EXT ONE (14:07)
[2022-02-23] MEDS ORDERED: LIDOCAINE 2% JELLY 5 ML TUBE EXT ONE ×2 (14:11→14:15)
[2022-02-23] MEDS ORDERED: SODIUM CHLORIDE 0.9% 500 ML IV SCH (14:15)
[2022-02-23] MEDS ORDERED: dilTIAZem HCL 120 MG CAPCR PO STA (14:24)
[2022-02-23 14:51] LABS: Appearance Urine Clear (Clear); Bacteria Urine Automated Negative (Negative); Bilirubin Urine Negative (Negative); Blood Urine Trace (Negative); Color Urine Yellow; Epithelial Cell Urine Auto 0-5 /lpf (0-5); Glucose Urine UA Trace (Negative); Ketones Urine Negative (Negative); Leukocyte Esterase Urine Negative (Negative); Nitrite Urine Negative (Negative); Protein Urine 1+ (Negative); RBC Urine Automated 0-4 /hpf (0-4); Specific Gravity Urine 1.007 (1.000-1.030); Urobilinogen Urine Negative (Negative); WBC Urine Automated 0 /hpf (0-5)
--- NOTE | 2022-02-23 15:45 | Electrocardiogram Report ---
Test Reason : Blood Pressure : / mmHG Vent. Rate : 118 BPM Atrial Rate : 125 BPM P-R Int : 000 ms QRS Dur : 078 ms QT Int : 270 ms P-R-T Axes : 000 063 082 degrees QTc Int : 378 ms Atrial fibrillation with rapid ventricular response with PVCs Low voltage QRS Septal infarct (cited on or before 21-JUL-2020) Abnormal ECG When compared with ECG of 21-JUL-2020 13:08, Premature ventricular complexes are now Present Confirmed by Johnny Alston ([id number]) on 02/23/2022 3:45:30 PM Referred By: Confirmed By:Johnny Alston
[2022-02-23] MEDS: MAGNESIUM SULFATE / D5W 1 GM/100 ML BAG IV SCH ×3 (16:33→21:39)
[2022-02-23] MEDS: ALBUT/IPRATROP 3MG/0.5MG NEB 3 ML VIAL NEB SCH ×2 (17:21→19:26)
[2022-02-23] MEDS: PANTOprazole 40 MG TAB PO SCH (17:59)
[2022-02-23] MEDS: NICOTINE 21 MG/24 HR TDSY TD SCH (17:59)
[2022-02-23 19:38] LABS: Albumin Level 3.5 gm/dl (3.4-5.0); BUN Creatinine Ratio 11.7 (10-20); Bilirubin,Total 0.4 mg/dl (0.2-1.0); Calcium 8.9 mg/dl (8.5-10.1); Creatinine Clr Calc Pharmacy 27.7 ml/min; Est GFR (African American) 31.5 ml/min; Est GFR (Non-African American) 27.2 ml/min; Globulin 3.4 gm/dl (2.5-4.0); Magnesium 2.3 mg/dl (1.7-2.4); Potassium 4.3 mmol/L (3.5-5.1); Total Protein 6.9 gm/dl (6.0-8.3)
[2022-02-23] MEDS ORDERED: SODIUM CHLORIDE 0.9% 1000ML 1,000 ML IV SCH (20:00)
[2022-02-23 20:14] LABS: Troponin I High Sensitivity 736.1 pg/ml (0-20)
[2022-02-23] MEDS: rifAXIMin 550 MG TABLET PO SCH (21:41)
[2022-02-23] MEDS: TAMSULOSIN HCL 0.4 MG CAP PO SCH (21:41)
--- NOTE | 2022-02-23 23:03 | Ultrasound Report ---
BILATERAL LOWER EXTREMITY VENOUS DOPPLER CLINICAL HISTORY: BL LE swelling, pain, redness COMPARISON STUDY: Bilateral lower extremity venous Doppler ultrasound November 18, 2018. TECHNIQUE: Sonography of the deep venous system of the bilateral lower extremities was performed. Co mpression and augmentation were evaluated. FINDINGS: The bilateral common femoral, superficial femoral and popliteal veins were compressible. A ugmentation was normal. Flow was shown within the deep calf vessels. IMPRESSION: No evidence of deep venous thrombus within the bilateral lower extremities. ACT 112: Negative or not required by law. Electronically signed by: Delvin Wilkinson M.D. 02/23/2022 11:01 PM
[2022-02-23 23:30] LABS: Albumin Level 3.6 gm/dl (3.4-5.0); BUN Creatinine Ratio 11.7 (10-20); Bilirubin,Total 0.4 mg/dl (0.2-1.0); Creatinine Clr Calc Pharmacy 27.7 ml/min; Est GFR (African American) 31.5 ml/min; Est GFR (Non-African American) 27.2 ml/min; Globulin 3.5 gm/dl (2.5-4.0); Potassium 4.3 mmol/L (3.5-5.1); Total Protein 7.1 gm/dl (6.0-8.3)
[2022-02-24 07:00] LABS: Hematocrit (blood only) 32.3 % (40.1-51.0); Hemoglobin 11.9 g/dl (14.0-18.0); Mean Corpuscular Hemoglobin 34.3 pg (25.0-34.0); Mean Corpuscular Hgb Conc 36.8 g/dL (32.0-36.0); Mean Corpuscular Volume 93.1 fL (80.0-100.0); Mean Platelet Volume 9.2 fL (9.4-12.4); Platelet Count 144 K/uL (130-400); RDW Coefficient of Variation 12.9 % (11.5-14.5); Red Blood Count 3.47 M/uL (4.63-6.08); White Blood Count 7.83 K/ul (4.8-10.8)
--- NOTE | 2022-02-24 07:13 | Hospitalist Progress Note ---
Date of Service February 24, 2022 Assessment & Plan (1) Rhabdomyolysis: Plan: 71yo Male PMH paroxysmal Afib not on anticoagulation, cirrhosis with esophageal varicies, COPD, CKD3, diastolic CHF, hx. beer potomania, hx. hyponatremia, HTN, tobacco abuse here for fall, admitted for hyponatremia Acute severe COVID-19: Sepsis -Found to be positive in the ED. cough 3-4 days -New daytime oxygen requirement 3L (usually has O2 at night) -CT chest: Cardiomegaly and emphysema. There are groundglass nodular opacities in the right lower lobe as above, likely representing a mild infectious/inflammatory pneumonitis. Clinical correlation will be required. An additional nodule is suggested in the left lower lobe. A follow-up chest CT in 3-4 months time is recommended to document complete resolution and exclude underlying pulmonary lesion.Trace right pleural effusion. - procal 4--> 21 -WBC elevated at 17 --> recheck 7 -Lactate 2.3 --> 1.8 -Will order sputum culture and gram stain -Was given 1 dose of ceftriaxone in the ED, blood cultures sputum cultures obtained -ordered dexamethasone 6mg daily -Will start supportive measures including scheduled pulm hygiene, scheduled DuoNebs, prn robitussin -Continue to monitor on tele and pulse oximetry -PRN O2 ordered as he is on nightly O2 -ordered am CRP COPD (chronic obstructive pulmonary disease): -Continue pulm hygiene as described in Covid section -Continue home breathing treatments -Monitor on pulse oximetry Acute hypoxic resp failure: -continue oxygen support Hyponatremia: -sodium of 118 on arrival to the ED, may be from combination of cirrhosis, dehydration, poor diet, alcoholism, COVID -chronic hyponatremia normally around 125 -Serum osmolality 254, urine osmo 246, urine Na 66 = hypoosmolar hyponatremia -hold lasix spironolactone -received 2L NSS -2L fluid restriction and free water restriction -consulted nephrology * Will provide 1 L sterile water w/ 150 mEq NaHCO3 for hydration and to correct metabolic acidosis Rhabdomyolysis: -Max CK 1800 downtrending - STEVE on CKD Cr of 2.5 (baseline 1.7) -receiving IVF Afib: -Noted to be in RVR on arrival to the ED -continue diltiazem Elevated troponin: -max 865 downtrending -EKG without acute ST segment or T-wave changes -Likely due to demand from dehydration, being on the ground overnight, and recent episode of afib RVR -Continue to monitor on tele and pulse oximetry Fall: -Patient slid off his recliner yesterday evening while trying to stand -Denies hitting head or losing consciousness, no acute trauma besides the sacral ulcer -Fall precautions ordered, PT/OT consults ordered STEVE on CKD -Creat 2.5 on admit (normal 1.7) -will use caution with IVF -stop spironolactone, lasix Alcohol use disorder -monitor for withdrawal Hypomagnesemia: Plan: -Noted to be 1.5 today -Is a chronic issue -repleted, recheck in am Hypertension: -Hemodynamically stable -hold lasix, spironolactone -Continue diltiazem Tobacco abuse: -Uses smokeless tobacco -ordered nicotine patches Sacral ulcer: -Wound nurse consulted -Continue to monitor Cirrhosis: -AST elevated at 65 today but LFT's are otherwise WNL, no signs of hepatic encephalopathy -Continue rifaximin -Continue to monitor LFTs (2) Metabolic acidosis: (3) Leukocytosis: (4) Fall: (5) Hyponatremia: (6) Hypomagnesemia: (7) Sacral ulcer: (8) Elevated troponin: (9) Tobacco abuse: (10) Acute renal failure: (11) Rhabdomyolysis: (12) COVID-19: (13) Acid reflux: Admission and Anticipated Discharge Date Admission Date: February 23, 2022 Supervising Physician Co-Signing Physician Notes Resident Physician Supervision Note: I independently interviewed and examined the patient and verified the coker history and physical, reviewed labs and image studies and agree with resident findings and care plan. Subjective Patient seen at bedside eating breakfast. He denies any SOB. Patient states he fell, slide off a chair and couldn't get up, didn't hit his head. States he was not the one to call EMS, states he lives alone and doesn't know how they got there. Patient denies acute complaints at this time. Review of Systems Review of Systems: All systems reviewed & are unremarkable except as noted in HPI & below Physical Exam Constitutional: + obese, + disheveled, cooperative and comfortable Respiratory: normal respiratory effort Auscultation: lungs clear to auscultation bilaterally Cardiovascular: Rate/Rhythm: + irregularly irregular Extremities: + calf tenderness and + edema (erythematous) Chest (Breasts): Additional Comments: pain on palpation of right ribs anterior Gastrointestinal (Abdomen): Inspection/Auscultation: abdomen normal to inspection; abdomen not distended Percussion/Palpation: abdomen soft; abdomen nontender Skin: erythematous sacral ulcer Results & Data Results & Data ([facility]) Vital Signs (Past 12 Hours) Vital Signs Temp Pulse Pulse Resp BP Pulse Ox O2 Del Method 02/24/22 03:11 36.9 C 76 18 114/71 94 Nasal Cannula 02/23/22 22:00 67 02/23/22 22:52 36.8 C 71 24 114/62 96 Nasal Cannula 02/23/22 20:00 Room Air 02/23/22 20:00 37.1 C 73 18 118/84 90 Room Air O2 Flow Rate 02/24/22 03:11 2 02/23/22 22:00 02/23/22 22:52 2.0 02/23/22 20:00 02/23/22 20:00 Resident Activity Tracking Resident Involvement: Resident Care Provided Care Provided: Adult Hospital Medicine
[2022-02-24] MEDS: ALBUT/IPRATROP 3MG/0.5MG NEB 3 ML VIAL NEB SCH ×4 (07:16→19:15)
[2022-02-24 07:34] LABS: INR 1.1 (0.9-1.1); Prothrombin Time 11.4 Seconds (9.0-12.0)
[2022-02-24] MEDS: FLUTICASONE FUROATE 100MCG 14 PUFFS/INHALER INH SCH (08:43)
[2022-02-24] MEDS: PANTOprazole 40 MG TAB PO SCH (08:46)
[2022-02-24] MEDS: dilTIAZem HCL 120 MG CAPCR PO SCH (08:46)
[2022-02-24] MEDS: rifAXIMin 550 MG TABLET PO SCH ×2 (08:46→20:01)
[2022-02-24] MEDS: NICOTINE 21 MG/24 HR TDSY TD SCH (08:47)
[2022-02-24] MEDS ORDERED: NON-FORMULARY MEDICATION (Fluticasone-Umeclidin-Vilanter [Trelegy Ellipta] 100-62.5-25 mcg INH SCH (09:00)
[2022-02-24] MEDS: UMECLIDINIUM/VILANTEROL 62.5/25MCG 7 PUFFS/INHALER INH SCH (09:01)
[2022-02-24 09:34] LABS: Albumin Globulin Ratio 1.1 (0.9-2); Albumin Level 3.1 gm/dl (3.4-5.0); BUN Creatinine Ratio 12.6 (10-20); Bilirubin,Total 0.4 mg/dl (0.2-1.0); Calcium 8.4 mg/dl (8.5-10.1); Creatinine Clr Calc Pharmacy 26.7 ml/min; Est GFR (African American) 30.2 ml/min; Est GFR (Non-African American) 26.1 ml/min; Globulin 2.9 gm/dl (2.5-4.0); Potassium 4.2 mmol/L (3.5-5.1)
[2022-02-24] MEDS ORDERED: LORazepam 2 MG/1 ML VIAL IV PRN (09:53)
[2022-02-24 10:52] LABS: Albumin Level 3.1 gm/dl (3.4-5.0); BUN Creatinine Ratio 12.3 (10-20); Bilirubin,Total 0.4 mg/dl (0.2-1.0); Calcium 8.4 mg/dl (8.5-10.1); Creatinine Clr Calc Pharmacy 25.1 ml/min; Est GFR (Non-African American) 24.2 ml/min; Potassium 3.9 mmol/L (3.5-5.1); Total Protein 6.1 gm/dl (6.0-8.3)
[2022-02-24 11:01] LABS: Troponin I High Sensitivity 502.8 pg/ml (0-20)
[2022-02-24] MEDS: FOLIC ACID 1 MG TAB PO SCH (11:05)
[2022-02-24] MEDS: THIAMINE HCL 100 MG TAB PO SCH (11:06)
[2022-02-24] MEDS: cefTRIAXone SODIUM 2,000 MG in DEXTROSE 5% 50 ML IV SCH (11:06)
[2022-02-24] MEDS ORDERED: SODIUM BICARBONATE 8.4% 150 MEQ in WATER, STERILE 1,000 ML IV SCH (11:45)
--- NOTE | 2022-02-24 12:02 | Nephrology Consultation ---
Date of Consultation February 24, 2022 Assessment & Plan (1) Acute renal failure: * STEVE/CKD due to dehydration in the setting of COVID infection. Patient denies the use of NSAIDS or exposure to known nephrotoxic medications. He denies difficulty voiding. On exam he appears clinically volume contracted w/ dry mucous membranes, minimal ascites and no peripheral edema. * Hold Furosemide and Spironolactone * Will provide 1 L sterile water w/ 150 mEq NaHCO3 for hydration and to correct metabolic acidosis * Monitor UO, PRP, Uosm * Renal US only if kidney function fails to improve w/ IV hydration (2) Chronic kidney disease, stage 3: * CKD stage G3b/A3 (moderate impairment). Baseline Cr 1.7 - 2.0 w/ EGFR 37 cc/min (3) Hyponatremia: * Hypoosmolar hyponatremia. Clinically dehydrated at the time of presentation. Serum sodium improved from 118 to 121 mmol/L following 2 L 0.9 NS. Patient remains clinically volume contracted. No lines and tubes are seen. The cardiomediastinal silhouette is normal. The lungs are clear. No evidence of pleural effusion or pneumothorax. (4) Metabolic acidosis: * NaHCO3 gtt ordered - see above (5) Rhabdomyolysis: * CPK 1800 on admission. Will provide NaHCO3 gtt. Monitor CPK (6) COVID-19: * COVID + 02/23/22 * CXR negative for infiltrate 02/23/22 * Currently breathing comfortably on O2 at 3 L/min NC History of Present Illness Reason for Consultation: STEVE/CKD, hyponatremia Attending Physician: Ayesha Lares MD History of Present Illness Mr. Mark is a 71 year old white male who is seen at the request of the hospitalist service for evaluation of STEVE/CKD, hyponatremia. Medical records in the EMR were reviewed this morning and are summarized as follows: Mr. Mark has alcoholic cirrhosis and CKD w/ baseline Cr 1.7 - 2.0. His primary Nephrolog ist is Dr. Bradford. Mr. Mark has been managed w/ Furosemide and Spironolactone therapy. He has chronic hyponatremia w/ serum Na 127 - 130 mmol/L. His medical history is also significant for esophageal varices, ascites, chronic LE edema, COPD, atrial fibrillation and HFpEF. Mr. Mark presented to the EMD 02/23/22 for evaluation of dyspnea and chest discomfort following a mechanical fall from bed. In the EMD he tested + for COVID and was found to have Na 118, Cr 2.5. He has been hydrated w/ 2L 0.9 NS. Na has improved to 120, Cr is unchanged at 2.5. CXR 02/23/22 was negative for infiltrate or CHF. CPK was elevated at 1866. Allergies Allergy/AdvReac Type Severity Reaction Status Date / Time No Known Allergies Allergy Verified 02/23/22 16:03 Home Medications Medication Instructions Recorded Confirmed Type diltiazem HCl 120 mg 120 mg PO DAILY #90 caps 08/19/21 02/23/22 Rx capsule,extended release 24 hr pantoprazole 40 mg tablet,delayed 40 mg PO QAM #90 tabs 08/19/21 02/23/22 Rx release spironolactone 100 mg tablet 100 mg PO QAM #90 tabs 10/08/21 02/23/22 Rx fluticasone fur. 100 mcg-umeclid 1 inh inhalation DAILY #60 ea 11/08/21 02/23/22 Rx 62.5 mcg-vilant 25 mcg inhalat.powder (Trelegy Ellipta) empagliflozin 10 mg tablet 10 mg PO DAILY #30 tabs 12/20/21 02/23/22 Rx (Jardiance) furosemide 20 mg tablet (Lasix) 40 mg PO QAM 02/23/22 02/23/22 History rifaximin 550 mg tablet (Xifaxan) 550 mg PO BID 02/23/22 02/23/22 History Patient History Medical History Alcohol abuse Anemia Ascites (10/23/10) Chronic hyponatremia Chronic kidney disease, stage 3 Cirrhosis Duodenal ulcer Esophageal varices History of abdominal paracentesis Hypertension On home oxygen therapy 1L oxygen Pelvic fracture Poor historian Portal hypertension Sleep apnea cpap with oxygen 1L - noncompliant w/ cpap Slipped cervical disc Surgical History History of appendectomy History of esophagogastroduodenoscopy (EGD) 08/06/18 [facility] History of tooth extraction Family History Father Myocardial infarction Unknown Diabetes Coronary heart disease Mother Chronic kidney disease Other No family history of adverse response to anesthesia Denies family history of Ovarian cancer Prostate cancer Crohn's disease Breast cancer Colorectal cancer Ulcerative colitis Social History Smoking Status: Unknown if ever smoked Tobacco Type: Smokeless Tobacco (Dip or Chew) Second Hand Exposure: No; Do You Dip or Chew Tobacco: Yes; Tobacco Cessation Education Requested by Patient: No Hx Alcohol Use: Yes Alcohol type: beer Alcohol Intake Frequency Comment: 3 beers per night. In past heavy use. Hx Substance Use: No Preferred Language: Dominican Communication Ability: Effective Hearing Ability: Hard of Hearing Community Outreach Advocate Required: No Beliefs That Will Affect Care: None marital status: Single Current Living Situation: Alone current occupational status: retired and disabled Other Information That Helps Us Care for You: No Feels Safe at Home: Yes Safety Concerns: Feels Safe At This Time Childhood Exposure to Second-Hand Smoke: Yes Diet Comment: low calorie 2,000 per day Dental Care, Regularly: No Physical Activity Frequency: Does not Exercise Seatbelt Use: always Sunscreen Use: No Assistive Devices: Cane, Walker and Other Review of Systems Constitutional: no fever Eyes: no problem reported Ear, Nose, Mouth, Throat: no problem reported Respiratory: no dyspnea Cardiovascular: + chest pain with activity Gastrointestinal: no abdominal pain, no vomiting and no diarrhea/loose stools Physical Exam Constitutional: + ill appearing; not in distress Eyes: PERRL, conjunctivae normal, anicteric sclerae ENMT: Mouth: + dry oral mucous membranes Neck: trachea midline, no thyromegaly Respiratory: normal respiratory effort, lungs clear to auscultation Cardiovascular: RRR, no murmur, no edema (pretibial hemosiderin staining c/w prior lymphedema) Gastrointestinal (Abdomen): normal bowel sounds, soft, nontender, no hepatosplenomegaly Neurologic: awake Speech / Cognition: normal speech and normal cognition Results & Data ([facility]) Vital Signs (Past 12 Hours) Vital Signs Temp Pulse Pulse Resp BP Pulse Ox O2 Del Method 02/24/22 11:04 36.8 C 97 H 24 128/60 92 Nasal Cannula 02/24/22 10:51 87 20 97 Nasal Cannula 02/24/22 07:51 81 02/24/22 07:38 36.9 C 97 H 20 103/45 L 93 Nasal Cannula 02/24/22 07:15 76 20 95 Nasal Cannula 02/24/22 03:11 36.9 C 76 18 114/71 94 Nasal Cannula O2 Flow Rate 02/24/22 11:04 3 02/24/22 10:51 4 02/24/22 07:51 02/24/22 07:38 4 02/24/22 07:15 4 02/24/22 03:11 2 Laboratory Results Laboratory Tests 02/23/22 02/24/22 11:35 06:22 WBC 7.83 Hgb 11.9 L Hct 32.3 L Plt Count 144 SARS-CoV-2 (PCR) POSITIVE A* Influenza Type A (PCR) Negative Influenza Type B (PCR) Negative RSV (RT-PCR) Negative Laboratory Tests 05/31/21 02/23/22 02/23/22 15:47 14:33 14:33 Sodium Potassium Chloride Carbon Dioxide BUN Creatinine Glucose Calcium Total Creatine Kinase Troponin I High Sens Albumin Urine Color Yellow Urine Appearance Clear Ur Specific Eugene 1.007 Urine Protein 1+ H Urine Glucose (UA) Trace H Urine Nitrite Negative Ur Leukocyte Esterase Negative Urine RBC (Auto) 0-4 Urine Osmolality 246 L Protein/Creatinin Ratio 0.3 H 02/24/22 02/24/22 06:22 10:09 Sodium 121 L Potassium 3.9 Chloride 92 L Carbon Dioxide 18 L BUN 31 H Creatinine 2.53 H Glucose 115 H Calcium 8.4 L Total Creatine Kinase 1302 H Troponin I High Sens 502.8 H* D Albumin 3.1 L Urine Color Urine Appearance Ur Specific Eugene Urine Protein Urine Glucose (UA) Urine Nitrite Ur Leukocyte Esterase Urine RBC (Auto) Urine Osmolality Protein/Creatinin Ratio Diagnostic Findings CXR 02/23/22: No lines and tubes are seen. The cardiomediastinal silhouette is normal. The lungs are clear. No evidence of pleural effusion or pneumothorax. PG Care Time/CCT Total # of Minutes Spent Total Time Spent with Patient: Total time spent is greater than 50% in coordination of care (as documented) at patient's floor/unit and/or counseling patient: Coding Level of Care Code INP/OBS CONSULT LVL 5, 80 MIN Diagnoses Acute renal failure N17.9 Chronic kidney disease, stage 3 N18.32 Chronic kidney disease stage 3 subtype: stage 3b (GFR 30-44) Hyponatremia E87.1 Metabolic acidosis E87.20 Rhabdomyolysis M62.82 COVID-19 U07.1 (1) Chronic kidney disease, stage 3 Chronic kidney disease stage 3 subtype: stage 3b (GFR 30-44) Qualified Code(s): N18.32 - Chronic kidney disease, stage 3b
[2022-02-24 13:46] LABS: BUN Creatinine Ratio 12.1 (10-20); Calcium 8.5 mg/dl (8.5-10.1); Creatinine Clr Calc Pharmacy 24.8 ml/min; Est GFR (African American) 27.5 ml/min; Est GFR (Non-African American) 23.7 ml/min; Potassium 3.9 mmol/L (3.5-5.1)
--- NOTE | 2022-02-24 15:25 | CT Scan Report ---
CT SCAN OF THE CHEST WITHOUT IV CONTRAST CLINICAL HISTORY: Dyspnea. Covid. COMPARISON STUDY: Chest x-ray dated 02/23/2022. Chest CT dated 02/14/2013. TECHNIQUE: CT scan of the thorax was performed from the thoracic inlet to the upper abdomen. Images are reviewed in the axial, sagittal, and coronal planes. IV contrast was not administered for this ex amination as per the referring clinician. A dose lowering technique was utilized adhering to the stephanie Montero. The examination is degraded by motion artifact, as well as by streak artifact from the arms which could not be elevated above the chest. CT DOSE: 916.75 mGy.cm FINDINGS: Thyroid: Imaged portions of the thyroid gland are normal in size and attenuation. Thoracic aorta: The thoracic aorta is normal in caliber and demonstrates bovine variant arch anatomy. Heart: The heart is mildly enlarged and without pericardial effusion. The coronary arteries are dense ly calcified. Lungs and pleural spaces: Evaluation of the lung parenchyma is significantly compromised by motion ar tifact. Mild emphysematous change is observed. The trachea and central airways appear clear. There is trace right pleural effusion. Minimal patchy airspace opacities are seen at the right lung base on i mage #236. Additional mild groundglass opacities are seen in the superior right lower lobe on images #162 and #182. An additional 7 mm nodule versus calcification in the left lower lobe as seen on image #203. Linear scarring/atelectasis is noted in the right middle lobe and lingula. Mediastinum: There is no mediastinal lymphadenopathy. Shari: Not well assessed without IV contrast. Axillae: There is no axillary lymphadenopathy. Upper abdomen: There are calcified gallstones. The liver is cirrhotic in morphology and heterogeneous attenuation noted in hypertrophy of the left lobe and nodularity of the surface contour. The visuali zed kidneys demonstrate cortical atrophy. There is a small hiatal hernia. Esophageal varices are susp ected. Large collateral vessels are seen adjacent to the stomach. Skeletal structures: The skeletal structures are osteopenic. Degenerative change and mild hyperkyphos is is noted in the thoracic spine. No lytic or blastic bony lesions are seen. There is partial fusion of the left first and second ribs. IMPRESSION: 1. Significantly streak and motion compromised examination. 2. Cardiomegaly and emphysema. 3. There are groundglass nodular opacities in the right lower lobe as above, likely representing a mi ld infectious/inflammatory pneumonitis. Clinical correlation will be required. An additional nodule i s suggested in the left lower lobe. A follow-up chest CT in 3-4 months time is recommended to documen t complete resolution and exclude underlying pulmonary lesion. 4. Trace right pleural effusion. 5. Cirrhotic an heterogeneous liver. Upper abdominal collaterals and esophageal varices indicate port al hypertension. 6. Cholelithiasis. 7. Additional findings as above. ACT 112: Negative or not required by law. Electronically signed by: Satish Muñiz M.D. 02/24/2022 3:24 PM
[2022-02-24 17:27] LABS: Albumin Level 3.5 gm/dl (3.4-5.0); BUN Creatinine Ratio 12.4 (10-20); Bilirubin,Total 0.3 mg/dl (0.2-1.0); Calcium 8.7 mg/dl (8.5-10.1); Creatinine Clr Calc Pharmacy 24.7 ml/min; Est GFR (African American) 27.4 ml/min; Est GFR (Non-African American) 23.6 ml/min; Globulin 3.4 gm/dl (2.5-4.0); Potassium 4.1 mmol/L (3.5-5.1); Total Protein 6.9 gm/dl (6.0-8.3)
[2022-02-24] MEDS: dexAMETHasone 6 MG in SYRINGE 0 ML IV SCH (18:35)
[2022-02-24] MEDS: TAMSULOSIN HCL 0.4 MG CAP PO SCH (20:01)
[2022-02-24] MEDS ORDERED: SODIUM CHLORIDE 1 GM TABLET PO ONE (20:30)
[2022-02-24 23:21] LABS: Albumin Globulin Ratio 1.1 (0.9-2); Albumin Level 3.3 gm/dl (3.4-5.0); BUN Creatinine Ratio 14.8 (10-20); Bilirubin,Total 0.3 mg/dl (0.2-1.0); Calcium 8.1 mg/dl (8.5-10.1); Creatinine Clr Calc Pharmacy 23.5 ml/min; Est GFR (African American) 25.8 ml/min; Est GFR (Non-African American) 22.3 ml/min; Potassium 4.2 mmol/L (3.5-5.1); Total Protein 6.3 gm/dl (6.0-8.3)
--- NOTE | 2022-02-25 06:53 | Hospitalist Progress Note ---
Date of Service February 25, 2022 Assessment & Plan (1) Rhabdomyolysis: Plan: 71yo Male PMH paroxysmal Afib not on anticoagulation, cirrhosis with esophageal varicies, COPD, CKD3, diastolic CHF, hx. beer potomania, hx. hyponatremia, HTN, tobacco abuse here for fall, admitted for hyponatremia Acute severe COVID-19: Sepsis sec to covid -Found to be positive in the ED. cough 3-4 days -New daytime oxygen requirement 3L (usually has O2 at night), wean as tolerated -CT chest: Cardiomegaly and emphysema. There are groundglass nodular opacities in the right lower lobe as above, likely representing a mild infectious/inflammatory pneumonitis. Clinical correlation will be required. An additional nodule is suggested in the left lower lobe. A follow-up chest CT in 3-4 months time is recommended to document complete resolution and exclude underlying pulmonary lesion.Trace right pleural effusion. - procal 4--> 21 -WBC elevated at 17 --> recheck 7 -Lactate 2.3 --> 1.8 -CRP 16.36 -Sputum cx Bcx negative -Was given 1 dose of ceftriaxone in the ED, empiric rocephin stopped less concerned for bacterial superinfection -dexamethasone 6mg daily - 10 days or until discharged if discharged before 10 days -Ordered supportive measures including scheduled pulm hygiene, scheduled DuoNebs, prn robitussin Severe COPD (chronic obstructive pulmonary disease) with exacerbation: -continue steroids as above -Continue pulm hygiene as above -Continue home breathing treatments -Monitor on pulse oximetry Acute hypoxic resp failure: -continue oxygen support, wean as tolerated Hyponatremia: -sodium of 118 on arrival to the ED, may be from combination of cirrhosis, dehydration, poor diet, alcoholism, COVID -chronic hyponatremia normally around 125 -Serum osmolality 254, urine osmo 246, urine Na 66 = hypoosmolar hyponatremia -hold lasix spironolactone -received 2L NSS -2L fluid restriction and free water restriction -consulted nephrology * repleted with NaHCO3 yesterday, 2g NaCl, started hypertonic saline today * recheck Na 121, continue to monitor, ordered lasix 20mg IV STEVE on CKD -Creat 2.5 on admit (normal 1.7) -will use caution with IVF -stop spironolactone, lasix Alcohol use disorder -monitor for withdrawal -PRN ativan for withdrawal symptoms -last AWSS score 1 Rhabdomyolysis: -Max CK 1800 downtrending - STEVE on CKD Cr of 2.5 (baseline 1.7) -receiving IVF Afib: -Noted to be in RVR on arrival to the ED -continue diltiazem Elevated troponin: -max 865 downtrending -EKG without acute ST segment or T-wave changes -Likely due to demand from dehydration, being on the ground overnight, and recent episode of afib RVR -Continue to monitor on tele and pulse oximetry Hyperglycemia -likely from steroids -SSI -Basal lantus 13U BID -glycemic consult -A1c pending Fall: -Patient slid off his recliner yesterday evening while trying to stand -Denies hitting head or losing consciousness, no acute trauma besides the sacral ulcer -Fall precautions ordered -PT/OT recommends inpatient rehab Hypomagnesemia: -1.5 on admit, recheck 1.9 -Is a chronic issue -repleted Hypertension: -Hemodynamically stable -hold spironolactone, lasix -Continue diltiazem Tobacco abuse: -Uses smokeless tobacco -ordered nicotine patches Sacral ulcer: -Wound nurse consulted -Continue to monitor Cirrhosis: -AST elevated at 65 today but LFT's are otherwise WNL, no signs of hepatic encephalopathy -Continue rifaximin -Continue to monitor LFTs DVT PPX: Heparin PT/OT: inpatient rehab Case Management: pending Dispo: PCU/tele Pat Guajardo D.O. PGY 2, FCM (2) Metabolic acidosis: (3) Leukocytosis: (4) Fall: (5) Hyponatremia: (6) Hypomagnesemia: (7) Sacral ulcer: (8) Elevated troponin: (9) Tobacco abuse: (10) Acute renal failure: (11) COVID-19: (12) Acid reflux: Admission and Anticipated Discharge Date Admission Date: February 23, 2022 Supervising Physician Co-Signing Physician Notes Resident Physician Supervision Note: I independently interviewed and examined the patient and verified the coker history and physical, reviewed labs and image studies and agree with resident findings and care plan. Subjective Patient seen at bedside, calm comfortable cooperative. Currently requesting additional nicotine patch. States he is not using incentive spirometry or flutter valve to increase his breathing. Denies SOB at this time. No acute concerns. Per nursing, concern he may be going into alcohol withdrawal, given increased agitation from yesterday. Review of Systems Review of Systems: All systems reviewed & are unremarkable except as noted in HPI & below Physical Exam Constitutional: + obese, + disheveled, cooperative and comfortable Respiratory: normal respiratory effort Auscultation: lungs clear to auscultation bilaterally Cardiovascular: Rate/Rhythm: + irregularly irregular Extremities: + calf tenderness and + edema (erythematous) Gastrointestinal (Abdomen): Inspection/Auscultation: abdomen normal to inspection; abdomen not distended Percussion/Palpation: abdomen soft; abdomen nontender Results & Data Results & Data ([facility]) Vital Signs (Past 12 Hours) Vital Signs Temp Pulse Pulse Resp BP Pulse Ox O2 Del Method 02/25/22 04:09 36.6 C 85 20 121/65 98 Nasal Cannula 02/24/22 20:00 Nasal Cannula 02/25/22 00:07 97 H 02/24/22 23:21 36.7 C 101 H 18 120/59 L 97 Nasal Cannula 02/24/22 19:58 36.8 C 108 H 18 123/52 L 96 Nasal Cannula 02/24/22 19:15 97 H 24 94 Nasal Cannula O2 Flow Rate 02/25/22 04:09 3.0 02/24/22 20:00 3 02/25/22 00:07 02/24/22 23:21 3 02/24/22 19:58 3 02/24/22 19:15 3 Resident Activity Tracking Resident Involvement: Resident Care Provided Care Provided: Adult Hospital Medicine
[2022-02-25] MEDS: ALBUT/IPRATROP 3MG/0.5MG NEB 3 ML VIAL NEB SCH ×4 (07:22→18:55)
[2022-02-25] MEDS ORDERED: STAT IV STA ×2 (08:53→13:37)
--- NOTE | 2022-02-25 08:56 | Nephrology Progress Note ---
Date of Service February 25, 2022 Assessment & Plan (1) Acute renal failure: Plan: * STEVE/CKD due to dehydration in the setting of COVID infection. Patient denies the use of NSAIDS or exposure to known nephrotoxic medications. He denies difficulty voiding. On exam he remains clinically volume contracted w/ dry mucous membranes, minimal ascites and no peripheral edema. * Continue to hold Furosemide and Spironolactone * Renal US only if kidney function worsens * Monitor UO, PRP, Uosm (2) Chronic kidney disease, stage 3: Plan: * CKD stage G3b/A3 (moderate impairment). Baseline Cr 1.7 - 2.0 w/ EGFR 37 cc/min (3) Hyponatremia: Plan: * Remains hyponatremic despite 3 L isotonic fluid administration * Uosm 353 this am * Will provide 100 cc 3% NaCl and 40 mg IV Furosemide this am * Repeat PRP this afternoon and in am (4) Metabolic acidosis: Plan: * Improved following bicarbonate administration (5) Rhabdomyolysis: Plan: * CPK 1800 --> 1200 following IV hydration (6) COVID-19: Plan: * COVID + 02/23/22 * CXR negative for infiltrate 02/23/22 * Currently breathing comfortably on RA Admission and Anticipated Discharge Date Admission Date: February 23, 2022 Subjective Tolerated bicarbonate infusion without worsening dyspnea. RA SaO2 97% this am Review of Systems Constitutional: no fever Eyes: no problem reported Ear, Nose, Mouth, Throat: no problem reported Respiratory: no dyspnea Cardiovascular: + chest pain with activity Gastrointestinal: no abdominal pain, no vomiting and no diarrhea/loose stools Physical Exam Constitutional: + ill appearing; not in distress Eyes: PERRL, conjunctivae normal, anicteric sclerae ENMT: Mouth: + dry oral mucous membranes Neck: trachea midline, no thyromegaly Respiratory: normal respiratory effort, lungs clear to auscultation Cardiovascular: RRR, no murmur, no edema (pretibial hemosiderin staining c/w prior lymphedema) Gastrointestinal (Abdomen): normal bowel sounds, soft, nontender, no hepatosplenomegaly Neurologic: awake Speech / Cognition: normal speech and normal cognition Results & Data ([facility]) Vital Signs (Past 12 Hours) Vital Signs Temp Pulse Pulse Resp BP Pulse Ox O2 Del Method 02/25/22 07:38 36.8 C 82 19 122/69 97 Room Air 02/25/22 07:23 79 20 99 Nasal Cannula 02/25/22 04:09 36.6 C 85 20 121/65 98 Nasal Cannula 02/25/22 00:07 97 H 02/24/22 23:21 36.7 C 101 H 18 120/59 L 97 Nasal Cannula O2 Flow Rate 02/25/22 07:38 02/25/22 07:23 3 02/25/22 04:09 3.0 02/25/22 00:07 02/24/22 23:21 3 Laboratory Results Laboratory Tests 02/24/22 02/24/22 02/24/22 06:22 13:14 22:38 WBC 7.83 Hgb 11.9 L Hct 32.3 L Plt Count 144 Sodium 119 L* Potassium 4.2 Chloride 86 L Carbon Dioxide 21 BUN 40 H Creatinine 2.71 H Glucose 177 H Urine Osmolality 353 L PG Care Time/CCT Total # of Minutes Spent Total Time Spent with Patient: Total time spent is greater than 50% in coordination of care (as documented) at patient's floor/unit and/or counseling patient: Coding Level of Care Code 84663 SUB INP/OBS CARE 3/50MIN Diagnoses Acute renal failure N17.9 Chronic kidney disease, stage 3 N18.32 Chronic kidney disease stage 3 subtype: stage 3b (GFR 30-44) Hyponatremia E87.1 Metabolic acidosis E87.20 Rhabdomyolysis M62.82 COVID-19 U07.1 (1) Chronic kidney disease, stage 3 Chronic kidney disease stage 3 subtype: stage 3b (GFR 30-44) Qualified Code(s): N18.32 - Chronic kidney disease, stage 3b
[2022-02-25] MEDS ORDERED: FUROSEMIDE INJ 20 MG/2 ML VIAL IV ONE ×2 (09:00→14:00)
[2022-02-25] MEDS ORDERED: SODIUM CHLORIDE 3 % 100 ML IV ONE ×2 (09:00→14:00)
[2022-02-25] MEDS: NICOTINE 21 MG/24 HR TDSY TD SCH (09:08)
[2022-02-25] MEDS: UMECLIDINIUM/VILANTEROL 62.5/25MCG 7 PUFFS/INHALER INH SCH (09:09)
[2022-02-25] MEDS: dexAMETHasone 6 MG in SYRINGE 0 ML IV SCH (09:10)
[2022-02-25] MEDS: PANTOprazole 40 MG TAB PO SCH (09:13)
[2022-02-25] MEDS: dilTIAZem HCL 120 MG CAPCR PO SCH (09:13)
[2022-02-25] MEDS: FOLIC ACID 1 MG TAB PO SCH (09:13)
[2022-02-25] MEDS: rifAXIMin 550 MG TABLET PO SCH ×2 (09:14→20:36)
[2022-02-25] MEDS: THIAMINE HCL 100 MG TAB PO SCH (09:15)
[2022-02-25] MEDS: FLUTICASONE FUROATE 100MCG 14 PUFFS/INHALER INH SCH (09:15)
[2022-02-25] MEDS: cefTRIAXone SODIUM 2,000 MG in DEXTROSE 5% 50 ML IV SCH (11:41)
[2022-02-25 12:59] LABS: Hematocrit (blood only) 30.3 % (40.1-51.0); Hemoglobin 11.2 g/dl (14.0-18.0); Mean Corpuscular Hemoglobin 34.5 pg (25.0-34.0); Mean Corpuscular Volume 93.2 fL (80.0-100.0); Mean Platelet Volume 9.7 fL (9.4-12.4); Platelet Count 127 K/uL (130-400); RDW Coefficient of Variation 12.4 % (11.5-14.5); RDW Standard Deviation 42.7 fL (36.4-46.3); Red Blood Count 3.25 M/uL (4.63-6.08)
[2022-02-25 13:17] LABS: Albumin Level 3.2 gm/dl (3.4-5.0); BUN Creatinine Ratio 16.9 (10-20); Bilirubin,Total 0.3 mg/dl (0.2-1.0); C Reactive Protein 16.36 mg/dl (0-0.5); Calcium 8.4 mg/dl (8.5-10.1); Creatinine Clr Calc Pharmacy 23.3 ml/min; Est GFR (African American) 26.4 ml/min; Est GFR (Non-African American) 22.8 ml/min; Globulin 3.1 gm/dl (2.5-4.0); Total Protein 6.3 gm/dl (6.0-8.3)
[2022-02-25] MEDS ORDERED: GLUCAGON FOR INJ 1 MG VIAL SQ PRN (15:02)
[2022-02-25] MEDS ORDERED: DEXTROSE 50% 50 ML SYRINGE IV PRN (15:02)
[2022-02-25] MEDS ORDERED: PHARMACY GLYCEMIC MGMT CONSULT PRN (15:02)
[2022-02-25] MEDS ORDERED: CARBOHYDRATES FOR HYPOGLYCEMIA PO PRN (15:02)
[2022-02-25] MEDS ORDERED: GLUCOSE 10 TAB/TUBE PO PRN (15:02)
[2022-02-25] MEDS ORDERED: GLUCOSE 40% GEL 15 GM TUBE PO PRN (15:02)
[2022-02-25] MEDS ORDERED: INSULIN ASPART PER UNIT SC SCH (16:30)
[2022-02-25] MEDS ORDERED: Ativan PO Alcohol Withdrawal--Active Protocol PO PRN (17:26)
[2022-02-25] MEDS ORDERED: LORazepam 1 MG TAB PO PRN (17:26)
[2022-02-25] MEDS: HEPARIN SOD 5,000 UNIT/0.5 ML VIAL SQ SCH (20:30)
[2022-02-25] MEDS: LORazepam 1 MG TAB PO PRN (20:35)
[2022-02-25] MEDS: TAMSULOSIN HCL 0.4 MG CAP PO SCH (20:36)
[2022-02-25] MEDS: BENZONATATE 100 MG CAPSULE PO PRN (20:41)
[2022-02-25] MEDS ORDERED: LANTUS PER UNIT CHARGE SQ SCH (21:00)
[2022-02-26] MEDS: LORazepam 1 MG TAB PO PRN ×6 (01:19→23:12)
[2022-02-26] MEDS: ALBUT/IPRATROP 3MG/0.5MG NEB 3 ML VIAL NEB SCH ×4 (07:34→19:49)
--- NOTE | 2022-02-26 07:44 | Hospitalist Progress Note ---
Date of Service February 26, 2022 Assessment & Plan (1) Rhabdomyolysis: Plan: 71yo Male PMH paroxysmal Afib not on anticoagulation, cirrhosis with esophageal varicies, COPD, CKD3, diastolic CHF, hx. beer potomania, hx. hyponatremia, HTN, tobacco abuse here for fall, admitted for hyponatremia Acute severe COVID-19: Sepsis -Found to be positive in the ED. cough 3-4 days -New daytime oxygen requirement 3L (usually has O2 at night), wean as tolerated -CT chest: Cardiomegaly and emphysema. There are groundglass nodular opacities in the right lower lobe as above, likely representing a mild infectious/inflammatory pneumonitis. Clinical correlation will be required. An additional nodule is suggested in the left lower lobe. A follow-up chest CT in 3-4 months time is recommended to document complete resolution and exclude underlying pulmonary lesion.Trace right pleural effusion. - procal 4--> 21 -WBC elevated at 17 --> recheck 7 -Lactate 2.3 --> 1.8 -CRP 16.36 -Sputum cx & Bcx negative -Was given 1 dose of ceftriaxone in the ED, empiric rocephin stopped less concerned for bacterial superinfection -Continue dexamethasone 6mg daily -Continue supportive measures including scheduled pulm hygiene, scheduled DuoNebs, prn robitussin -- add guaifenesin 600mg q12h Severe COPD (chronic obstructive pulmonary disease): -already on dexamethasone -Continue pulm hygiene as above -Continue home breathing treatments -Monitor on pulse oximetry Acute hypoxic resp failure: -continue oxygen support, wean as tolerated Hyponatremia: -sodium of 118 on arrival to the ED, may be from combination of cirrhosis, dehydration, poor diet, alcoholism, COVID -chronic hyponatremia normally around 125 -Serum osmolality 254, urine osmo 246, urine Na 66 = hypoosmolar hyponatremia -hold lasix spironolactone -received 2L NSS -2L fluid restriction and free water restriction -consulted nephrology * repleted with NaHCO3 yesterday, 2g NaCl, started hypertonic saline today * recheck Na 121, continue to monitor, ordered lasix 20mg IV STEVE on CKD -Creat 2.5 on admit (normal 1.7) -will use caution with IVF -stop spironolactone, lasix Alcohol use disorder -monitor for withdrawal -PRN ativan for withdrawal symptoms -last AWSS score 1 Rhabdomyolysis: -Max CK 1800 downtrending - STEVE on CKD Cr of 2.5 (baseline 1.7) -receiving IVF Afib: -Noted to be in RVR on arrival to the ED -continue diltiazem Elevated troponin: -max 865 downtrending -EKG without acute ST segment or T-wave changes -Likely due to demand from dehydration, being on the ground overnight, and recent episode of afib RVR -Continue to monitor on tele and pulse oximetry Fall: -Patient slid off his recliner yesterday evening while trying to stand -Denies hitting head or losing consciousness, no acute trauma besides the sacral ulcer -Fall precautions ordered -PT/OT recommends inpatient rehab Hypomagnesemia: -1.5 on admit, recheck 1.9 -Is a chronic issue -repleted Hypertension: -Hemodynamically stable -hold spironolactone, lasix -Continue diltiazem Tobacco abuse: -Uses smokeless tobacco -ordered nicotine patches Sacral ulcer: -Wound nurse consulted -Continue to monitor Cirrhosis: -AST elevated at 65 today but LFT's are otherwise WNL, no signs of hepatic encephalopathy -Continue rifaximin -Continue to monitor LFTs DVT PPX: Heparin PT/OT: inpatient rehab Case Management: pending Dispo: PCU/tele Pat Guajardo D.O. PGY 2, FCM (2) Metabolic acidosis: (3) Leukocytosis: (4) Fall: (5) Hyponatremia: (6) Hypomagnesemia: (7) Sacral ulcer: (8) Elevated troponin: (9) Tobacco abuse: (10) Acute renal failure: (11) COVID-19: (12) Acid reflux: Admission and Anticipated Discharge Date Admission Date: February 23, 2022 Supervising Physician Co-Signing Physician Notes Resident Physician Supervision Note: I independently interviewed and examined the patient and verified the coker history and physical, reviewed labs and image studies and agree with resident findings and care plan. Subjective Overnight patient started on Tessalon Perles TID PRN. Doing well this AM overall -- O2 sat appropriate on 2LNC. Feels like his biggest issue is ongoing cough and he feels like he has phlegm that he can't bring up when coughing. Denies CP, palp, n/v, abd pain, LLANOS, dizziness. Review of Systems Review of Systems: per HPI Physical Exam Physical Exam: GENERAL: A&Ox3. NAD. CHEST/LUNGS: CTAB A/P. No crackles, wheezes, rales, rhonchi. HEART: Irregularly irregular. No m/g/r. EXTREMITIES: No cyanosis, no clubbing, no edema SKIN: Warm and dry. No rashes or lesions. Results & Data Results & Data ([facility]) Vital Signs (Past 12 Hours) Vital Signs Temp Pulse Pulse Resp BP Pulse Ox O2 Del Method 02/26/22 03:32 36.6 C 80 20 129/85 97 Nasal Cannula 02/25/22 20:00 Nasal Cannula 02/26/22 00:26 91 H 02/25/22 23:42 37.2 C 110 H 22 138/61 93 Nasal Cannula 02/25/22 20:26 37.1 C 105 H 22 139/81 98 Nasal Cannula O2 Flow Rate 02/26/22 03:32 2.0 02/25/22 20:00 2 02/26/22 00:26 02/25/22 23:42 2 02/25/22 20:26 2 Resident Activity Tracking Resident Involvement: Resident Care Provided Care Provided: Adult Hospital Medicine
[2022-02-26 08:10] LABS: Hematocrit (blood only) 31.4 % (40.1-51.0); Hemoglobin 11.3 g/dl (14.0-18.0); Mean Corpuscular Hemoglobin 34.5 pg (25.0-34.0); Mean Corpuscular Volume 95.7 fL (80.0-100.0); Mean Platelet Volume 9.8 fL (9.4-12.4); Platelet Count 137 K/uL (130-400); RDW Coefficient of Variation 12.9 % (11.5-14.5); RDW Standard Deviation 45.6 fL (36.4-46.3); Red Blood Count 3.28 M/uL (4.63-6.08); White Blood Count 8.55 K/ul (4.8-10.8)
[2022-02-26] MEDS: NICOTINE 21 MG/24 HR TDSY TD SCH (08:29)
[2022-02-26] MEDS: dilTIAZem HCL 120 MG CAPCR PO SCH (08:31)
[2022-02-26] MEDS: dexAMETHasone 6 MG in SYRINGE 0 ML IV SCH (08:31)
[2022-02-26] MEDS: FOLIC ACID 1 MG TAB PO SCH (08:32)
[2022-02-26] MEDS: HEPARIN SOD 5,000 UNIT/0.5 ML VIAL SQ SCH ×2 (08:32→20:20)
[2022-02-26] MEDS: FLUTICASONE FUROATE 100MCG 14 PUFFS/INHALER INH SCH (08:32)
[2022-02-26] MEDS: PANTOprazole 40 MG TAB PO SCH (08:34)
[2022-02-26] MEDS: rifAXIMin 550 MG TABLET PO SCH ×2 (08:34→20:20)
[2022-02-26] MEDS: UMECLIDINIUM/VILANTEROL 62.5/25MCG 7 PUFFS/INHALER INH SCH (08:35)
[2022-02-26] MEDS: THIAMINE HCL 100 MG TAB PO SCH (08:35)
[2022-02-26 08:45] LABS: BUN Creatinine Ratio 21.1 (10-20); Calcium 8.5 mg/dl (8.5-10.1); Creatinine Clr Calc Pharmacy 23.1 ml/min; Est GFR (African American) 25.9 ml/min; Est GFR (Non-African American) 22.4 ml/min; Potassium 4.2 mmol/L (3.5-5.1)
[2022-02-26 09:57] LABS: Estimated Average Glucose 123 mg/dl; Hemoglobin A1C 5.9 % (4.5-5.6)
[2022-02-26] MEDS ORDERED: SODIUM CHLORIDE 3 % 150 ML IV ONE (10:01)
[2022-02-26] MEDS ORDERED: STAT IV STA ×3 (10:01→22:43)
--- NOTE | 2022-02-26 13:21 | Nephrology Progress Note ---
Date of Service February 26, 2022 Assessment & Plan (1) Acute renal failure: Plan: * STEVE/CKD due to dehydration in the setting of COVID infection. Patient denies the use of NSAIDS or exposure to known nephrotoxic medications. He denies difficulty voiding. On exam he remains clinically volume contracted w/ dry mucous membranes, minimal ascites and no peripheral edema. * Continue to hold Furosemide and Spironolactone * Renal US only if kidney function worsens * Monitor UO, PRP, Uosm (2) Chronic kidney disease, stage 3: Plan: * CKD stage G3b/A3 (moderate impairment). Baseline Cr 1.7 - 2.0 w/ EGFR 37 cc/min (3) Hyponatremia: Plan: * Remains hyponatremic * Uosm * Will provide 150 cc 3% NaCl * 1500 ml daily fluid restriction * Repeat PRP this afternoon and tomorrow AM (4) Rhabdomyolysis: Plan: * CPK improving with IV hydration (5) COVID-19: Plan: * COVID + 02/23/22 * CXR negative for infiltrate 02/23/22 * Currently breathing comfortably on 2 L VT Admission and Anticipated Discharge Date Admission Date: February 23, 2022 Subjective No acute events overnight. Martin was resting comfortably in a bedside chair this AM. He reports improving dyspnea. He continues to struggle with chest congestion and cough. No fevers or chills. Appetite is poor. Denies nausea, v omiting, or diarrhea. Denies any symptoms of withdraw or DTs and denies any history of such. Review of Systems Review of Systems: All systems reviewed & are unremarkable except as noted in HPI & below Physical Exam Constitutional: + ill appearing; not in distress Eyes: PERRL, conjunctivae normal, anicteric sclerae ENMT: Mouth: + dry oral mucous membranes Neck: trachea midline, no thyromegaly Respiratory: normal respiratory effort, lungs clear to auscultation Cardiovascular: RRR, no murmur, no edema (pretibial hemosiderin staining c/w prior lymphedema) Gastrointestinal (Abdomen): normal bowel sounds, soft, nontender, no hepatosplenomegaly Neurologic: awake Speech / Cognition: normal speech and normal cognition Results & Data ([facility]) Vital Signs (Past 12 Hours) Vital Signs Temp Pulse Resp BP Pulse Ox O2 Del Method O2 Flow Rate 02/26/22 11:13 90 20 96 Nasal Cannula 2 02/26/22 11:02 36.6 C 102 H 24 131/92 97 Nasal Cannula 3 02/26/22 08:00 Nasal Cannula 2 02/26/22 08:01 36.4 C L 101 H 22 126/84 92 Nasal Cannula 2 02/26/22 07:34 78 18 95 Nasal Cannula 2 02/26/22 03:32 36.6 C 80 20 129/85 97 Nasal Cannula 2.0 Laboratory Results Laboratory Results - last 24 hr 02/25/22 02/26/22 02/26/22 16:18 07:14 07:14 WBC RBC Hgb Hct MCV MCH MCHC RDW Std Deviation RDW Coeff of Walter Plt Count MPV Sodium 120 L Potassium 4.2 Chloride 87 L Carbon Dioxide 23 Anion Gap 10 BUN 57 H Creatinine 2.70 H Est Cr Clr Drug Dosing 23.1 Est GFR ( Amer) 25.9 Est GFR (Non-Af Amer) 22.4 BUN/Creatinine Ratio 21.1 H Glucose 162 H POC Glucose 228 H Estimat Average Glucose 123 Hemoglobin A1c 5.9 H Calcium 8.5 Urine Osmolality 02/26/22 02/26/22 07:14 Unknown WBC 8.55 RBC 3.28 L Hgb 11.3 L Hct 31.4 L MCV 95.7 MCH 34.5 H MCHC 36.0 RDW Std Deviation 45.6 RDW Coeff of Walter 12.9 Plt Count 137 MPV 9.8 Sodium Potassium Chloride Carbon Dioxide Anion Gap BUN Creatinine Est Cr Clr Drug Dosing Est GFR ( Amer) Est GFR (Non-Af Amer) BUN/Creatinine Ratio Glucose POC Glucose Estimat Average Glucose Hemoglobin A1c Calcium Urine Osmolality 202 L PG Care Time/CCT Total # of Minutes Spent Total Time Spent with Patient: Total time spent is greater than 50% in coordination of care (as documented) at patient's floor/unit and/or counseling patient: Coding Level of Care Code 90642 SUB INP/OBS CARE 3/50MIN Diagnoses Acute renal failure N17.9 Chronic kidney disease, stage 3 N18.32 Chronic kidney disease stage 3 subtype: stage 3b (GFR 30-44) Hyponatremia E87.1 Rhabdomyolysis M62.82 COVID-19 U07.1 (1) Chronic kidney disease, stage 3 Chronic kidney disease stage 3 subtype: stage 3b (GFR 30-44) Qualified Code( s): N18.32 - Chronic kidney disease, stage 3b
[2022-02-26 15:17] LABS: Anion Gap 11 (3-11); BUN Creatinine Ratio 22.4 (10-20); Blood Urea Nitrogen 60 mg/dl (6-23); Calcium 8.8 mg/dl (8.5-10.1); Carbon Dioxide 23 mmol/L (21-32); Chloride 89 mmol/L (98-107); Creatinine Clr Calc Pharmacy 23.3 ml/min; Est GFR (African American) 26.2 ml/min; Est GFR (Non-African American) 22.6 ml/min; Glucose 203 mg/dl (70-99(Fasting)); Sodium 123 mmol/L (136-145)
[2022-02-26] MEDS ORDERED: SODIUM CHLORIDE 3 % 100 ML IV ONE ×2 (16:18→22:43)
[2022-02-26] MEDS: BENZONATATE 100 MG CAPSULE PO PRN (20:19)
[2022-02-26] MEDS: guaiFENesin 600 MG TABCR PO SCH (20:20)
[2022-02-26] MEDS: TAMSULOSIN HCL 0.4 MG CAP PO SCH (20:22)
[2022-02-27] MEDS: LORazepam 1 MG TAB PO PRN (01:57)
[2022-02-27] MEDS: ALBUT/IPRATROP 3MG/0.5MG NEB 3 ML VIAL NEB SCH ×4 (07:02→19:15)
--- NOTE | 2022-02-27 07:03 | Hospitalist Progress Note ---
Date of Service February 27, 2022 Assessment & Plan (1) Rhabdomyolysis: Plan: 71yo Male PMH paroxysmal Afib not on anticoagulation, cirrhosis with esophageal varicies, COPD, CKD3, diastolic CHF, hx. beer potomania, hx. hyponatremia, HTN, tobacco abuse here for fall, admitted for hyponatremia Acute severe COVID-19: Sepsis -Found to be positive in the ED. cough 3-4 days -Needing 3L (usually has O2 at night), -CT chest: Cardiomegaly and emphysema. There are groundglass nodular opacities in the right lower lobe as above, likely representing a mild infectious/inflammatory pneumonitis. Clinical correlation will be required. An additional nodule is suggested in the left lower lobe. A follow-up chest CT in 3-4 months time is recommended to document complete resolution and exclude underlying pulmonary lesion.Trace right pleural effusion. -Sputum cx & Bcx negative after 48h -Was given 1 dose of ceftriaxone in the ED, empiric rocephin stopped less concerned for bacterial superinfection -With repeat fever overnight on 02/26, will redraw BCx and start empiric antibiotics with cefepime due to some clinical deterioration -MRSA nares ordered -- if positive will add vancomycin as well -Continue dexamethasone 6mg daily -remedesivir not considered due to compromised renal function -consider pul consult if no improvement -Continue supportive measures including scheduled pulm hygiene, scheduled DuoNebs, prn robitussin, guaifenesin 600mg q12h -Tessalon on hold due to mental status changes -recheck labs in am Severe COPD (chronic obstructive pulmonary disease): -already on dexamethasone -Continue pulm hygiene as above -Continue home breathing treatments -Monitor on pulse oximetry Acute confusion/somnolence -Suspect may be at least partially contributed to by several Ativan doses per AWSS protocol -At this time the symptoms that are triggering AWSS may be more related to his COVID infection (fever, tachycardia, mild tremor) -He has been disoriented overnight but that may be related to the medication in and of itself -As such, will hold AWSS protocol and continue to monitor Acute hypoxic resp failure: -continue oxygen support, wean as tolerated Hyponatremia: -sodium of 118 on arrival to the ED, may be from combination of cirrhosis, dehydration, poor diet, alcoholism, COVID -chronic hyponatremia normally around 125 -Serum osmolality 254, urine osmo 246, urine Na 66 = hypoosmolar hyponatremia -hold lasix spironolactone -received 2L NSS -2L fluid restriction and free water restriction -consulted nephrology * Given 150cc hypertonic saline 02/26, continue fluid restrict 1500 mL STEVE on CKD -Creat 2.5 on admit (baseline 1.7) -will use caution with IVF -holding spironolactone, lasix -Creatinine improving -Continue monitoring creatinine Alcohol use disorder -monitor for withdrawal -Receiving several doses of Ativan due to AWSS protocol, which may be leading to somnolence/confusion -As above, hold AWSS Afib: -Noted to be in RVR on arrival to the ED -continue diltiazem Elevated troponin: -max 865 downtrending -EKG without acute ST segment or T-wave changes -Likely due to demand from dehydration, being on the ground overnight, and recent episode of afib RVR -Continue to monitor on tele and pulse oximetry Fall with elevated cpk: -Patient slid off his recliner yesterday evening while trying to stand -Denies hitting head or losing consciousness, no acute trauma besides the sacral ulcer -Fall precautions ordered -PT/OT recommends inpatient rehab Hypomagnesemia: -1.5 on admit, recheck 1.9 -Is a chronic issue -repleted Hypertension: -Hemodynamically stable -hold spironolactone, lasix -Continue diltiazem Tobacco abuse: -Uses smokeless tobacco -ordered nicotine patches Sacral ulcer: -Wound nurse consulted -Continue to monitor Cirrhosis: -AST elevated at 65 today but LFT's are otherwise WNL, no signs of hepatic encephalopathy -Continue rifaximin -Continue to monitor LFTs DVT PPX: Heparin PT/OT: inpatient rehab Case Management: pending Dispo: PCU/tele Highly complex with poor prognosis (2) Metabolic acidosis: (3) Leukocytosis: (4) Fall: (5) Hyponatremia: (6) Hypomagnesemia: (7) Sacral ulcer: (8) Elevated troponin: (9) Tobacco abuse: (10) Acute renal failure: (11) COVID-19: (12) Acid reflux: Admission and Anticipated Discharge Date Admission Date: February 23, 2022 Supervising Physician Co-Signing Physician Notes Resident Physician Supervision Note: I independently interviewed and examined the patient and verified the coker history and physical, reviewed labs and image studies and agree with resident findings and care plan. Subjective Seen at bedside. Nasal cannula had fallen off when I came in room -- readjusted for him and saturation appropriate at 94% upon replacement. He seems very somnolent and, while he responds to name, he is only able to mumble/cannot converse. Opens eyes when asked specifically to do so and follows some simple commands but no significant alertness. Review of Systems Review of Systems: All systems reviewed & are unremarkable except as noted in Subjective Physical Exam Physical Exam: GENERAL: Tired. NAD. CHEST/LUNGS: CTAB A/P. No crackles, wheezes, rales, rhonchi. HEART: Irregularly irregular. No m/g/r. EXTREMITIES: No cyanosis, no clubbing, no edema SKIN: Warm and dry. No rashes or lesions. Results & Data Results & Data ([facility]) Vital Signs (Past 12 Hours) Vital Signs Temp Pulse Pulse Resp BP Pulse Ox O2 Del Method 02/26/22 20:00 Nasal Cannula 02/27/22 01:39 93 H 02/27/22 01:54 37.9 C H 20 120/75 97 Nasal Cannula 02/27/22 00:57 37.7 C H 108 H 20 150/79 H 98 Nasal Cannula 02/26/22 23:06 38.4 C H 105 H 20 150/79 H 96 Nasal Cannula 02/26/22 21:19 36.8 C 113 H 20 163/75 H 98 Nasal Cannula 02/26/22 19:51 97 H 20 95 Nasal Cannula O2 Flow Rate 02/26/22 20:00 2 02/27/22 01:39 02/27/22 01:54 2 02/27/22 00:57 2 02/26/22 23:06 2 02/26/22 21:19 2 02/26/22 19:51 2 Resident Activity Tracking Resident Involvement: Resident Care Provided Care Provided: Adult Hospital Medicine
[2022-02-27 07:31] LABS: Albumin Level 3.3 gm/dl (3.4-5.0); BUN Creatinine Ratio 27.8 (10-20); Calcium 8.6 mg/dl (8.5-10.1); Creatinine Clr Calc Pharmacy 26.6 ml/min; Est GFR (African American) 30.8 ml/min; Est GFR (Non-African American) 26.6 ml/min; Phosphorus 3.3 mg/dl (2.5-4.9); Potassium 4.9 mmol/L (3.5-5.1)
[2022-02-27] MEDS: dexAMETHasone 6 MG in SYRINGE 0 ML IV SCH (08:17)
[2022-02-27] MEDS: UMECLIDINIUM/VILANTEROL 62.5/25MCG 7 PUFFS/INHALER INH SCH (08:18)
[2022-02-27] MEDS: dilTIAZem HCL 120 MG CAPCR PO SCH (08:18)
[2022-02-27] MEDS: FLUTICASONE FUROATE 100MCG 14 PUFFS/INHALER INH SCH (08:18)
[2022-02-27] MEDS: NICOTINE 21 MG/24 HR TDSY TD SCH (08:19)
[2022-02-27] MEDS: FOLIC ACID 1 MG TAB PO SCH (08:19)
[2022-02-27] MEDS: rifAXIMin 550 MG TABLET PO SCH ×2 (08:19→20:30)
[2022-02-27] MEDS: PANTOprazole 40 MG TAB PO SCH (08:19)
[2022-02-27] MEDS: guaiFENesin 600 MG TABCR PO SCH ×2 (08:19→20:29)
[2022-02-27] MEDS: THIAMINE HCL 100 MG TAB PO SCH (08:19)
[2022-02-27] MEDS: HEPARIN SOD 5,000 UNIT/0.5 ML VIAL SQ SCH ×2 (08:19→20:31)
[2022-02-27] MEDS ORDERED: STAT IV STA (08:45)
[2022-02-27] MEDS ORDERED: SODIUM CHLORIDE 3 % 150 ML IV ONE (08:45)
--- NOTE | 2022-02-27 12:03 | Nephrology Progress Note ---
Date of Service February 27, 2022 Assessment & Plan (1) Acute renal failure: Plan: Non-oliguric. Creatinine stable. Electrolytes acceptable. Hyponatremia improving. No indication for [employer]. STEVE/CKD due to dehydration in the setting of COVID infection. On exam he remains clinically volume contracted w/ dry mucous membranes, minimal ascites and no peripheral edema. Continue to hold Furosemide and Spironolactone Monitor UO, PRP, Uosm (2) Chronic kidney disease, stage 3: Plan: CKD stage G3b/A3. Baseline Cr 1.7 - 2.0 w/ EGFR 37 cc/min. (3) Hyponatremia: Plan: Improving with hypertonic fluids. Additional 100 ml 3% saline provided this AM. Avoid aggressive correction.. Chronic hyponatremia complicated by potomania and intravascular volume depletion. 1500 ml daily free water fluid restriction,. Repeat PRP ordered for this afternoon. Unless sodium drops, no additional correction will be required today. (4) Rhabdomyolysis: Plan: CPK improving with treatment. (5) COVID-19: Plan: COVID + 02/23/22. CXR negative for infiltrate 02/23/22. Currently breathing comfortably on 2 L NC. Tessalon discontinued due to mental status changes. (6) Cirrhosis: Plan: Remains on Rifampin. Monitor CMP and consider checking NH3 and providing additional therapy for HE, if encephalopathy persists. (7) Alcohol withdrawal: Plan: Concerning features of delirium/agitation noted. Somnolent post benzodiazepines. Remains on AWSS. Management per primary team. Sodium is improving and significant fluid restriction has not been required, may give thiamine, folate, and MVI IV if unable to tolerate PO. Check PO4 and magnesium with next labs. (8) Anemia: Plan: Stable, chronic. This does not require any additional therapy. Admission and Anticipated Discharge Date Admission Date: February 23, 2022 Subjective Mr. Mark is very somnolent and confused this AM. Ativan provided overnight per AWSS protocol. Per the bedside RN, Martin was increasingly confused, agitated and hallucinating. He remains tachycardic and hypotensive. He did open his eyes for me this morning and attempted to answer questions but was lethargic and weak. PO intake has been poor. No fevers or chills. No focal neurologic features noted. Review of Systems Review of Systems: Unobtainable due to reduced consciousness Physical Exam Constitutional: + ill appearing and + altered mental status; not in distress Eyes: + anicteric sclerae, reactive pupils and + dilated pupils ENMT: Mouth: + dry oral mucous membranes Neck: trachea midline, no thyromegaly Respiratory: + tachypneic and + grunting; no labored breathing Auscultation: + rales Cardiovascular: Rate/Rhythm: + tachycardic Heart Sounds: normal S1 and normal S2 Extremities: + pedal edema Skin: + turgor decreased; no jaundice Neurologic: moves all extremities and + confused Motor/Sensory: no asterixis Psychiatric: Orientation: oriented to person (opens eyes and responds to name) Results & Data ([facility]) Vital Signs (Past 12 Hours) Vital Signs Temp Pulse Pulse Resp BP Pulse Ox O2 Del Method 02/27/22 11:34 103 H 22 95 Nasal Cannula 02/27/22 11:09 36.8 C 90 20 150/83 H 96 Nasal Cannula 02/27/22 09:15 Nasal Cannula 02/27/22 08:57 106 H 02/27/22 08:00 37.6 C H 90 20 110/74 96 Nasal Cannula 02/27/22 07:03 103 H 20 95 Nasal Cannula 02/27/22 01:39 93 H 02/27/22 01:54 37.9 C H 20 120/75 97 Nasal Cannula 02/27/22 00:57 37.7 C H 108 H 20 150/79 H 98 Nasal Cannula O2 Flow Rate 02/27/22 11:34 2 02/27/22 11:09 2 02/27/22 09:15 2 02/27/22 08:57 02/27/22 08:00 2 02/27/22 07:03 2 02/27/22 01:39 02/27/22 01:54 2 02/27/22 00:57 2 Laboratory Results Laboratory Results - last 24 hr 02/26/22 02/26/22 02/26/22 14:02 15:36 18:55 Sodium 123 L 125 L Potassium TNP TNP Chloride 89 L Carbon Dioxide 23 Anion Gap 11 BUN 60 H Creatinine 2.68 H Est Cr Clr Drug Dosing 23.3 Est GFR ( Amer) 26.2 Est GFR (Non-Af Amer) 22.6 BUN/Creatinine Ratio 22.4 H Glucose 203 H Calcium 8.8 Phosphorus Albumin 02/26/22 02/27/22 19:21 06:40 Sodium 126 L Potassium 4.7 4.9 Chloride 94 L Carbon Dioxide 24 Anion Gap 8 BUN 65 H Creatinine 2.34 H D Est Cr Clr Drug Dosing 26.6 Est GFR ( Amer) 30.8 Est GFR (Non-Af Amer) 26.6 BUN/Creatinine Ratio 27.8 H Glucose 141 H Calcium 8.6 Phosphorus 3.3 Albumin 3.3 L PG Care Time/CCT Total # of Minutes Spent Total Time Spent with Patient: Total time spent is greater than 50% in coordination of care (as documented) at patient's floor/unit and/or counseling patient: Coding Level of Care Code 74478 SUB INP/OBS CARE 3/50MIN Diagnoses Acute renal failure N17.9 Chronic kidney disease, stage 3 N18.32 Chronic kidney disease stage 3 subtype: stage 3b (GFR 30-44) Hyponatremia E87.1 Rhabdomyolysis M62.82 COVID-19 U07.1 Cirrhosis K70.30 Hepatic cirrhosis type: alcoholic cirrhosis Ascites presence: without ascites Alcohol withdrawal F10.939 Anemia D64.89 Anemia type: other cause Other causes of anemia: other cause, not classified (1) Chronic kidney disease, stage 3 Chronic kidney disease stage 3 subtype: stage 3b (GFR 30-44) Qualified Code(s): N18.32 - Chronic kidney disease, stage 3b (2) Anemia Anemia type: other cause Other causes of anemia: other cause, not classified Qualified Code(s): D64.89 - Other specified anemias (3) Cirrhosis Hepatic cirrhosis type: alcoholic cirrhosis Ascites presence: without ascites Qualified Code(s): K70.30 - Alcoholic cirrhosis of liver without ascites
[2022-02-27] MEDS ORDERED: CEFEPIME 1,000 MG in SYRINGE 0 ML IV SCH (13:30)
[2022-02-27] MEDS: TAMSULOSIN HCL 0.4 MG CAP PO SCH (20:30)
[2022-02-28] MEDS: ALBUT/IPRATROP 3MG/0.5MG NEB 3 ML VIAL NEB SCH ×4 (07:01→19:17)
[2022-02-28 08:18] LABS: Basophils # (auto) 0.01 K/uL (0-0.2); Basophils % (auto) 0.1 %; Hematocrit (blood only) 37.6 % (40.1-51.0); Immature Granulocytes # (auto) 0.08 K/uL (0.00-0.02); Immature Granulocytes % (auto) 1.2 %; Lymphocytes # (auto) 0.11 K/uL (1.2-3.4); Lymphocytes % (auto) 1.6 %; Mean Corpuscular Hgb Conc 34.6 g/dL (32.0-36.0); Mean Corpuscular Volume 98.4 fL (80.0-100.0); Mean Platelet Volume 9.9 fL (9.4-12.4); Monocytes # (auto) 0.67 K/uL (0.24-0.82); Monocytes % (auto) 9.8 %; Neutrophils # (auto) 5.98 K/uL (1.4-6.5); Neutrophils % (auto) 87.3 %; Platelet Count 145 K/uL (130-400); RDW Coefficient of Variation 13.6 % (11.5-14.5); RDW Standard Deviation 49.1 fL (36.4-46.3); Red Blood Count 3.82 M/uL (4.63-6.08); White Blood Count 6.85 K/ul (4.8-10.8)
[2022-02-28 08:39] LABS: Albumin Globulin Ratio 1.1 (0.9-2); Albumin Level 3.4 gm/dl (3.4-5.0); BUN Creatinine Ratio 31.9 (10-20); Bilirubin,Total 0.4 mg/dl (0.2-1.0); C Reactive Protein 12.66 mg/dl (0-0.5); Creatinine Clr Calc Pharmacy 33.4 ml/min; Est GFR (Non-African American) 35.3 ml/min; Globulin 3.2 gm/dl (2.5-4.0); Phosphorus 3.6 mg/dl (2.5-4.9); Potassium 5.1 mmol/L (3.5-5.1); Total Protein 6.6 gm/dl (6.0-8.3)
[2022-02-28] MEDS: dexAMETHasone 6 MG in SYRINGE 0 ML IV SCH (08:48)
[2022-02-28] MEDS: THIAMINE HCL 100 MG TAB PO SCH (08:49)
[2022-02-28] MEDS: dilTIAZem HCL 120 MG CAPCR PO SCH (08:49)
[2022-02-28] MEDS: NICOTINE 21 MG/24 HR TDSY TD SCH (08:52)
[2022-02-28] MEDS: rifAXIMin 550 MG TABLET PO SCH ×2 (08:53→21:24)
[2022-02-28] MEDS: PANTOprazole 40 MG TAB PO SCH (08:53)
[2022-02-28] MEDS: guaiFENesin 600 MG TABCR PO SCH ×2 (08:53→21:24)
[2022-02-28] MEDS: FOLIC ACID 1 MG TAB PO SCH (08:54)
[2022-02-28] MEDS: FLUTICASONE FUROATE 100MCG 14 PUFFS/INHALER INH SCH (08:55)
[2022-02-28] MEDS: HEPARIN SOD 5,000 UNIT/0.5 ML VIAL SQ SCH ×2 (08:56→21:24)
[2022-02-28] MEDS: UMECLIDINIUM/VILANTEROL 62.5/25MCG 7 PUFFS/INHALER INH SCH (08:57)
--- NOTE | 2022-02-28 09:15 | Hospitalist Progress Note ---
Date of Service February 28, 2022 Assessment & Plan (1) Rhabdomyolysis: Plan: 71yo Male PMH paroxysmal AF not on anticoagulation, cirrhosis with esophageal varicies, COPD, CKD3, diastolic CHF, hx. beer potomania, hx. hyponatremia, HTN, tobacco abuse here for fall, admitted for hyponatremia. Acute COVID-19 infection with potential superimposed bacterial pneumonia -Found to be COVID positive in the ED with elevated procalcitonin 4 -> 21, CRP, lactate -Did receive 1 dose ceftriaxone -New daytime oxygen requirement 3L (usually has O2 at night), wean as tolerated -CT chest: Cardiomegaly and emphysema. There are ground glass nodular opacities in the right lower lobe as above, likely representing a mild infectious/inflammatory pneumonitis. Clinical correlation will be required. An additional nodule is suggested in the left lower lobe. A follow-up chest CT in 3-4 months time is recommended to document complete resolution and exclude underlying pulmonary lesion.Trace right pleural effusion. -WBC, lactate trending down -Initial sputum Cx negative, BCx negative after 48h, MRSA nares negative -Currently on cefepime due to fever on 02/26 with clinical deterioration -Repeat BCx pending -Cefepime switched to ceftriaxone today -Repeat procalcitonin in AM -Continue dexamethasone IV -Continue pulmonary toilet and supportive care- scheduled duonebs, guaifenesin BID, incentive spirometry Severe COPD (chronic obstructive pulmonary disease): -Currently on dexamethasone -Continue pulmonary hygiene as above -Continue home breathing treatments- Anoro, duoneb Acute confusion/somnolence -Suspect may be at least partially contributed to by several Ativan doses per AWSS protocol -At this time the symptoms that are triggering AWSS may be more related to his COVID infection (fever, tachycardia, mild tremor) -As such, will hold AWSS protocol and continue to monitor Acute hypoxic respiratory failure: -continue oxygen support, wean as tolerated -Currently at 2L NC -Anticipate he will need home oxygen during daytime on discharge STEVE on CKD3 -Creatinine 2.5 on admission (normal 1.7) -Continue to hold spironolactone, Lasix -Creatinine improving to 1.85 today -Trend BMP Hyponatremia: -sodium of 118 on arrival to the ED, may be from combination of cirrhosis, dehydration, poor diet, alcoholism, COVID -chronic hyponatremia normally around 125 -Serum osmolality 254, urine osmo 246, urine Na 66 = hypoosmolar hyponatremia -Improving with fluid restriction to 130 today Alcohol use disorder -monitor for withdrawal -PRN Ativan for withdrawal symptoms -Receiving several doses of Ativan due to AWSS protocol, which may be leading to somnolence/confusion -As above, hold AWSS Rhabdomyolysis: -Max CK 1800 downtrending - STEVE on CKD3, Cr of 2.5 (baseline 1.7) -receiving IVF Atrial fibrillation -Noted to be in RVR on arrival to the ED -Still in atrial fibrillation, rate-controlled -Continue diltiazem -Not on any anticoagulation due to history of cirrhosis, GI ulcer and esophageal varices Elevated troponin: -max 865 downtrending -EKG without acute ST segment or T-wave changes -Likely due to demand from dehydration, being on the ground overnight, and recent episode of AF w/ RVR Fall: -Patient slid off his recliner prior to admission while trying to stand -Denied hitting head or losing consciousness, no acute trauma besides the sacral ulcer -Fall precautions ordered -PT/OT recommends inpatient rehab Hypomagnesemia: -1.5 on admission, recheck 1.9 -Chronic deficiency per chart review -Repleted, 2.0 today Hypertension: -Hemodynamically stable -hold spironolactone, Lasix -Continue diltiazem Tobacco abuse: -Uses smokeless tobacco -ordered nicotine patches Sacral ulcer: -Wound nurse consulted -Continue to monitor Cirrhosis: -Liver enzymes wnl, no signs of hepatic encephalopathy -Continue rifaximin DVT PPX: Heparin 5000u BID PT/OT: inpatient rehab Case Management: pending Dispo: PCU/telemetry (2) Metabolic acidosis: (3) Leukocytosis: (4) Fall: (5) Hyponatremia: (6) Hypomagnesemia: (7) Sacral ulcer: (8) Elevated troponin: (9) Tobacco abuse: (10) Acute renal failure: (11) COVID-19: (12) Acid reflux: Admission and Anticipated Discharge Date Admission Date: February 23, 2022 Supervising Physician Co-Signing Physician Notes I personally examined the patient and verified all coker points of history and exam, discussed case, and agree with decision making with Dr Robertson. No complaints. "I feel like I am ready to go to that rehab place" Vitals noted, in general he is awake and alert pleasant no distress. HEENT normocephalic atraumatic mucous membranes moist. Breathing unlabored no accessory muscle use good effort. No rales rhonchi or wheezes. Slightly diminished air entry. Skin shows no rashes no pallor or icterus. Neuro without focal deficits. Weakness, hyponatremia, acute renal failure, mild rhabdomyolysisThal in the setting of recent COVID-19 infectionstable/improvingcontinue current care. Rehab once bed available. Subjective Overnight, pt was apparently briefly obtunded per nursing report but upon on evaluation by overnight hospitalist, he was responsive and AOx3. This morning, pt does not endorse any new complaints. No dyspnea but still coughing and reporting leg swelling, fatigue. He does feel he's slightly improving. Review of Systems Review of Systems: Per subjective Physical Exam Physical Exam: GENERAL: Tired. NAD. CHEST/LUNGS: Coarse breath sounds, rales at bases. No increased work of breathing. HEART: Irregularly irregular. No m/g/r. EXTREMITIES: No cyanosis, no clubbing, trace peripheral edema of b/l LE SKIN: Warm and dry. No rashes or lesions. Results & Data Results & Data ([facility]) Vital Signs (Past 12 Hours) Vital Signs Temp Pulse Pulse Resp BP Pulse Ox O2 Del Method 02/28/22 07:59 37.1 C 103 H 20 146/83 H 98 Nasal Cannula 02/28/22 07:05 98 H 22 95 Nasal Cannula 02/28/22 05:10 36.8 C 97 H 20 138/86 97 Nasal Cannula 02/27/22 22:53 36.9 C 87 20 129/86 98 Nasal Cannula 02/27/22 23:12 78 O2 Flow Rate 02/28/22 07:59 2 02/28/22 07:05 2 02/28/22 05:10 2 02/27/22 22:53 2 02/27/22 23:12 Resident Activity Tracking Resident Involvement: Resident Care Provided Care Provided: Adult Hospital Medicine
[2022-02-28] MEDS ORDERED: CEFEPIME 1,000 MG in SYRINGE 0 ML IV SCH (11:00)
--- NOTE | 2022-02-28 13:27 | Nephrology Progress Note ---
Date of Service February 28, 2022 Assessment & Plan (1) Acute renal failure: (2) Hyponatremia: (3) Hypomagnesemia: Plan 71yo M with PMH of paroxysmal Afib, cirrhosis with esophageal varices, COPD, stage 3 CKD, diastolic CHF, hx. beer potomania, hx. hyponatremia, HTN, tobacco abuse admitted after fall at home , found to have STEVE, hyponatremia. In ED found to be COVID positive. Has stage III B CKD baseline creatinine variable from 1.8-2.0. Creatinine peaked to 2.7 now started to improve and down to 1.8 this morning. Has chronic hyponatremia with history of heavy alcohol use, sodium improved to 130. AMS related to repeated Ativan does, seems to have improved. -- continue to monitor renal function and electrolyte. --hold Lasix and spironolactone, free water restriction to less than 1500 mL per day Will follow. Admission and Anticipated Discharge Date Admission Date: February 23, 2022 Srikanth Salazar was seen and evaluated this morning. He denied significant shortness of breath, chest pain. Appetite has been decent. Blood pressure acceptable. Review of Systems Review of Systems: detailed review of system was otherwise unremarkable. Physical Exam Constitutional: WD/WN, vitals as above no acute distress Eyes: + anicteric sclerae Neck: normal visual inspection Respiratory: normal respiratory effort; no respiratory distress Auscultation: + diminished lung sounds; no wheezes Cardiovascular: Rate/Rhythm: regular rate and regular rhythm Heart Sounds: normal S1 and normal S2 Extremities: no edema Skin: no rashes Neurologic: no focal motor deficits and not confused Psychiatric: Orientation: alert and oriented x 3 Results & Data ([facility]) Vital Signs (Past 12 Hours) Vital Signs Temp Pulse Resp BP Pulse Ox O2 Del Method O2 Del Method 02/28/22 08:20 Nasal Cannula 02/28/22 11:00 Nasal Cannula 02/28/22 11:50 37.1 C 105 H 18 138/72 97 Nasal Cannula 02/28/22 11:26 115 H 28 H 91 Nasal Cannula 02/28/22 07:59 37.1 C 103 H 20 146/83 H 98 Nasal Cannula 02/28/22 07:05 98 H 22 95 Nasal Cannula 02/28/22 05:10 36.8 C 97 H 20 138/86 97 Nasal Cannula O2 Flow Rate O2 Flow Rate 02/28/22 08:20 1 02/28/22 11:00 3 02/28/22 11:50 2 02/28/22 11:26 2 02/28/22 07:59 2 02/28/22 07:05 2 02/28/22 05:10 2 PG Care Time/CCT Total # of Minutes Spent Total Time Spent with Patient: Total time spent is greater than 50% in coordination of care (as documented) at patient's floor/unit and/or counseling patient: Coding Level of Care Code 88711 SUB INP/OBS CARE 3/50MIN Diagnoses Acute renal failure N17.9 Hyponatremia E87.1 Hypomagnesemia E83.42
--- NOTE | 2022-02-28 18:47 | Billing Data ---
Date of Service February 28, 2022 Coding Level of Care Code 95800 SUB INP/OBS CARE MIN
[2022-02-28] MEDS: TAMSULOSIN HCL 0.4 MG CAP PO SCH (21:24)
[2022-03-01 06:39] LABS: Hematocrit (blood only) 32.7 % (40.1-51.0); Hemoglobin 11.5 g/dl (14.0-18.0); Mean Corpuscular Hemoglobin 34.2 pg (25.0-34.0); Mean Corpuscular Hgb Conc 35.2 g/dL (32.0-36.0); Mean Corpuscular Volume 97.3 fL (80.0-100.0); Mean Platelet Volume 9.9 fL (9.4-12.4); Platelet Count 164 K/uL (130-400); RDW Coefficient of Variation 13.3 % (11.5-14.5); RDW Standard Deviation 47.5 fL (36.4-46.3); Red Blood Count 3.36 M/uL (4.63-6.08); White Blood Count 6.02 K/ul (4.8-10.8)
[2022-03-01] MEDS: ALBUT/IPRATROP 3MG/0.5MG NEB 3 ML VIAL NEB SCH ×3 (06:53→14:53)
[2022-03-01 07:21] LABS: BUN Creatinine Ratio 32.1 (10-20); Bilirubin,Total 0.4 mg/dl (0.2-1.0); Calcium 8.9 mg/dl (8.5-10.1); Creatinine Clr Calc Pharmacy 29.5 ml/min; Est GFR (African American) 34.7 ml/min; Phosphorus 2.7 mg/dl (2.5-4.9); Potassium 5.4 mmol/L (3.5-5.1)
--- NOTE | 2022-03-01 10:02 | Discharge Summary ---
Date of Service March 01, 2022 Admission HPI Per Admitting Provider Martin Mark is a 69 y/o M w/ hx of pAF not on anticoagulation, cirrhosis, COPD, CKD3, diastolic CHF grade 1, and previous hospitalizations for beer potomania who presented to the [facility] ED on 02/23/22 with a chief complaint of chest pain and falling out of bed. In the ED the patient was found to be afebrile, hemodynamically stable, stable on RA, but tachycardic in the 110's-120's. Labs were remarkable for a leukocytosis of 17 with left shift of 15, stable hgb and platelets, INR of 1.1, VBG showing a pH of 7.38, pCO2 of 29, pO2 of 74, cr of 2.50 (baseline appears to be around 2.0), sodium of 118 with glucose of 107, potassium of 4.4, chloride of 86, AG of 13 with bicarb of 19, lactate of 2.3, mag of 1.5, AST of 65 otherwise stable liver function, total CK of 532, initial high sensitivity trop of 308, procal of 4.0, and covid positive but influenza and rsv negative. Chest xray was read as "No acute abnormalities and in particular no evidence of pneumonia.". Prior to admission the patient was given one dose of ceftriaxone, 1gm IV magnesium, and was ordered 1L NSS. At the time of the exam the patient was resting comfortably in bed in no acute distress. He states that he slipped off of his recliner yesterday around 6:30 PM due to generalized BL lower extremity weakness while attempting to stand from his recliner. He slowly slid and landed on his buttocks, he denies hitting his head or losing consciousness. He states that he started to developed a productive cough approximately 4 days ago, when asked, he states that he does not have a productive cough a baseline. When asked about his drinking he states that he drank 4 beers last night prior to sliding off his recliner. He states that he attempted to get up off the ground multiple times but was unable to due to his generalized weakness. He states that he initially developed so low, left- sided chest/rib pain while trying to lift himself off the ground, he is without chest pain at the time of my exam. He denies recent fevers, chills, changes in vision, hearing, taste, and smell, chest pain, SOB, abdominal pain, nausea, vomiting, diarrhea, dysuria, hematuria, melena, and bloody bowel movements. When asked, he states that his lower extremity swelling seems to be at it's baseline but he is experiencing BL lower extremity pain at this time. When asked about other pain he states that his butt has been sore since he was sitting so long on the ground. I spoke to him regarding code status, he wishes to be a full code. If he could not make decisions for himself he would want his friend/neighbor, Kitty ([phone]), to make decisions for him. Please refer to Dr. Lam's attestation for any changes to the treatment plan Admission Exam Per Admitting Provider Physical Exam: General:In no acute distress, older than stated age, chronically ill- appearing, very poor hygiene HEENT:Normocephalic, atraumatic, no scleral icterus, pupils around round, symmetrical, and reactive to light,poor oral hygiene with dry mucus membranes, trachea midline, no thyromegaly Chest/Pulm:No respiratory distress, symmetrical chest expansion, patient with productive cough and yellow/brown sputum, scatter rhonchi and expiatory wheezing noted throughout Cardiac: Irregular rate and rhythm, no murmurs noted Abdomen:Negative for ascites and bruising, normoactive bowel sounds, soft, non-tender to palpation throughout Musculoskeletal:Symmetrical and without signs of acute trauma, upper and lower extremities with full ROM, no atrophy, spasticity, or flaccidity Extremities:Radial, dorsalis pedis, and posterior tibial pulses are intact and symmetrical, patient with signs of chronic venous insufficiency with swelling and erythema around the proximal ankles Skin:patient without skin tears or wounds on the lower extremities, examination of his buttocks reveals the start of a sacral pressure ulcer without active draining or bleeding Neuro:Alert and oriented to person, place, month, year, and president, no focal defects, CN II-XII tested and intact, finger to nose test negative, no tremors noted Psych:No acute distress, calm and cooperative during the exam Principal Diagnosis COVID-19 infection Discharge Exam GENERAL: Tired. NAD. CHEST/LUNGS: Largely clear breath sounds, improved from day prior but slightly diminshed. No increased work of breathing. HEART: Irregularly irregular. No m/g/r. EXTREMITIES: No cyanosis, no clubbing, trace peripheral edema of b/l LE SKIN: Warm and dry. No rashes or lesions. Discharge Data Allergies Allergy/AdvReac Type Severity Reaction Status Date / Time No Known Allergies Allergy Verified 02/23/22 16:03 Consultations 02/23/22 12:42 ED Decision to Admit Stat 02/24/22 09:58 Consult Nephrology Routine Ordered Studies 02/23/22 14:18 US venous doppler LE BI Urgent 02/24/22 14:04 CT chest diagnostic wo con Routine Hospital Course (1) Rhabdomyolysis: 71yo Male PMH paroxysmal AF not on anticoagulation, cirrhosis with esophageal varicies, COPD, CKD3, diastolic CHF, hx. beer potomania, hx. hyponatremia, HTN, tobacco abuse here for fall, admitted for hyponatremia. Acute COVID-19 infection with potential superimposed bacterial pneumonia -Found to be COVID positive in the ED with elevated procalcitonin 4 -> 21, CRP, lactate -Did receive 1 dose ceftriaxone -New daytime oxygen requirement 3L (usually has O2 at night), wean as tolerated -CT chest:Cardiomegaly and emphysema. There are ground glass nodular opacities in the right lower lobe as above, likely representing a mild infectious/inflammatory pneumonitis. Clinical correlation will be required. An additional nodule is suggested in the left lower lobe. A follow-up chest CT in 3-4 months time is recommended to document complete resolution and exclude underlying pulmonary lesion.Trace right pleural effusion. -WBC, lactate trending down -Initial sputum Cx negative, BCx negative after 48h, MRSA nares negative -Currently on cefepime due to fever on 02/26 with clinical deterioration -Repeat BCx preliminary negative -Cefepime switched to ceftriaxone on 02/28, repeat procalcitonin 1.45 on 03/01 -Can likely discontinue ceftriaxone on discharge -Continue dexamethasone IV -Continue pulmonary toilet and supportive care- scheduled duonebs, guaifenesin BID, incentive spirometry Severe COPD (chronic obstructive pulmonary disease): -Currently on dexamethasone -Continue pulmonary hygiene as above -Continue home breathing treatments- Anoro, duoneb Acute confusion/somnolence -Suspect may be at least partially contributed to by several Ativan doses per AWSS protocol -At this time the symptoms that are triggering AWSS may be more related to his COVID infection (fever, tachycardia, mild tremor) -As such, will hold AWSS protocol and continue to monitor Acute hypoxic respiratory failure: -continue oxygen support, wean as tolerated -Currently at 2L NC -Anticipate he will need home oxygen during daytime on eventual discharge home STEVE with CKD3 -Creatinine 2.5 on admission (normal 1.7) -Continue to hold spironolactone, Lasix -Creatinine increase from 1.85 to 2.12 today- 500mL NSS given -Trend BMP Hyponatremia: -sodium of 118 on arrival to the ED, may be from combination of cirrhosis, dehydration, poor diet, alcoholism, COVID -chronic hyponatremia normally around 125 -Serum osmolality 254, urine osmo 246, urine Na 66 = hypoosmolar hyponatremia -Improving with fluid restriction to 130 but decrease to 127 today- suspect from poor solute intake -Please repeat BMP in AM Hyperkalemia -K 5.1 to 5.4 today -May indicate hemolysis vs mild elevation concurrent with STEVE -500mL NSS as above -Please repeat BMP in AM Alcohol use disorder -monitor for withdrawal -PRN Ativan for withdrawal symptoms -Receiving several doses of Ativan due to AWSS protocol, which may be leading to somnolence/confusion -As above, hold AWSS Rhabdomyolysis: -Max CK 1800 downtrending -receiving IVF Atrial fibrillation -Noted to be in RVR on arrival to the ED -Still in atrial fibrillation, rate-controlled -Continue diltiazem -Not on any anticoagulation due to history of cirrhosis, GI ulcer and esophageal varices Elevated troponin: -max 865 downtrending -EKG without acute ST segment or T-wave changes -Likely due to demand from dehydration, being on the ground overnight, and recent episode of AF w/ RVR Fall: -Patient slid off his recliner prior to admission while trying to stand -Denied hitting head or losing consciousness, no acute trauma besides the sacral ulcer -Fall precautions ordered -PT/OT recommends inpatient rehab Hypomagnesemia: -1.5 on admission, recheck 1.9 -Chronic deficiency per chart review -Repleted, 2.0 on 02/28 Hypertension: -Hemodynamically stable -hold spironolactone, Lasix -Continue diltiazem Tobacco abuse: -Uses smokeless tobacco -ordered nicotine patches Sacral ulcer: -Wound nurse consulted -Continue to monitor Cirrhosis: -Liver enzymes wnl, no signs of hepatic encephalopathy -Continue rifaximin DVT PPX: Heparin 5000u BID Dispo: PCU/telemetr (2) Metabolic acidosis: (3) Leukocytosis: (4) Fall: (5) Hyponatremia: (6) Hypomagnesemia: (7) Sacral ulcer: (8) Elevated troponin: (9) Tobacco abuse: (10) Acute renal failure: (11) COVID-19: (12) Acid reflux: Total Time Total Time Spent Total Time Spent (In Minutes): 30 Discharge Plan Discharge Items Patient Disposition: Transfer Inpatient Rehab Fac Reason For Visit: FALL OUT OF BED, CHEST PAIN Discharge Diagnosis: COVID infection Activity: Per Instructions section Non-emergency contact: Primary Care Provider Call non-emergency contact if: your symptoms worsen and you have a fever Follow-up/Referrals: Devon Silver MD [Primary Care Provider] - 03/08/22 2:00 pm (Will see NATURAL RESOURCE TECHNICIANJENNIFER Torres) Diet: Low Fat and Low Sodium (2gm) Addtl Attending Provider Instructions: 71yo Male PMH paroxysmal AF not on anticoagulation, cirrhosis with esophageal varicies, COPD, CKD3, diastolic CHF, hx. beer potomania, hx. hyponatremia, HTN, tobacco abuse here for fall, admitted for hyponatremia. Acute COVID-19 infection with potential superimposed bacterial pneumonia -Found to be COVID positive in the ED with elevated procalcitonin 4 -> 21, CRP, lactate -Did receive 1 dose ceftriaxone -New daytime oxygen requirement 3L (usually has O2 at night), wean as tolerated -CT chest:Cardiomegaly and emphysema. There are ground glass nodular opacities in the right lower lobe as above, likely representing a mild infectious/inflammatory pneumonitis. Clinical correlation will be required. An additional nodule is suggested in the left lower lobe. A follow-up chest CT in 3-4 months time is recommended to document complete resolution and exclude underlying pulmonary lesion.Trace right pleural effusion. -WBC, lactate trending down -Initial sputum Cx negative, BCx negative after 48h, MRSA nares negative -Currently on cefepime due to fever on 02/26 with clinical deterioration -Repeat BCx preliminary negative -Cefepime switched to ceftriaxone on 02/28, repeat procalcitonin 1.45 on 03/01 -Can likely discontinue ceftriaxone -Continue dexamethasone IV -Continue pulmonary toilet and supportive care- scheduled duonebs, guaifenesin BID, incentive spirometry Severe COPD (chronic obstructive pulmonary disease): -Currently on dexamethasone -Continue pulmonary hygiene as above -Continue home breathing treatments- gladis Isidro Acute confusion/somnolence -Suspect may be at least partially contributed to by several Ativan doses per A WSS protocol -At this time the symptoms that are triggering AWSS may be more related to his COVID infection (fever, tachycardia, mild tremor) -As such, will hold AWSS protocol and continue to monitor Acute hypoxic respiratory failure: -continue oxygen support, wean as tolerated -Currently at 2L NC -Anticipate he will need home oxygen during daytime on eventual discharge home STEVE with CKD3 -Creatinine 2.5 on admission (normal 1.7) -Continue to hold spironolactone, Lasix -Creatinine increase from 1.85 to 2.12 today- 500mL NSS given -Trend BMP Hyponatremia: -sodium of 118 on arrival to the ED, may be from combination of cirrhosis, dehydration, poor diet, alcoholism, COVID -chronic hyponatremia normally around 125 -Serum osmolality 254, urine osmo 246, urine Na 66 = hypoosmolar hyponatremia -Improving with fluid restriction to 130 but decrease to 127 today- suspect from poor solute intake -Please repeat BMP in AM Hyperkalemia -K 5.1 to 5.4 today -May indicate hemolysis vs mild elevation concurrent with STEVE -500mL NSS as above -Please repeat BMP in AM Alcohol use disorder -monitor for withdrawal -PRN Ativan for withdrawal symptoms -Receiving several doses of Ativan due to AWSS protocol, which may be leading to somnolence/confusion -As above, hold AWSS Rhabdomyolysis: -Max CK 1800 downtrending -receiving IVF Atrial fibrillation -Noted to be in RVR on arrival to the ED -Still in atrial fibrillation, rate-controlled -Continue diltiazem -Not on any anticoagulation due to history of cirrhosis, GI ulcer and esophageal varices Elevated troponin: -max 865 downtrending -EKG without acute ST segment or T-wave changes -Likely due to demand from dehydration, being on the ground overnight, and recent episode of AF w/ RVR Fall: -Patient slid off his recliner prior to admission while trying to stand -Denied hitting head or losing consciousness, no acute trauma besides the sacral ulcer -Fall precautions ordered -PT/OT recommends inpatient rehab Hypomagnesemia: -1.5 on admission, recheck 1.9 -Chronic deficiency per chart review -Repleted, 2.0 on 02/28 Hypertension: -Hemodynamically stable -hold spironolactone, Lasix -Continue diltiazem Tobacco abuse: -Uses smokeless tobacco -ordered nicotine patches Sacral ulcer: -Wound nurse consulted -Continue to monitor Cirrhosis: -Liver enzymes wnl, no signs of hepatic encephalopathy -Continue rifaximin DVT PPX: Heparin 5000u BID Dispo: PCU/telemetry Pending Studies at Discharge: No Stand-Alone Forms: My [facility] Skilled Items Patient informed of condition?: Yes DNR: No Discharge Level of Care: Skilled Communicable Disease: No Discharge Prognosis: Stable Lines: None Urinary Catheter: No Medications and DC Order Prescriptions: Continued diltiazem HCl 120 mg capsule,extended release 24hr 120 mg PO DAILY Qty: 90 3RF pantoprazole 40 mg tablet,delayed release (DR/EC) 40 mg PO QAM Qty: 90 3RF spironolactone 100 mg tablet 100 mg PO QAM Qty: 90 3RF Trelegy Ellipta 100-62.5-25 mcg blister with device 1 inh inhalation DAILY Qty: 60 5RF Jardiance 10 mg tablet 10 mg PO DAILY Qty: 30 11RF Xifaxan 550 mg tablet 550 mg PO BID furosemide [Lasix] 20 mg tablet 40 mg PO QAM Discharge Orders: Discharge Order (Routine); Ordered 03/01/22 Ordered By: Debbie Robertson Admission Data Admit Date/Time: 02/23/22 13:38 Attending Provider: Tereso Nassar Admit Provider: Howard Lam Primary Care Provider: Devon Silver Other Providers: Hwoard Lam ; Neville Tilley ; Ayesha Lares ; [facility] Other Interventions: Discharge Summary Assessment (RN) Last Done: 03/01/22 16:28 Supervising Physician Co-Signing Physician Notes I personally examined the patient and verified all coker points of history and exam, discussed case, and agree with decision making with Dr Robertson. No complaints and very much wants to go to rehab. In discussing his lab changes, and that they seem most likely related to poor volume intake, he agrees that he probably has not been taking in as much as he should, but feels like he can. Vitals noted, in general he is awake and alert pleasant no distress. HEENT normocephalic atraumatic mucous membranes moist. Breathing unlabored no accessory muscle use good effort. Skin shows no rashes no pallor or icterus. Neuro without focal deficits. Weakness, hyponatremia, acute renal failure, mild rhabdomyolysisslightly worsening and sodium, potassium, creatinine today all reflective of poor fluid intakegave IV fluids through the early part of the day, he very much wants to get to rehab, and I think it is quite reasonableencouraged p.o. fluid intake, would request that he have a basic metabolic panel checked again tomorrow and then at clinical discretion at rehab facility. Otherwise as above. Resident Activity Tracking Resident Involvement: Resident Care Provided Care Provided: Adult [facility]
[2022-03-01] MEDS: guaiFENesin 600 MG TABCR PO SCH (10:06)
[2022-03-01] MEDS: rifAXIMin 550 MG TABLET PO SCH (10:06)
[2022-03-01] MEDS: dexAMETHasone 6 MG in SYRINGE 0 ML IV SCH (10:06)
[2022-03-01] MEDS: NICOTINE 21 MG/24 HR TDSY TD SCH (10:07)
[2022-03-01] MEDS: FOLIC ACID 1 MG TAB PO SCH (10:07)
[2022-03-01] MEDS: HEPARIN SOD 5,000 UNIT/0.5 ML VIAL SQ SCH (10:07)
[2022-03-01] MEDS: PANTOprazole 40 MG TAB PO SCH (10:07)
[2022-03-01] MEDS: dilTIAZem HCL 120 MG CAPCR PO SCH (10:07)
[2022-03-01] MEDS: THIAMINE HCL 100 MG TAB PO SCH (10:07)
[2022-03-01] MEDS: FLUTICASONE FUROATE 100MCG 14 PUFFS/INHALER INH SCH (10:07)
[2022-03-01] MEDS: UMECLIDINIUM/VILANTEROL 62.5/25MCG 7 PUFFS/INHALER INH SCH (10:08)
[2022-03-01] MEDS ORDERED: SODIUM CHLORIDE 0.9% 1000ML 1,000 ML IV SCH (11:00)
[2022-03-01] MEDS ORDERED: cefTRIAXone SODIUM 1,000 MG in DEXTROSE 5% AD-VAN 50 ML IV SCH (11:00)
[2022-03-01] MEDS: SODIUM CHLORIDE 0.9% 500 ML IV SCH ×2 (12:06→16:26)
--- NOTE | 2022-03-01 12:32 | Nephrology Progress Note ---
Date of Service March 01, 2022 Assessment & Plan (1) Acute renal failure: (2) Hyponatremia: (3) Hypomagnesemia: Plan 71yo M with PMH of paroxysmal Afib, cirrhosis with esophageal varices, COPD, stage 3 CKD, diastolic CHF, hx. beer potomania, hx. hyponatremia, HTN, tobacco abuse admitted after fall at home , found to have STEVE, hyponatremia. In ED found to be COVID positive. Has stage III B CKD baseline creatinine variable from 1.8-2.0. Creatinine peaked to 2.7 now started to improve and down to 1.8 this morning. Has chronic hyponatremia with history of heavy alcohol use. AMS related to repeated Ativan does, seems to have improved. Slight worsening of renal function with potassium 5.4. -- start on normal saline at 80 mL/hour, discontinue fluid restriction. Will follow. Admission and Anticipated Discharge Date Admission Date: February 23, 2022 Srikanth Salazar was seen and evaluated this morning. No overnight events, denied signifi cant shortness of breath, chest pain. Appetite and po intake has been poor. Blood pressure acceptable. Slight worsening of cr, K 5.4 Review of Systems Review of Systems: detailed review of system was otherwise unremarkable. Physical Exam Constitutional: WD/WN, vitals as above no acute distress Respiratory: normal respiratory effort; no respiratory distress Auscultation: + diminished lung sounds; no wheezes Cardiovascular: Rate/Rhythm: regular rate and regular rhythm Heart Sounds: normal S1 and normal S2 Extremities: no edema Skin: no rashes Neurologic: no focal motor deficits and not confused Psychiatric: Orientation: alert and oriented x 3 Results & Data ([facility]) Vital Signs (Past 12 Hours) Vital Signs Temp Pulse Pulse Resp BP BP Pulse Ox 03/01/22 11:02 88 22 95 03/01/22 07:32 140/73 03/01/22 07:32 101 H 23 95 03/01/22 07:00 90 24 98 03/01/22 07:32 36.5 C 03/01/22 06:53 83 20 95 03/01/22 02:33 37.0 C 95 H 18 136/69 94 O2 Del Method O2 Flow Rate 03/01/22 11:02 Nasal Cannula 2 03/01/22 07:32 03/01/22 07:32 03/01/22 07:00 03/01/22 07:32 03/01/22 06:53 Nasal Cannula 2 03/01/22 02:33 Nasal Cannula PG Care Time/CCT Total # of Minutes Spent Total Time Spent with Patient: Total time spent is greater than 50% in coordination of care (as documented) at patient's floor/unit and/or counseling patient: Coding Level of Care Code 24080 SUB INP/OBS CARE 2/35MIN Diagnoses Acute renal failure N17.9 Hyponatremia E87.1 Hypomagnesemia E83.42
--- NOTE | 2022-03-01 18:43 | Billing Data ---
Date of Service March 01, 2022 Coding Level of Care Code HOSP INP/OBS DISCH 30 MIN/LESS
== END 2022-03-01 16:44 | DRG 871 ==
LOC: ED 11:13 → SUATTDRO 13:38 → 2E 13:38

== ENCOUNTER 2023-10-18 13:20 | Inpatient (IN) ==
--- NOTE | 2023-10-18 13:55 | Emergency Department Note ---
Impression & Plan Leg swelling, Maggot infestation, Cellulitis of right lower extremity ED Provider Note Provider: Raphael Johnson MD DATE OF SERVICE: 10/18/2023 CHIEF COMPLAINT: Leg wounds and swelling HISTORY OF PRESENT ILLNESS: Patient is a 73-year-old gentleman history of CKD, A-fib, heart failure, and hypothyroidism presenting here today via ambulance after rehab came to visit him and noted him to be in horrible condition with wounds to the lower legs. Patient states that he scratched some dry skin on his legs over the weekend. States has been increasing swelling of both lower legs below the knees and wound on the right leg. has been sometime since has had a bath. Patient denies any headache or chest pain or shortness of breath. Denies falling to me on several repeated questions. Nursing staff here at the hospital as well as therapy to visit him today and his trailer report they found maggots coming out of the wounds of his leg particularly on the right. Patient reports some mild diffuse tenderness to touch of the area. has been taking home medications using some clotrimazole cream he had. [facility] he is getting around okay but his car broke down and he cannot get anywhere. [facility] family visited him over the weekend from [place] and brought him some groceries but otherwise he stuck at home. PAST MEDICAL HISTORY: As noted above MEDICATIONS: Reviewed home medications SOCIAL HISTORY: Lives by himself, does not smoke tobacco at this time PHYSICAL EXAM: GENERAL: alert and oriented in no acute distress on stretcher Head: normocephalic and atraumatic EYES: No injection, discharge or icterus. EOMI. NECK: Trachea midline. ENT: Mucous membranes pink and moist. LUNGS: Airway patent. No retractions. Breath sounds clear anteriorly HEART: Irregular irregular rate and rhythm. No chest wall tenderness ABDOMEN: Soft and non-tender, without guarding or rebound. SKIN: Acyanotic, warm, dry, without rashes EXTREMITIES: Without swelling, tenderness or deformity of the upper extremities with 2+ edema of the lower legs below the knees with some erythema. There is fair amount of dry cracked skin present with approximately half centimeter by 2 cm area of wound over the right mid portillo. Dry skin flakes as well as some maggots are appreciable in this area. No crepitus. Gross touch intact in the lower feet. NEUROLOGICAL: Moves all extremities. No aphasia, facial droop, or slurred speech. EK bpm atrial fibrillation without acute ST segment elevation or depression. QTc 413. Patient's laboratory studies and imaging reviewed. Differential includes DVT, musculoskeletal, infection, joint effusion, trauma, lymphedema, idiopathic, CHF, as well as other pathologies. IMPRESSION/MEDICAL DECISION MAKING: Patient with cardiac history and swelling history on Lasix presenting here after being found in deplorable conditions at home with wounds of the lower legs. Denies to me several times any falls or trauma. Has a small wound to the right portillo that he states is from scratching of the right portillo. Wound culture from this was sent as well as a lactate obtained. Basic blood work obtained. Bilateral lower swelling with erythema but given the wound question there could be a cellulitic component. Will give a dose of Zosyn. Some maggots are appreciable in the area and these were cleaned off by nursing staff. Will complete ultrasound to exclude DVT in this area. Basic blood work and a chest x-ray obtained to exclude fluid overload or signs of sepsis. Vitals are reassuring here. Venous ultrasound bilateral lower extremities completed and report reviewed without findings of DVT. Blood work without significant anemia or leukocytosis. Normal platelet count. Lactate normal. Doubt sepsis. Chronic CKD noted. Chronic hyponatremia actually somewhat better than previous noted. Procalcitonin not severely elevated and doubt sepsis at this time. Chest x-ray here atelectasis versus mild pneumonitis of the right basilar area without significant pulmonary edema. No other respiratory infectious symptoms and low suspicion this represents pneumonia/pneumonitis. Given the poorly condition of his legs and swelling here with his CKD believe he does need to come in for further care and treatment. Hospitalist was consulted. Patient will likely need assistance with his ability to care for himself at home and possible placement. DIAGNOSIS: Leg swelling, right leg cellulitis DISPOSITION: Hospitalist will evaluate Patient was agreeable with this plan. Past Med/Surg History Problem List (Updated 10/18/23 @ 17:07 by Raphael Johnson M.D.) Cellulitis of right lower extremity (Acute) Maggot infestation (Acute) Leg swelling (Acute) Failure to thrive in adult Urinary retention Wound of lower extremity Impaired fasting glucose Chronic kidney disease, stage 4 (severe) Aspiration pneumonitis Atrial fibrillation Hypothyroidism Congestive heart failure Leukocytosis Sacral ulcer Tobacco abuse Acute renal failure Acid reflux Hypertension COPD (chronic obstructive pulmonary disease) BMI 31.0-31.9,adult BPH with obstruction/lower urinary tract symptoms Chronic kidney disease, stage 3 Gout, joint Hearing loss Paroxysmal atrial fibrillation Portal hypertension Solitary pulmonary nodule Sleep apnea cpap with oxygen 1L - noncompliant w/ cpap Cirrhosis Depression Esophageal varices Alcohol abuse Bilateral edema of lower extremity (Acute) Venous stasis Medical History Alcohol withdrawal COVID-19 Pelvic fracture Slipped cervical disc Poor historian On home oxygen therapy Duodenal ulcer Ascites (10/23/10) Surgical History History of abdominal paracentesis History of esophagogastroduodenoscopy (EGD) History of appendectomy History of tooth extraction Family History Father Myocardial infarction Unknown Diabetes Coronary heart disease Mother Chronic kidney disease Other No family history of adverse response to anesthesia Denies family history of Ovarian cancer Prostate cancer Crohn's disease Breast cancer Colorectal cancer Ulcerative colitis Social History (Updated 09/27/23 @ 10:55 by Shraddha Ashton LPN) Smoking Status: Former smoker Tobacco Type: Smokeless Tobacco (Dip or Chew) Age Started Using Tobacco: 14; Age Quit Using Tobacco: 57; Second Hand Exposure: No; Do You Dip or Chew Tobacco: Yes; Hx Alcohol Use: Yes Alcohol type: beer Alcohol Intake Frequency Comment: 3 beers per night. In past heavy use. Hx Substance Use: No Preferred Language: [place] Communication Ability: Effective Hearing Ability: Hard of Hearing Clothes Separator Required: No Beliefs That Will Affect Care: None marital status: Single Current Living Situation: Alone current occupational status: retired and disabled Feels Safe at Home: Yes Childhood Exposure to Second-Hand Smoke: Yes Diet: other Diet Comment: low calorie 2,000 per day Dental Care, Regularly: No Physical Activity Frequency: Does not Exercise Seatbelt Use: always Sunscreen Use: No Assistive Devices: Cane and Walker Allergies Allergies Allergy/AdvReac Type Severity Reaction Status Date / Time No Known Allergies Allergy Verified 09/27/23 10:44 Home Meds Previous Rx's Medication Instructions Recorded fluticasone fur. 100 mcg-umeclid 1 inh inhalation DAILY #60 ea 11/08/21 62.5 mcg-vilant 25 mcg inhalat.powder (Trelegy Ellipta) albuterol sulfate 90 mcg/actuation 1 inh inhalation QID PRN shortness 03/29/22 aerosol inhaler of breath or wheezing #8.5 grams rifaximin 550 mg tablet (Xifaxan) See Rx Instructions .Route 09/16/22 .COMPLEX #60 tabs spironolactone 100 mg tablet 100 mg PO QAM #90 tabs 12/23/22 empagliflozin 10 mg tablet 10 mg PO DAILY #30 tabs 01/03/23 (Jardiance) clotrimazole-betamethasone 1 See Rx Instructions topical BID 03/02/23 %-0.05 % topical cream #45 grams fluconazole 150 mg tablet 150 mg PO Q3D 2 doses #2 tabs 03/02/23 diltiazem HCl 120 mg 120 mg PO DAILY #90 caps 09/06/23 capsule,extended release 24 hr furosemide 40 mg tablet 40 mg PO QAM #90 tabs 09/27/23 pantoprazole 40 mg tablet,delayed 40 mg PO QAM #90 tabs 09/27/23 release levothyroxine 137 mcg tablet 137 mcg PO DAILY #90 tabs 09/28/23 Results & Data (ED) Vital Signs Vital Signs - 24 hr 10/18/23 13:41 10/18/23 13:48 10/18/23 14:00 Temperature 36.8 C Temperature Source Oral Pulse Rate 74 84 78 Pulse Rate [Apical] Respiratory Rate 12 20 Respiratory Effort / Characteristics Non-Labored Respiratory Depth Normal Blood Pressure 162/88 H 132/54 L Blood Pressure Mean 112 79 Pulse Oximetry 99 100 Oxygen Delivery Method Room Air Sepsis Recent Fever Within 48 Hours No Sepsis New/Unexplained Change in Mental Status N/A Sepsis Action Taken by Nursing No Action Required 10/18/23 14:32 10/18/23 16:00 Temperature Temperature Source Pulse Rate 82 Pulse Rate [Apical] 82 Respiratory Rate 20 20 Respiratory Effort / Characteristics Respiratory Depth Blood Pressure 141/53 H Blood Pressure Mean 119 Pulse Oximetry 98 99 Oxygen Delivery Method Room Air Sepsis Recent Fever Within 48 Hours Sepsis New/Unexplained Change in Mental Status Sepsis Action Taken by Nursing Laboratory Data 10/18/23 13:40 10/18/23 14:38 Lab Results 09/04/24 09/04/24 Range/Units 13:40 14:38 WBC 8.24 (4.8-10.8) K/ul RBC 3.62 L (4.70-6.10) M/uL Hgb 12.1 L (14.0-18.0) g/dl Hct 35.0 L (42.0-52.0) % MCV 96.7 (80.0-100.0) fL MCH 33.4 (25.0-34.0) pg MCHC 34.6 (32.0-36.0) g/dL RDW Std Deviation 49.1 H (36.4-46.3) fL RDW Coeff of Walter 13.7 (11.5-14.5) % Plt Count 221 (130-400) K/uL MPV 9.1 L (9.4-12.4) fL Immature Gran % (Auto) 0.5 % Neut % (Auto) 74.6 % Lymph % (Auto) 10.2 % Day % (Auto) 9.5 % Eos % (Auto) 4.5 % Baso % (Auto) 0.7 % Neut # (Auto) 6.15 (1.40-6.50) K/uL Lymph # (Auto) 0.84 L (1.20-3.40) K/uL Day # (Auto) 0.78 H (0.11-0.59) K/uL Eos # (Auto) 0.37 (0.00-0.50) K/uL Baso # (Auto) 0.06 (0.00-0.20) K/uL Immature Gran # (Auto) 0.04 (0.01-0.20) K/uL Sodium Cancelled 128 L Potassium Cancelled 5.0 Chloride Cancelled 95 L Carbon Dioxide Cancelled 23 Anion Gap Cancelled 10 BUN Cancelled 41 H Creatinine Cancelled 2.23 H Est Cr Clr Drug Dosing Cancelled 24.9 Est GFR ( Amer) Cancelled 32.2 Est GFR (Non-Af Amer) Cancelled 27.8 BUN/Creatinine Ratio Cancelled 18.4 Glucose Cancelled 118 H Lactate 1.9 (0.4-2.0) mmol/L Calcium Cancelled 8.9 Magnesium 1.6 L (1.7-2.4) mg/dl Total Bilirubin Cancelled 0.7 AST Cancelled 22 ALT Cancelled 17 Alkaline Phosphatase Cancelled 75 Troponin I High Sens 15.1 (0-20) pg/ml Total Protein Cancelled 7.0 Albumin Cancelled 3.8 Globulin Cancelled 3.2 Albumin/Globulin Ratio Cancelled 1.2 Procalcitonin Cancelled 0.08 Administered Medications Discontinued Medications Albuterol (Albut/Ipratrop 3mg/0.5mg Neb 3 Ml Vial) 3 ml NEB NOW STA; Protocol Stop: 10/18/23 16:04 Last Admin: 10/18/23 16:55 Dose: 3 ml Documented By: IVIS Piperacillin Sod/Tazobactam Sod (Zosyn) 4.5 gm in 100 mls @ 200 mls/hr IV NOW ONE Stop: 10/18/23 14:21 Last Infusion: 10/18/23 15:09 Dose: Infused Documented By: Admin: 10/18/23 14:19 Dose: 200 mls/hr Documented By: TAHIR Thiamine HCl 200 mg/ Sodium (Chloride) 52 mls @ 210 mls/hr IV NOW STA Stop: 10/18/23 16:25 Last Admin: 10/18/23 16:51 Dose: 210 mls/hr Documented By: IVIS Folic Acid 1 mg/ Syringe 10 mls @ 5 mls/min IV NOW STA Stop: 10/18/23 16:12 Last Admin: 10/18/23 16:50 Dose: 5 mls/min Documented By: IVIS Imaging Data Radiologist's Impression: Chest X-Ray 10/18/23 14:05 XR chest 1V portable HISTORY: 73 years-old Male leg swelling acute shortness of breath COMPARISON: Chest CT 08/26/2022 TECHNIQUE: AP view of the chest FINDINGS: Cardiac silhouette is upper limits of normal in size. Mild subsegmental right basilar opacities. No pneumothorax, pleural effusion or pulmonary edema. The bones appear grossly intact. Mild hyperinflation. IMPRESSION: Subsegmental right basilar opacities may represent atelectasis versus a mild pneumonitis. ACT 112: Negative or not required by law. The above report was generated using voice recognition software. It may contain grammatical, syntax or spelling errors. Electronically signed by: Glenn Saxena M.D. 10/18/2023 3:22 PM Discharge Plan Visit Data Chief Complaint: Wound Stated Complaint: LEG CELLULITIS, WOUND ON R LEG ED Provider: Raphael Johnson Discharge Problem: Leg swelling, Maggot infestation, Cellulitis of right lower extremity Patient Disposition: Being Evaluated by Hospitalist Forms Stand Alone Forms: My [facility] Prescriptions Prescriptions: No Action Michelle Diamondta 100-62.5-25 mcg blister with device 1 inh inhalation DAILY Qty: 60 5RF albuterol sulfate 90 mcg/actuation HFA aerosol inhaler 1 inh inhalation QID PRN (Reason: shortness of breath or wheezing) Qty: 8.5 2RF Xifaxan 550 mg tablet See Rx Instructions .ROUTE .COMPLEX Qty: 60 11RF Dose Instruction: TAKE 1 TABLET BY MOUTH TWICE A DAY Rx Instructions: TAKE 1 TABLET BY MOUTH TWICE A DAY spironolactone 100 mg tablet 100 mg PO QAM Qty: 90 3RF Jardiance 10 mg tablet 10 mg PO DAILY Qty: 30 11RF clotrimazole-betamethasone 1-0.05 % cream See Rx Instructions topical BID Qty: 45 0RF Rx Instructions: Apply to a small amount to rash areas topically twice a day for 7 days; fluconazole 150 mg tablet 150 mg PO Q3D Qty: 2 0RF Rx Instructions: may repeat second dose 72 hrs after first dose if symptoms persist diltiazem HCl 120 mg capsule,extended release 24hr 120 mg PO DAILY Qty: 90 3RF levothyroxine 137 mcg tablet 137 mcg PO DAILY Qty: 90 3RF furosemide 40 mg tablet 40 mg PO QAM Qty: 90 3RF pantoprazole 40 mg tablet,delayed release (DR/EC) 40 mg PO QAM Qty: 90 3RF Referrals Referrals: Devon Silver MD [Primary Care Provider] -
[2023-10-18 14:02] LABS: Basophils # (auto) 0.06 K/uL (0.00-0.20); Basophils % (auto) 0.7 %; Eosinophils # (auto) 0.37 K/uL (0.00-0.50); Eosinophils % (auto) 4.5 %; Hemoglobin 12.1 g/dl (14.0-18.0); Immature Granulocytes # (auto) 0.04 K/uL (0.01-0.20); Immature Granulocytes % (auto) 0.5 %; Lymphocytes # (auto) 0.84 K/uL (1.20-3.40); Lymphocytes % (auto) 10.2 %; Mean Corpuscular Hemoglobin 33.4 pg (25.0-34.0); Mean Corpuscular Hgb Conc 34.6 g/dL (32.0-36.0); Mean Corpuscular Volume 96.7 fL (80.0-100.0); Mean Platelet Volume 9.1 fL (9.4-12.4); Monocytes # (auto) 0.78 K/uL (0.11-0.59); Monocytes % (auto) 9.5 %; Neutrophils # (auto) 6.15 K/uL (1.40-6.50); Neutrophils % (auto) 74.6 %; Platelet Count 221 K/uL (130-400); RDW Coefficient of Variation 13.7 % (11.5-14.5); RDW Standard Deviation 49.1 fL (36.4-46.3); Red Blood Count 3.62 M/uL (4.70-6.10); White Blood Count 8.24 K/ul (4.8-10.8)
[2023-10-18] MEDS: PIPERACILLIN/TAZOBACTAM 4.5 GM/100 ML BAG IV ONE (14:19)
[2023-10-18 15:09] LABS: Albumin Globulin Ratio 1.2 (0.9-2); Albumin Level 3.8 gm/dl (3.4-5.0); BUN Creatinine Ratio 18.4 (10-20); Bilirubin,Total 0.7 mg/dl (0.2-1.0); Calcium 8.9 mg/dl (8.6-10.3); Creatinine Clr Calc Pharmacy 24.9 ml/min; Est GFR (African American) 32.2 ml/min; Est GFR (Non-African American) 27.8 ml/min; Globulin 3.2 gm/dl (2.5-4.0)
--- NOTE | 2023-10-18 15:24 | XRay Report ---
XR chest 1V portable HISTORY: 73 years-old Male leg swelling acute shortness of breath COMPARISON: Chest CT 08/26/2022 TECHNIQUE: AP view of the chest FINDINGS: Cardiac silhouette is upper limits of normal in size. Mild subsegmental right basilar opacities. No p neumothorax, pleural effusion or pulmonary edema. The bones appear grossly intact. Mild hyperinflatio n. IMPRESSION: Subsegmental right basilar opacities may represent atelectasis versus a mild pneumonitis. ACT 112: Negative or not required by law. The above report was generated using voice recognition software. It may contain grammatical, syntax o r spelling errors. Electronically signed by: Glenn Saxena M.D. 10/18/2023 3:22 PM
--- NOTE | 2023-10-18 15:38 | History & Physical Report ---
Date of Service October 18, 2023 Assessment & Plan (1) Wound of lower extremity: Plan: Admit to med/tele on pulse oximetry Currently stable nontoxic-appearing Presented to ED after home health called EMS due to concerns for his poor living conditions and right lower extremity wound Patient with multiple chronic wounds in the bilateral lower extremities Has been afebrile with WBC within normal limits, does not appear septic Wound culture was obtained prior to nursing staff applying chlorhexidine solution the bilateral lower extremities Patient was given dose of Zosyn in the ED, will continue with ceftriaxone for now as he does not have a previous history of resistant organisms or diabetes Will consult wound care nurse to follow Pain control Tylenol for now SQ Lovenox for DVT prophylaxis Heart healthy diet with 1800 mL fluid restriction AM CBC, CMP, mag, PT/INR (2) Atrial fibrillation: Plan: Currently in rate controlled atrial fibrillation Has been off anticoagulation for multiple years due to his history of esophageal varices and previous GI bleeds Continue diltiazem (3) Hypothyroidism: Plan: Continue levothyroxine (4) COPD (chronic obstructive pulmonary disease): Plan: Patient is wheezing on exam but is stable on room air and does not appear to be in COPD exacerbation Will give DuoNeb treatment now, continue 4 times daily as needed Will convert his Trelegy to BIDr budesonide and formoterol for now Incentive spirometry As needed O2 to keep SpO2 between 89-92% (5) Alcohol abuse: Plan: Patient reports drinking approximately 3 to 5 cans of beer daily with last drink being approximately 3 AM this morning Denied a previous history of alcohol withdrawal, does have this history and his problem list in her record No current signs of withdrawal, will follow-up on alcohol level ordered at the time of admission For now we will start AWSS at risk protocol Will start daily thiamine and folic acid Continue stressed the importance of cessation (6) Hyponatremia: Plan: Sodium is 128 today, appears to be very close to his normal baseline which appears near the mid to high 120s Previous history of Beer potomania Patient confirm he still drinking 3-5 beers daily Will start a fluid restriction of 1800 mL for now and continue his normal diuretics Monitor daily renal function [place] (7) Cirrhosis: Plan: LFTs are currently stable, does not appear to be in decompensated cirrhosis Continue stressed the importance of alcohol cessation Will continue home rifaximin, spironolactone and furosemide (8) Tobacco abuse: Plan: Patient denies recent cigarette use but uses chewing tobacco daily Continue to stressed the importance of cessation Twice daily oral hygiene has been ordered (9) Urinary retention: Plan: Patient was having difficulty urinating during my exam Bedside bladder scan shows 560 cc PVR Patient is very resistant to Salvador catheter at this time Will give 1 dose of Flomax now and see if he is able to urinate over the next few hours, if not we will need to readdress Salvador catheter for now Continue daily Flomax for now (10) Failure to thrive in adult: Plan: Patient with very poor hygiene and appears chronically ill Will consult PT/OT patient is generally weak on admission Suspect he will be very resistant to any rehab prior to discharge (11) Cellulitis of right lower extremity: (12) Maggot infestation: Plan Patient was discussed with Dr. Lam at the time of the admission History of Present Illness Chief Complaint: Right leg wound Primary Care Provider: Devon Silver MD Martin is a 73-year-old male with a past medical history significant for pAF not on anticoagulation due to esophageal varices, alcohol abuse, tobacco abuse, cirrhosis with esophageal varices, COPD, CKD3, diastolic CHF grade 1, medical noncompliance and previous hospitalizations for beer potomania who presented to [facility] ED via EMS due to generalized weakness and being unable to care for himself and right lower extremity wound. Patient remained stable in the ED. The ED reports that there were maggots in the patient's right leg wound on arrival, these were cleaned out prior to admission. Labs were significant for sodium of 128 (appears near his baseline), chloride of 95, and Pro-Evens within normal limits. Chest x-ray was read as subsegmental right basilar opacities may represent atelectasis versus a mild pneumonitis. Prior to admission the patient was given a dose of Zosyn. Patient was sitting in bed in no acute distress at time of exam. States that he started to develop the wound on his right lower extremity "a few weeks ago". Called EMS today as his physical therapist reportedly came to his home and saw the state of health he was in and recommended coming to ED for further evaluation. Patient lives by himself and states that he has a friend who helps to care for him at time, Kitty Swain ([phone]). Denies recent use of cigarettes but does still use chewing tobacco. When asked, states that he drinks approximately 3 to 5 cans of beer a day with his last drink being earlier this morning around 3 AM. Denies a history of going into withdrawal or withdrawal seizures when he does not drink. States he has been taking his home medications as prescribed. We discussed CODE STATUS, wishes to be a full code and for his friend, Kitty Swain, to make medical decisions for him if he cannot make them himself. Please for Dr. Lam's attestation for any changes to treatment plan Allergies Allergy/AdvReac Type Severity Reaction Status Date / Time No Known Allergies Allergy Verified 09/27/23 10:44 Home Medications Medication Instructions Recorded Confirmed Type fluticasone fur. 100 mcg-umeclid 1 inh inhalation DAILY #60 ea 11/08/21 10/18/23 Rx 62.5 mcg-vilant 25 mcg inhalat.powder (Trelegy Ellipta) albuterol sulfate 90 mcg/actuation 1 inh inhalation QID PRN shortness 03/29/22 10/18/23 Rx aerosol inhaler of breath or wheezing #8.5 grams rifaximin 550 mg tablet (Xifaxan) See Rx Instructions .Route 09/16/22 10/18/23 Rx .COMPLEX #60 tabs spironolactone 100 mg tablet 100 mg PO QAM #90 tabs 12/23/22 10/18/23 Rx empagliflozin 10 mg tablet 10 mg PO DAILY #30 tabs 01/03/23 10/18/23 Rx (Jardiance) clotrimazole-betamethasone 1 See Rx Instructions topical BID 03/02/23 10/18/23 Rx %-0.05 % topical cream #45 grams fluconazole 150 mg tablet 150 mg PO Q3D 2 doses #2 tabs 03/02/23 10/18/23 Rx diltiazem HCl 120 mg 120 mg PO DAILY #90 caps 09/06/23 10/18/23 Rx capsule,extended release 24 hr furosemide 40 mg tablet 40 mg PO QAM #90 tabs 09/27/23 10/18/23 Rx pantoprazole 40 mg tablet,delayed 40 mg PO QAM #90 tabs 09/27/23 10/18/23 Rx release levothyroxine 137 mcg tablet 137 mcg PO DAILY #90 tabs 09/28/23 10/18/23 Rx Past Med/Surg History Problem List (Updated 10/18/23 @ 17:07 by Raphael Johnson M.D.) Cellulitis of right lower extremity (Acute) Maggot infestation (Acute) Leg swelling (Acute) Failure to thrive in adult Urinary retention Wound of lower extremity Impaired fasting glucose Chronic kidney disease, stage 4 (severe) Aspiration pneumonitis Atrial fibrillation Hypothyroidism Congestive heart failure Leukocytosis Sacral ulcer Tobacco abuse Acute renal failure Acid reflux Hypertension COPD (chronic obstructive pulmonary disease) BMI 31.0-31.9,adult BPH with obstruction/lower urinary tract symptoms Chronic kidney disease, stage 3 Gout, joint Hearing loss Paroxysmal atrial fibrillation Portal hypertension Solitary pulmonary nodule Sleep apnea cpap with oxygen 1L - noncompliant w/ cpap Cirrhosis Depression Esophageal varices Alcohol abuse Bilateral edema of lower extremity (Acute) Venous stasis Medical History Alcohol withdrawal COVID-19 Pelvic fracture Slipped cervical disc Poor historian On home oxygen therapy Duodenal ulcer Ascites (10/23/10) Surgical History History of abdominal paracentesis History of esophagogastroduodenoscopy (EGD) History of appendectomy History of tooth extraction Family History Father Myocardial infarction Unknown Diabetes Coronary heart disease Mother Chronic kidney disease Other No family history of adverse response to anesthesia Denies family history of Ovarian cancer Prostate cancer Crohn's disease Breast cancer Colorectal cancer Ulcerative colitis Social History (Updated 09/27/23 @ 10:55 by Shraddha Ashton LPN) Smoking Status: Current every day smoker Tobacco Type: Smokeless Tobacco (Dip or Chew) Age Started Using Tobacco: 14; Age Quit Using Tobacco: 57; Second Hand Exposure: No; Do You Dip or Chew Tobacco: Yes; Tobacco Cessation Education Requested by Patient: No Hx Alcohol Use: Yes Alcohol type: beer Alcohol Intake Frequency Comment: 3 beers per night. In past heavy use. Hx Substance Use: No Preferred Language: Kiswahili Communication Ability: Effective Hearing Ability: Hard of Hearing Charter Pilot Required: No Beliefs That Will Affect Care: None marital status: Single Current Living Situation: Alone current occupational status: retired and disabled Other Information That Helps Us Care for You: No Feels Safe at Home: Yes Safety Concerns: Feels Safe At This Time Childhood Exposure to Second-Hand Smoke: Yes Diet: other Diet Comment: low calorie 2,000 per day Dental Care, Regularly: No Physical Activity Frequency: Does not Exercise Seatbelt Use: always Sunscreen Use: No Assistive Devices: Walker Physical Exam 2 Physical Exam: Physical Exam: General: In no acute distress, stated age, chronically ill-appearing with poor hygiene HEENT: Normocephalic, atraumatic, no scleral icterus, pupils around round, symmetrical, and reactive to light, dry mucus membranes, dried chewing tobacco noted in the lower gums, trachea midline, no thyromegaly Chest/Pulm: No respiratory distress, symmetrical chest expansion, expiratory wheezing throughout Cardiac: Irregular rate and rhythm, no murmurs noted Abdomen: Negative for ascites and bruising, normoactive bowel sounds, soft, non-tender to palpation throughout Musculoskeletal: Symmetrical and without signs of acute trauma, upper and lower extremities with full ROM, no atrophy, spasticity, or flaccidity Extremities: Radial, dorsalis pedis, and posterior tibial pulses are intact and symmetrical, chronic bilateral lymphedema lower extremities Skin: Patient with skin erythema consistent with fungal infection overlying the suprapubic area and under the abdominal fold, see pictures of the bilateral lower extremities for details of chronic leg wounds Neuro: Alert and oriented to person, place, month, year, no focal defects, no tremors noted Psych: No acute distress, calm and cooperative during the exam Results & Data Results & Data Vital Signs (Past 12 Hours) Vital Signs Temp Pulse Resp BP Pulse Ox O2 Del Method 10/18/23 14:32 82 20 141/53 H 98 10/18/23 14:00 78 20 132/54 L 100 10/18/23 13:48 84 10/18/23 13:41 36.8 C 74 12 162/88 H 99 Room Air Laboratory Results Abnormal lab results 10/18/23 10/18/23 Range/Units 13:40 14:38 RBC 3.62 L (4.70-6.10) M/uL Hgb 12.1 L (14.0-18.0) g/dl Hct 35.0 L (42.0-52.0) % RDW Std Deviation 49.1 H (36.4-46.3) fL MPV 9.1 L (9.4-12.4) fL Lymph # (Auto) 0.84 L (1.20-3.40) K/uL [place] # (Auto) 0.78 H (0.11-0.59) K/uL Sodium 128 L (136-145) mmol/L Chloride 95 L (98-107) mmol/L BUN 41 H (6-23) mg/dl Creatinine 2.23 H (0.6-1.4) mg/dl Glucose 118 H (70-99(Fasting)) mg/dl Diagnostic Findings Chest X-Ray 10/18/23 14:05 XR chest 1V portable HISTORY: 73 years-old Male leg swelling acute shortness of breath COMPARISON: Chest CT 08/26/2022 TECHNIQUE: AP view of the chest FINDINGS: Cardiac silhouette is upper limits of normal in size. Mild subsegmental right basilar opacities. No pneumothorax, pleural effusion or pulmonary edema. The bones appear grossly intact. Mild hyperinflation. IMPRESSION: Subsegmental right basilar opacities may represent atelectasis versus a mild pneumonitis. ACT 112: Negative or not required by law. The above report was generated using voice recognition software. It may contain grammatical, syntax or spelling errors. Electronically signed by: Glenn Saxena M.D. 10/18/2023 3:22 PM ECG Additional Comments: Atrial fibrillation without acute ST segment or T wave changes Code Status & VTE Plan Code Status Full code VTE Prophylaxis Plan VTE Prophylaxis will be ordered: Yes Supervising Physician Co-Signing Physician Notes I personally saw and examined the patient. I verified all coker points and agree with Jr Garcia PA-C with the following exceptions and/or additions: 73 year old male presents to the ER with right lower extremity swelling and erythema for the last 2 days. No fever or chills. He drinks beer daily to help him sleep but denies he is an alcoholic or history of alcohol withdrawal. O/E Unkept appearance, HS irregular rhythm, regular rate, no murmurs, Chest CTAB, Abdo SNT, chlorhexidine placed in the ER makes comparison difficult but right leg appears more erythematous and swollen compared to A/P Cellulitis - with maggot infestation in the ER, ceftriaxone 2g IV daily, does not meet SIRS criteria for sepsis therefore with current blood cultures shortage and negative procalcitonin no need to get this Alcohol use disorder - last drink was last night, no current signs of alcohol withdrawal Liver cirrhosis / COPD - continue routine medications PG Care Time/CCT Total # of Minutes Spent Total Time Spent with Patient: Total time spent is greater than 50% in coordination of care (as documented) at patient's floor/unit and/or counseling patient: Coding [place] [address] INT INP/OBS CARE 75MIN Patient Type Established Medical Decision Making High Complexity Diagnoses Wound of lower extremity S81.809A Atrial fibrillation I48.91 Hypothyroidism E03.9 COPD (chronic obstructive pulmonary disease) J44.1 COPD type: COPD with acute exacerbation Alcohol abuse F10.10 Hyponatremia E87.1 Alcoholic cirrhosis of liver without ascites K70.30 Ascites presence: without ascites Hepatic cirrhosis type: alcoholic cirrhosis Tobacco abuse Z72.0 Urinary retention R33.9 Failure to thrive in adult R62.7 Cellulitis of right lower extremity L03.115 Maggot infestation B87.9 (4) COPD (chronic obstructive pulmonary disease) COPD type: COPD with acute exacerbation Qualified Code(s): J44.1 - Chronic obstructive pulmonary disease with (acute) exacerbation (7) Cirrhosis Ascites presence: without ascites Hepatic cirrhosis type: alcoholic cirrhosis Qualified Code(s): K70.30 - Alcoholic cirrhosis of liver without ascites
[2023-10-18] MEDS ORDERED: LORazepam 2 MG/1 ML VIAL IV PRN (16:04)
[2023-10-18] MEDS ORDERED: NYSTATIN POWDER 15GM BTL EXT PRN (16:05)
[2023-10-18] MEDS ORDERED: ACETAMINOPHEN 325 MG TAB PO PRN (16:09)
[2023-10-18] MEDS ORDERED: ALBUT/IPRATROP 3MG/0.5MG NEB 3 ML VIAL NEB PRN (16:14)
[2023-10-18 16:36] LABS: Magnesium 1.6 mg/dl (1.7-2.4)
[2023-10-18] MEDS: FOLIC ACID 1 MG in SYRINGE 9.8 ML IV STA (16:50)
[2023-10-18] MEDS: THIAMINE HCL 200 MG in SODIUM CHLORIDE 0.9% 50 ML IV STA (16:51)
[2023-10-18] MEDS: ALBUT/IPRATROP 3MG/0.5MG NEB 3 ML VIAL NEB STA (16:55)
--- NOTE | 2023-10-18 17:13 | Ultrasound Report ---
BILATERAL LOWER EXTREMITY VENOUS DOPPLER HISTORY: Acute pain and swelling of the legs swelling, redness COMPARISON STUDY: 02/23/2022 FINDINGS: There is normal compressibility, flow, and augmentation within the bilateral lower extremit y deep venous systems. IMPRESSION: No DVT within the right or left lower extremity. ACT 112: Negative or not required by law. Electronically signed by: Glenn Saxena M.D. 10/18/2023 5:11 PM
--- NOTE | 2023-10-18 17:17 | XRay Report ---
XR tibia fibula RT 2V HISTORY: 73 years-old Male right portillo wound soft tissue injury of the right lower leg COMPARISON: None TECHNIQUE: 2 views of the right tibia and fibula FINDINGS: Diffuse soft tissue swelling. No acute fracture, dislocation, osseous lesion or radiopaque foreign erika dy. Mild osteoarthritis of the knee and ankle. IMPRESSION: Soft tissue swelling without acute osseous abnormality. ACT 112: Negative or not required by law. The above report was generated using voice recognition software. It may contain grammatical, syntax o r spelling errors. Electronically signed by: Glenn Saxena M.D. 10/18/2023 5:16 PM
[2023-10-18] MEDS: MAGNESIUM SULFATE / D5W 1 GM/100 ML BAG IV SCH (18:28)
[2023-10-18] MEDS: TAMSULOSIN HCL 0.4 MG CAP PO ONE ×2 (18:37→18:39)
[2023-10-18] MEDS: BUDESONIDE 0.5 MG/2 ML VIAL (PULMICORT) NEB SCH (20:15)
[2023-10-18] MEDS: FORMOTEROL 20 MCG/2 ML VIAL NEB SCH (20:15)
[2023-10-18] MEDS: cefTRIAXone SODIUM 2,000 MG/50 ML BAG IV SCH (20:36)
[2023-10-18] MEDS: rifAXIMin 550 MG TABLET PO SCH (20:39)
[2023-10-18] MEDS: HEPARIN SOD 5,000 UNIT/0.5 ML VIAL SQ SCH (20:46)
[2023-10-18] MEDS: MoRPHine SULFATE 2 MG/ML CARP IV STA (22:56)
[2023-10-19] MEDS: LEVOTHYROXINE SODIUM 137 MCG TABLET PO SCH (06:07)
[2023-10-19 06:17] LABS: Basophils # (auto) 0.06 K/uL (0.00-0.20); Basophils % (auto) 0.8 %; Eosinophils # (auto) 0.21 K/uL (0.00-0.50); Eosinophils % (auto) 2.9 %; Hematocrit (blood only) 34.3 % (42.0-52.0); Hemoglobin 11.7 g/dl (14.0-18.0); Immature Granulocytes # (auto) 0.02 K/uL (0.01-0.20); Immature Granulocytes % (auto) 0.3 %; Lymphocytes # (auto) 0.59 K/uL (1.20-3.40); Mean Corpuscular Hemoglobin 33.3 pg (25.0-34.0); Mean Corpuscular Hgb Conc 34.1 g/dL (32.0-36.0); Mean Corpuscular Volume 97.7 fL (80.0-100.0); Mean Platelet Volume 9.4 fL (9.4-12.4); Monocytes # (auto) 0.62 K/uL (0.11-0.59); Monocytes % (auto) 8.5 %; Neutrophils # (auto) 5.83 K/uL (1.40-6.50); Neutrophils % (auto) 79.5 %; Platelet Count 200 K/uL (130-400); RDW Coefficient of Variation 14.1 % (11.5-14.5); RDW Standard Deviation 50.4 fL (36.4-46.3); Red Blood Count 3.51 M/uL (4.70-6.10); White Blood Count 7.33 K/ul (4.8-10.8)
[2023-10-19 06:31] LABS: Albumin Globulin Ratio 1.2 (0.9-2); Albumin Level 3.7 gm/dl (3.4-5.0); BUN Creatinine Ratio 18.3 (10-20); Bilirubin,Total 0.8 mg/dl (0.2-1.0); Calcium 9.2 mg/dl (8.6-10.3); Creatinine Clr Calc Pharmacy 26.9 ml/min; Est GFR (Non-African American) 26.8 ml/min; Globulin 3.2 gm/dl (2.5-4.0); Magnesium 2.1 mg/dl (1.7-2.4); Potassium 4.6 mmol/L (3.5-5.1); Total Protein 6.9 gm/dl (6.0-8.3)
[2023-10-19] MEDS: FUROSEMIDE 40 MG TAB PO SCH (09:05)
[2023-10-19] MEDS: PANTOprazole 40 MG TAB PO SCH (09:05)
[2023-10-19] MEDS: dilTIAZem HCL 120 MG CAPCR PO SCH (09:05)
[2023-10-19] MEDS: TAMSULOSIN HCL 0.4 MG CAP PO SCH (09:05)
[2023-10-19] MEDS: SPIRONOLACTONE 100 MG TAB PO SCH (09:05)
[2023-10-19] MEDS: FOLIC ACID 1 MG in SYRINGE 9.8 ML IV SCH (09:06)
--- NOTE | 2023-10-19 10:46 | Electrocardiogram Report ---
Test Reason : Blood Pressure : */* mmHG Vent. Rate : 88 BPM Atrial Rate : * BPM P-R Int : * ms QRS Dur : 74 ms QT Int : 342 ms P-R-T Axes : * 60 56 degrees QTcB Int : 413 ms Atrial fibrillation with a competing junctional pacemaker Low voltage QRS Cannot rule out Anterior infarct (cited on or before 15-Jun-2020) Abnormal ECG When compared with ECG of 23-Feb-2022 11:22, No significant change was found Confirmed by Devon Rizo ([id number]) on 10/19/2023 10:45:39 AM Referred By: Confirmed By: Devon Rizo
[2023-10-19] MEDS: THIAMINE HCL 200 MG in SODIUM CHLORIDE 0.9% 50 ML IV SCH (11:18)
[2023-10-19] MEDS: LIDOCAINE 2% JELLY 5 ML TUBE EXT ONE (13:29)
--- NOTE | 2023-10-19 22:02 | Hospitalist Progress Note ---
Date of Service October 19, 2023 Assessment & Plan (1) Wound of lower extremity: Plan: Admit to med/tele on pulse oximetry Currently stable nontoxic-appearing Presented to ED after home health called EMS due to concerns for his poor living conditions and right lower extremity wound Patient with multiple chronic wounds in the bilateral lower extremities Has been afebrile with WBC within normal limits, does not appear septic Wound culture was obtained prior to nursing staff applying chlorhexidine solution the bilateral lower extremities continue ceftriaxone. Will consult wound care nurse to follow Pain control Tylenol for now SQ Lovenox for DVT prophylaxis Heart healthy diet with 1800 mL fluid restriction AM CBC, CMP, mag, PT/INR -will consult infectious disease given the severity of this infection. (2) Atrial fibrillation: Plan: Currently in rate controlled atrial fibrillation Has been off anticoagulation for multiple years due to his history of esophageal varices and previous GI bleeds Continue diltiazem (3) Hypothyroidism: Plan: Continue levothyroxine (4) COPD (chronic obstructive pulmonary disease): Plan: Patient is wheezing on exam but is stable on room air and does not appear to be in COPD exacerbation Will give DuoNeb treatment now, continue 4 times daily as needed Will convert his Trelegy to BIDr budesonide and formoterol for now Incentive spirometry As needed O2 to keep SpO2 between 89-92% (5) Alcohol abuse: Plan: Patient reports drinking approximately 3 to 5 cans of beer daily with last drink being approximately 3 AM this morning Denied a previous history of alcohol withdrawal, does have this history and his problem list in her record No current signs of withdrawal, will follow-up on alcohol level ordered at the time of admission For now we will start AWSS at risk protocol Will start daily thiamine and folic acid Continue stressed the importance of cessation (6) Hyponatremia: Plan: Sodium is 128 today, appears to be very close to his normal baseline which appears near the mid to high 120s Previous history of Beer potomania Patient confirm he still drinking 3-5 beers daily Will start a fluid restriction of 1800 mL for now and continue his normal diuretics Monitor daily renal function [place] (7) Cirrhosis: Plan: LFTs are currently stable, does not appear to be in decompensated cirrhosis Continue stressed the importance of alcohol cessation Will continue home rifaximin, spironolactone and furosemide (8) Tobacco abuse: Plan: Patient denies recent cigarette use but uses chewing tobacco daily Continue to stressed the importance of cessation Twice daily oral hygiene has been ordered (9) Urinary retention: Plan: Patient was having difficulty urinating during my exam Bedside bladder scan shows 560 cc PVR Patient is very resistant to Salvador catheter at this time Will give 1 dose of Flomax now and see if he is able to urinate over the next few hours, if not we will need to readdress Salvador catheter for now Continue daily Flomax for now (10) Failure to thrive in adult: Plan: Patient with very poor hygiene and appears chronically ill Will consult PT/OT patient is generally weak on admission Suspect he will be very resistant to any rehab prior to discharge (11) Cellulitis of right lower extremity: (12) Maggot infestation: Plan Patient was discussed with Dr. Lam at the time of the admission Admission and Anticipated Discharge Date Admission Date: October 18, 2023 Subjective Patient reports no new symptoms. Review of Systems Review of Systems: All systems reviewed & are unremarkable except as noted in HPI & below Physical Exam Physical Exam: General: In no acute distress, stated age, chronically ill-appearing with poor hygiene HEENT: Normocephalic, atraumatic Chest/Pulm: No respiratory distress, symmetrical chest expansion, expiratory wheezing throughout Cardiac: Irregular rate and rhythm, no murmurs noted Abdomen: Negative for ascites and bruising, normoactive bowel sounds, soft, non-tender to palpation throughout Musculoskeletal: Symmetrical and without signs of acute trauma, upper and lower extremities with full ROM, no atrophy, spasticity, or flaccidity Extremities: Radial, dorsalis pedis, and posterior tibial pulses are intact and symmetrical, chronic bilateral lymphedema lower extremities Skin: Patient with skin erythema consistent with fungal infection overlying the suprapubic area and under the abdominal fold Neuro: Alert and oriented to person, place, month, year, no focal defects, no tremors noted Psych: No acute distress, calm and cooperative during the exam Results & Data Results & Data Vital Signs (Past 12 Hours) Vital Signs Temp Pulse Pulse Resp BP Pulse Ox O2 Del Method 10/19/23 19:35 106 H 18 94 Room Air 10/19/23 19:18 Room Air 10/19/23 19:07 36.7 C 94 H 18 112/67 95 Room Air 10/19/23 15:26 36.7 C 83 16 107/67 95 Room Air 10/19/23 15:23 100 H 09/05/24 11:26 36.7 C 100 H 18 93/57 L 96 Room Air PG Care Time/CCT Total # of Minutes Spent Total Time Spent with Patient: Total time spent is greater than 50% in coordination of care (as documented) at patient's floor/unit and/or counseling patient: Coding Level of Care Code 32041 SUB INP/OBS CARE 2/35MIN Diagnoses Wound of lower extremity S81.809A Atrial fibrillation I48.91 Hypothyroidism E03.9 COPD (chronic obstructive pulmonary disease) J44.1 COPD type: COPD with acute exacerbation Alcohol abuse F10.10 Hyponatremia E87.1 Alcoholic cirrhosis of liver without ascites K70.30 Ascites presence: without ascites Hepatic cirrhosis type: alcoholic cirrhosis Tobacco abuse Z72.0 Urinary retention R33.9 Failure to thrive in adult R62.7 Cellulitis of right lower extremity L03.115 Maggot infestation B87.9 (4) COPD (chronic obstructive pulmonary disease) COPD type: COPD with acute exacerbation Qualified Code(s): J44.1 - Chronic obstructive pulmonary disease with (acute) exacerbation (7) Cirrhosis Ascites presence: without ascites Hepatic cirrhosis type: alcoholic cirrhosis Qualified Code(s): K70.30 - Alcoholic cirrhosis of liver without ascites
[2023-10-20 07:14] LABS: Basophils # (auto) 0.06 K/uL (0.00-0.20); Basophils % (auto) 0.7 %; Eosinophils # (auto) 0.36 K/uL (0.00-0.50); Eosinophils % (auto) 4.4 %; Hematocrit (blood only) 30.9 % (42.0-52.0); Hemoglobin 11.1 g/dl (14.0-18.0); Immature Granulocytes # (auto) 0.03 K/uL (0.01-0.20); Immature Granulocytes % (auto) 0.4 %; Lymphocytes # (auto) 0.73 K/uL (1.20-3.40); Mean Corpuscular Hemoglobin 33.7 pg (25.0-34.0); Mean Corpuscular Hgb Conc 35.9 g/dL (32.0-36.0); Mean Corpuscular Volume 93.9 fL (80.0-100.0); Mean Platelet Volume 9.4 fL (9.4-12.4); Monocytes # (auto) 0.66 K/uL (0.11-0.59); Monocytes % (auto) 8.1 %; Neutrophils # (auto) 6.29 K/uL (1.40-6.50); Neutrophils % (auto) 77.4 %; Platelet Count 206 K/uL (130-400); RDW Standard Deviation 48.1 fL (36.4-46.3); Red Blood Count 3.29 M/uL (4.70-6.10); White Blood Count 8.13 K/ul (4.8-10.8)
[2023-10-20 07:28] LABS: Albumin Globulin Ratio 1.2 (0.9-2); Albumin Level 3.8 gm/dl (3.4-5.0); Bilirubin,Total 0.5 mg/dl (0.2-1.0); C Reactive Protein 7.02 mg/dl (0-0.5); Calcium 9.3 mg/dl (8.6-10.3); Creatinine Clr Calc Pharmacy 20.3 ml/min; Est GFR (African American) 22.5 ml/min; Est GFR (Non-African American) 19.4 ml/min; Globulin 3.1 gm/dl (2.5-4.0); Potassium 4.5 mmol/L (3.5-5.1); Total Protein 6.9 gm/dl (6.0-8.3)
[2023-10-20 07:34] LABS: Prothrombin Time 10.9 Seconds (9.0-12.0)
--- NOTE | 2023-10-20 14:37 | Infectious Disease Consult ---
Date of Consultation October 20, 2023 Assessment & Plan (1) Cellulitis of right lower extremity: (2) Maggot infestation: (3) Leg swelling: (4) Wound of lower extremity: Plan This is a 73-year-old male with past medical history of paroxysmal A-fib not on anticoagulation secondary to esophageal varices, alcohol abuse, cirrhosis with esophageal varices, COPD, CKD stage III, diastolic CHF, medical noncompliance who presented to the ED after being unable to take care of right lower extremity wounds. Per report he was evaluated by a home health nurse and was found to be living in "horrible" conditions with maggots noted coming out of his right lower extremity wounds. Patient admits to LE pruritus, scratching his bilateral lower extremity and developing increase bilateral swelling and wounds. LE is slightly painful with chronic redness. He has not been consistently able to bathe or shower. He lives in a trailer and has famil bring him some groceries. He denies falls, fever, chills, sweats, nausea, vomiting, shortness of breath or chest pain. He feels overall well. He reports that he may have banged his right lower extremity into a screen door a few days ago. He drinks 3-5 beers daily and last drank the AM prior to admission On admission, he is afebrile, hemodynamically stable: T36.8, pulse 74, RR 12, BP 132/54, O2 sats 99% on room air. Labs: WBC 8.24, sodium 128, chloride 95, BUN 41, creatinine 2.23, CRP 7.02, procalcitonin 0.08. Alcohol level less than 10. Bilateral lower extremity Dopplers negative for DVT. Right lower extremity x-ray with soft tissues swelling without acute bony abnormality. He was started on ceftriaxone for possible cellulitis. Superficial wound cultures obtained prior to wound care. Gram stain polymicrobial. Culture growing gram-negative rods so far. ID consulted for cellulitis. On my exam he is comfortable and states he wants to go home. Wound care has addressed his wounds and my exam is post wound care. No maggots currently noted. He has bilateral erythema from knee to ankle with multiple scratches a nd excoriations. Minimal warmth or tenderness to palpation. No drainage currently. No foul odor. Microbiology: -Wound culture 10/18/2023: Gram stain polymicrobial: Few gram-positive cocci, gram-positive bacilli, gram- negative bacilli, gram-negative cocci Culture: Gram-negative rods (preliminary) -MRSA screen 10/18/2023 negative Antibiotics: Zosyn 10/17 Ceftriaxone 10/17-ongoing # Chronic bilateral lower extremity wounds with ? R superimposed bacterial infection/cellulitis # Poor lower extremity skin hygiene #Alcohol use disorder #Cirrhosis # STEVE on CKD #Maggots in wounds: resolved prior to my evaluation. Bilateral cellulitis is not likely. Bilateral erythema is typically non infectious. His bilateral lower extremity wounds appear chronic with signs of thickened, cracked skin that may be secondary to poor skin hygiene. He has minimal pain of bilateral lower extremities which is usually expected with cellulitis. There is however sightly more pain on the right than left. There is a R superficial appearing wound that was cultured in the ED and is polymicrobial on Gram stain but growing gram-negative rods on culture so far. Unclear if this represents skin contaminants versus pathogen. Patient is on ceftriaxone currently and is feeling well. MRSA screen is negative. Denies freshwater /sea water exposure, animal bites/scratches. He has cirrhosis so at risk for cellulitis with Vibrio, but no bullous appearing lesions. Right lower extremity imaging without osseous changes. Maggots and wound care may have removed prior ?necrotic or ? infected tissue as wound currently appears clean. Recommendations -Continue Ceftriaxone 2 g Iv daily as his RLE appears stable on this regimen ( ? RLE superimposed Cellulitis) . It should cover some GNRs and normal skin sergio ( staph, strep) that would lead to skin infection ( MRSA screen neg). -Added Doxycycline 100 mg PO BID as GNR growing and he is at risk for Vibrio as he has cirrhosis, however, no bullous appearing wounds. Ceftriaxone + doxy should cover this. Pseudomonas growth possible, but has not worsened and HDS w/o coverage for it, so will not broadened to include PsA coverage now. -Follow up Wound cx results. This is a superficial cx so may be difficult to interpret results as the organisms that grow may represent contaminants -Can complete 7 days of abx for ? RLE cellulitis. Can likely transition to oral antibiotics based on culture results' Possible regimens depending on organisms that grow. -Continue wound care Thank you for this consult. ID will continue to follow. [facility] will not ro und over the weekend. Call [phone] with questions Gerson Small MD, MPH Infectious Disease [facility], [facility] . Consultation Information Consultation was provided via telemedicine using two-way real-time interactive telecommunication between the patient and the telemedicine provider. For the duration of the visit, the provider was performing the assessment from a different facility than the patient. This includesuse of bluetooth stethoscope forauscultationperformed by the telepresenter that the telemedicine provider can hear if described in the physical exam. Science Editor contact information: Please call [facility] Call Center [phone]. (Phone Number For Physician Use Only) After establishing a telemedicine visit, patient was: Patient was verified with two unique identifiers Time Spent with Patient: Initial => 75 min History of Present Illness Reason for Consultation: LE cellulitis Requesting Physician: Medardo Bangura Attending Physician: Medardo Bangura History of Present Illness This is a 73-year-old male with past medical history of paroxysmal A-fib not on anticoagulation secondary to esophageal varices, alcohol abuse, cirrhosis with esophageal varices, COPD, CKD stage III, diastolic CHF, medical noncompliance who presented to the ED after being unable to take care of right lower extremity wounds. Per report he was evaluated by a home health nurse and was found to be living in "horrible" conditions with maggots noted coming out of his right lower extremity wounds. Patient admits to LE pruritus, scratching his bilateral lower extremity and developing increase bilateral swelling and wounds. LE is slightly painful with chronic redness. He has not been consistently able to bathe or shower. He lives in a trailer and has famil bring him some groceries. He denies falls, fever, chills, sweats, nausea, vomiting, shortness of breath or chest pain. He feels overall well. He reports that he may have banged his right lower extremity into a screen door a few days ago. He drinks 3-5 beers daily and last drank the AM prior to admission On admission, he is afebrile, hemodynamically stable: T36.8, pulse 74, RR 12, BP 132/54, O2 sats 99% on room air. Labs: WBC 8.24, sodium 128, chloride 95, BUN 41, creatinine 2.23, CRP 7.02, procalcitonin 0.08. Alcohol level less than 10. Bilateral lower extremity Dopplers negative for DVT. Right lower extremity x-ray with soft tissues swelling without acute bony abnormality. He was started on ceftriaxone for possible cellulitis. Superficial wound cultures obtained prior to wound care. Gram stain polymicrobial. Culture growing gram-negative rods so far. ID consulted for cellulitis. On my exam he is comfortable and states he wants to go home. Wound care has addressed his wounds and my exam is post wound care. No maggots currently noted. He has bilateral erythema from knee to ankle with multiple scratches and excoriations. Minimal warmth or tenderness to palpation. No drainage currently. No foul odor. Allergies Allergy/AdvReac Type Severity Reaction Status Date / Time No Known Allergies Allergy Verified 09/27/23 10:44 Home Medications Medication Instructions Recorded Confirmed Type fluticasone fur. 100 mcg-umeclid 1 inh inhalation DAILY #60 ea 11/08/21 10/18/23 Rx 62.5 mcg-vilant 25 mcg inhalat.powder (Trelegy Ellipta) albuterol sulfate 90 mcg/actuation 1 inh inhalation QID PRN shortness 03/29/22 10/18/23 Rx aerosol inhaler of breath or wheezing #8.5 grams rifaximin 550 mg tablet (Xifaxan) See Rx Instructions .Route 09/16/22 10/18/23 Rx .COMPLEX #60 tabs spironolactone 100 mg tablet 100 mg PO QAM #90 tabs 12/23/22 10/18/23 Rx empagliflozin 10 mg tablet 10 mg PO DAILY #30 tabs 01/03/23 10/18/23 Rx (Jardiance) clotrimazole-betamethasone 1 See Rx Instructions topical BID 03/02/23 10/18/23 Rx %-0.05 % topical cream #45 grams fluconazole 150 mg tablet 150 mg PO Q3D 2 doses #2 tabs 03/02/23 10/18/23 Rx diltiazem HCl 120 mg 120 mg PO DAILY #90 caps 09/06/23 10/18/23 Rx capsule,extended release 24 hr furosemide 40 mg tablet 40 mg PO QAM #90 tabs 09/27/23 10/18/23 Rx pantoprazole 40 mg tablet,delayed 40 mg PO QAM #90 tabs 09/27/23 10/18/23 Rx release levothyroxine 137 mcg tablet 137 mcg PO DAILY #90 tabs 09/28/23 10/18/23 Rx Patient History Medical History Alcohol withdrawal COVID-19 Pelvic fracture Slipped cervical disc Poor historian On home oxygen therapy Duodenal ulcer Ascites (10/23/10) Surgical History History of abdominal paracentesis History of esophagogastroduodenoscopy (EGD) History of appendectomy History of tooth extraction Family History Father Myocardial infarction Unknown Diabetes Coronary heart disease Mother Chronic kidney disease Other No family history of adverse response to anesthesia Denies family history of Ovarian cancer Prostate cancer Crohn's disease Breast cancer Colorectal cancer Ulcerative colitis Social History (Updated 09/27/23 @ 10:55 by Shraddha Ashton LPN) Smoking Status: Current every day smoker Tobacco Type: Smokeless Tobacco (Dip or Chew) Age Started Using Tobacco: 14; Age Quit Using Tobacco: 57; Second Hand Exposure: No; Do You Dip or Chew Tobacco: Yes; Tobacco Cessation Education Requested by Patient: No Hx Alcohol Use: Yes Alcohol type: beer Alcohol Intake Frequency Comment: 3 beers per night. In past heavy use. 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 Pertinent Positives as per HPI. Physical Exam Physical Exam: NAD, somewhat disheveled Anicteric sclera Supple neck Soft, NT, ND abdomen No increased work of breathing BL LE edema, dry thickened skin on BL feet and some areas of BL calf. BL LE erythema. mild warmth, minimlal TTP. RLE calf excoriation and superficial wounds. No foul odor (seen sp Wound care) Some dry flaky skin remains on BL calf. No crepitus or areas of induration. Multiple scratches from itching. AAO*3 Normal mood Results & Data Vital Signs (Past 12 Hours) Vital Signs Temp Pulse Pulse Resp BP Pulse Ox O2 Del Method 10/20/23 13:40 96 H 10/20/23 11:16 36.5 C 94 H 20 120/72 95 Room Air 10/20/23 08:13 36.8 C 78 20 112/70 95 Room Air 10/20/23 07:40 Room Air 10/20/23 07:28 70 16 96 Room Air 10/20/23 06:58 73 10/20/23 02:48 36.8 C 97 H 18 122/72 96 Room Air Laboratory Results 10/18/23 13:40 Gram Stain - Final Leg,Right Wound Culture - Preliminary Gram negative bacilli 10/20/23 06:17 WBC 8.13 RBC 3.29 L Hgb 11.1 L Hct 30.9 L MCV 93.9 MCH 33.7 MCHC 35.9 RDW Std Deviation 48.1 H RDW Coeff of Walter 14.0 Plt Count 206 MPV 9.4 Immature Gran % (Auto) 0.4 Neut % (Auto) 77.4 Lymph % (Auto) 9.0 [place] % (Auto) 8.1 Eos % (Auto) 4.4 Baso % (Auto) 0.7 Neut # (Auto) 6.29 Lymph # (Auto) 0.73 L [place]leigh # (Auto) 0.66 H Eos # (Auto) 0.36 Baso # (Auto) 0.06 Immature Gran # (Auto) 0.03 PT 10.9 INR 1.0 Sodium 129 L Potassium 4.5 Chloride 95 L Carbon Dioxide 21 Anion Gap 13 H BUN 57 H Creatinine 3.00 H D Est Cr Clr Drug Dosing 20.3 Est GFR ( Amer) 22.5 Est GFR (Non-Af Amer) 19.4 BUN/Creatinine Ratio 19.0 Glucose 104 H Calcium 9.3 Magnesium 2.0 Total Bilirubin 0.5 AST 17 ALT 14 Alkaline Phosphatase 74 C-Reactive Protein 7.02 H Total Protein 6.9 Albumin 3.8 Globulin 3.1 Albumin/Globulin Ratio 1.2 Procalcitonin 0.26 Diagnostic Findings Venous Doppler Study 10/18/23 13:52 BILATERAL LOWER EXTREMITY VENOUS DOPPLER HISTORY: Acute pain and swelling of the legs swelling, redness COMPARISON STUDY: 02/23/2022 FINDINGS: There is normal compressibility, flow, and augmentation within the bilateral lower extremity deep venous systems. IMPRESSION: No DVT within the right or left lower extremity. ACT 112: Negative or not required by law. Electronically signed by: Glenn Saxena M.D. 10/18/2023 5:11 PM Chest X-Ray 10/18/23 14:05 XR chest 1V portable HISTORY: 73 years-old Male leg swelling acute shortness of breath COMPARISON: Chest CT 08/26/2022 TECHNIQUE: AP view of the chest FINDINGS: Cardiac silhouette is upper limits of normal in size. Mild subsegmental right basilar opacities. No pneumothorax, pleural effusion or pulmonary edema. The bones appear grossly intact. Mild hyperinflation. IMPRESSION: Subsegmental right basilar opacities may represent atelectasis versus a mild pneumonitis. ACT 112: Negative or not required by law. The above report was generated using voice recognition software. It may contain grammatical, syntax or spelling errors. Electronically signed by: Glenn Saxena M.D. 10/18/2023 3:22 PM Tibia/Fibula X-Ray 10/18/23 16:07 XR tibia fibula RT 2V HISTORY: 73 years-old Male right portillo wound soft tissue injury of the right lower leg COMPARISON: None TECHNIQUE: 2 views of the right tibia and fibula FINDINGS: Diffuse soft tissue swelling. No acute fracture, dislocation, osseous lesion or radiopaque foreign body. Mild osteoarthritis of the knee and ankle. IMPRESSION: Soft tissue swelling without acute osseous abnormality. ACT 112: Negative or not required by law. The above report was generated using voice recognition software. It may contain grammatical, syntax or spelling errors. Electronically signed by: Glenn Saxena M.D. 10/18/2023 5:16 PM Medications Administered Home Medications Medication Instructions Recorded Confirmed Last Taken fluticasone fur. 100 mcg-umeclid 1 inh inhalation DAILY #60 ea 11/08/21 10/18/23 10/18/23 09:00 62.5 mcg-vilant 25 mcg inhalat.powder (Trelegy Ellipta) albuterol sulfate 90 mcg/actuation 1 inh inhalation QID PRN shortness 03/29/22 10/18/23 Unknown aerosol inhaler of breath or wheezing #8.5 grams rifaximin 550 mg tablet (Xifaxan) See Rx Instructions .Route 09/16/22 10/18/23 10/18/23 09:00 .COMPLEX #60 tabs spironolactone 100 mg tablet 100 mg PO QAM #90 tabs 12/23/22 10/18/23 10/18/23 09:00 empagliflozin 10 mg tablet 10 mg PO DAILY #30 tabs 01/03/23 10/18/23 10/18/23 09:00 (Jardiance) clotrimazole-betamethasone 1 See Rx Instructions topical BID 03/02/23 10/18/23 Unknown %-0.05 % topical cream #45 grams fluconazole 150 mg tablet 150 mg PO Q3D 2 doses #2 tabs 03/02/23 10/18/23 Unknown diltiazem HCl 120 mg 120 mg PO DAILY #90 caps 09/06/23 10/18/23 10/18/23 09:00 capsule,extended release 24 hr furosemide 40 mg tablet 40 mg PO QAM #90 tabs 09/27/23 10/18/23 10/18/23 09:00 pantoprazole 40 mg tablet,delayed 40 mg PO QAM #90 tabs 09/27/23 10/18/23 10/18/23 09:00 release levothyroxine 137 mcg tablet 137 mcg PO DAILY #90 tabs 09/28/23 10/18/23 10/18/23 06:30 Active Medications Generic Name Dose Route Start Last Admin Trade Name Freq PRN Reason Stop Dose Admin Budesonide 0.5 mg 10/18/23 19:00 10/20/23 07:27 Budesonide 0.5 Mg/2 Ml Vial (Pulmicort) NEB 11/17/23 18:59 0.5 mg BIDR CRISTAL Administration Diltiazem HCl 120 mg 10/19/23 09:00 10/20/23 08:14 Diltiazem Hcl 120 Mg Capcr PO 11/18/23 08:59 120 mg DAILY CRISTAL Administration Formoterol Fumarate 20 mcg 10/18/23 19:00 10/20/23 07:27 Formoterol 20 Mcg/2 Ml Vial NEB 11/17/23 18:59 20 mcg BIDR CRISTAL Administration Furosemide 40 mg 10/19/23 09:00 10/20/23 08:05 Furosemide 40 Mg Tab PO 11/18/23 08:59 40 mg QAM CRISTAL Administration Heparin Sodium (Porcine) 5,000 units 10/18/23 22:00 10/20/23 13:10 Heparin Sod 5,000 Unit/0.5 Ml Vial SQ 11/17/23 21:59 Not Given Q8 CRISTAL Ceftriaxone Sodium 2,000 mg in 50 mls @ 100 mls/hr 10/18/23 22:00 10/19/23 22:20 Rocephin IV 10/25/23 21:59 Infused Q24H CRISTAL Infusion Thiamine HCl 200 mg/ Sodium 52 mls @ 210 mls/hr 10/19/23 09:00 10/20/23 08:39 Chloride IV 11/18/23 08:59 Infused QAM CRISTAL Infusion Folic Acid 1 mg/ Syringe 10 mls @ 5 mls/min 10/19/23 09:00 10/20/23 08:04 IV 11/18/23 08:59 5 mls/min QAM CRISTAL Administration Levothyroxine Sodium 137 mcg 10/19/23 06:30 10/20/23 05:09 Levothyroxine Sodium 137 Mcg Tablet PO 11/18/23 06:29 137 mcg DAILYBB CRISTAL Administration Pantoprazole Sodium 40 mg 10/19/23 09:00 10/20/23 08:06 Pantoprazole 40 Mg Tab PO 11/18/23 08:59 40 mg QAM CRISTAL Administration Rifaximin 500 mg 10/18/23 21:00 10/20/23 08:04 Rifaximin 550 Mg Tablet PO 11/17/23 20:59 500 mg BID CRISTAL Administration Spironolactone 100 mg 10/19/23 09:00 10/20/23 08:05 Spironolactone 100 Mg Tab PO 11/18/23 08:59 100 mg QAM CRISTAL Administration Tamsulosin HCl 0.4 mg 10/19/23 09:00 10/20/23 08:05 Tamsulosin Hcl 0.4 Mg Cap PO 11/18/23 08:59 0.4 mg QAM CRISTAL Administration
--- NOTE | 2023-10-20 15:53 | Ultrasound Report ---
US arterial duplex LE BI HISTORY: 73 years-old Male poor isidra peripheral arterial disease with pain of the lower legs COMPARISON: None TECHNIQUE: Multiple real-time sonographic images of the lower leg arterial structures were obtained a ssessing grayscale appearance, color and spectral flow FINDINGS: RIGHT: Diffuse atherosclerosis. Monophasic and biphasic waveforms throughout the lower extremity. No arterial occlusion or significantly elevated peak systolic velocities. LEFT: Diffuse atherosclerosis. Monophasic and biphasic waveforms throughout the lower extremity. No a rterial occlusion or significantly elevated peak systolic velocities. IMPRESSION: Atherosclerosis without arterial occlusion or elevated peak systolic velocities identifie d to suggest high-grade stenosis. ACT 112: Negative or not required by law. The above report was generated using voice recognition software. It may contain grammatical, syntax o r spelling errors. Electronically signed by: Glenn Saxena M.D. 10/20/2023 3:51 PM
[2023-10-20] MEDS: DOXYCYCLINE HYCLATE 100 MG CAP PO SCH (22:40)
--- NOTE | 2023-10-21 06:35 | Hospitalist Progress Note ---
Date of Service October 20, 2023 Assessment & Plan (1) Wound of lower extremity: Plan: Admit to med/tele on pulse oximetry Currently stable nontoxic-appearing Presented to ED after home health called EMS due to concerns for his poor living conditions and right lower extremity wound Patient with multiple chronic wounds in the bilateral lower extremities Has been afebrile with WBC within normal limits, does not appear septic Wound culture was obtained prior to nursing staff applying chlorhexidine solution the bilateral lower extremities continue ceftriaxone. Will consult wound care nurse to follow Pain control Tylenol for now SQ Lovenox for DVT prophylaxis Heart healthy diet with 1800 mL fluid restriction AM CBC, CMP, mag, PT/INR -will consult infectious disease given the severity of this infection appreciate input. JEAN was poor, orrdered arterial doppler of lower extremity. (2) Atrial fibrillation: Plan: Currently in rate controlled atrial fibrillation Has been off anticoagulation for multiple years due to his history of esophageal varices and previous GI bleeds Continue diltiazem (3) Hypothyroidism: Plan: Continue levothyroxine (4) COPD (chronic obstructive pulmonary disease): Plan: Patient is wheezing on exam but is stable on room air and does not appear to be in COPD exacerbation Will give DuoNeb treatment now, continue 4 times daily as needed Will convert his Trelegy to BIDr budesonide and formoterol for now Incentive spirometry As needed O2 to keep SpO2 between 89-92% (5) Alcohol abuse: Plan: Patient reports drinking approximately 3 to 5 cans of beer daily with last drink being approximately 3 AM this morning Denied a previous history of alcohol withdrawal, does have this history and his problem list in her record No current signs of withdrawal, will follow-up on alcohol level ordered at the time of admission For now we will start AWSS at risk protocol Will start daily thiamine and folic acid Continue stressed the importance of cessation (6) Hyponatremia: Plan: Sodium is 128 today, appears to be very close to his normal baseline which appears near the mid to high 120s Previous history of Beer potomania Patient confirm he still drinking 3-5 beers daily Will start a fluid restriction of 1800 mL for now and continue his normal diuretics Monitor daily renal function [place] (7) Cirrhosis: Plan: LFTs are currently stable, does not appear to be in decompensated cirrhosis Continue stressed the importance of alcohol cessation Will continue home rifaximin, spironolactone and furosemide (8) Tobacco abuse: Plan: Patient denies recent cigarette use but uses chewing tobacco daily Continue to stressed the importance of cessation Twice daily oral hygiene has been ordered (9) Urinary retention: Plan: Patient was having difficulty urinating during my exam Bedside bladder scan shows 560 cc PVR Patient is very resistant to Salvador catheter at this time Will give 1 dose of Flomax now and see if he is able to urinate over the next few hours, if not we will need to readdress Salvador catheter for now Continue daily Flomax for now (10) Failure to thrive in adult: Plan: Patient with very poor hygiene and appears chronically ill Will consult PT/OT patient is generally weak on admission Suspect he will be very resistant to any rehab prior to discharge (11) Cellulitis of right lower extremity: (12) Maggot infestation: Plan Patient was discussed with Dr. Lam at the time of the admission Admission and Anticipated Discharge Date Admission Date: October 18, 2023 Subjective Patient reports no new symptoms. Review of Systems Review of Systems: All systems reviewed & are unremarkable except as noted in HPI & below Physical Exam Physical Exam: General: In no acute distress, stated age, chronically ill-appearing with poor hygiene HEENT: Normocephalic, atraumatic Chest/Pulm: No respiratory distress, symmetrical chest expansion, expiratory wheezing throughout Cardiac: Irregular rate and rhythm, no murmurs noted Abdomen: Negative for ascites and bruising, normoactive bowel sounds, soft, non-tender to palpation throughout Musculoskeletal: Symmetrical and without signs of acute trauma, upper and lower extremities with full ROM, no atrophy, spasticity, or flaccidity Extremities: Radial, dorsalis pedis, and posterior tibial pulses are intact and symmetrical, chronic bilateral lymphedema lower extremities Skin: Patient with skin erythema consistent with fungal infection overlying the suprapubic area and under the abdominal fold; appears less erythematous Neuro: Alert and oriented to person, place, month, year, no focal defects, no tremors noted Psych: No acute distress, calm and cooperative during the exam Results & Data Results & Data Vital Signs (Past 12 Hours) Vital Signs Temp Pulse Resp BP Pulse Ox O2 Del Method 10/21/23 04:00 36.5 C 89 18 126/70 96 Room Air 10/21/23 00:00 36.7 C 86 18 127/74 96 Room Air 10/20/23 21:00 Room Air 10/20/23 20:00 36.4 C L 92 H 18 110/59 L 95 Room Air PG Care Time/CCT Total # of Minutes Spent Total Time Spent with Patient: Total time spent is greater than 50% in coordination of care (as documented) at patient's floor/unit and/or counseling patient: Coding Level of Care Code 01499 SUB INP/OBS CARE 2/35MIN Diagnoses Wound of lower extremity S81.809A Atrial fibrillation I48.91 Hypothyroidism E03.9 COPD (chronic obstructive pulmonary disease) J44.1 COPD type: COPD with acute exacerbation Alcohol abuse F10.10 Hyponatremia E87.1 Alcoholic cirrhosis of liver without ascites K70.30 Hepatic cirrhosis type: alcoholic cirrhosis Ascites presence: without ascites Tobacco abuse Z72.0 Urinary retention R33.9 Failure to thrive in adult R62.7 Cellulitis of right lower extremity L03.115 Maggot infestation B87.9 (4) COPD (chronic obstructive pulmonary disease) COPD type: COPD with acute exacerbation Qualified Code(s): J44.1 - Chronic obstructive pulmonary disease with (acute) exacerbation (7) Cirrhosis Hepatic cirrhosis type: alcoholic cirrhosis Ascites presence: without ascites Qualified Code(s): K70.30 - Alcoholic cirrhosis of liver without ascites
[2023-10-21 07:07] LABS: Basophils # (auto) 0.05 K/uL (0.00-0.20); Basophils % (auto) 0.7 %; Eosinophils # (auto) 0.48 K/uL (0.00-0.50); Eosinophils % (auto) 6.5 %; Hematocrit (blood only) 32.6 % (42.0-52.0); Hemoglobin 11.1 g/dl (14.0-18.0); Immature Granulocytes # (auto) 0.03 K/uL (0.01-0.20); Immature Granulocytes % (auto) 0.4 %; Lymphocytes # (auto) 0.61 K/uL (1.20-3.40); Lymphocytes % (auto) 8.2 %; Mean Corpuscular Hemoglobin 33.1 pg (25.0-34.0); Mean Corpuscular Volume 97.3 fL (80.0-100.0); Mean Platelet Volume 9.4 fL (9.4-12.4); Monocytes # (auto) 0.74 K/uL (0.11-0.59); Neutrophils % (auto) 74.2 %; Platelet Count 184 K/uL (130-400); RDW Coefficient of Variation 14.1 % (11.5-14.5); RDW Standard Deviation 50.4 fL (36.4-46.3); Red Blood Count 3.35 M/uL (4.70-6.10); White Blood Count 7.41 K/ul (4.8-10.8)
[2023-10-21 07:31] LABS: Prothrombin Time 11.2 Seconds (9.0-12.0)
[2023-10-21 07:32] LABS: Albumin Globulin Ratio 1.2 (0.9-2); Albumin Level 3.6 gm/dl (3.4-5.0); BUN Creatinine Ratio 19.1 (10-20); Bilirubin,Total 0.4 mg/dl (0.2-1.0); Calcium 9.2 mg/dl (8.6-10.3); Creatinine Clr Calc Pharmacy 17.8 ml/min; Est GFR (African American) 19.3 ml/min; Est GFR (Non-African American) 16.6 ml/min; Potassium 4.5 mmol/L (3.5-5.1); Total Protein 6.6 gm/dl (6.0-8.3)
[2023-10-21 08:13] LABS: Magnesium 1.7 mg/dl (1.7-2.4)
[2023-10-21] MEDS: AMMONIUM LACTATE 12% LOTION 225 GM BTL EXT SCH (15:13)
--- NOTE | 2023-10-22 07:53 | Hospitalist Progress Note ---
Date of Service October 21, 2023 Assessment & Plan (1) Wound of lower extremity: Plan: Admit to med/tele on pulse oximetry Currently stable nontoxic-appearing Presented to ED after home health called EMS due to concerns for his poor living conditions and right lower extremity wound Patient with multiple chronic wounds in the bilateral lower extremities Has been afebrile with WBC within normal limits, does not appear septic Wound culture was obtained prior to nursing staff applying chlorhexidine solution the bilateral lower extremities continue ceftriaxone. Will consult wound care nurse to follow Pain control Tylenol for now SQ Lovenox for DVT prophylaxis Heart healthy diet with 1800 mL fluid restriction AM CBC, CMP, mag, PT/INR -will consult infectious disease given the severity of this infection appreciate input. JEAN was poor, orrdered arterial doppler of lower extremity. arterial doppler was negative. continue above treatment (2) Atrial fibrillation: Plan: Currently in rate controlled atrial fibrillation Has been off anticoagulation for multiple years due to his history of esophageal varices and previous GI bleeds Continue diltiazem (3) Hypothyroidism: Plan: Continue levothyroxine (4) COPD (chronic obstructive pulmonary disease): Plan: Patient is wheezing on exam but is stable on room air and does not appear to be in COPD exacerbation Will give DuoNeb treatment now, continue 4 times daily as needed Will convert his Trelegy to BIDr budesonide and formoterol for now Incentive spirometry As needed O2 to keep SpO2 between 89-92% (5) Alcohol abuse: Plan: Patient reports drinking approximately 3 to 5 cans of beer daily with last drink being approximately 3 AM this morning Denied a previous history of alcohol withdrawal, does have this history and his problem list in her record No current signs of withdrawal, will follow-up on alcohol level ordered at the time of admission For now we will start AWSS at risk protocol Will start daily thiamine and folic acid Continue stressed the importance of cessation (6) Hyponatremia: Plan: Sodium is 128 today, appears to be very close to his normal baseline which appears near the mid to high 120s Previous history of Beer potomania Patient confirm he still drinking 3-5 beers daily Will start a fluid restriction of 1800 mL for now and continue his normal diuretics Monitor daily renal function [place] (7) Cirrhosis: Plan: LFTs are currently stable, does not appear to be in decompensated cirrhosis Continue stressed the importance of alcohol cessation Will continue home rifaximin, spironolactone and furosemide (8) Tobacco abuse: Plan: Patient denies recent cigarette use but uses chewing tobacco daily Continue to stressed the importance of cessation Twice daily oral hygiene has been ordered (9) Urinary retention: Plan: Patient was having difficulty urinating during my exam Bedside bladder scan shows 560 cc PVR Patient is very resistant to Salvador catheter at this time Will give 1 dose of Flomax now and see if he is able to urinate over the next few hours, if not we will need to readdress Salvador catheter for now Continue daily Flomax for now (10) Failure to thrive in adult: Plan: Patient with very poor hygiene and appears chronically ill Will consult PT/OT patient is generally weak on admission Suspect he will be very resistant to any rehab prior to discharge (11) Cellulitis of right lower extremity: (12) Maggot infestation: Plan Patient was discussed with Dr. Lam at the time of the admission Admission and Anticipated Discharge Date Admission Date: October 18, 2023 Subjective Patient reports no new symptoms. Review of Systems Review of Systems: All systems reviewed & are unremarkable except as noted in HPI & below Physical Exam Physical Exam: General: In no acute distress, stated age, chronically ill-appearing with poor hygiene HEENT: Normocephalic, atraumatic Chest/Pulm: No respiratory distress, symmetrical chest expansion, expiratory wheezing throughout Cardiac: Irregular rate and rhythm, no murmurs noted Abdomen: Negative for ascites and bruising, normoactive bowel sounds, soft, non-tender to palpation throughout Musculoskeletal: Symmetrical and without signs of acute trauma, upper and lower extremities with full ROM, no atrophy, spasticity, or flaccidity Extremities: Radial, dorsalis pedis, and posterior tibial pulses are intact and symmetrical, chronic bilateral lymphedema lower extremities Skin: Patient with skin erythema consistent with fungal infection overlying the suprapubic area and under the abdominal fold; appears less erythematous Neuro: Alert and oriented to person, place, month, year, no focal defects, no tremors noted Psych: No acute distress, calm and cooperative during the exam Results & Data Results & Data Vital Signs (Past 12 Hours) Vital Signs Temp Pulse Pulse Resp BP BP Pulse Ox 10/22/23 07:50 36.5 C 91 H 18 139/83 95 10/22/23 07:04 76 16 96 10/22/23 07:02 88 10/22/23 03:48 36.6 C 91 H 20 123/79 94 10/21/23 23:09 36.6 C 94 H 18 125/71 96 10/21/23 21:51 80 10/21/23 20:00 O2 Del Method 10/22/23 07:50 Room Air 10/22/23 07:04 Room Air 10/22/23 07:02 10/22/23 03:48 Room Air 10/21/23 23:09 Room Air 10/21/23 21:51 10/21/23 20:00 Room Air PG Care Time/CCT Total # of Minutes Spent Total Time Spent with Patient: Total time spent is greater than 50% in coordination of care (as documented) at patient's floor/unit and/or counseling patient: Coding Level of Care Code 72829 SUB INP/OBS CARE 235MIN Diagnoses Wound of lower extremity S81.809A Atrial fibrillation I48.91 Hypothyroidism E03.9 COPD (chronic obstructive pulmonary disease) J44.1 COPD type: COPD with acute exacerbation Alcohol abuse F10.10 Hyponatremia E87.1 Alcoholic cirrhosis of liver without ascites K70.30 Hepatic cirrhosis type: alcoholic cirrhosis Ascites presence: without ascites Tobacco abuse Z72.0 Urinary retention R33.9 Failure to thrive in adult R62.7 Cellulitis of right lower extremity L03.115 Maggot infestation B87.9 (4) COPD (chronic obstructive pulmonary disease) COPD type: COPD with acute exacerbation Qualified Code(s): J44.1 - Chronic obstructive pulmonary disease with (acute) exacerbation (7) Cirrhosis Hepatic cirrhosis type: alcoholic cirrhosis Ascites presence: without ascites Qualified Code(s): K70.30 - Alcoholic cirrhosis of liver without ascites
[2023-10-22 22:46] VITALS: O2SAT 96
--- NOTE | 2023-10-22 22:51 | Hospitalist Progress Note ---
Date of Service October 22, 2023 Assessment & Plan (1) Wound of lower extremity: Plan: Admit to med/tele on pulse oximetry Currently stable nontoxic-appearing Presented to ED after home health called EMS due to concerns for his poor living conditions and right lower extremity wound Patient with multiple chronic wounds in the bilateral lower extremities Has been afebrile with WBC within normal limits, does not appear septic Wound culture was obtained prior to nursing staff applying chlorhexidine solution the bilateral lower extremities -No significant improvement of cellulitis: likely explained by culture results. 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 -Transitioned to zosyn on AM of 10/22 -continue doxy for now. appreciate wound care. Pain control Tylenol for now SQ Lovenox for DVT prophylaxis Heart healthy diet with 1800 mL fluid restriction JEAN was poor, ordered arterial doppler of lower extremity. arterial doppler was negative. continue above treatment (2) Atrial fibrillation: Plan: Currently in rate controlled atrial fibrillation Has been off anticoagulation for multiple years due to his history of esophageal varices and previous GI bleeds Continue diltiazem (3) Hypothyroidism: Plan: Continue levothyroxine (4) COPD (chronic obstructive pulmonary disease): Plan: Patient is wheezing on exam but is stable on room air and does not appear to be in COPD exacerbation Will give DuoNeb treatment now, continue 4 times daily as needed Will convert his Trelegy to BIDr budesonide and formoterol for now Incentive spirometry As needed O2 to keep SpO2 between 89-92% (5) Alcohol abuse: Plan: Patient reports drinking approximately 3 to 5 cans of beer daily with last drink being approximately 3 AM this morning Denied a previous history of alcohol withdrawal, does have this history and his problem list in her record No current signs of withdrawal, will follow-up on alcohol level ordered at the time of admission For now we will start AWSS at risk protocol Will start daily thiamine and folic acid Continue stressed the importance of cessation (6) Hyponatremia: Plan: Sodium is 128 today, appears to be very close to his normal baseline which appears near the mid to high 120s Previous history of Beer potomania Patient confirm he still drinking 3-5 beers daily Will start a fluid restriction of 1800 mL for now and continue his normal diuretics Monitor daily renal function [place] -improved o 131 (7) Cirrhosis: Plan: LFTs are currently stable, does not appear to be in decompensated cirrhosis Continue stressed the importance of alcohol cessation Will continue home rifaximin, spironolactone and furosemide (8) Tobacco abuse: Plan: Patient denies recent cigarette use but uses chewing tobacco daily Continue to stressed the importance of cessation Twice daily oral hygiene has been ordered (9) Urinary retention: Plan: Patient was having difficulty urinating during my exam Bedside bladder scan shows 560 cc PVR Patient is very resistant to Salvador catheter at this time Will give 1 dose of Flomax now and see if he is able to urinate over the next few hours, if not we will need to readdress Salvador catheter for now Continue daily Flomax for now (10) Failure to thrive in adult: Plan: Patient with very poor hygiene and appears chronically ill Will consult PT/OT patient is generally weak on admission Suspect he will be very resistant to any rehab prior to discharge (11) Cellulitis of right lower extremity: (12) Maggot infestation: Admission and Anticipated Discharge Date Admission Date: October 18, 2023 Subjective Patident reports no new symptoms. Review of Systems Review of Systems: All systems reviewed & are unremarkable except as noted in HPI & below Physical Exam Physical Exam: General: In no acute distress, stated age, chronically ill-appearing with poor hygiene HEENT: Normocephalic, atraumatic Chest/Pulm: No respiratory distress, symmetrical chest expansion, expiratory wheezing throughout Cardiac: Irregular rate and rhythm, no murmurs noted Abdomen: Negative for ascites and bruising, normoactive bowel sounds, soft, non-tender to palpation throughout Musculoskeletal: Symmetrical and without signs of acute trauma, upper and lower extremities with full ROM, no atrophy, spasticity, or flaccidity Extremities: Radial, dorsalis pedis, and posterior tibial pulses are intact and symmetrical, chronic bilateral lymphedema lower extremities Skin: Patient with skin erythema remains, warm to touch Neuro: Alert and oriented to person, place, month, year, no focal defects, no tremors noted Psych: No acute distress, calm and cooperative during the exam Results & Data Results & Data Vital Signs (Past 12 Hours) Vital Signs Temp Pulse Resp BP BP Pulse Ox O2 Del Method 10/22/23 22:20 36.6 C 103 H 18 138/77 96 Room Air 10/22/23 21:30 Room Air 10/22/23 19:29 36.4 C L 88 18 138/74 97 Room Air 10/22/23 16:09 36.6 C 88 18 113/58 L 96 Room Air 10/22/23 11:26 36.5 C 86 18 128/78 96 Room Air PG Care Time/CCT Total # of Minutes Spent Total Time Spent with Patient: Total time spent is greater than 50% in coordination of care (as documented) at patient's floor/unit and/or counseling patient: Coding Level of Care Code 06733 SUB INP/OBS CARE 3/50MIN Diagnoses Wound of lower extremity S81.809A Atrial fibrillation I48.91 Hypothyroidism E03.9 COPD (chronic obstructive pulmonary disease) J44.1 COPD type: COPD with acute exacerbation Alcohol abuse F10.10 Hyponatremia E87.1 Alcoholic cirrhosis of liver without ascites K70.30 Ascites presence: without ascites Hepatic cirrhosis type: alcoholic cirrhosis Tobacco abuse Z72.0 Urinary retention R33.9 Failure to thrive in adult R62.7 Cellulitis of right lower extremity L03.115 Maggot infestation B87.9 (4) COPD (chronic obstructive pulmonary disease) COPD type: COPD with acute exacerbation Qualified Code(s): J44.1 - Chronic obstructive pulmonary disease with (acute) exacerbation (7) Cirrhosis Ascites presence: without ascites Hepatic cirrhosis type: alcoholic cirrhosis Qualified Code(s): K70.30 - Alcoholic cirrhosis of liver without ascites
[2023-10-23 06:25] LABS: Hematocrit (blood only) 31.6 % (42.0-52.0); Hemoglobin 11.3 g/dl (14.0-18.0); Mean Corpuscular Hemoglobin 34.5 pg (25.0-34.0); Mean Corpuscular Hgb Conc 35.8 g/dL (32.0-36.0); Mean Corpuscular Volume 96.3 fL (80.0-100.0); Mean Platelet Volume 9.2 fL (9.4-12.4); Platelet Count 217 K/uL (130-400); RDW Coefficient of Variation 14.1 % (11.5-14.5); RDW Standard Deviation 50.1 fL (36.4-46.3); Red Blood Count 3.28 M/uL (4.70-6.10); White Blood Count 7.39 K/ul (4.8-10.8)
[2023-10-23] MEDS: PIPERACILLIN/TAZOBACTAM 4.5 GM/100 ML BAG IV ONE (06:39)
[2023-10-23 06:48] LABS: BUN Creatinine Ratio 24.8 (10-20); C Reactive Protein 3.07 mg/dl (0-0.5); Calcium 9.1 mg/dl (8.6-10.3); Creatinine Clr Calc Pharmacy 20.3 ml/min; Est GFR (African American) 22.7 ml/min; Est GFR (Non-African American) 19.6 ml/min; Potassium 4.3 mmol/L (3.5-5.1)
[2023-10-23] MEDS: rifAXIMin 550 MG TABLET PO SCH (07:25)
[2023-10-23 07:40] VITALS: RESP 16
--- NOTE | 2023-10-23 08:14 | Hospitalist Progress Note ---
Date of Service October 23, 2023 Assessment & Plan (1) Wound of lower extremity: Plan: Presented to ED after home health called EMS due to concerns for his poor living conditions and right lower extremity cellulitis with chronic venous stasis Patient with multiple chronic wounds in the bilateral lower extremities Wound culture was obtained prior to nursing staff applying chlorhexidine solution the bilateral lower extremities -No significant improvement of cellulitis: likely explained by culture results. 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 -Transitioned to zosyn on AM of 10/22 -continue doxycycline appreciate wound care. Pain control Tylenol for now SQ Lovenox for DVT prophylaxis JEAN was poor, ordered arterial doppler of lower extremity. arterial doppler was negative. (2) Atrial fibrillation: Plan: Currently in rate controlled atrial fibrillation Has been off anticoagulation for multiple years due to his history of esophageal varices and previous GI bleeds Continue diltiazem (3) COPD (chronic obstructive pulmonary disease): Plan: Patient is wheezing on exam but is stable on room air and does not appear to be in COPD exacerbation Will give DuoNeb treatment now, continue 4 times daily as needed Will convert his Trelegy to BIDr budesonide and formoterol for now Incentive spirometry As needed O2 to keep SpO2 between 89-92% tobacco abuse, stopped smoking, still with chewing tobacco, counselled on cessation (4) Alcohol abuse: Plan: Patient reports drinking approximately 3 to 5 cans of beer daily with last drink being approximately 3 AM this morning Denied a previous history of alcohol withdrawal, does have this history and his problem list in her record No current signs of withdrawal, For now we will start AWSS at risk protocol Will start daily thiamine and folic acid Continue stressed the importance of cessation history of cirrhosis, LFT stable continue home rifaximin, spironolactone and furosemide (5) Hyponatremia: Plan: Sodium is 128 on admission, close to his normal baseline which appears near the mid to high 120s Previous history of Beer potomania Patient confirm he still drinking 3-5 beers daily Will start a fluid restriction of 1800 mL for now and continue his normal diuretics (6) Urinary retention: Plan: Patient was having difficulty urinating during my exam Bedside bladder scan shows 560 cc PVR Patient is very resistant to Salvador catheter at this time Will give 1 dose of Flomax now and see if he is able to urinate over the next few hours, if not we will need to readdress Salvador catheter for now Continue daily Flomax for now Plan hypothyroidism continue synthroid Admission and Anticipated Discharge Date Admission Date: October 18, 2023 Results & Data Results & Data Vital Signs (Past 12 Hours) Vital Signs Temp Pulse Resp BP BP Pulse Ox O2 Del Method 10/23/23 07:58 Room Air 10/23/23 07:39 97.7 F 80 16 116/70 96 Room Air 10/23/23 04:00 98.2 F 91 H 18 124/78 96 Room Air 10/22/23 22:20 97.9 F 103 H 18 138/77 96 Room Air 10/22/23 21:30 Room Air PG Care Time/CCT Total # of Minutes Spent Total Time Spent with Patient: Total time spent is greater than 50% in coordination of care (as documented) at patient's floor/unit and/or counseling patient: Coding Diagnoses Wound of lower extremity S81.809A Atrial fibrillation I48.91 COPD (chronic obstructive pulmonary disease) J44.1 COPD type: COPD with acute exacerbation Alcohol abuse F10.10 Hyponatremia E87.1 Urinary retention R33.9 (3) COPD (chronic obstructive pulmonary disease) COPD type: COPD with acute exacerbation Qualified Code(s): J44.1 - Chronic obstructive pulmonary disease with (acute) exacerbation
--- NOTE | 2023-10-23 09:41 | Consultation ---
Date of Consultation October 23, 2023 Assessment & Plan (1) Peripheral arterial disease: Pt with mild PAD by exam and ultrasound. RLE wound likely related to severe BLE edema. No indications for vascular surgical intervention at this time. Please call if needed. History of Present Illness Reason for Consultation: PAD Attending Physician: Karlo Heath MD History of Present Illness 73 yo m with hx of CHF, a fib, CKD, hypothyriodism, COPD, anemia, gout, BPH, liver cirrhosis, depression, ETOH abuse, admitted with infected RLE wound, seen in consultation today for possible PAD. Pt is a poor historian, states has had wound for a few weeks. May have bumped it on something in his home. Admits chronic BLE edema for many years, usually improved with elevation of BLE. Denies any associated pain or fever. Denies LLANOS, chest pain, SOB, abd pain, N/V, rest pain, claudication, other complaints. Ambulates with walker short distances as needed only. Per prior notes, RLE wound with maggots visible upon admission. Pt sent to ED for eval d/t RLE wound, but also for extremely poor living conditions and poor hygeine. BLE arterial US demonstrates mild PAD without occlusions. Allergies Allergy/AdvReac Type Severity Reaction Status Date / Time No Known Allergies Allergy Verified 09/27/23 10:44 Home Medications Medication Instructions Recorded Confirmed Type fluticasone fur. 100 mcg-umeclid 1 inh inhalation DAILY #60 ea 11/08/21 10/18/23 Rx 62.5 mcg-vilant 25 mcg inhalat.powder (Trelegy Ellipta) albuterol sulfate 90 mcg/actuation 1 inh inhalation QID PRN shortness 03/29/22 10/18/23 Rx aerosol inhaler of breath or wheezing #8.5 grams rifaximin 550 mg tablet (Xifaxan) See Rx Instructions .Route 09/16/22 10/18/23 Rx .COMPLEX #60 tabs spironolactone 100 mg tablet 100 mg PO QAM #90 tabs 12/23/22 10/18/23 Rx empagliflozin 10 mg tablet 10 mg PO DAILY #30 tabs 01/03/23 10/18/23 Rx (Jardiance) clotrimazole-betamethasone 1 See Rx Instructions topical BID 03/02/23 10/18/23 Rx %-0.05 % topical cream #45 grams fluconazole 150 mg tablet 150 mg PO Q3D 2 doses #2 tabs 03/02/23 10/18/23 Rx diltiazem HCl 120 mg 120 mg PO DAILY #90 caps 09/06/23 10/18/23 Rx capsule,extended release 24 hr furosemide 40 mg tablet 40 mg PO QAM #90 tabs 09/27/23 10/18/23 Rx pantoprazole 40 mg tablet,delayed 40 mg PO QAM #90 tabs 09/27/23 10/18/23 Rx release levothyroxine 137 mcg tablet 137 mcg PO DAILY #90 tabs 09/28/23 10/18/23 Rx Patient History Medical History Alcohol withdrawal COVID-19 Pelvic fracture Slipped cervical disc Poor historian On home oxygen therapy 1L oxygen Duodenal ulcer Ascites (10/23/10) Surgical History History of abdominal paracentesis History of esophagogastroduodenoscopy (EGD) 08/06/18 [facility] History of appendectomy History of tooth extraction Family History Father Myocardial infarction Unknown Diabetes Coronary heart disease Mother Chronic kidney disease Other No family history of adverse response to anesthesia Denies family history of Ovarian cancer Prostate cancer Crohn's disease Breast cancer Colorectal cancer Ulcerative colitis Social History Smoking Status: Current every day smoker Tobacco Type: Smokeless Tobacco (Dip or Chew) Age Started Using Tobacco: 14; Age Quit Using Tobacco: 57; Second Hand Exposure: No; Do You Dip or Chew Tobacco: Yes; Tobacco Cessation Education Requested by Patient: No Hx Alcohol Use: Yes Alcohol type: beer Alcohol Intake Frequency Comment: 3 beers per night. In past heavy use. Hx Substance Use: No Preferred Language: Bahraini Communication Ability: Effective Hearing Ability: Hard of Hearing Section Weaver Required: No Beliefs That Will Affect Care: None marital status: Single Current Living Situation: Alone current occupational status: retired and disabled Other Information That Helps Us Care for You: No Feels Safe at Home: Yes Safety Concerns: Feels Safe At This Time Childhood Exposure to Second-Hand Smoke: Yes Diet: other Diet Comment: low calorie 2,000 per day Dental Care, Regularly: No Physical Activity Frequency: Does not Exercise Seatbelt Use: always Sunscreen Use: No Assistive Devices: Cane and Walker Review of Systems Review of Systems: All systems reviewed & are unremarkable except as noted in HPI & below Physical Exam Constitutional: WD/WN, vitals as above + ill appearing (chronically) and cooperative; not in distress ENMT: Ears: + hearing impairment (mild [place]) Respiratory: normal respiratory effort Auscultation: + diminished lung sounds and + wheezes Cardiovascular: Rate/Rhythm: + irregularly irregular Vessels: posterior tibial pulses present (dopplerable BLE, biphasic), dorsalis pedis pulses present (dopplerable BLE, biphasic) and radial pulses present; + abnormal peripheral pulses Extremities: normal capillary refill and + edema (+4 pitting edema, thickened, dry skin) Gastrointestinal (Abdomen): Inspection/Auscultation: + abdomen distended Percussion/Palpation: abdomen nontender Musculoskeletal: no cyanosis or clubbing, extremities motor strength 5/5 Skin: BLE lower legs with severe edema, erythematous skin with small scattered scabbed areas. RLE mid portillo with open wound. Neurologic: moves all extremities and awake; no focal motor deficits and not confused Psychiatric: A+Ox3, euthymic affect Results & Data Vital Signs (Past 12 Hours) Vital Signs Temp Pulse Resp BP BP Pulse Ox O2 Del Method 10/23/23 07:58 Room Air 10/23/23 07:39 36.5 C 80 16 116/70 96 Room Air 10/23/23 04:00 36.8 C 91 H 18 124/78 96 Room Air 10/22/23 22:20 36.6 C 103 H 18 138/77 96 Room Air 10/22/23 21:30 Room Air
[2023-10-23 11:35] VITALS: BP 117/69; PULSE 95; TEMP 97.9
[2023-10-23] MEDS: PIPERACILLIN/TAZOBACTAM 4.5 GM/100 ML BAG IV SCH (13:43)
--- NOTE | 2023-10-23 14:24 | Infectious Disease Progress Nt ---
Date of Service October 23, 2023 Assessment & Plan (1) Cellulitis of right lower extremity: (2) Maggot infestation: (3) Leg swelling: (4) Wound of lower extremity: (5) Peripheral arterial disease: Plan This is a 73-year-old male with past medical history of paroxysmal A-fib not on anticoagulation secondary to esophageal varices, alcohol abuse, cirrhosis with esophageal varices, COPD, CKD stage III, diastolic CHF, medical noncompliance who presented to the ED after being unable to take care of right lower extremity wounds. Per report he was evaluated by a home health nurse and was found to be living in "horrible" conditions with maggots noted coming out of his right lower extremity wounds. Patient admits to LE pruritus, scratching his bilateral lower extremity and developing increase bilateral swelling and wounds. LE is slightly painful with chronic redness. He has not been consistently able to bathe or shower. He lives in a trailer and has famil bring him some groceries. He denies falls, fever, chills, sweats, nausea, vomiting, shortness of breath or chest pain. He feels overall well. He reports that he may have banged his right lower extremity into a screen door a few days ago. He drinks 3-5 beers daily and last drank the AM prior to admission On admission, he is afebrile, hemodynamically stable: T36.8, pulse 74, RR 12, BP 132/54, O2 sats 99% on room air. Labs: WBC 8.24, sodium 128, chloride 95, BUN 41, creatinine 2.23, CRP 7.02, procalcitonin 0.08. Alcohol level less than 10. Bilateral lower extremity Dopplers negative for DVT. Right lower extremity x-ray with soft tissues swelling without acute bony abnormality. He was started on ceftriaxone for possible cellulitis. Superficial wound cultures obtained prior to wound care. Gram stain polymicrobial. Culture growing gram-negative rods so far. ID consulted for cellulitis. On my exam he is comfortable and states he wants to go home. Wound care has addressed his wounds and my exam is post wound care. No maggots currently noted. He has bilateral erythema from knee to ankle with multiple scratches and excoriations. Minimal warmth or tenderness to palpation. No drainage currently. No foul odor. Microbiology: -Wound culture 10/18/2023: Gram stain polymicrobial: Few gram-positive cocci, gram-positive bacilli, gram- negative bacilli, gram-negative cocci Culture: Gram-negative rods (preliminary) -MRSA screen 10/18/2023 negative Antibiotics: Zosyn 10/17 Ceftriaxone 10/17-ongoing # Chronic bilateral lower extremity wounds with ? R superimposed bacterial infection/cellulitis # Poor lower extremity skin hygiene #Alcohol use disorder #Cirrhosis # STEVE on CKD #Maggots in wounds: resolved prior to my evaluation. Bilateral cellulitis is not likely. Bilateral erythema is typically non infectious. His bilateral lower extremity wounds appear chronic with signs of thickened, cracked skin that may be secondary to poor skin hygiene. He has minimal pain of bilateral lower extremities which is usually expected with cellulitis. There is however sightly more pain on the right than left. There is a R superficial appearing wound that was cultured in the ED and is polymicrobial on Gram stain but growing gram-negative rods on culture so far. Unclear if this represents skin contaminants versus pathogen. Patient is on ceftriaxone currently and is feeling well. MRSA screen is negative. Denies freshwater /sea water exposure, animal bites/scratches. He has cirrhosis so at risk for cellulitis with Vibrio, but no bullous appearing lesions. Right lower extremity imaging without osseous changes. Maggots and wound care may have removed prior ?necrotic or ? infected tissue as wound currently appears clean. Wound culture: Nonfer sp RX M.I.C. --- --------- Cefepime I 16 Gentamicin S <=4 Tobramycin S <=4 Trimeth/Sulfa S <=2/38 Pip/Tazo S <=16 Recommendations -C/W Zosyn as species S to Zosyn (at highter end) -C/F STEVE on CKD to change to bactrim - if patient is ready for discharge we may be able to finish with bactrim (renally dosed) but would keep on Zosyn (SRINATH is on higher end but responsive) and would avoid aminoglycosides with STEVE Rhonda Boyer MD Infectious Diseases Admission and Anticipated Discharge Date Admission Date: October 18, 2023 Subjective This patient recommendation is based on a telemedicine consult request which was completed asynchronously through chart review and information provided by the primary physician. The patient was not seen or examined today. The evaluation is consultative in nature and all patient care and treatment decisions can either be accepted or rejected by the patient's primary hospital-based treating physician using their own independent medical judgment for their patient. Time Spent Reviewing Chart: 21 - 30 minutes Results & Data Vital Signs (Past 12 Hours) Vital Signs Temp Pulse Resp BP Pulse Ox O2 Del Method 10/23/23 11:34 36.6 C 95 H 16 117/69 96 Room Air 10/23/23 07:58 Room Air 10/23/23 07:39 36.5 C 80 16 116/70 96 Room Air 10/23/23 04:00 36.8 C 91 H 18 124/78 96 Room Air
--- NOTE | 2023-10-23 17:24 | Discharge Summary ---
Discharge Summary Date of Service October 23, 2023 Principal Dx & Hospital Course #1 = Principal Diagnosis (1) Wound of lower extremity: Presented to ED after home health called EMS due to concerns for his poor living conditions and right lower extremity cellulitis with chronic venous stasis Patient with multiple chronic wounds in the bilateral lower extremities Wound culture was obtained prior to nursing staff applying chlorhexidine solution the bilateral lower extremities -No significant improvement of cellulitis: likely explained by culture results. Culture growing non forming acid dumper species: -appreciate ID input. -Transitioned to zosyn on AM of 10/22will be discharged on Augmentin -continue doxycycline appreciate wound care. Encouraged the patient of outpatient wound care but he has transportation difficulties. Patient decided to leave AGAINST MEDICAL ADVICE on 10/23/2023 Pain control Tylenol for now JEAN was poor, ordered arterial doppler of lower extremity. arterial doppler was negative. (2) Atrial fibrillation: Currently in rate controlled atrial fibrillation Has been off anticoagulation for multiple years due to his history of esophageal varices and previous GI bleeds Continue diltiazem (3) COPD (chronic obstructive pulmonary disease): Wheezing did resolve on my examination Continue home Trelegy tobacco abuse, stopped smoking, still with chewing tobacco, counselled on cessation (4) Alcohol abuse: Patient reports drinking approximately 3 to 5 cans of beer daily Denied a previous history of alcohol withdrawal, does have this history and his problem list in her record No current signs of withdrawal, Continue stressed the importance of cessation history of cirrhosis, LFT stable continue home rifaximin, spironolactone and will have family physician reevaluate for reinstitution of furosemide (5) Hyponatremia: Sodium is 128 on admission, close to his normal baseline which appears near the mid to high 120s Previous history of Beer potomania Patient confirm he still drinking 3-5 beers daily Improved to 131 (6) Urinary retention: Resolved at time of discharge patient requested to be discharged AMA Plan hypothyroidism continue synthroid Notes For Next Care Provider Patient left AMA some things to be determined would be duration of antibiotic therapy for his lower extremity cellulitis, trying to get him into good wound care follow-up, and to consider when to reinstitute his furosemide therapy for his chronic venous stasis changes and cirrhosis Admission HPI Per Admitting Provider Martin is a 73-year-old male with a past medical history significant for pAF not on anticoagulation due to esophageal varices, alcohol abuse, tobacco abuse, cirrhosis with esophageal varices, COPD, CKD3, diastolic CHF grade 1, medical noncompliance and previous hospitalizations for beer potomania who presented to [facility] ED via EMS due to generalized weakness and being unable to care for himself and right lower extremity wound. Patient remained stable in the ED. The ED reports that there were maggots in the patient's right leg wound on arrival, these were cleaned out prior to admission. Labs were significant for sodium of 128 (appears near his baseline), chloride of 95, and Pro-Evens within normal limits. Chest x-ray was read as subsegmental right basilar o pacities may represent atelectasis versus a mild pneumonitis. Prior to admission the patient was given a dose of Zosyn. Patient was sitting in bed in no acute distress at time of exam. States that he started to develop the wound on his right lower extremity "a few weeks ago". Called EMS today as his physical therapist reportedly came to his home and saw the state of health he was in and recommended coming to ED for further evaluation. Patient lives by himself and states that he has a friend who helps to care for him at time, Kitty Swain ([phone]). Denies recent use of cigarettes but does still use chewing tobacco. When asked, states that he drinks approximately 3 to 5 cans of beer a day with his last drink being earlier this morning around 3 AM. Denies a history of going into withdrawal or withdrawal seizures when he does not drink. States he has been taking his home medications as prescribed. We discussed CODE STATUS, wishes to be a full code and for his friend, Kitty Swain, to make medical decisions for him if he cannot make them himself. Please for Dr. Lam's attestation for any changes to treatment plan Discharge Exam Patient has changes of chronic venous stasis to lower extremities multiple areas that are open he was to really leave AMA despite urging for him to stay. Discharge Plan Discharge Items Patient Disposition: Against Medical Advice Reason For Visit: FAILURE TO THRIVE, RIGHT LEG WOUND Activity: Per Instructions section Activity Comment: elevate legs when resting Non-emergency contact: Primary Care Provider Follow-up/Referrals: Devon Silver MD [Primary Care Provider] - 11/01/23 7:00 am (APPT W/ T. SHAPICH PA-C) Addtl Record Changer Provider Instructions: please see your primary care in a week to check on your leg infection and to see if you need a longer course of antibiotics plus to see if you need to restart your lasix ------- Call 911 and go to the Emergency Room if: * You have tightness or pain in your chest that does not go away with rest or Nitroglycerin * You are very short of breath even with rest Call your doctor if any of the following symptoms or problems start or get worse: * Shortness of breath or difficulty breathing * Wake up at night short of breath * Chest pain * Cough * Swelling of your hands, fee, or legs * More fatigued or tired with your normal activity * Palpitations - sudden fast heart beats WEIGHT * Weigh yourself every morning after using the bathroom. * Use the same scale. * Wear the same amount of clothing. * Write your weight down on your chart. * Call your doctor if you gain more than 2-3 pounds in 1-2 days. MEDICATIONS * Use this discharge instruction sheet for instructions. * Take your medications at the time your doctor ordered. * Do not skip a dose of your medicines. * If you miss a dose of medicine, take as soon as possible, but DO NOT DOUBLE A DOSE. * Read your medicine information when you get home. * Know all of the side effects of your medicine. * Call your doctor's office if you have any side effects. * Be sure all of your doctors know what medicine and herbs you take (including cold, flu, and herbal medicine). * Pain Medicine: If you do not get relief from your pain, please call your doctor for help. Take the following with you to your follow-up doctor appointments: * Weight Chart * Medication List * List of questions Do not drink excessive alcohol, beer or wine. Pending Studies at Discharge: No Stand-Alone Forms: My [facility], Smoking Cessation Medications and DC Order Prescriptions: New doxycycline hyclate 100 mg Capsule 100 mg PO BID Qty: 20 0RF Lac-Hydrin Five 5 % Lotion 1 applic EXT DAILY Qty: 226 0RF nystatin [Nystop] 100,000 unit/gram Powder 1 applic EXT TID Qty: 15 0RF amoxicillin-pot clavulanate 875-125 mg tablet 1 tab PO BID Qty: 14 0RF Continued Trelegy Ellipta 100-62.5-25 mcg blister with device 1 inh inhalation DAILY Qty: 60 5RF albuterol sulfate 90 mcg/actuation HFA aerosol inhaler 1 inh inhalation QID PRN (Reason: shortness of breath or wheezing) Qty: 8.5 2RF Xifaxan 550 mg tablet See Rx Instructions .ROUTE .COMPLEX Qty: 60 11RF Dose Instruction: TAKE 1 TABLET BY MOUTH TWICE A DAY Rx Instructions: TAKE 1 TABLET BY MOUTH TWICE A DAY spironolactone 100 mg tablet 100 mg PO QAM Qty: 90 3RF Jardiance 10 mg tablet 10 mg PO DAILY Qty: 30 11RF diltiazem HCl 120 mg capsule,extended release 24hr 120 mg PO DAILY Qty: 90 3RF levothyroxine 137 mcg tablet 137 mcg PO DAILY Qty: 90 3RF pantoprazole 40 mg tablet,delayed release (DR/EC) 40 mg PO QAM Qty: 90 3RF Held clotrimazole-betamethasone 1-0.05 % cream See Rx Instructions topical BID Qty: 45 0RF Hold Instructions: Provider's Order Rx Instructions: Apply to a small amount to rash areas topically twice a day for 7 days; furosemide 40 mg tablet 40 mg PO QAM Qty: 90 3RF Hold Instructions: Provider's Order Discontinued fluconazole 150 mg tablet 150 mg PO Q3D Qty: 2 0RF Rx Instructions: may repeat second dose 72 hrs after first dose if symptoms persist Discharge Orders: Discharge Order (Routine); Ordered 10/23/23 Ordered By: aKrlo Heath Left Against Medical Advice (Routine); Ordered 10/23/23 Ordered By: Karlo Heath Admission Data Admit Date/Time: 10/18/23 15:43 Attending Provider: Karlo Heath Admit Provider: Howard Lam Primary Care Provider: Devon Silver Other Providers: Howard Lam; Araceli Flores; Rhonda Boyer; Ally Ruiz; Gerson Small; Denisse Weathers; Ana Daigle; Ravinder Lua Hospital Stay Data Consultations 10/18/23 15:34 ED Decision to Admit Stat 10/20/23 08:43 Consult Infectious Diseases Routine 10/20/23 11:24 Consult Vascular Surgery Routine Diagnostic Imagining Performed 10/18/23 13:52 US venous doppler LE BI Stat 10/20/23 13:23 US arterial duplex LE BI Routine Pending Results Patient Have Any Pending Studies at Discharge: No Discharge Instructions Given to Patient (Per Discharging Provider) elevated legs when not standing eat a low salt diet to reduce swelling, wash your legs daily with mild soap and water and dry completely keep open areas covered and try to keep draining areas dry Total Time Total Time Spent Total Time Spent (In Minutes): It required greater than 30 minutes to prepare this patient for discharge. Coding Level of Care Code 27644 INP/OBS DISCH >30 MIN Diagnoses Wound of lower extremity S81.809A Atrial fibrillation I48.91 COPD (chronic obstructive pulmonary disease) J44.1 COPD type: COPD with acute exacerbation Alcohol abuse F10.10 Hyponatremia E87.1 Urinary retention R33.9
== END 2023-10-23 16:16 | disposition left against medical advice (07) | DRG 607 ==
LOC: ED 13:20 → SUATTDRO 15:43 → 2N 15:43

== ENCOUNTER 2023-12-22 14:06 | Inpatient (IN) ==
--- NOTE | 2023-12-22 14:43 | Emergency Department Note ---
Impression & Plan Bilateral leg edema, Ambulatory dysfunction ED Provider Note HISTORY OF PRESENT ILLNESS: Patient is a 73-year-old male presenting with bilateral lower extremity swelling and redness. Patient reports that he has had increasing swelling of his bilateral legs for the last week. He states that his right foot has been especially tender and he noticed some redness to the medial portion of the sole of the right foot. He is not diabetic. He reports he was on antibiotics weeks ago but is not been on anything recently. He denies any injury to the foot of the legs. He denies any use of diuretics. He denies any chest pain but states he is always short of breath. Denies any abdominal pain. Denies any nausea or vomiting. Denies any measured fevers. He went to see his primary care provider today who referred him to the emergency department due to concern for "oral antibiotics potentially not working given his history." ROS: as above PHYSICAL EXAM: Constitutional: Patient appears in no acute distress. HENT: Head: Normocephalic and atraumatic. Eyes: EOMI, PERRL Mouth/Throat: Mucous membranes moist. Neck: Trachea midline. Neck supple. Cardiovascular: Irregular rhythm. No murmurs, rubs or gallops. Intact distal pulses. Pulmonary/Chest: No respiratory distress. Breath sounds clear and equal bilaterally. No wheezes or rales. Abdominal: Abdomen soft, no tenderness, rebound or guarding. Musculoskeletal: No tenderness or deformity noted. +2 pitting edema of bilateral lower extremities extending to the knees. Noted to have chronic venous stasis of the bilateral lower extremities. Noted to have flaking skin on both of his feet. He is noted to have some erythema which looks like contact irritation to the right foot's medial base of the great toe. Skin: Warm and dry. No rash, erythema, pallor or cyanosis Psychiatric: Appropriate mood and affect for situation. Neurological: Alert and keenly responsive. CN II-XII grossly intact, moving all extremities equally and fully. MDM: - Vitals signs showed hypertension - History obtained via patient. History as above. - Chronic conditions affecting care: COPD; HTN; Afib; hypothyroidism; CHF; CKD - Differential diagnoses include, but are not limited to: cellulitis; necrotizing fasciitis; diabetic foot ulcer; CHF exacerbation - Order placed for continuous cardiac monitoring. At this time, monitor showed rate of 79 bpm with irregular rhythm, per my interpretation. - External medical records reviewed. Primary care visit note dated today was reviewed. Patient was sent to the ER due to concern about being able to treat his potential cellulitis due to "his history of chronic kidney disease and cirrhosis." - EKG interpreted by myself showed atrial fibrillation. Rate 95 bpm. QT 312. No acute ischemic changes. - Laboratory workup interpreted by myself showed normal WBC; chronic anemia (Hgb 11.3); normal PT/INR; stable electrolytes; CKD (Cr 1.54); hypomagnesemia (Mg 1.6); elevated total bilirubin (1.2); elevated lactate (2.3); normal troponin; normal procalcitonin; normal BNP - CXR negative for pneumonia, per my interpretation - Patient given 1g IV tylenol for pain management. Given 2g IV rocephin for antibiotic coverage. - Patient's legs do not necessarily look overtly infected. However, concern for patient's ability to care for himself at home, as he does appear unkempt. Will admit to hospitalist service for PT/OT assessment and potential placement. - Discussion was had with gearcase assembler about patient's case and need for admission - Hospitalist, Dr. Jaimes, consulted for admission - Patient admitted to [facility] hospitalist service for further evaluation and management. ASSESSMENT AND PLAN: Diagnosis: bilateral lower extremity edema; ambulatory dysfunction Plan: Admit Past Med/Surg History Problem List Peripheral arterial disease Cellulitis of right lower extremity (Acute) Maggot infestation (Acute) Leg swelling (Acute) Failure to thrive in adult Urinary retention Wound of lower extremity Impaired fasting glucose Chronic kidney disease, stage 4 (severe) Aspiration pneumonitis Atrial fibrillation Hypothyroidism Congestive heart failure Leukocytosis Sacral ulcer Tobacco abuse Acute renal failure Acid reflux Hypertension COPD (chronic obstructive pulmonary disease) BMI 31.0-31.9,adult BPH with obstruction/lower urinary tract symptoms Chronic kidney disease, stage 3 Gout, joint Hearing loss Paroxysmal atrial fibrillation Portal hypertension Solitary pulmonary nodule Sleep apnea cpap with oxygen 1L - noncompliant w/ cpap Cirrhosis Depression Esophageal varices Alcohol abuse Bilateral edema of lower extremity (Acute) Venous stasis Medical History Alcohol withdrawal COVID-19 Pelvic fracture Slipped cervical disc Poor historian On home oxygen therapy 1L oxygen Duodenal ulcer Ascites (10/23/10) Surgical History History of abdominal paracentesis History of esophagogastroduodenoscopy (EGD) 08/06/18 [facility] History of appendectomy History of tooth extraction Family History Father Myocardial infarction Unknown Diabetes Coronary heart disease Mother Chronic kidney disease Other No family history of adverse response to anesthesia Denies family history of Ovarian cancer Prostate cancer Crohn's disease Breast cancer Colorectal cancer Ulcerative colitis Social History Smoking Status: Former smoker Tobacco Type: Smokeless Tobacco (Dip or Chew) Age Started Using Tobacco: 14; Age Quit Using Tobacco: 57; Second Hand Exposure: No; Do You Dip or Chew Tobacco: Yes; Hx Alcohol Use: Yes Alcohol type: beer Alcohol Intake Frequency Comment: 3 beers per night. In past heavy use. Hx Substance Use: No Preferred Language: Yakut Communication Ability: Effective Hearing Ability: Hard of Hearing Patient Companion Required: No Beliefs That Will Affect Care: None marital status: Single Current Living Situation: Alone current occupational status: retired and disabled Feels Safe at Home: Yes Childhood Exposure to Second-Hand Smoke: Yes Diet: other Diet Comment: low calorie 2,000 per day Dental Care, Regularly: No Physical Activity Frequency: Does not Exercise Seatbelt Use: always Sunscreen Use: No Assistive Devices: Cane and Walker Allergies Allergies Allergy/AdvReac Type Severity Reaction Status Date / Time No Known Allergies Allergy Verified 12/22/23 12:49 Home Meds Home Medications Medication Instructions Recorded Confirmed empagliflozin 10 mg tablet 10 mg PO UD 12/22/23 12/22/23 (Jardiance) nystatin 100,000 unit/gram topical 1 applic EXT UD 12/22/23 12/22/23 powder (Nystop) rifaximin 550 mg tablet (Xifaxan) 500 mg PO UD 12/22/23 12/22/23 spironolactone 100 mg tablet 100 mg PO UD 12/22/23 12/22/23 Previous Rx's Medication Instructions Recorded fluticasone fur. 100 mcg-umeclid 1 inh inhalation DAILY #60 ea 11/08/21 62.5 mcg-vilant 25 mcg inhalat.powder (Trelegy Ellipta) albuterol sulfate 90 mcg/actuation 1 inh inhalation QID PRN shortness 03/29/22 aerosol inhaler of breath or wheezing #8.5 grams clotrimazole-betamethasone 1 See Rx Instructions topical BID 03/02/23 %-0.05 % topical cream #45 grams diltiazem HCl 120 mg 120 mg PO DAILY #90 caps 09/06/23 capsule,extended release 24 hr furosemide 40 mg tablet 40 mg PO QAM #90 tabs 09/27/23 pantoprazole 40 mg tablet,delayed 40 mg PO QAM #90 tabs 09/27/23 release levothyroxine 137 mcg tablet 137 mcg PO DAILY #90 tabs 09/28/23 ammonium lactate 5 % lotion 1 applic EXT DAILY #226 grams 10/23/23 (Lac-Hydrin Five) Results & Data (ED) Vital Signs Vital Signs - 24 hr 12/22/23 14:09 12/22/23 15:07 12/22/23 15:07 Temperature 36.9 C Temperature Source Temporal Artery Scan Pulse Rate 101 H Pulse Rate [Apical] 86 Respiratory Rate 18 18 Respiratory Effort / Characteristics Non-Labored Spontaneous Non-Labored Spontaneous Respiratory Depth Normal Normal Respiratory Pattern Regular Blood Pressure 138/61 Blood Pressure [Right Arm] 165/87 H Blood Pressure Mean 86 Blood Pressure Mean [Right Arm] 113 Pulse Oximetry 95 93 93 Oxygen Delivery Method Room Air Room Air Room Air Sepsis Recent Fever Within 48 Hours No Sepsis New/Unexplained Change in Mental Status No Sepsis Action Taken by Nursing No Action Required 12/22/23 15:07 12/22/23 15:20 12/22/23 17:00 Temperature Temperature Source Pulse Rate 82 Pulse Rate [Apical] 79 Respiratory Rate 21 Respiratory Effort / Characteristics Respiratory Depth Respiratory Pattern Blood Pressure Blood Pressure [Right Arm] 154/74 H Blood Pressure Mean Blood Pressure Mean [Right Arm] 100 Pulse Oximetry 93 92 Oxygen Delivery Method Room Air Sepsis Recent Fever Within 48 Hours Sepsis New/Unexplained Change in Mental Status Sepsis Action Taken by Nursing Laboratory Data 12/22/23 14:45 12/22/23 15:44 Lab Results 12/22/23 12/22/23 12/22/23 Range/Units 14:45 15:44 16:48 WBC 8.59 (4.8-10.8) K/ul RBC 3.60 L (4.70-6.10) M/uL Hgb 11.3 L (14.0-18.0) g/dl Hct 34.3 L (42.0-52.0) % MCV 95.3 (80.0-100.0) fL MCH 31.4 (25.0-34.0) pg MCHC 32.9 (32.0-36.0) g/dL RDW Std Deviation 49.4 H (36.4-46.3) fL RDW Coeff of Walter 14.1 (11.5-14.5) % Plt Count 275 (130-400) K/uL MPV 9.7 (9.4-12.4) fL Immature Gran % (Auto) 0.2 % Neut % (Auto) 74.4 % Lymph % (Auto) 10.2 % Dewitt % (Auto) 8.0 % Eos % (Auto) 6.2 % Baso % (Auto) 1.0 % Neut # (Auto) 6.38 (1.40-6.50) K/uL Lymph # (Auto) 0.88 L (1.20-3.40) K/uL Dewitt # (Auto) 0.69 H (0.11-0.59) K/uL Eos # (Auto) 0.53 H (0.00-0.50) K/uL Baso # (Auto) 0.09 (0.00-0.20) K/uL Immature Gran # (Auto) 0.02 (0.01-0.20) K/uL PT 11.5 (9.0-12.0) Seconds INR 1.1 (0.9-1.1) APTT 26 (21-31) Seconds PTT Ratio 1.0 Sodium 138 (136-145) mmol/L Potassium TNP 3.7 Chloride 98 (98-107) mmol/L Carbon Dioxide 30 (21-32) mmol/L Anion Gap 10 (3-11) BUN 22 (6-23) mg/dl Creatinine 1.54 H (0.6-1.4) mg/dl Est Cr Clr Drug Dosing Not Reportable eGFR 46.75 BUN/Creatinine Ratio 14.3 (10-20) Glucose 91 (70-99(Fasting)) mg/dl Lactate 2.3 H* 1.3 (0.4-2.0) mmol/L Calcium 9.2 (8.6-10.3) mg/dl Magnesium 1.6 L (1.7-2.4) mg/dl Total Bilirubin 1.2 H (0.2-1.0) mg/dl AST TNP 21 ALT 11 (7-52) U/L Alkaline Phosphatase 107 H (34-104) U/L Troponin I High Sens 9.5 (0-20) pg/ml B-Natriuretic Peptide 294 H (0-100) pg/ml Total Protein 7.3 (6.0-8.3) gm/dl Albumin 3.6 (3.4-5.0) gm/dl Globulin 3.7 (2.5-4.0) gm/dl Albumin/Globulin Ratio 1.0 (0.9-2) Procalcitonin 0.09 (0-0.5) ng/ml Administered Medications Discontinued Medications Acetaminophen (Ofirmev) 1,000 mg in 100 mls @ 400 mls/hr IV NOW STA Stop: 12/22/23 15:36 Last Infusion: 12/22/23 15:59 Dose: Infused Documented By: Admin: 12/22/23 15:44 Dose: 400 mls/hr Documented By: FELISA Ceftriaxone Sodium (Rocephin) 2,000 mg in 50 mls @ 100 mls/hr IV NOW STA Stop: 12/22/23 15:59 Last Infusion: 12/22/23 16:14 Dose: Infused Documented By: Admin: 12/22/23 15:44 Dose: 100 mls/hr Documented By: FELIAS Imaging Data Radiologist's Impression: Chest X-Ray 12/22/23 16:16 EXAM: Radiograph of the Chest 1 View INDICATION: Shortness of breath. TECHNIQUE: Frontal view of the chest. COMPARISON: 10/18/2023 FINDINGS: Lungs and pleural spaces: There is stable mild chronic appearing interstitial scarring. No consolidation or pulmonary edema. No pleural effusion or pneumothorax. Heart: Shape and configuration within normal limits allowing for technique. Mediastinum: Normal contour. Bones/joints: No fracture, erosion or dislocation. Soft tissues: No abnormality noted. No radiopaque foreign body noted. Upper abdomen: No abnormality noted. IMPRESSION: No acute cardiopulmonary disease. ACT 112: Negative or not required by law. Electronically signed by Kaylee Pacheco 12-22-2023 4:56 PM Discharge Plan Visit Data Chief Complaint: Infection Stated Complaint: INFECTION IN BOTH LEGS/FEET, EDEMA/REDNESS/PAINFUL ED Provider: Yulissa Dyer Discharge Problem: Bilateral leg edema, Ambulatory dysfunction Forms Stand Alone Forms: [facility] [employer] Prescriptions Prescriptions: No Action Trelegy Ellipta 100-62.5-25 mcg blister with device 1 inh inhalation DAILY Qty: 60 5RF Rx Instructions: no fill history available albuterol sulfate 90 mcg/actuation HFA aerosol inhaler 1 inh inhalation QID PRN (Reason: shortness of breath or wheezing) Qty: 8.5 2RF Rx Instructions: no fill history available clotrimazole-betamethasone 1-0.05 % cream See Rx Instructions topical BID Qty: 45 0RF Hold Instructions: Provider's Order Rx Instructions: Apply to a small amount to rash areas topically twice a day for 7 days; last filled 03/02 7 day supply diltiazem HCl 120 mg capsule,extended release 24hr 120 mg PO DAILY Qty: 90 3RF levothyroxine 137 mcg tablet 137 mcg PO DAILY Qty: 90 3RF furosemide 40 mg tablet 40 mg PO QAM Qty: 90 3RF Hold Instructions: Provider's Order pantoprazole 40 mg tablet,delayed release (DR/EC) 40 mg PO QAM Qty: 90 3RF Lac-Hydrin Five 5 % Lotion 1 applic EXT DAILY Qty: 226 0RF Xifaxan 550 mg tablet 500 mg PO UD Rx Instructions: TAKE 1 TABLET BY MOUTH TWICE A DAY. Last filled 01/16/23 30 day supply spironolactone 100 mg tablet 100 mg PO UD Rx Instructions: 100 mg po qam. filled 06/17 90 day supply nystatin [Nystop] 100,000 unit/gram powder 1 applic EXT UD Rx Instructions: 1 appl ext tid. filled 10/22 7 day supply Jardiance 10 mg tablet 10 mg PO UD Rx Instructions: 10 mg po daily. filled 04/05 30 day supply Referrals Referrals: Devon Silver MD [Primary Care Provider] -
[2023-12-22 15:11] LABS: Basophils # (auto) 0.09 K/uL (0.00-0.20); Eosinophils # (auto) 0.53 K/uL (0.00-0.50); Eosinophils % (auto) 6.2 %; Hematocrit (blood only) 34.3 % (42.0-52.0); Hemoglobin 11.3 g/dl (14.0-18.0); Immature Granulocytes # (auto) 0.02 K/uL (0.01-0.20); Immature Granulocytes % (auto) 0.2 %; Lymphocytes # (auto) 0.88 K/uL (1.20-3.40); Lymphocytes % (auto) 10.2 %; Mean Corpuscular Hemoglobin 31.4 pg (25.0-34.0); Mean Corpuscular Hgb Conc 32.9 g/dL (32.0-36.0); Mean Corpuscular Volume 95.3 fL (80.0-100.0); Mean Platelet Volume 9.7 fL (9.4-12.4); Monocytes # (auto) 0.69 K/uL (0.11-0.59); Neutrophils # (auto) 6.38 K/uL (1.40-6.50); Neutrophils % (auto) 74.4 %; Platelet Count 275 K/uL (130-400); RDW Coefficient of Variation 14.1 % (11.5-14.5); RDW Standard Deviation 49.4 fL (36.4-46.3); White Blood Count 8.59 K/ul (4.8-10.8)
[2023-12-22 15:27] LABS: Alanine Aminotransferase 11 U/L (7-52); Albumin Level 3.6 gm/dl (3.4-5.0); Alkaline Phosphatase 107 U/L (34-104); Anion Gap 10 (3-11); BUN Creatinine Ratio 14.3 (10-20); Bilirubin,Total 1.2 mg/dl (0.2-1.0); Blood Urea Nitrogen 22 mg/dl (6-23); Calcium 9.2 mg/dl (8.6-10.3); Carbon Dioxide 30 mmol/L (21-32); Chloride 98 mmol/L (98-107); Globulin 3.7 gm/dl (2.5-4.0); Glucose 91 mg/dl (70-99(Fasting)); Magnesium 1.6 mg/dl (1.7-2.4); Sodium 138 mmol/L (136-145); Total Protein 7.3 gm/dl (6.0-8.3)
[2023-12-22 15:34] LABS: INR 1.1 (0.9-1.1); Partial Thromboplastin Time 26 Seconds (21-31); Prothrombin Time 11.5 Seconds (9.0-12.0)
[2023-12-22 15:35] LABS: Troponin I High Sensitivity 9.5 pg/ml (0-20)
[2023-12-22] MEDS: ACETAMINOPHEN 1,000 MG/100 ML VIAL IV STA (15:44)
[2023-12-22] MEDS: cefTRIAXone SODIUM 2,000 MG/50 ML BAG IV STA (15:44)
--- NOTE | 2023-12-22 15:49 | Electrocardiogram Report ---
Test Reason : Blood Pressure : */* mmHG Vent. Rate : 95 BPM Atrial Rate : * BPM P-R Int : * ms QRS Dur : 76 ms QT Int : 312 ms P-R-T Axes : * 61 204 degrees QTcB Int : 392 ms Atrial fibrillation with premature ventricular or aberrantly conducted complexes Septal infarct (cited on or before 15-Jun-2020) Abnormal ECG When compared with ECG of 18-Oct-2023 13:31, T wave inversion now evident in Inferior leads Nonspecific T wave abnormality now evident in Lateral leads Confirmed by Kiran Ramirez ([id number]) on 12/22/2023 3:49:08 PM Referred By: REFERRED SELF Confirmed By: Kiran Ramirez
[2023-12-22 16:14] LABS: Potassium 3.7 mmol/L (3.5-5.1)
--- NOTE | 2023-12-22 16:57 | XRay Report ---
EXAM: Radiograph of the Chest 1 View INDICATION: Shortness of breath. TECHNIQUE: Frontal view of the chest. COMPARISON: 10/18/2023 FINDINGS: Lungs and pleural spaces: There is stable mild chronic appearing interstitial scarring. No consolidation or pulmonary edema. No pleural effusion or pneumothorax. Heart: Shape and configuration within normal limits allowing for technique. Mediastinum: Normal contour. Bones/joints: No fracture, erosion or dislocation. Soft tissues: No abnormality noted. No radiopaque foreign body noted. Upper abdomen: No abnormality noted. IMPRESSION: No acute cardiopulmonary disease. ACT 112: Negative or not required by law. Electronically signed by Kaylee Pacheco 12-22-2023 4:56 PM
--- NOTE | 2023-12-22 17:35 | History & Physical Report ---
Date of Service December 22, 2023 History of Present Illness Primary Care Provider: Devon Silver MD Martin is a 73-year-old male with history of peripheral arterial disease, CKD4, Allergies Allergy/AdvReac Type Severity Reaction Status Date / Time No Known Allergies Allergy Verified 12/22/23 12:49 Home Medications Medication Instructions Recorded Confirmed Type fluticasone fur. 100 mcg-umeclid 1 inh inhalation DAILY #60 ea 11/08/21 12/22/23 Rx 62.5 mcg-vilant 25 mcg inhalat.powder (Trelegy Ellipta) albuterol sulfate 90 mcg/actuation 1 inh inhalation QID PRN shortness 03/29/22 12/22/23 Rx aerosol inhaler of breath or wheezing #8.5 grams clotrimazole-betamethasone 1 See Rx Instructions topical BID 03/02/23 12/22/23 Rx %-0.05 % topical cream #45 grams diltiazem HCl 120 mg 120 mg PO DAILY #90 caps 09/06/23 12/22/23 Rx capsule,extended release 24 hr furosemide 40 mg tablet 40 mg PO QAM #90 tabs 09/27/23 12/22/23 Rx pantoprazole 40 mg tablet,delayed 40 mg PO QAM #90 tabs 09/27/23 12/22/23 Rx release levothyroxine 137 mcg tablet 137 mcg PO DAILY #90 tabs 09/28/23 12/22/23 Rx ammonium lactate 5 % lotion 1 applic EXT DAILY #226 grams 10/23/23 12/22/23 Rx (Lac-Hydrin Five) empagliflozin 10 mg tablet 10 mg PO UD 12/22/23 12/22/23 History (Jardiance) nystatin 100,000 unit/gram topical 1 applic EXT UD 12/22/23 12/22/23 History powder (Nystop) rifaximin 550 mg tablet (Xifaxan) 500 mg PO UD 12/22/23 12/22/23 History spironolactone 100 mg tablet 100 mg PO UD 12/22/23 12/22/23 History Past Med/Surg History Problem List (Updated 10/28/23 @ 00:10 by Background Daemon) Peripheral arterial disease Cellulitis of right lower extremity (Acute) Maggot infestation (Acute) Leg swelling (Acute) Failure to thrive in adult Urinary retention Wound of lower extremity Impaired fasting glucose Chronic kidney disease, stage 4 (severe) Aspiration pneumonitis Atrial fibrillation Hypothyroidism Congestive heart failure Leukocytosis Sacral ulcer Tobacco abuse Acute renal failure Acid reflux Hypertension COPD (chronic obstructive pulmonary disease) BMI 31.0-31.9,adult BPH with obstruction/lower urinary tract symptoms Chronic kidney disease, stage 3 Gout, joint Hearing loss Paroxysmal atrial fibrillation Portal hypertension Solitary pulmonary nodule Sleep apnea cpap with oxygen 1L - noncompliant w/ cpap Cirrhosis Depression Esophageal varices Alcohol abuse Bilateral edema of lower extremity (Acute) Venous stasis Medical History Alcohol withdrawal COVID-19 Pelvic fracture Slipped cervical disc Poor historian On home oxygen therapy 1L oxygen Duodenal ulcer Ascites (10/23/10) Surgical History History of abdominal paracentesis History of esophagogastroduodenoscopy (EGD) 08/06/18 [facility] History of appendectomy History of tooth extraction Family History Father Myocardial infarction Unknown Diabetes Coronary heart disease Mother Chronic kidney disease Other No family history of adverse response to anesthesia Denies family history of Ovarian cancer Prostate cancer Crohn's disease Breast cancer Colorectal cancer Ulcerative colitis Social History (Updated 12/22/23 @ 12:58 by STARLA Hope) Smoking Status: Former smoker Tobacco Type: Smokeless Tobacco (Dip or Chew) Age Started Using Tobacco: 14; Age Quit Using Tobacco: 57; Second Hand Exposure: No; Do You Dip or Chew Tobacco: Yes; Hx Alcohol Use: Yes Alcohol type: beer Alcohol Intake Frequency Comment: 3 beers per night. In past heavy use. 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 Beliefs That Will Affect Care: None marital status: Single Current Living Situation: Alone current occupational status: retired and disabled Feels Safe at Home: Yes Childhood Exposure to Second-Hand Smoke: Yes Diet: other Diet Comment: low calorie 2,000 per day Dental Care, Regularly: No Physical Activity Frequency: Does not Exercise Seatbelt Use: always Sunscreen Use: No Assistive Devices: Cane and Walker Results & Data Results & Data Vital Signs (Past 12 Hours) Vital Signs Temp Pulse Pulse Resp BP BP Pulse Ox 12/22/23 17:00 79 21 154/74 H 92 12/22/23 15:20 82 12/22/23 15:07 93 12/22/23 15:07 93 12/22/23 15:07 86 18 165/87 H 93 12/22/23 14:09 36.9 C 101 H 18 138/61 95 O2 Del Method 12/22/23 17:00 12/22/23 15:20 12/22/23 15:07 Room Air 12/22/23 15:07 Room Air 12/22/23 15:07 Room Air 12/22/23 14:09 Room Air PG Care Time/CCT Total # of Minutes Spent Total Time Spent with Patient: Total time spent is greater than 50% in coordination of care (as documented) at patient's floor/unit and/or counseling patient: Coding
--- NOTE | 2023-12-22 17:47 | History & Physical Report ---
Date of Service December 22, 2023 Assessment & Plan (1) Bilateral edema of lower extremity: Plan: Likely secondary to chronic venous stasis, evidence of stasis dermatitis - history of bilateral LE cellulitis discharged 10/23/23, completed course of Augmentin and doxycycline - Was given Rocephin in ER, blood cultures sent -> bilateral redness and edema began at the same time, nontender, will defer antibiotics at this time given not likely cellulitis - Continue home Lasix - TEDs, elevate legs, and promote frequent movements (2) Atrial fibrillation: Plan: previous history of a fib with RVR not anticoagulated due to esophageal varices - EKG on admission showed a fib, rate 95 - rate controlled with diltiazem (3) Chronic kidney disease, stage 4 (severe): Plan: history of stage IV CKD, baseline creatinine 1.7 - Cr 1.54 on admission - daily BMP - avoid nephrotoxic agents Hypokalemia: 3.7 on admission -> 40 meq PO ordered Hypomagnesia: 1.6 on admission -> 400 mg PO ordered (4) Congestive heart failure: Plan: History of diastolic heart failure (HFpEF), not in acute exacerbation at this time likely contributing to bilateral edema - Last echocardiogram 07/2020 showed Normal systolic function, EF 55 to 60%, biatrial dilation, moderate mitral regurg - BNP 294 on admission - CXR did not show signs of acute congestive failure - Heart healthy, low-sodium diet - Strict I&O monitoring - Daily weights - continue home Lasix and Jardiance (5) COPD (chronic obstructive pulmonary disease): Plan: - continue home inhalers - Patient stated he is not on oxygen at baseline (6) Cirrhosis: Plan: Secondary to alcohol abuse; patient reports that he drinks about 4 cans of beer every night stated he quit drinking a few days ago - No current signs of withdrawal - LFTs stable - continue home rifaximin and spironolactone (7) Tobacco abuse: Plan: - nicotine patch ordered Plan Chronic stable diagnoses: hypothyroidism continue home levothyroxine VTE ppx: heparin and teds Diet: heart healthy, low NA diet Code status: full Dispo: med surg; PT/OT to evaluate patient as may need placement Admission and Anticipated Discharge Date Admission Date: 12/22/23 History of Present Illness Chief Complaint: infection Primary Care Provider: Devon Silver MD Patient is a 73-year-old male with past medical history of A-fib with RVR not anticoagulated due to esophageal varices, CKD, cirrhosis due to alcohol abuse, tobacco abuse, COPD, diastolic CHF. He presents today from his PCP due to worsening leg infection. Patient left AMA from hospital when he had bilateral cellulitis. He stated he took his full course of antibiotics which consisted of Augmentin and doxycycline. He stated the redness got better since then, although over the past week has come back. He denies pain. He stated that they are just red and swollen. Both started at the exact same time, 1 is not worse than the other. He stated that he has been compliant on his home medications including Lasix. Patient endorses dyspnea on exertion and orthopnea however chronic for the past few years. No acute changes. Patient denies fever, chills, headache, dizziness, lightheadedness, vision changes, rhinorrhea, sore throat, cough, sputum production, chest pain, abdominal pain, nausea, vomiting, diarrhea, constipation, dysuria, hematuria, numbness, tingling. Patient chews at home, would like nicotine patch. He stated he drinks 4 cans of beer every night although has not drink any alcohol in the past few days. He denies any withdrawal symptoms. He lives at home by himself and uses a walker at baseline. He has a friend that checks in on him frequently. He wishes to be full code at this time. He does not use oxygen at baseline. He took all of his home medications this morning. The patient was discussed with Dr. Jaimes at the time of the admission/consult. Allergies Allergy/AdvReac Type Severity Reaction Status Date / Time No Known Allergies Allergy Verified 12/22/23 12:49 Home Medications Medication Instructions Recorded Confirmed Type fluticasone fur. 100 mcg-umeclid 1 inh inhalation DAILY #60 ea 11/08/21 12/22/23 Rx 62.5 mcg-vilant 25 mcg inhalat.powder (Trelegy Ellipta) albuterol sulfate 90 mcg/actuation 1 inh inhalation QID PRN shortness 03/29/22 12/22/23 Rx aerosol inhaler of breath or wheezing #8.5 grams clotrimazole-betamethasone 1 See Rx Instructions topical BID 03/02/23 12/22/23 Rx %-0.05 % topical cream #45 grams diltiazem HCl 120 mg 120 mg PO DAILY #90 caps 09/06/23 12/22/23 Rx capsule,extended release 24 hr furosemide 40 mg tablet 40 mg PO QAM #90 tabs 09/27/23 12/22/23 Rx pantoprazole 40 mg tablet,delayed 40 mg PO QAM #90 tabs 09/27/23 12/22/23 Rx release levothyroxine 137 mcg tablet 137 mcg PO DAILY #90 tabs 09/28/23 12/22/23 Rx ammonium lactate 5 % lotion 1 applic EXT DAILY #226 grams 10/23/23 12/22/23 Rx (Lac-Hydrin Five) empagliflozin 10 mg tablet 10 mg PO UD 12/22/23 12/22/23 History (Jardiance) nystatin 100,000 unit/gram topical 1 applic EXT UD 12/22/23 12/22/23 History powder (Nystop) rifaximin 550 mg tablet (Xifaxan) 500 mg PO UD 12/22/23 12/22/23 History spironolactone 100 mg tablet 100 mg PO UD 12/22/23 12/22/23 History Past Med/Surg History Problem List Peripheral arterial disease Cellulitis of right lower extremity (Acute) Maggot infestation (Acute) Leg swelling (Acute) Failure to thrive in adult Urinary retention Wound of lower extremity Impaired fasting glucose Chronic kidney disease, stage 4 (severe) Aspiration pneumonitis Atrial fibrillation Hypothyroidism Congestive heart failure Leukocytosis Sacral ulcer Tobacco abuse Acute renal failure Acid reflux Hypertension COPD (chronic obstructive pulmonary disease) BMI 31.0-31.9,adult BPH with obstruction/lower urinary tract symptoms Chronic kidney disease, stage 3 Gout, joint Hearing loss Paroxysmal atrial fibrillation Portal hypertension Solitary pulmonary nodule Sleep apnea cpap with oxygen 1L - noncompliant w/ cpap Cirrhosis Depression Esophageal varices Alcohol abuse Bilateral edema of lower extremity (Acute) Venous stasis Medical History Alcohol withdrawal COVID-19 Pelvic fracture Slipped cervical disc Poor historian On home oxygen therapy 1L oxygen Duodenal ulcer Ascites (10/23/10) Surgical History History of abdominal paracentesis History of esophagogastroduodenoscopy (EGD) 08/06/18 [facility] History of appendectomy History of tooth extraction Family History Father Myocardial infarction Unknown Diabetes Coronary heart disease Mother Chronic kidney disease Other No family history of adverse response to anesthesia Denies family history of Ovarian cancer Prostate cancer Crohn's disease Breast cancer Colorectal cancer Ulcerative colitis Social History Smoking Status: Former smoker Tobacco Type: Smokeless Tobacco (Dip or Chew) Age Started Using Tobacco: 14; Age Quit Using Tobacco: 57; Second Hand Exposure: No; Do You Dip or Chew Tobacco: Yes; Hx Alcohol Use: Yes Alcohol type: beer Alcohol Intake Frequency Comment: 3 beers per night. In past heavy use. 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 [employer] Ceo Required: No Beliefs That Will Affect Care: None marital status: Single Current Living Situation: Alone current occupational status: retired and disabled Feels Safe at Home: Yes Childhood Exposure to Second-Hand Smoke: Yes Diet: other Diet Comment: low calorie 2,000 per day Dental Care, Regularly: No Physical Activity Frequency: Does not Exercise Seatbelt Use: always Sunscreen Use: No Assistive Devices: Cane and Walker Review of Systems 2 Review of Systems: see HPI Physical Exam 2 Physical Exam: The patient is awake, alert and oriented 3, well developed and well nourished, normocephalic and atraumatic, in no acute distress. Non-toxic appearing. HEENT- EOMI, mucous membranes moist. Hearing grossly intact. Heart- Irregularly irregular rhythm. normal S1 and S2. No murmurs, rubs or gallops. Lungs-clear bilaterally, no respiratory distress, no accessory muscle use. Abdomen-normal bowel sounds and soft. No ascites noted. Non-tender. Extremities- no clubbing. See image below. Nonpitting edema, evidence of chronic venous stasis, no open wounds. Nontender to touch. Rheumatologic-normal range of motion. Psychiatric-normal affect. Results & Data Results & Data Vital Signs (Past 12 Hours) Vital Signs Temp Pulse Pulse Resp BP BP Pulse Ox 12/22/23 17:00 79 21 154/74 H 92 12/22/23 15:20 82 12/22/23 15:07 93 12/22/23 15:07 93 12/22/23 15:07 86 18 165/87 H 93 12/22/23 14:09 36.9 C 101 H 18 138/61 95 O2 Del Method 12/22/23 17:00 12/22/23 15:20 12/22/23 15:07 Room Air 12/22/23 15:07 Room Air 12/22/23 15:07 Room Air 12/22/23 14:09 Room Air Code Status & VTE Plan Code Status full code VTE Prophylaxis Plan VTE Prophylaxis will be ordered: Yes Supervising Physician Co-Signing Physician Notes Patient seen and examined, chart reviewed, case discussed with Shilpa Gary PA-C and I agree with the assessment and plan as above except as otherwise noted Labs and images reviewed 73-year-old male presents with concern for lower extremity swelling? Asymmetric erythema suspicious for infection. Patient was recently treated in October with Augmentin/Doxy for bilateral cellulitis. On exam he has slight increased pigmentation of the right leg compared to the left although overall is symmetrical and appears more consistent with chronic venous stasis dermatitis with ichthyosis. Marked with surgical marker. Does show evidence of volume overload with pitting lower extremity edema and elevated BNP. Agree with deferring antibiotics, diuresis, mobilization of lower extremity with stasis precautions and wrapping legs as tolerated. Agree with above. PG Care Time/CCT Total # of Minutes Spent Total Time Spent with Patient: Total time spent is greater than 50% in coordination of care (as documented) at patient's floor/unit and/or counseling patient: Coding Level of Care Code 46983 INT INP/OBS CARE 75MIN Diagnoses Bilateral edema of lower extremity R60.0 Atrial fibrillation I48.91 Chronic kidney disease, stage 4 (severe) N18.4 Congestive heart failure I50.9 COPD (chronic obstructive pulmonary disease) J44.1 COPD type: COPD with acute exacerbation Alcoholic cirrhosis of liver without ascites K70.30 Ascites presence: without ascites Hepatic cirrhosis type: alcoholic cirrhosis Tobacco abuse Z72.0 (5) COPD (chronic obstructive pulmonary disease) COPD type: COPD with acute exacerbation Qualified Code(s): J44.1 - Chronic obstructive pulmonary disease with (acute) exacerbation (6) Cirrhosis Ascites presence: without ascites Hepatic cirrhosis type: alcoholic cirrhosis Qualified Code(s): K70.30 - Alcoholic cirrhosis of liver without ascites
[2023-12-22] MEDS: POTASSIUM CHLORIDE CRTAB 20 MEQ TABCR PO STA (19:07)
[2023-12-22] MEDS: MAGNESIUM OXIDE 400 MG TAB PO ONE (19:07)
[2023-12-22] MEDS ORDERED: DOCUSATE SODIUM 100 MG CAP PO PRN (22:33)
[2023-12-22] MEDS ORDERED: ALBUTEROL HFA 8 GM INHALER INH PRN (22:33)
[2023-12-22] MEDS: HEPARIN SOD 5,000 UNIT/0.5 ML VIAL SQ SCH (23:38)
[2023-12-22] MEDS: rifAXIMin 550 MG TABLET PO SCH (23:39)
[2023-12-23 00:56] LABS: Appearance Urine Clear (Clear); Bilirubin Urine Negative (Negative); Blood Urine Negative (Negative); Color Urine Yellow; Glucose Urine UA Negative (Negative); Ketones Urine Negative (Negative); Leukocyte Esterase Urine Negative (Negative); Nitrite Urine Negative (Negative); Protein Urine Negative (Negative); Specific Gravity Urine 1.011 (1.000-1.030); Urobilinogen Urine Negative (Negative); pH Urine 6.5 (4.5-7.5)
[2023-12-23] MEDS: LEVOTHYROXINE SODIUM 137 MCG TABLET PO SCH (05:31)
[2023-12-23 06:49] LABS: Hematocrit (blood only) 32.5 % (42.0-52.0); Hemoglobin 10.3 g/dl (14.0-18.0); Mean Corpuscular Hemoglobin 31.4 pg (25.0-34.0); Mean Corpuscular Hgb Conc 31.7 g/dL (32.0-36.0); Mean Corpuscular Volume 99.1 fL (80.0-100.0); Mean Platelet Volume 9.3 fL (9.4-12.4); Platelet Count 222 K/uL (130-400); RDW Coefficient of Variation 14.3 % (11.5-14.5); RDW Standard Deviation 51.8 fL (36.4-46.3); Red Blood Count 3.28 M/uL (4.70-6.10); White Blood Count 6.86 K/ul (4.8-10.8)
[2023-12-23 07:11] LABS: BUN Creatinine Ratio 13.8 (10-20); Calcium 8.9 mg/dl (8.6-10.3); Creatinine Clr Calc Pharmacy 38.8 ml/min; Magnesium 1.6 mg/dl (1.7-2.4); Potassium 4.3 mmol/L (3.5-5.1)
[2023-12-23] MEDS: dilTIAZem HCL 120 MG CAPCR PO SCH (08:12)
[2023-12-23] MEDS: FUROSEMIDE 40 MG TAB PO SCH (08:13)
[2023-12-23] MEDS: SPIRONOLACTONE 100 MG TAB PO SCH (08:13)
[2023-12-23] MEDS: PANTOprazole 40 MG TAB PO SCH (08:14)
[2023-12-23] MEDS: FLUTICASONE FUROATE 100MCG 14 PUFFS/INHALER INH SCH (08:15)
[2023-12-23] MEDS: UMECLIDINIUM/VILANTEROL 62.5/25MCG 7 PUFFS/INHALER INH SCH (08:15)
[2023-12-23] MEDS: NICOTINE 7 MG/24 HR TDSY TD SCH (08:16)
[2023-12-23] MEDS: EMPAGLIFLOZIN 10 MG TAB PO SCH (08:20)
--- NOTE | 2023-12-23 14:56 | Hospitalist Progress Note ---
Date of Service December 23, 2023 Assessment & Plan (1) Bilateral edema of lower extremity: Plan: Likely secondary to chronic venous stasis, evidence of stasis dermatitis - history of bilateral LE cellulitis discharged 10/23/23, completed course of Augmentin and doxycycline - Was given Rocephin in ER, blood cultures sent -> bilateral redness and edema began at the same time, nontender, will defer antibiotics at this time given not likely cellulitis - Continue home Lasix - TEDs, elevate legs, and promote frequent movements (2) Atrial fibrillation: Plan: previous history of a fib with RVR not anticoagulated due to esophageal varices - EKG on admission showed a fib, rate 95 - rate controlled with diltiazem (3) Chronic kidney disease, stage 4 (severe): Plan: history of stage IV CKD, baseline creatinine 1.7 - Cr 1.54 on admission. 1.5 today. - daily BMP - avoid nephrotoxic agents Hypokalemia: Repleted Hypomagnesia: Repleted (4) Congestive heart failure: Plan: History of diastolic heart failure (HFpEF), not in acute exacerbation at this time likely contributing to bilateral edema - Last echocardiogram 07/2020 showed Normal systolic function, EF 55 to 60%, biatrial dilation, moderate mitral regurg - BNP 294 on admission - CXR did not show signs of acute congestive failure - Heart healthy, low-sodium diet - Strict I&O monitoring - Daily weights - continue home Lasix and Jardiance (5) COPD (chronic obstructive pulmonary disease): Plan: - continue home inhalers - Patient stated he is not on oxygen at baseline (6) Cirrhosis: Plan: Secondary to alcohol abuse; patient reports that he drinks about 4 cans of beer every night stated he quit drinking a few days ago - No current signs of withdrawal - LFTs stable - continue home rifaximin and spironolactone (7) Tobacco abuse: Plan: - nicotine patch ordered Plan Chronic stable diagnoses: hypothyroidism continue home levothyroxine VTE ppx: heparin and teds Diet: heart healthy, low NA diet Code status: full Dispo: med surg; PT/OT to evaluate patient as may need placement Admission and Anticipated Discharge Date Admission Date: December 22, 2023 Subjective Patient was seen at 9:30 AM. He denies any chest pain or shortness of breath. He was noted to be sleeping on the recliner with his legs hanging down. I offered him at chair to keep his legs elevated. Review of Systems Review of Systems: All systems reviewed & are unremarkable except as noted in Subjective Physical Exam Physical Exam: General: Awake, conversant. Unkempt and chronically ill appearing Heart: S1, S2/regular rate and rhythm, no murmur rubs or gallops Lungs: Clear to auscultation bilaterally. Normal effort Abdomen: Soft/nontender/nondistended. No hepatosplenomegaly Extremities: No clubbing/cyanosis. Bilateral lower extremity edema with venous stasis changes Behavior: Appropriate, cooperative Results & Data Results & Data Vital Signs (Past 12 Hours) Vital Signs Temp Pulse Resp BP Pulse Ox O2 Del Method O2 Flow Rate 12/23/23 07:57 36.7 C 96 H 20 140/70 98 Nasal Cannula 2 12/23/23 07:48 Nasal Cannula 2 Laboratory Results Abnormal lab results 12/22/23 12/23/23 Range/Units 14:45 06:25 RBC 3.60 L 3.28 L (4.70-6.10) M/uL Hgb 11.3 L 10.3 L (14.0-18.0) g/dl Hct 34.3 L 32.5 L (42.0-52.0) % MCHC 31.7 L (32.0-36.0) g/dL RDW Std Deviation 49.4 H 51.8 H (36.4-46.3) fL MPV 9.3 L (9.4-12.4) fL Lymph # (Auto) 0.88 L (1.20-3.40) K/uL Leake # (Auto) 0.69 H (0.11-0.59) K/uL Eos # (Auto) 0.53 H (0.00-0.50) K/uL Creatinine 1.54 H 1.52 H (0.6-1.4) mg/dl Lactate 2.3 H* (0.4-2.0) mmol/L Magnesium 1.6 L 1.6 L (1.7-2.4) mg/dl Total Bilirubin 1.2 H (0.2-1.0) mg/dl Alkaline Phosphatase 107 H (34-104) U/L B-Natriuretic Peptide 294 H (0-100) pg/ml PG Care Time/CCT Total # of Minutes Spent Total Time Spent with Patient: Total time spent is greater than 50% in coordination of care (as documented) at patient's floor/unit and/or counseling patient: Coding Level of Care Code 59813 SUB INP/OBS CARE 2/35MIN Diagnoses Bilateral edema of lower extremity R60.0 Atrial fibrillation I48.91 Chronic kidney disease, stage 4 (severe) N18.4 Congestive heart failure I50.9 COPD (chronic obstructive pulmonary disease) J44.1 COPD type: COPD with acute exacerbation Alcoholic cirrhosis of liver without ascites K70.30 Hepatic cirrhosis type: alcoholic cirrhosis Ascites presence: without ascites Tobacco abuse Z72.0 (5) COPD (chronic obstructive pulmonary disease) COPD type: COPD with acute exacerbation Qualified Code(s): J44.1 - Chronic obstructive pulmonary disease with (acute) exacerbation (6) Cirrhosis Hepatic cirrhosis type: alcoholic cirrhosis Ascites presence: without ascites Qualified Code(s): K70.30 - Alcoholic cirrhosis of liver without ascites
[2023-12-23] MEDS: ACETAMINOPHEN 325 MG TAB PO PRN (15:45)
[2023-12-23 16:08] LABS: A calco-baum cmplx NotReported Not Detected (NotDetected); Bact fragilis Not Reported Not Detected (NotDetected); Blood Culture Id Panel PCR Panel Negative (NotDetected); C auris Not Reported Not Detected (NotDetected); Calbicans Not Reported Not Detected (NotDetected); Candida glabrata Not Reported Not Detected (NotDetected); Candida krusei Not Reported Not Detected (NotDetected); Cneoformans/gatti Not Reported Not Detected (NotDetected); Cparapsilosis Not Reported Not Detected (NotDetected); E cloacae compx Not Reported Not Detected (NotDetected); Efaecalis Not Reported Not Detected (NotDetected); Efaecium Not Reported Not Detected (NotDetected); Enterobacterales Not Reported Not Detected (NotDetected); Escherichia coli Not Reported Not Detected (NotDetected); H influenzae Not Reported Not Detected (NotDetected); K aerogenes Not Reported Not Detected (NotDetected); Koxytoca Not Reported Not Detected (NotDetected); Kpneumoniae grp Not Reported Not Detected (NotDetected); Lmonocyt Not Reported Not Detected (NotDetected); N meningitidis Not Reported Not Detected (NotDetected); P aeruginosa Not Reported Not Detected (NotDetected); Proteus spp Not Reported Not Detected (NotDetected); Salmonella spp Not Reported Not Detected (NotDetected); Staph lugdunensis Not Reported Not Detected (NotDetected); Staph spp. Not Reported Not Detected (NotDetected); Staphaureus Not Reported Not Detected (NotDetected); Staphepi Not Reported Not Detected (NotDetected); Stenmaltophilia Not Reported Not Detected (NotDetected); Strep agal(GrpB) Not Reported Not Detected (NotDetected); Strep pneum Not Reported Not Detected (NotDetected); Strep pyog (GrpA) Not Reported Not Detected (NotDetected); Strep spp Not Reported Not Detected (NotDetected)
[2023-12-24 06:30] LABS: Hematocrit (blood only) 32.3 % (42.0-52.0); Hemoglobin 10.4 g/dl (14.0-18.0); Mean Corpuscular Hemoglobin 31.4 pg (25.0-34.0); Mean Corpuscular Hgb Conc 32.2 g/dL (32.0-36.0); Mean Corpuscular Volume 97.6 fL (80.0-100.0); Mean Platelet Volume 9.7 fL (9.4-12.4); Platelet Count 235 K/uL (130-400); RDW Coefficient of Variation 14.1 % (11.5-14.5); RDW Standard Deviation 50.8 fL (36.4-46.3); Red Blood Count 3.31 M/uL (4.70-6.10); White Blood Count 5.66 K/ul (4.8-10.8)
[2023-12-24 07:04] LABS: BUN Creatinine Ratio 14.8 (10-20); Creatinine Clr Calc Pharmacy 31.2 ml/min
--- NOTE | 2023-12-24 15:04 | Hospitalist Progress Note ---
Date of Service December 24, 2023 Assessment & Plan (1) Bilateral edema of lower extremity: Plan: Likely secondary to chronic venous stasis, evidence of stasis dermatitis - history of bilateral LE cellulitis discharged 10/23/23, completed course of Augmentin and doxycycline - Was given Rocephin in ER, blood cultures sent -> bilateral redness and edema began at the same time, nontender, will defer antibiotics at this time given not likely cellulitis - Continue home Lasix - TEDs, elevate legs, and promote frequent movements Blood cultures grew 1 out of 4 bottles of gram-positive antonina. Most likely contaminant. Will monitor for another day (2) Atrial fibrillation: Plan: previous history of a fib with RVR not anticoagulated due to esophageal varices - EKG on admission showed a fib, rate 95 - rate controlled with diltiazem (3) Chronic kidney disease, stage 4 (severe): Plan: history of stage IV CKD, baseline creatinine 1.7 - Cr 1.54 on admission. 1.5 today. - daily BMP - avoid nephrotoxic agents Hypokalemia: Repleted Hypomagnesia: Repleted (4) Congestive heart failure: Plan: History of diastolic heart failure (HFpEF), not in acute exacerbation at this time likely contributing to bilateral edema - Last echocardiogram 07/2020 showed Normal systolic function, EF 55 to 60%, biatrial dilation, moderate mitral regurg - BNP 294 on admission - CXR did not show signs of acute congestive failure - Heart healthy, low-sodium diet - Strict I&O monitoring - Daily weights - continue home Lasix and Jardiance (5) COPD (chronic obstructive pulmonary disease): Plan: - continue home inhalers - Patient stated he is not on oxygen at baseline (6) Cirrhosis: Plan: Secondary to alcohol abuse; patient reports that he drinks about 4 cans of beer every night stated he quit drinking a few days ago - No current signs of withdrawal - LFTs stable - continue home rifaximin and spironolactone (7) Tobacco abuse: Plan: - nicotine patch ordered Plan Chronic stable diagnoses: hypothyroidism continue home levothyroxine VTE ppx: heparin and teds Diet: heart healthy, low NA diet Code status: full Dispo: Likely discharge to home tomorrow 12/24. PT cleared for discharge to home Admission and Anticipated Discharge Date Admission Date: December 22, 2023 Subjective Patient was seen and examined at 9:10 AM. He denies any chest pain or shortness of breath. He says that his legs do not seem to bother him anymore. Review of Systems Review of Systems: All systems reviewed & are unremarkable except as noted in Subjective Physical Exam Physical Exam: General: Awake, conversant. Unkempt and chronically ill appearing Heart: S1, S2/regular rate and rhythm, no murmur rubs or gallops Lungs: Clear to auscultation bilaterally. Normal effort Abdomen: Soft/nontender/nondistended. No hepatosplenomegaly Extremities: No clubbing/cyanosis. Bilateral lower extremity edema with venous stasis changes Behavior: Appropriate, cooperative Results & Data Results & Data Vital Signs (Past 12 Hours) Vital Signs Temp Pulse Resp BP Pulse Ox O2 Del Method O2 Flow Rate 12/24/23 07:45 36.9 C 96 H 19 120/61 92 Nasal Cannula 2 12/24/23 07:20 Nasal Cannula 2 Laboratory Results Abnormal lab results 12/24/23 Range/Units 06:02 RBC 3.31 L (4.70-6.10) M/uL Hgb 10.4 L (14.0-18.0) g/dl Hct 32.3 L (42.0-52.0) % RDW Std Deviation 50.8 H (36.4-46.3) fL BUN 28 H (6-23) mg/dl Creatinine 1.89 H D (0.6-1.4) mg/dl PG Care Time/CCT Total # of Minutes Spent Total Time Spent with Patient: Total time spent is greater than 50% in coordination of care (as documented) at patient's floor/unit and/or counseling patient: Coding Level of Care Code 27928 SUB INP/OBS CARE 2/35MIN Diagnoses Bilateral edema of lower extremity R60.0 Atrial fibrillation I48.91 Chronic kidney disease, stage 4 (severe) N18.4 Congestive heart failure I50.9 COPD (chronic obstructive pulmonary disease) J44.1 COPD type: COPD with acute exacerbation Alcoholic cirrhosis of liver without ascites K70.30 Hepatic cirrhosis type: alcoholic cirrhosis Ascites presence: without ascites Tobacco abuse Z72.0 (5) COPD (chronic obstructive pulmonary disease) COPD type: COPD with acute exacerbation Qualified Code(s): J44.1 - Chronic obstructive pulmonary disease with (acute) exacerbation (6) Cirrhosis Hepatic cirrhosis type: alcoholic cirrhosis Ascites presence: without ascites Qualified Code(s): K70.30 - Alcoholic cirrhosis of liver without ascites
[2023-12-24] MEDS ORDERED: MELATONIN 3 MG TAB PO PRN (20:06)
--- NOTE | 2023-12-25 12:33 | Discharge Summary ---
Discharge Summary Date of Service December 25, 2023 Principal Dx & Hospital Course #1 = Principal Diagnosis (1) Bilateral edema of lower extremity: Likely secondary to chronic venous stasis, evidence of stasis dermatitis - history of bilateral LE cellulitis discharged 10/23/23, completed course of Augmentin and doxycycline - Was given Rocephin in ER, blood cultures sent -> bilateral redness and edema began at the same time, nontender, will defer antibiotics at this time given not likely cellulitis - Continue home Lasix - TEDs, elevate legs, and promote frequent movements Blood cultures grew 1 out of 4 bottles of gram-positive antonina. Appears to be a contaminant. (2) Atrial fibrillation: previous history of a fib with RVR not anticoagulated due to esophageal varices - EKG on admission showed a fib, rate 95 - rate controlled with diltiazem (3) Chronic kidney disease, stage 4 (severe): history of stage IV CKD, baseline creatinine 1.7. Stable. Monitor intake and output. Serial labs Hypokalemia: Repleted Hypomagnesia: Repleted (4) Congestive heart failure: History of diastolic heart failure (HFpEF), not in acute exacerbation at this time. Monitor intake and output. Last echocardiogram 07/2020 showed Normal systolic function, EF 55 to 60%, biatrial dilation, moderate mitral regurg (5) COPD (chronic obstructive pulmonary disease): Stable. Continue home inhalers (6) Cirrhosis: Secondary to alcohol abuse; patient reports that he drinks about 4 cans of beer every night stated he quit drinking a few days ago. No current signs of alcohol withdrawal. LFTs stable. Continue home rifaximin and spironolactone (7) Tobacco abuse: Smoking cessation highly recommended. Nicotine patch ordered while hospitalized Plan Home today, December 24. All medications remain the same. He was cautioned to avoid excessive liquid intake and excessive salt intake. Discharge Plan Discharge Items Patient Disposition: Home - Self-Care Reason For Visit: LEG EDEMA, PLACEMENT Discharge Diagnosis: Exacerbation of chronic bilateral leg edema Activity: Resume your previous activity Non-emergency contact: Primary Care Provider Call non-emergency contact if: your symptoms worsen Follow-up/Referrals: Devon Silver MD [Primary Care Provider] - Diet: Carb Consistent or DM2 and Heart Healthy Addtl Attending Provider Instructions: All medications remain the same. Avoid excessive liquid intake and excessive salt intake Pending Studies at Discharge: No Stand-Alone Forms: My [facility], Smoking Cessation Medications and DC Order Prescriptions: Continued Trelegy Ellipta 100-62.5-25 mcg blister with device 1 inh inhalation DAILY Qty: 60 5RF Rx Instructions: no fill history available albuterol sulfate 90 mcg/actuation HFA aerosol inhaler 1 inh inhalation QID PRN (Reason: shortness of breath or wheezing) Qty: 8.5 2RF Rx Instructions: no fill history available clotrimazole-betamethasone 1-0.05 % cream See Rx Instructions topical BID Qty: 45 0RF Hold Instructions: Provider's Order Rx Instructions: Apply to a small amount to rash areas topically twice a day for 7 days; last filled 03/02 7 day supply diltiazem HCl 120 mg capsule,extended release 24hr 120 mg PO DAILY Qty: 90 3RF levothyroxine 137 mcg tablet 137 mcg PO DAILY Qty: 90 3RF furosemide 40 mg tablet 40 mg PO QAM Qty: 90 3RF Hold Instructions: Provider's Order pantoprazole 40 mg tablet,delayed release (DR/EC) 40 mg PO QAM Qty: 90 3RF Lac-Hydrin Five 5 % Lotion 1 applic EXT DAILY Qty: 226 0RF Xifaxan 550 mg tablet 500 mg PO UD Rx Instructions: TAKE 1 TABLET BY MOUTH TWICE A DAY. Last filled 01/16/23 30 day supply spironolactone 100 mg tablet 100 mg PO UD Rx Instructions: 100 mg po qam. filled 06/17 90 day supply nystatin [Nystop] 100,000 unit/gram powder 1 applic EXT UD Rx Instructions: 1 appl ext tid. filled 10/22 7 day supply Jardiance 10 mg tablet 10 mg PO UD Rx Instructions: 10 mg po daily. filled 04/05 30 day supply Discharge Orders: Discharge Order (Routine); Ordered 12/25/23 Ordered By: Ben Whyte Admission Data Admit Date/Time: 12/22/23 18:27 Attending Provider: Ben Whyte Admit Provider: Lopez Jaimes Primary Care Provider: Devon Silver Other Providers: Lopez Jaimes Hospital Stay Data Consultations 12/22/23 17:26 ED Decision to Admit Stat Pending Results Patient Have Any Pending Studies at Discharge: No Discharge Instructions Given to Patient (Per Discharging Provider) All medications remain the same. Avoid excessive liquid intake and excessive salt intake Total Time Total Time Spent Total Time Spent (In Minutes): 45 minutes Coding Level of Care Code 62196 INP/OBS DISCH >30 MIN Diagnoses Bilateral edema of lower extremity R60.0 Atrial fibrillation I48.91 Chronic kidney disease, stage 4 (severe) N18.4 Congestive heart failure I50.9 COPD (chronic obstructive pulmonary disease) J44.1 COPD type: COPD with acute exacerbation Alcoholic cirrhosis of liver without ascites K70.30 Hepatic cirrhosis type: alcoholic cirrhosis Ascites presence: without ascites Tobacco abuse Z72.0
[2023-12-25] MEDS: traMADol HCL 50 MG TABLET PO STA (13:22)
[2023-12-25 14:07] VITALS: O2SAT 98
[2023-12-25 15:29] VITALS: BP 116/56; PULSE 88; RESP 16; TEMP 97.5
== END 2023-12-25 17:06 | disposition home or self-care (01) | DRG 300 ==
LOC: ED 14:06 → SUATTDRO 18:27 → EDINP 18:27 → 3W 21:45